=== PATIENT | female | born 1950 | race Caucasian/White ===

== ENCOUNTER → 2019-09-01 15:53 | Outpatient (BNVA) | payer MEDICARE, OTHER, SELFPAY | PROVIDERS: Family Provider Internal Medicine; Visit Provider Obstetrics & Gynecology | DX: R32 Unspecified urinary incontinence (principal) | CPT/HCPCS: 80053; 87077; 87086; 87186 ==

== ENCOUNTER 2020-08-09 01:31 | Inpatient (IN) | payer MEDICARE, OTHER, SELFPAY ==
[2020-08-09] VITALS (9 sets, daily range): BP systolic 98–119; BP diastolic 57–64; PULSE 68–95; RESP 16–24; TEMP 36.3–37.1; O2SAT 93–97; BMI 17.8
--- NOTE | 2020-08-09 01:42 | XRR_ITS ---
PROCEDURE INFORMATION: Exam: XR Chest Exam date and time: 08/09/2020 1:44 AM Age: 70 years old Clinical indication: Patient HX: General weakness TECHNIQUE: Imaging protocol: XR of the chest. Views: 1 view. COMPARISON: No relevant prior studies available. FINDINGS: Lungs: The lungs are somewhat hyperinflated with increased interstitial markings, likely representing COPD. No evidence of focal consolidation to suggest pneumonia. Pleural spaces: Unremarkable. No pleural effusion. No pneumothorax. Heart/Mediastinum: Unremarkable. No cardiomegaly. Bones/joints: Unremarkable. XR/XR chest 1V portable [id number] IMPRESSION: No evidence of focal consolidation. COPD changes.
--- NOTE | 2020-08-09 01:43 | ECG_ITS ---
[facility] Test Date: 2020-08-09 Pat Name: Nereyda Caceres Department: Room: Gender: Female Reel Winder: : 1950 Requested By: Neftali Kate Order Number: [id number] John MD: Herman Sprague M.D. Measurements Intervals [place] Rate: 76 P: 72 IN: 158 QRS: 23 QRSD: 106 T: 22 QT: 396 QTc: 446 Interpretive Statements SINUS RHYTHM No previous ECG available for comparison Electronically Signed On 08-09-2020 21:54:53 CDT by Herman Sprague M.D. [id number]
--- NOTE | 2020-08-09 01:44 | ED_ITS ---
HPI - Nausea/Vomiting/Diarrhea General: Chief complaint: Nausea/Vomiting/Diarrhea Stated complaint: difficulty walking, dry heaving, chills Time Seen by Provider: 08/09/20 01:37 Source: patient Mode of arrival: ambulatory Limitations: no limitations History of Present Illness: HPI Narrative: 70-year-old female states that over the last day she has just been feeling weak and dehydrated. She states that she has not had much oral intake and felt extremely weak tonight. States she is having difficulty getting out of a chair or walking. She was able to walk in here. She has had nausea with dry heaves. She denies any fevers. Denies any chest pain. She has had some sweats. Associated nausea: Yes Associated symtoms: Reports nausea; Denies chest pain, dysuria or headache(s) Review of Systems Const: Reports: chills; Denies: fever(s), body aches or change in appetite Eyes: Denies: blurry vision or eye discomfort ENMT: Denies: throat pain or dental pain Card: Denies: chest pain Resp: Denies: dyspnea GI: Reports: nausea; Denies: abdominal pain, vomiting or diarrhea : Denies: dysuria Musc: Denies: neck pain or back pain Skin/Breast: Denies: rash Neuro: Reports: weakness in extremities; Denies: headache(s) Psych: Denies: depression Davian/Lymph: Denies: easy bruising All/Imm: Denies: urticaria PFSH ED PFSH: Medical History CREST syndrome Diabetes mellitus Squamous cell carcinoma of skin of chest Surgical History History of hand surgery (~2012) Ruptured tendons of right hand History of hysteroscopy (10/18/12) With D&C. Negative evaluation. Dx: Postmenopausal bleeding. Performed by Dr. Daugherty at [facility]. History of tubal ligation (~1975) Family History Grandmother Diabetes Paternal CAD (coronary artery disease) Maternal Grandfather Diabetes Maternal CAD (coronary artery disease) Maternal Family/Other Stroke Maternal aunt Brother Hyperlipidemia Mother CAD (coronary artery disease) Social History Smoking and tobacco status: never smoked Alcohol intake: current Alcohol intake frequency: holidays/special occasions only Physical Exam Const: COMMON NORMALS: no acute distress, patient oriented x3 and healthy appearing HENMT: COMMON NORMALS: normocephalic and atraumatic HEAD & SCALP: normocephalic and atraumatic Eye: COMMON NORMALS: Equal, round and reactive pupils present and EOMs intact bilaterally PUPIL: Yes Equal, round and reactive pupils present Neck/C-Spine: COMMON NORMALS: full ROM and supple Chest: COMMONS NORMALS: normal inspection of the chest and normal palpation of entire chest wall Resp: COMMON NORMALS: normal respiratory effort, No retractions, No use of accessory muscles and clear to auscultation bilaterally AUSCULTATION: clear to auscultation bilaterally Cardio: COMMON NORMALS: regular rate, regular rhythm and No murmurs present (Cardio) RATE: regular rate RHYTHM: regular rhythm GI: COMMON NORMALS: Normal to inspection, nondistended, normoactive bowel sounds present, Soft to palpation, non-tender and no masses PALPATION: Yes Soft to palpation Extremity: COMMON NORMALS: normal to inspection and full ROM Neuro: COMMON NORMALS: patient oriented x3, moves all extremities and no focal motor deficits Psych: COMMON NORMALS: mental status grossly normal, Normal thought process present and cooperative THOUGHT PROCESS: Normal thought process present Skin: COMMON NORMALS: no rashes or lesions noted and no wounds GENERAL SKIN EXAM: no rashes or lesions noted Course Vital Signs: Vital signs: Vital Signs Pulse Rate 83 08/09/20 01:32 Respiratory Rate 16 08/09/20 01:32 Blood Pressure 114/60 08/09/20 01:32 Pulse Oximetry 93 08/09/20 01:32 MDM - Nausea/Vomiting/Diarrhea MDM Narrative: Medical decision making narrative: Patient presents here with feeling generally unwell with elevated white count was found to have pyelonephritis. Patient's lactate here is normal and blood pressures been normal as well. Spoke to hospitalist will start on IV antibiotics. She had no more vomiting here. Lab Data: Labs: Lab Results 08/09/20 08/09/20 08/09/20 Range/Units 02:06 02:06 02:06 WBC 19.5 H (4.0-10.0) 10^3/ uL RBC 4.09 L (4.1-5.3) 10^6/u L Hgb 12.2 (11.5-15.3) g/dL Hct 36.4 L (37.0-47.0) % MCV 89.0 (81-99) fL MCH 29.8 (28.0-34.0) pg MCHC 33.5 (30.0-36.0) g/dL RDW 14.6 (12.1-15.1) % Plt Count 222 (130-400) 10^3/c mm MPV 9.8 (7.4-10.4) fL Neut % (Auto) 87.7 % Lymph % (Auto) 1.2 % [place] % (Auto) 9.7 % Eos % (Auto) 0.1 % Baso % (Auto) 0.4 % Neut # (Auto) 17.13 H (1.8-7.7) 10^3/u L Lymph # (Auto) 0.2 L (0.8-4.8) 10^3/u L [place] # (Auto) 1.9 H (0.2-0.9) 10^3/u L Eos # (Auto) 0.0 (0.0-0.8) 10^3/u L Baso # (Auto) 0.1 (0.0-0.1) 10^3/u L Nucleated RBC % (a uto) 0 % Nucleated RBCs # 0.0 /100WBC Sodium 137 (136-145) mmol/L Potassium 3.6 (3.5-5.1) mmol/L Chloride 102 (98-107) mmol/L Carbon Dioxide 23 (22-29) mmol/L Anion Gap 15.6 (5-19) BUN 23 (8-23) mg/dL Creatinine 0.7 (0.5-0.9) mg/dL GFR Calculation Not Reportable Glucose 122 H (65-115) mg/dL Calculated Osmolal ity 289 (285-295) mOsm/k g Lactate (0.5-2.2) mmol/L Calcium 9.0 (8.5-10.5) mg/dL Magnesium 1.9 (1.7-2.3) mg/dL Total Bilirubin 0.6 (0.15-1.2) mg/dL AST 30 (0-32) U/L ALT 22 (0-33) U/L Alkaline Phosphata se 99 (35-105) IU/L Troponin T Baselin e 15 H (0-10) ng/L Total Protein 7.0 (6.6-8.7) g/dL Albumin 4.1 (3.5-5.2) g/dL Globulin 2.9 (1.3-4.6) g/dL TSH 1.95 (0.27-4.20) uIU/ mL Urine Color (Yellow) Urine Appearance (CLEAR) Urine pH (5-7) Ur Specific Gravit y (1.005-1.030) Urine Protein (Negative) Urine Glucose (UA) (Normal) Urine Ketones (Negative) Urine Blood (Negative) Urine Nitrate (Negative) Urine Bilirubin (Negative) Urine Urobilinogen (Negative) mg/dL Ur Leukocyte Cris ase (Negative) Urine RBC (0-2) /hpf Urine WBC (0-5) /hpf Ur Squamous Epith Cells (0-5) /hpf Amorphous Sediment Urine Bacteria (NONE) /hpf 08/09/20 08/09/20 Range/Units 02:28 03:40 WBC (4.0-10.0) 10^3/ uL RBC (4.1-5.3) 10^6/u L Hgb (11.5-15.3) g/dL Hct (37.0-47.0) % MCV (81-99) fL MCH (28.0-34.0) pg MCHC (30.0-36.0) g/dL RDW (12.1-15.1) % Plt Count (130-400) 10^3/c mm MPV (7.4-10.4) fL Neut % (Auto) % Lymph % (Auto) % [place] % (Auto) % Eos % (Auto) % Baso % (Auto) % Neut # (Auto) (1.8-7.7) 10^3/u L Lymph # (Auto) (0.8-4.8) 10^3/u L [place] # (Auto) (0.2-0.9) 10^3/u L Eos # (Auto) (0.0-0.8) 10^3/u L Baso # (Auto) (0.0-0.1) 10^3/u L Nucleated RBC % (a uto) % Nucleated RBCs # /100WBC Sodium (136-145) mmol/L Potassium (3.5-5.1) mmol/L Chloride (98-107) mmol/L Carbon Dioxide (22-29) mmol/L Anion Gap (5-19) BUN (8-23) mg/dL Creatinine (0.5-0.9) mg/dL GFR Calculation Glucose (65-115) mg/dL Calculated Osmolal ity (285-295) mOsm/k g Lactate 1.5 (0.5-2.2) mmol/L Calcium (8.5-10.5) mg/dL Magnesium (1.7-2.3) mg/dL Total Bilirubin (0.15-1.2) mg/dL AST (0-32) U/L ALT (0-33) U/L Alkaline Phosphata se (35-105) IU/L Troponin T Baselin e (0-10) ng/L Total Protein (6.6-8.7) g/dL Albumin (3.5-5.2) g/dL Globulin (1.3-4.6) g/dL TSH (0.27-4.20) uIU/ mL Urine Color Yellow (Yellow) Urine Appearance Clear (CLEAR) Urine pH 5 (5-7) Ur Specific Gravit y 1.005 (1.005-1.030) Urine Protein 1+ H (Negative) Urine Glucose (UA) 2+ (Normal) Urine Ketones 1+ H (Negative) Urine Blood 3+ H (Negative) Urine Nitrate Positive H (Negative) Urine Bilirubin Neg (Negative) Urine Urobilinogen Norm (Negative) mg/dL Ur Leukocyte Cris ase 2+ H (Negative) Urine RBC 15-25 H (0-2) /hpf Urine WBC 40-55 H (0-5) /hpf Ur Squamous Epith Cells 5-10 H (0-5) /hpf Amorphous Sediment Not Reportable Urine Bacteria 3+ H (NONE) /hpf Imaging Data^: CT Abd/Pel: Radiologist's impression: [address] [place] [address] CT Scan Report Signed Patient: Nereyda Caceres Unit #: [id number] : 1950 Age/Sex: 70 / F ADM Date: 08/09/20 Loc: ER Room/Bed: Attending Dr: Ordering Provider/Ordering MD: Neftali Kate MD Date of Service: 08/09/20 Procedure(s): CT abdomen pelvis w con* [id number] Accession Number(s): [id number] Report Number: [id number] PROCEDURE INFORMATION: Exam: CT Abdomen And Pelvis With Contrast Exam date and time: 08/09/2020 2:15 AM Age: 70 years old Clinical indication: Abnormal findings; Abnormal lab test; Nausea and vomiting; Prior surgery; Surgery type: Tubal ligation; Patient HX: N/v/d. Elevated wbc. ; Additional info: Abd pain TECHNIQUE: Imaging protocol: Computed tomography of the abdomen and pelvis with contrast. Radiation optimization: All CT scans at this facility use at least one of these dose optimization techniques: automated exposure control; mA and/or kV adjustment per patient size (includes targeted exams where dose is matched to clinical indication); or iterative reconstruction. Contrast material: OMNI 300; Contrast volume: 75 ml; Contrast route: INTRAVENOUS (IV); COMPARISON: No relevant prior studies available. RADIATION DOSE METRICS: Total DLP (mGy-cm): 706.97 FINDINGS: Liver: Normal. No mass. Gallbladder and bile ducts: Normal. No calcified stones. No ductal dilation. Pancreas: Normal. No ductal dilation. Spleen: Normal. No splenomegaly. Adrenal glands: Normal. No mass. Kidneys and ureters: There is patchy heterogeneous attenuation of the kidneys, in association with mild wall enhancement of the collecting system bilaterally, consistent with pyelonephritis. No hydronephrosis or nephrolithiasis. Stomach and bowel: Unremarkable. No obstruction. No mucosal thickening. Appendix: No evidence of appendicitis. Intraperitoneal space: Unremarkable. No free air. No significant fluid collection. Vasculature: Mild diffuse atherosclerotic disease is present. There is a 1.1 cm round calcification at the splenic hilum, which may represent a calcified lymph node or calcified splenic artery aneurysm. Lymph nodes: Unremarkable. No enlarged lymph nodes. Urinary bladder: Unremarkable as visualized. Reproductive: Calcified uterine fibroid noted. Bones/joints: Trace levocurvature of the lumbar spine is present. Soft tissues: Unremarkable. CT/CT abdomen pelvis w con* [id number] IMPRESSION: Imaging findings of bilateral pyelonephritis. Clinical correlation is recommended. EKG Data^: EKG 1: Attestation: I personally reviewed and interpreted this EKG as follows: EKG interpretation date: 08/09/20 EKG interpretation time: 02:14 Interpretation: nsr hr [address] or t wave abnormalities qrs 106 qtc 426 Discharge Plan Discharge Patient Disposition: Admitted As Inpatient Clinical Impression: Acute pyelonephritis Condition: Stable Coding Level of Care Code ED Accounts Payable Assistant for Chg Fwd Exam Comprehensive
[2020-08-09] MEDS: sodium chloride 0.9% 1,000 ML 999 ML IV ×2 (02:05→03:15)
[2020-08-09 02:12] LABS: Basophils # 0.1 10^3/uL (0.0-0.1); Basophils % 0.4 %; Eosinophils % 0.1 %; Hematocrit 36.4 % (37.0-47.0); Hemoglobin 12.2 g/dL (11.5-15.3); Lymphocytes # 0.2 10^3/uL (0.8-4.8); Lymphocytes % 1.2 %; Mean Corpuscular HGB Conc 33.5 g/dL (30.0-36.0); Mean Corpuscular Hemoglobin 29.8 pg (28.0-34.0); Mean Platelet Volume 9.8 fL (7.4-10.4); Monocytes # 1.9 10^3/uL (0.2-0.9); Monocytes % 9.7 %; Neutrophils # 17.13 10^3/uL (1.8-7.7); Neutrophils % 87.7 %; Nucleated Red Blood Cells % 0 %; Platelet Count 222 10^3/cmm (130-400); Red Blood Count 4.09 10^6/uL (4.1-5.3); Red Cell Distribution Width 14.6 % (12.1-15.1); White Blood Count 19.5 10^3/uL (4.0-10.0)
--- NOTE | 2020-08-09 02:14 | CTR_ITS ---
PROCEDURE INFORMATION: Exam: CT Abdomen And Pelvis With Contrast Exam date and time: 08/09/2020 2:15 AM Age: 70 years old Clinical indication: Abnormal findings; Abnormal lab test; Nausea and vomiting; Prior surgery; Surgery type: Tubal ligation; Patient HX: N/v/d. Elevated wbc. ; Additional info: Abd pain TECHNIQUE: Imaging protocol: Computed tomography of the abdomen and pelvis with contrast. Radiation optimization: All CT scans at this facility use at least one of these dose optimization techniques: automated exposure control; mA and/or kV adjustment per patient size (includes targeted exams where dose is matched to clinical indication); or iterative reconstruction. Contrast material: OMNI 300; Contrast volume: 75 ml; Contrast route: INTRAVENOUS (IV); COMPARISON: No relevant prior studies available. RADIATION DOSE METRICS: Total DLP (mGy-cm): 706.97 FINDINGS: Liver: Normal. No mass. Gallbladder and bile ducts: Normal. No calcified stones. No ductal dilation. Pancreas: Normal. No ductal dilation. Spleen: Normal. No splenomegaly. Adrenal glands: Normal. No mass. Kidneys and ureters: There is patchy heterogeneous attenuation of the kidneys, in association with mild wall enhancement of the collecting system bilaterally, consistent with pyelonephritis. No hydronephrosis or nephrolithiasis. Stomach and bowel: Unremarkable. No obstruction. No mucosal thickening. Appendix: No evidence of appendicitis. Intraperitoneal space: Unremarkable. No free air. No significant fluid collection. Vasculature: Mild diffuse atherosclerotic disease is present. There is a 1.1 cm round calcification at the splenic hilum, which may represent a calcified lymph node or calcified splenic artery aneurysm. Lymph nodes: Unremarkable. No enlarged lymph nodes. Urinary bladder: Unremarkable as visualized. Reproductive: Calcified uterine fibroid noted. Bones/joints: Trace levocurvature of the lumbar spine is present. Soft tissues: Unremarkable. CT/CT abdomen pelvis w con* [id number] IMPRESSION: Imaging findings of bilateral pyelonephritis. Clinical correlation is recommended. Radiation Dose CTDIVOL = (mGy): DLP = 706.97 (mGy-cm)
--- NOTE | 2020-08-09 02:18 | PC.NURSE ---
EKG taken and given to Dr. Kate
[2020-08-09 02:34] LABS: Troponin(5th) Baseline 15 ng/L (0-10)
[2020-08-09 02:41] LABS: Alanine Aminotransferase 22 U/L (0-33); Albumin Level 4.1 g/dL (3.5-5.2); Alkaline Phosphatase 99 IU/L (35-105); Anion Gap 15.6 (5-19); Aspartate Amino Transferase 30 U/L (0-32); Blood Urea Nitrogen 23 mg/dL (8-23); Carbon Dioxide 23 mmol/L (22-29); Chloride 102 mmol/L (98-107); Globulin 2.9 g/dL (1.3-4.6); Glucose 122 mg/dL (65-115); Magnesium 1.9 mg/dL (1.7-2.3); Osmolality Calculated 289 mOsm/kg (285-295); Potassium 3.6 mmol/L (3.5-5.1); Sodium 137 mmol/L (136-145); Thyroid Stimulating Hormone 1.95 uIU/mL (0.27-4.20); Total Bilirubin 0.6 mg/dL (0.15-1.2)
[2020-08-09 02:54] LABS: Lactate (Lactic Acid level) 1.5 mmol/L (0.5-2.2)
[2020-08-09] MEDS: iohexol 300 mg/mL 100 mL Btl IV (03:11)
[2020-08-09] MEDS: ondansetron 2 mg/ML SDV 2 mL 4 MG IVP (03:16)
[2020-08-09 03:50] LABS: Glucose Urine UA 2+ (Normal); Ketones Urine 1+ (Negative); Protein Urine 1+ (Negative); Specific Gravity, Urine 1.005 (1.005-1.030); Urine Appearance Clear (CLEAR); Urine Color Yellow (Yellow); pH Urine 5 (5-7)
[2020-08-09 03:51] LABS: Add Urine Microscopic? YES; Bilirubin Urine Neg (Negative); Blood Urine 3+ (Negative); Leukocyte Esterase Urine 2+ (Negative); Nitrate Urine Positive (Negative); RBC Urine 15-25 /hpf (0-2); Urobilinogen Urine Norm (Negative)
[2020-08-09 03:52] LABS: Add Urine Culture? Yes; Bacteria Urine 3+ /hpf; WBC Urine 40-55 /hpf (0-5)
[2020-08-09 06:24] LABS: Troponin 5 2HR 11.27 ng/L (0-10)
[2020-08-09 06:28] LABS: Troponin 5 2HR Delta -3.73 ABS# (0-10)
--- NOTE | 2020-08-09 06:29 | PM.HP ---
Providers/Chief Complaint Admitting Physician: China Jaquez MD Primary Care Provider: Warner Harper DO Chief Complaint: difficulty walking, dry heaving, chills History of Present Illness Nereyda Caceres is a 70 year old female with PMH scleroderma currently on HCQS and MTX, urinary incontinence, presnted to the ER today wih c/o chills, sweating, nausea, dry heaves and abdominal pain over the last 3 days to the point of being unable to get out of her chair. Long standing urinary incontinence+. No h/o recurrent UTI, last episode in 08/2019. Diagnostics in the ER showed + UA, leukocytosis, CT abdomen with B/L pyelonephritis, no obstructive process identified. ROS negative for chest pain, dyspnea, cough, diarrhea, dysuria, URI symptoms, rashes. Review of Systems General: Reports: 10 or more systems reviewed and unremarkable except in HPI and below Const: Denies: fever(s), chills or body aches Eyes: Denies: change in vision, blurry vision or photophobia ENMT: Reports: hoarseness; Denies: throat pain, enlarged tonsils, odynophagia or nasal congestion Card: Denies: chest pain, palpitations, irregular heart rhythm, edema, swelling of feet/ankles, lightheadedness, pre-syncope, dyspnea on exertion or orthopnea Resp: Denies: dyspnea, productive cough, non-productive cough, wheezing, stridor, pain on inspiration, change in phlegm color, hemoptysis or chest congestion GI: Denies: abdominal pain, nausea, vomiting, hematemesis, coffee ground emesis, dysphagia, heartburn, diarrhea, constipation, GI cramping, change in stool character, hematochezia or melena : Denies: flank pain, difficulty voiding, dysuria, urinary frequency, urinary urgency, urinary hesitancy or hematuria Musc: Denies: neck pain, back pain, extremity pain, joint swelling, joint warmth or deformity Neuro: Denies: headache(s), numbness in extremities, weakness in extremities, sensory changes, difficulty walking, frequent falls, dizziness, vertigo, behavioral changes, Slurred speech present or seizure-like activity Psych: Denies: anxiety, depression, suicidal ideation or homicidal ideation Endo: Denies: polyuria, polydipsia, tired all the time, cold intolerance or hot flashes Davian/Lymph: Denies: easy bruising or easy bleeding Medications/Allergies Home Medications Medication Instructions Recorded Confirmed Last Taken Type celecoxib 200 mg capsule 200 mg PO BID 09/01/19 08/09/20 08/08/20 23:00 History cevimeline 30 mg capsule 1 cap PO TID 09/01/19 08/09/20 08/08/20 23:00 History citalopram 20 mg tablet 20 mg PO DAILY 09/01/19 08/09/20 08/08/20 11:00 History donepezil 10 mg tablet 10 mg PO BEDTIME 09/01/19 08/09/20 08/08/20 23:00 History hydroxychloroquine 200 mg tablet 200 mg PO BID 09/01/19 08/09/20 08/08/20 23:00 History methotrexate (PF) 7.5 mg/0.15 mL See Rx Instructions SUBCUT .COMPLEX 09/01/19 08/09/20 08/02/20 11:00 History subcutaneous auto-injector pantoprazole 40 mg tablet,delayed 40 mg PO DAILY 09/01/19 08/09/20 Unknown History release Diabetic shoe with 3 pairs of #1 ea 06/25/20 06/25/20 Unknown Rx insterts folic acid 3 mg PO DAILY 08/09/20 08/09/20 08/08/20 16:00 History memantine 10 mg PO BID 08/09/20 08/09/20 08/08/20 23:00 History montelukast 10 mg PO DAILY PRN 08/09/20 08/09/20 08/08/20 11:00 History Allergies Allergy/AdvReac Type Severity Reaction Status Date / Time cefditoren [From Spectracef] Allergy Rash Verified 06/25/20 10:34 ceftriaxone [From Rocephin] Allergy Unknown Verified 06/25/20 10:34 cephalexin Allergy Rash Verified 06/25/20 10:34 clindamycin Allergy Unknown Verified 06/25/20 10:34 levofloxacin Allergy Unknown Verified 06/25/20 10:34 PFSH Acute PFSH: Medical History CREST syndrome Diabetes mellitus Squamous cell carcinoma of skin of chest Surgical History History of hand surgery (~2012) Ruptured tendons of right hand History of hysteroscopy (10/18/12) With D&C. Negative evaluation. Dx: Postmenopausal bleeding. Performed by Dr. Daugherty at [facility] [place]. History of tubal ligation (~1975) Family History Grandmother Diabetes Paternal CAD (coronary artery disease) Maternal Grandfather Diabetes Maternal CAD (coronary artery disease) Maternal Family/Other Stroke Maternal aunt Brother Hyperlipidemia Mother CAD (coronary artery disease) Social History Smoking and tobacco status: never smoked Alcohol intake: current Alcohol intake frequency: holidays/special occasions only Vitals/I&O/Wt Last Vital Signs Temp 97.3 F L 08/09/20 05:04 Pulse 84 08/09/20 05:04 Resp 17 08/09/20 05:04 BP 119/63 08/09/20 05:04 Pulse Ox 97 08/09/20 05:04 08/08/20 08/08/20 08/09/20 14:59 22:59 06:59 Intake Total 2099 / 2099 Balance 2099 / 2099 Weight last 48 hrs Weight 51.71 kg Physical Exam Narrative: EXAM NARRATIVE: General: No acute distress, frail lady lying in bed HEENT: PERRLA, pupils bilaterally equal and reactive, pallors not present Chest: Normal vesicular breath sounds, no added sounds, equal good air entry bilaterally CVS: S1-S2 regular, no murmurs, no tachycardia, no gallops, no rubs Abdomen: Soft, nontender, no organomegaly, bowel sounds present, tender to palpation in left costophrenic angle Neuro: No focal deficits, no facial deformity, AO x3, power 5/5 in all limbs Extremities: scattered maculopapular rash over B/L cheeks, not new accorfing to patient Data : 08/09/20 02:06 08/09/20 02:06 Micro: Microbiology 08/09/20 02:42 Blood Culture - Preliminary Blood SPECIMEN COLLECTED 08/09/20 02:28 Blood Culture - Preliminary Blood SPECIMEN COLLECTED A&P Assessment and plan (1) Acute pyelonephritis: + UA, + costophrenic angle tenderness, leukocytosis, constitutional symptoms and CT point towards pyelonephritis. Awaiting urine cx Empiric imipenem in the interim given listed allergies to cephalosporins Previous urine cx with Klebsiella pneumoniae from 2019 Status: Acute (2) Diabetes mellitus with diabetic polyneuropathy: Insulin sliding scale for now Status: Acute Qualifiers: Diabetes mellitus type: type 2 Diabetes mellitus custodial insulin use: with equipment operator intermodal yard use Qualified Code(s): E11.42 - Type 2 diabetes mellitus with diabetic polyneuropathy; Z79.4 - jail (current) use of insulin (3) Urinary incontinence: Status: Acute Qualifiers: Urinary Incontinence type: unspecified incontinence Qualified Code(s): R32 - Unspecified urinary incontinence (4) CREST syndrome: Hold methotrexate, continue HCQS continue cevimeline Status: Acute Additional A&P Information DVT ppx: lovenox Full code Attestations Medical Necessity Statement*: >2 midnight anticipaited for need for iv antibiotics, in hydration, poor po intake in the setting of pyelonephritis Coding Level of Care Code Acute Multiple Drum Sander for [facility] Diagnoses Acute pyelonephritis N10 Diabetes mellitus with diabetic polyneuropathy E11.42; Z79.4 Diabetes mellitus type: type 2 Diabetes mellitus custodial insulin use: with equipment operator intermodal yard use Urinary incontinence R32 Urinary Incontinence type: unspecified incontinence CREST syndrome M34.1
--- NOTE | 2020-08-09 07:43 | ECG_ITS ---
[facility] ED Test Date: 2020-08-09 Pat Name: Nereyda Caceres Department: Room: 264 Gender: Female Director Integrated: : 1950 Requested By: Neftali Kate Order Number: [id number] John MD: Josy Daniel M.D. Measurements Intervals [place] Rate: 82 P: 73 CA: 157 QRS: 42 QRSD: 100 T: 42 QT: 369 QTc: 433 Interpretive Statements SINUS RHYTHM LOW QRS VOLTAGE IN EXTREMITY LEADS [QRS DEFLECTION < 0.5 mV IN LIMB LEADS] Compared to ECG 08/09/2020 02:14:48 Low QRS voltage now present Electronically Signed On 08-14-2020 7:11:12 CDT by Josy Daniel M.D. [id number]
[2020-08-09] MEDS: citalopram 20 mg Tablet PO (08:16)
[2020-08-09] MEDS: pantoprazole DR 40 mg Tablet PO (08:16)
[2020-08-09] MEDS: memantine 5 mg tablet 10 MG PO ×2 (08:16→17:04)
[2020-08-09] MEDS: enoxaparin 40 mg/0.4 mL Syringe SUBCUT (08:17)
[2020-08-09] MEDS: folic acid 1 mg Tablet 3 MG PO (08:19)
[2020-08-09] MEDS: dextrose 5%-sod chloride 0.9% 1,000 ML 75 ML IV ×2 (08:20→23:13)
[2020-08-09] MEDS: hydroxychloroquine 200 mg Tablet PO ×2 (08:27→17:04)
[2020-08-09 08:52] LABS: Troponin 5 6HR 20.49 ng/L (0-10); Troponin 5 6HR Delta 5.49 ng/L (0-12)
--- NOTE | 2020-08-09 12:31 | PC.CHAP ---
Pastoral Care Encounter/Spiritual Assessment Type of Contact [] Declined ceramic products sales engineer visit [] Patient/Family/Request visit [] Outpatient visit [] Follow-up visit [] Physician referral [] Code/Alert [xx] Routine visit [] Staff referral [] Actively dying [] Patient sleeping [] Family support [] [] Out of room [] Palliative care [] [] Receiving care in room [] Pre-surgical visit [] Trauma [] Long length of stay [] ICU visit [] Other: Relational/Emotional Strength [xx] Patient feels connected with others/family/visitors/staff [] Distress [] Loneliness/isolation [] Abandonment Spirituality of Patient [xx] Person of Gretel [] Attends Catholic of their Gretel [xx] Believes in Prayer [] Reads Bible or Synagogue materials [] There are Spiritual issues to be addressed Creative Art Therapist Interventions [xx] Prayer [xx] Active listening [xx] Non-anxious presence [] Spiritual/emotional support [] Crisis/trauma care [] Spiritual counseling [] Bereavement support [] Provided bereavement packet [] Provided Bible/devotional materials [] Provided toy/stuffed animal, coloring book to patient or family member [] Provided Communion [] Anointing/[place] [] Salvation [xx] Completed spiritual assessment [] Other: Impact on Illness or Injury [] Angry [] Fearful [] Anxious [] Often cries [] Exhaustion [] Unable to work [] Unable to attend tenriism [] Unable to walk/stand [] Unable to read [] Unable to drive [] Unable to eat/drink [] Unable to sleep [] Unable to be with family [] Patient intubated [] Other: Summary Patient anticipates hospital stay of 2 or 3 days more. She expects tests to be conducted but mostly monitoring of her condition. She requested prayer that all goes well and her stay will be shortened. Time spent with patient 5 minutes
--- NOTE | 2020-08-09 19:09 | PC.NURSE ---
Report to Beba DEWYE at this time.
--- NOTE | 2020-08-09 20:47 | PM.PN ---
Subjective Subjective: Interval history: Patient seen and examined. She thinks she is feeling better but tired. No more vomiting or nausea. Mouth is dry. She is tolerating water. Home medications were reviewed. We will add some Biotene and lip ointment. She has artificial tears at the bedside. No fever today. Sitting up in bed. Able to open up mouth further that I thought she would be able to converse looking at her. Speech is clear particularly after a sip of water. Lungs are clear. Regular rhythm. Abdomen is soft, mildly tender left flank. Skin is dry with chronic changes. Continue current management. We will follow up cultures. Vitals/I&O/Wt Last Vital Signs Temp 98.0 F 08/09/20 19:28 Pulse 68 08/09/20 19:28 Resp 18 08/09/20 19:28 BP 98/59 08/09/20 19:28 Pulse Ox 97 08/09/20 19:28 08/09/20 08/09/20 08/09/20 06:59 14:59 22:59 Intake Total 2099 621.25 / 621.25 460 / 1081.25 Balance 2099 621.25 / 621.25 460 / 1081.25 Weight last 48 hrs Weight 51.71 kg Data : 08/09/20 02:06 08/09/20 02:06 Micro: Microbiology 08/09/20 02:28 Blood Culture - Preliminary Blood Gram Negative Rods 08/09/20 02:42 Blood Culture - Preliminary Blood Gram Negative Rods Attestations Medical Necessity Statement*: Admitted today. Coding Level of Care Code Acute Financial Administration Officer for William Tong
[2020-08-09] MEDS: donepezil 5 MG Tablet 10 MG PO (21:20)
[2020-08-10] VITALS: BP 103/64; PULSE 63; RESP 20; TEMP 36.4; O2SAT 96
[2020-08-10 04:00] VITALS: BP 101/60; PULSE 62; RESP 20; TEMP 36.3; O2SAT 95
[2020-08-10 05:01] LABS: Basophils # 0.1 10^3/uL (0.0-0.1); Basophils % 0.5 %; Hematocrit 29.8 % (37.0-47.0); Hemoglobin 9.9 g/dL (11.5-15.3); Lymphocytes # 1.1 10^3/uL (0.8-4.8); Lymphocytes % 4.9 %; Mean Corpuscular HGB Conc 33.2 g/dL (30.0-36.0); Mean Corpuscular Hemoglobin 29.9 pg (28.0-34.0); Mean Platelet Volume 10.6 fL (7.4-10.4); Monocytes # 2.6 10^3/uL (0.2-0.9); Monocytes % 11.2 %; Neutrophils # 18.71 10^3/uL (1.8-7.7); Neutrophils % 81.7 %; Nucleated Red Blood Cells % 0 %; Platelet Count 173 10^3/cmm (130-400); Red Blood Count 3.31 10^6/uL (4.1-5.3); Red Cell Distribution Width 15.1 % (12.1-15.1); White Blood Count 22.9 10^3/uL (4.0-10.0)
[2020-08-10 05:24] LABS: Alanine Aminotransferase 39 U/L (0-33); Albumin Level 2.6 g/dL (3.5-5.2); Alkaline Phosphatase 107 IU/L (35-105); Aspartate Amino Transferase 43 U/L (0-32); Blood Urea Nitrogen 18 mg/dL (8-23); Calcium 7.7 mg/dL (8.5-10.5); Carbon Dioxide 23 mmol/L (22-29); Chloride 108 mmol/L (98-107); Globulin 2.6 g/dL (1.3-4.6); Glucose 152 mg/dL (65-115); Osmolality Calculated 287 mOsm/kg (285-295); Sodium 136 mmol/L (136-145); Total Bilirubin 0.3 mg/dL (0.15-1.2); Total Protein 5.2 g/dL (6.6-8.7)
[2020-08-10 08:00] VITALS: BP 102/69; PULSE 64; RESP 18; TEMP 36.5
[2020-08-10] MEDS: pantoprazole DR 40 mg Tablet PO (08:13)
[2020-08-10] MEDS: folic acid 1 mg Tablet 3 MG PO (08:13)
[2020-08-10] MEDS: enoxaparin 40 mg/0.4 mL Syringe SUBCUT (08:13)
[2020-08-10] MEDS: citalopram 20 mg Tablet PO (08:13)
[2020-08-10] MEDS: memantine 5 mg tablet 10 MG PO ×2 (08:13→18:06)
[2020-08-10] MEDS: hydroxychloroquine 200 mg Tablet PO ×2 (08:16→18:06)
[2020-08-10 12:00] VITALS: BP 103/70; RESP 18; TEMP 36.5
[2020-08-10 16:00] VITALS: BP 112/70; PULSE 70; RESP 18; TEMP 36.9
[2020-08-10] MEDS: lanolin oint 7 gm 1 APPLIC TOPICAL (16:26)
[2020-08-10] MEDS: dextrose 5%-sod chloride 0.9% 1,000 ML 75 ML IV (18:05)
[2020-08-10 19:51] VITALS: BP 121/72; PULSE 66; RESP 18; TEMP 36.9; O2SAT 97
[2020-08-10] MEDS: donepezil 5 MG Tablet 10 MG PO (21:15)
--- NOTE | 2020-08-10 21:17 | P.PN_ITS ---
Subjective Subjective: Interval history: Feels better today. No more nausea and vomiting. Still has some left-sided flank pain. Has questions about how she might have currently urinary tract infection. We talked about changes as women get older and changes associated with dry membranes. CT imaging did not reveal any other obvious reasons for UTI. I also talked her about being immunosuppre ssed as well. Urine is growing gram-negative rods. White count has increased slightly though differential has improved. Medications: Reviewed: Yes Medication Review Details: Antibiotics: Primaxin day 2 Vitals/I&O/Wt Last Vital Signs Temp 98.5 F 08/10/20 19:51 Pulse 66 08/10/20 19:51 Resp 18 08/10/20 19:51 BP 121/72 08/10/20 19:51 Pulse Ox 97 08/10/20 19:51 08/10/20 08/10/20 08/10/20 06:59 14:59 22:59 Intake Total 1038.75 / 2120.00 1088.75 / 1088.75 100 / 1188.75 Balance 1038.75 / 2120.00 1088.75 / 1088.75 100 / 1188.75 Weight last 48 hrs Weight 51.71 kg Physical Exam Narrative: EXAM NARRATIVE: Constitutional: Awake and alert, less ill-appearing HEENT: Dry lips and mucous membranes Respiratory: Clear to auscultation bilaterally Cardiovascular: Regular rhythm, no murmurs Abdomen: Left flank pain and left lower quadrant pain today, no rebound or guarding, positive bowel sounds Extremities: No edema, chronic skin changes noted Neuro: Speech clear, face symmetric, moves all extremities Data : 08/10/20 04:20 08/10/20 04:20 Micro: Microbiology 08/09/20 03:40 Urine Culture - Preliminary Urine,Clean Catch Gram Negative Rods 08/09/20 02:42 Blood Culture - Preliminary Blood Gram Negative Rods 08/09/20 02:28 Blood Culture - Preliminary Blood Gram Negative Rods A&P Assessment and plan (1) Acute pyelonephritis: Status: Acute (2) Urinary incontinence: Status: Chronic Qualifiers: Urinary Incontinence type: unspecified incontinence Qualified Code(s): R32 - Unspecified urinary incontinence (3) CREST syndrome: Hold methotrexate, continue HCQS continue cevimeline Status: Chronic (4) Diabetes mellitus with diabetic polyneuropathy: Insulin sliding scale for now Status: Chronic Qualifiers: Diabetes mellitus type: type 2 Diabetes mellitus half-way insulin use: with punch finisher use Qualified Code(s): E11.42 - Type 2 diabetes mellitus with diabetic polyneuropathy; Z79.4 - snf (current) use of insulin Additional A&P Information Slight elevation in LFTs Continue Primaxin Continue fluids but decrease rate Follow-up urine culture Consider options to decrease risk of recurrence Home methotrexate held, remains on Plaquenil Have ordered Biotene and lanolin, artificial tears Chronically on PPI Resume home Celebrex given stable renal function On home Aricept and Namenda Sliding scale insulin currently just to monitor blood sugars Not on any medication at home for diabetes Recheck liver enzymes in the morning Supportive care otherwise Lovenox for DVT prophylaxis Plans discussed with patient and she was given an opportunity to ask questions Currently anticipate discharge home with outpatient follow-up Full code Attestations Medical Necessity Statement*: Requires ongoing inpatient stay for continued IV antibiotics until we are able to ascertain appropriate outpatient therapy and she has shown continued improvement Coding Level of Care Code Acute Flight Information Expediter for William Tong Diagnoses Acute pyelonephritis N10 Urinary incontinence R32 Urinary Incontinence type: unspecified incontinence CREST syndrome M34.1 Diabetes mellitus with diabetic polyneuropathy E11.42; Z79.4 Diabetes mellitus type: type 2 Diabetes mellitus punch finisher insulin use: with half-way use
[2020-08-11] VITALS (7 sets, daily range): BP systolic 116–129; BP diastolic 66–79; PULSE 58–70; RESP 16–18; TEMP 36.7–37.5; O2SAT 94–99
[2020-08-11 05:07] LABS: Basophils # 0.1 10^3/uL (0.0-0.1); Basophils % 0.4 %; Eosinophils # 0.2 10^3/uL (0.0-0.8); Eosinophils % 1.4 %; Hematocrit 29.8 % (37.0-47.0); Hemoglobin 10.1 g/dL (11.5-15.3); Lymphocytes # 1.2 10^3/uL (0.8-4.8); Lymphocytes % 8.1 %; Mean Corpuscular HGB Conc 33.9 g/dL (30.0-36.0); Mean Corpuscular Hemoglobin 30.1 pg (28.0-34.0); Mean Corpuscular Volume 88.7 fL (81-99); Mean Platelet Volume 11.1 fL (7.4-10.4); Monocytes # 2.1 10^3/uL (0.2-0.9); Monocytes % 14.4 %; Neutrophils # 10.92 10^3/uL (1.8-7.7); Neutrophils % 75.1 %; Nucleated Red Blood Cells % 0 %; Platelet Count 167 10^3/cmm (130-400); Red Blood Count 3.36 10^6/uL (4.1-5.3); Red Cell Distribution Width 15.3 % (12.1-15.1); White Blood Count 14.5 10^3/uL (4.0-10.0)
[2020-08-11 05:27] LABS: Alanine Aminotransferase 30 U/L (0-33); Albumin Level 2.7 g/dL (3.5-5.2); Alkaline Phosphatase 103 IU/L (35-105); Aspartate Amino Transferase 31 U/L (0-32); Blood Urea Nitrogen 11 mg/dL (8-23); Calcium 7.6 mg/dL (8.5-10.5); Carbon Dioxide 21 mmol/L (22-29); Chloride 105 mmol/L (98-107); Globulin 2.4 g/dL (1.3-4.6); Glucose 162 mg/dL (65-115); Osmolality Calculated 283 mOsm/kg (285-295); Sodium 135 mmol/L (136-145); Total Bilirubin 0.3 mg/dL (0.15-1.2); Total Protein 5.1 g/dL (6.6-8.7)
[2020-08-11 07:04] LABS: Glucose Point of Care 152 mg/dL (70-110)
--- NOTE | 2020-08-11 07:52 | ECG_ITS ---
[facility] ED Test Date: 2020-08-11 Pat Name: Nereyda Caceres Department: Room: 264 Gender: Female Dairy Bar Manager: : 1950 Requested By: Renetta Schwarz Order Number: [id number] John MD: Josy Daniel M.D. Measurements Intervals [place] Rate: 57 P: 49 [place]: 147 QRS: 53 QRSD: 97 T: 37 QT: 408 QTc: 397 Interpretive Statements SINUS BRADYCARDIA Compared to ECG 08/09/2020 09:59:05 Sinus rhythm no longer present Electronically Signed On 08-14-2020 6:57:59 CDT by Josy Daniel M.D. [id number]
[2020-08-11] MEDS: hydroxychloroquine 200 mg Tablet PO ×2 (08:37→17:59)
[2020-08-11] MEDS: memantine 5 mg tablet 10 MG PO ×2 (08:37→17:59)
[2020-08-11] MEDS: folic acid 1 mg Tablet 3 MG PO (08:37)
[2020-08-11] MEDS: enoxaparin 40 mg/0.4 mL Syringe SUBCUT (08:37)
[2020-08-11] MEDS: citalopram 20 mg Tablet PO (08:37)
[2020-08-11] MEDS: pantoprazole DR 40 mg Tablet PO (08:37)
[2020-08-11] MEDS: CELEcoxib 200 mg Capsule PO ×2 (08:37→17:59)
[2020-08-11 08:47] LABS: Troponin(5th) Baseline 23 ng/L (0-10)
[2020-08-11] MEDS: dextrose 5%-sod chloride 0.9% 1,000 ML 75 ML IV ×2 (09:19→22:47)
[2020-08-11 10:56] LABS: Troponin 5 2HR 21.16 ng/L (0-10)
[2020-08-11 10:58] LABS: Troponin 5 2HR Delta -1.84 ABS# (0-10)
--- NOTE | 2020-08-11 13:52 | ECG_ITS ---
[facility] ED Test Date: 2020-08-11 Pat Name: Nereyda Caceres Department: Room: 264 Gender: Female Carrier Operator: : 1950 Requested By: Renetta Schwarz Order Number: [id number] John MD: Josy Daniel M.D. Measurements Intervals [place] Rate: 58 P: 58 [place]: 148 QRS: 58 QRSD: 93 T: 24 QT: 399 QTc: 393 Interpretive Statements SINUS BRADYCARDIA MODERATE T-WAVE ABNORMALITY, CONSIDER ANTERIOR ISCHEMIA [-0.1+ mV T WAVE IN V3/V4] Compared to ECG 08/11/2020 08:19:41 T-wave abnormality now present Possible ischemia now present Electronically Signed On 08-14-2020 7:08:42 CDT by Josy Daniel M.D. [id number]
[2020-08-11 16:15] LABS: Troponin 5 6HR 18.81 ng/L (0-10)
[2020-08-11 16:44] LABS: Troponin 5 6HR Delta -4.19 ng/L (0-12)
--- NOTE | 2020-08-11 17:22 | PM.PN ---
Subjective Subjective: Interval history: Feels better. Wanting to get up and walk around on her own. Had an episode of tightness in her chest on the left side and center area today. She does not have pain associated with her esophageal issues related to her crest syndrome usually. Serial cardiac enzymes were done today without significant delta though baseline troponin was 23. These did not show acute changes. She is chronically on a PPI. Nutrition met with her today. She is eager to learn what she can to boost her nutrition. Medications: Reviewed: Yes Medication Review Details: Antibiotics: Primaxin day 3 Vitals/I&O/Wt Last Vital Signs Temp 99.5 F 08/11/20 16:00 Pulse 60 08/11/20 16:00 Resp 18 08/11/20 16:00 BP 126/73 08/11/20 16:00 Pulse Ox 97 08/11/20 16:00 08/11/20 08/11/20 08/11/20 06:59 14:59 22:59 Intake Total 200 / 1388.75 1240 / 1240 340 / 1580 Output Total 300 / 300 100 / 400 Balance 200 / 1388.75 940 / 940 240 / 1180 Physical Exam Narrative: EXAM NARRATIVE: Constitutional: Awake and alert HEENT: Dry lips and mucous membranes Respiratory: Clear to auscultation bilaterally Cardiovascular: Regular rhythm, no murmurs Abdomen: Left flank pain and left lower quadrant pain significantly decreased, positive bowel sounds Extremities: No edema, chronic skin and digit changes noted Neuro: Speech clear, face symmetric, moves all extremities, oriented x 4 Data : 08/11/20 04:18 08/11/20 04:18 Micro: Microbiology 08/09/20 03:40 Urine Culture - Final Urine,Clean Catch Escherichia coli. 08/09/20 02:28 Blood Culture - Preliminary Blood Escherichia coli 08/09/20 02:42 Blood Culture - Preliminary Blood Escherichia coli A&P Assessment and plan (1) Acute pyelonephritis: E. coli At presentation had GI and urinary symptoms, abdominal pain, leukocytosis. No fever, tachycardia, hypotension. Status: Acute (2) E. coli bacteremia: Secondary to above Status: Acute (3) Urinary incontinence: Status: Chronic Qualifiers: Urinary Incontinence type: unspecified incontinence Qualified Code(s): R32 - Unspecified urinary incontinence (4) CREST syndrome: Chronically on methotrexate and Plaquenil, cevimeline Status: Chronic (5) Diabetes mellitus with diabetic polyneuropathy: Insulin sliding scale for now, at home is generally diet controlled Status: Chronic Qualifiers: Diabetes mellitus nursing home insulin use: with jinriksha driver use Diabetes mellitus type: type 2 Qualified Code(s): E11.42 - Type 2 diabetes mellitus with diabetic polyneuropathy; Z79.4 - [facility] (current) use of insulin (6) Moderate protein-calorie malnutrition: Status: Acute Additional A&P Information Slight elevation in LFTs, resolved Drop in hemoglobin with hydration, suspect has anemia of chronic disease, no gross bleeding here Elevated blood sugars here while on fluids with dextrose Continue Primaxin Stop IVFs Follow-up urine culture for sensitivities and transition to oral antibiotics Consider options to decrease risk of recurrence Home methotrexate held, remains on Plaquenil, cevimeline ordered for home supply Have ordered Biotene and lanolin, artificial tears Chronically on PPI Celebrex resumed given stable renal function On home Aricept and Namenda Sliding scale insulin currently Not on any medication at home for diabetes Monitor for recurrent complaints of chest pain Check iron level PT eval Add glucerna supplements, will provide nutrition information at discharge, patient is eager to learn more Supportive care otherwise Lovenox for DVT prophylaxis Plans discussed with patient and she was given an opportunity to ask questions Also discussed with her son Tobi who lives in [place] Currently anticipate discharge home with outpatient follow-up Full code Attestations Medical Necessity Statement*: Requires ongoing inpatient stay for continued IV antibiotics and increase activity in preparation for anticipated discharge home in the next couple of days. Coding Level of Care Code Acute Inspector Quality Assurance for [facility] Fwd Diagnoses Acute pyelonephritis N10 E. coli bacteremia R78.81; B96.20 Urinary incontinence R32 Urinary Incontinence type: unspecified incontinence CREST syndrome M34.1 Diabetes mellitus with diabetic polyneuropathy E11.42; Z79.4 Diabetes mellitus jinriksha driver insulin use: with jinriksha driver use Diabetes mellitus type: type 2 Moderate protein-calorie malnutrition E44.0
[2020-08-11] MEDS: donepezil 5 MG Tablet 10 MG PO (21:42)
[2020-08-12 00:09] LABS: Iron 16 ug/dL (37-145); Percent Saturation 7.3 % (20-50); Total Iron Binding Capacity 217 mcg/dl; Unsaturated Iron Binding 201 ug/dL (112-347)
[2020-08-12] MEDS: iron sucrose 500 MG in sodium chloride 0.9% 250 ML 68.8 MG IV (02:53)
[2020-08-12 03:13] VITALS: BP 125/71; PULSE 63; RESP 16; TEMP 37.2; O2SAT 94
[2020-08-12 05:53] LABS: Basophils # 0.1 10^3/uL (0.0-0.1); Basophils % 0.5 %; Eosinophils # 0.2 10^3/uL (0.0-0.8); Hematocrit 31.6 % (37.0-47.0); Hemoglobin 10.3 g/dL (11.5-15.3); Lymphocytes # 0.7 10^3/uL (0.8-4.8); Lymphocytes % 7.4 %; Mean Corpuscular HGB Conc 32.6 g/dL (30.0-36.0); Mean Corpuscular Hemoglobin 29.3 pg (28.0-34.0); Mean Platelet Volume 10.6 fL (7.4-10.4); Monocytes # 1.6 10^3/uL (0.2-0.9); Neutrophils # 7.11 10^3/uL (1.8-7.7); Neutrophils % 73.3 %; Nucleated Red Blood Cells % 0 %; Platelet Count 177 10^3/cmm (130-400); Red Blood Count 3.51 10^6/uL (4.1-5.3); Red Cell Distribution Width 15.3 % (12.1-15.1); White Blood Count 9.7 10^3/uL (4.0-10.0)
[2020-08-12 06:10] LABS: Anion Gap 10.7 (5-19); Blood Urea Nitrogen 9 mg/dL (8-23); Calcium 7.6 mg/dL (8.5-10.5); Carbon Dioxide 23 mmol/L (22-29); Chloride 107 mmol/L (98-107); Glucose 120 mg/dL (65-115); Magnesium 1.7 mg/dL (1.7-2.3); Osmolality Calculated 284 mOsm/kg (285-295); Potassium 3.7 mmol/L (3.5-5.1); Sodium 137 mmol/L (136-145)
[2020-08-12 06:15] LABS: Glucose Point of Care 120 mg/dL (70-110)
[2020-08-12 07:22] VITALS: BP 134/74; PULSE 59; RESP 19; TEMP 36.7; O2SAT 99
[2020-08-12] MEDS: folic acid 1 mg Tablet 3 MG PO (08:43)
[2020-08-12] MEDS: pantoprazole DR 40 mg Tablet PO (08:43)
[2020-08-12] MEDS: hydroxychloroquine 200 mg Tablet PO (08:43)
[2020-08-12] MEDS: memantine 5 mg tablet 10 MG PO (08:43)
[2020-08-12] MEDS: enoxaparin 40 mg/0.4 mL Syringe SUBCUT (08:43)
[2020-08-12] MEDS: CELEcoxib 200 mg Capsule PO (08:44)
[2020-08-12] MEDS: citalopram 20 mg Tablet PO (08:44)
--- NOTE | 2020-08-12 09:25 | PC.SOCIAL ---
IMM Update Pg. 2 of IMM updated and reviewed with patient who verbalized understanding. Copy provided.
--- NOTE | 2020-08-12 10:15 | P.DS_ITS ---
Discharge Providers Date of Admission: 08/09/20 04:10 Date of Discharge: August 12, 2020 Attending Provider at Admission: China Jaquez MD Attending Provider at Discharge: James Robles MD Primary Care Provider: Warner Harper DO Diagnoses at Discharge Discharge Diagnosis (1) Acute pyelonephritis: Status: Acute (2) E. coli bacteremia: Status: Acute (3) Urinary incontinence: Status: Chronic Qualifiers: Urinary Incontinence type: unspecified incontinence Qualified Code(s): R32 - Unspecified urinary incontinence (4) CREST syndrome: Status: Chronic (5) Diabetes mellitus with diabetic polyneuropathy: Status: Chronic Qualifiers: Diabetes mellitus type: type 2 Diabetes mellitus senior living insulin use: with superintendent container terminal use Qualified Code(s): E11.42 - Type 2 diabetes mellitus with diabetic polyneuropathy; Z79.4 - termite renewal inspector (current) use of insulin (6) Moderate protein-calorie malnutrition: Status: Acute Reason for Visit Reason for Visit: difficulty walking, dry heaving, chills Hospital Course Hospital Course Nereyda Caceres is a 70 year old female with PMH scleroderma currently on hydroxychloroquine and methotrexate, urinary incontinence, who presented to the emergency room due to complaints of nausea, vomiting, sweating, chills, dry heaves, abdominal pain for the last 3 days. Patient was admitted to [facility] for acute pyelonephritis, urinary tract infection, E. coli bacteremia. Patient received IV hydration, IV antibiotics, clinically monitored, she clinically improved, remained afebrile. Urine culture showed E. coli sensitive to ciprofloxacin. Patient will be dis charged on 9 remaining days of ciprofloxacin, with a close follow-up with her primary care provider as outpatient, follow with Dr. Jose for chronic urinary incontinence as outpatient. Follow up blood cultures are pending on discharge, should be followed up as outpatient. Physical Exam Const: COMMON NORMALS: no acute distress and patient oriented x3 HENMT: COMMON NORMALS: normocephalic HEAD & SCALP: normocephalic Neck/C-Spine: COMMON NORMALS: no JVD Resp: COMMON NORMALS: normal respiratory effort, No retractions, No use of accessory muscles and clear to auscultation bilaterally AUSCULTATION: clear to auscultation bilaterally Cardio: COMMON NORMALS: no JVD, regular rate, regular rhythm, S1 normal heart sound present and S2 normal heart sound present RATE: regular rate RHYTHM: regular rhythm HEART SOUNDS: S1 normal heart sound present and S2 normal heart sound present GI: COMMON NORMALS: Normal to inspection, nondistended, normoactive bowel sounds present, Soft to palpation, non-tender, No hepatosplenomegaly present, no masses and no bruits PALPATION: Yes Soft to palpation and Yes No hepatosplenomegaly present Extremity: COMMON NORMALS: capillary refill normal, no clubbing, cyanosis or edema, no calf tenderness and no pedal edema Neuro: COMMON NORMALS: patient oriented x3 Psych: COMMON NORMALS: mental status grossly normal Discharge Data Data Completed and Pending: Completed Studies During Hospitalization Category Date Time Status CT abdomen pelvis w con* [id number] Urge nt Cat Scan 08/09/20 02:14 Completed XR chest 1V miguel ble [id number] Urgent Exams 08/09/20 01:42 Completed Pending at discharge Category Date Time Status Blood Culture Sta t Lab 08/09/20 02:42 Results Blood Culture Sta t Lab 08/12/20 09:21 Ordered Labs from last 24 hours 08/12/20 08/12/20 08/12/20 06:04 05:11 05:11 WBC 9.7 RBC 3.51 L Hgb 10.3 L Hct 31.6 L MCV 90.0 MCH 29.3 MCHC 32.6 RDW 15.3 H Plt Count 177 MPV 10.6 H Neut % (Auto) 73.3 Lymph % (Auto) 7.4 Hardin % (Auto) 16.0 Eos % (Auto) 2.0 Baso % (Auto) 0.5 Neut # (Auto) 7.11 Lymph # (Auto) 0.7 L [place]in # (Auto) 1.6 H Eos # (Auto) 0.2 Baso # (Auto) 0.1 Nucleated RBC % (a uto) 0 Nucleated RBCs # 0.0 Sodium 137 Potassium 3.7 Chloride 107 Carbon Dioxide 23 Anion Gap 10.7 BUN 9 Creatinine 0.4 L GFR Calculation Not Reportable Glucose 120 H POC Glucose 120 H Calculated Osmolal ity 284 L Calcium 7.6 L Magnesium 1.7 Iron TIBC % Saturation Unsat Iron Binding Troponin T 120 Min [place] Delta Troponin T Troponin T Hi Sens 6Hr Troponin T Hi Sens 6Hr Delta 08/11/20 08/11/20 08/11/20 14:07 14:07 10:08 WBC RBC Hgb Hct MCV MCH MCHC RDW Plt Count MPV Neut % (Auto) Lymph % (Auto) [place] % (Auto) Eos % (Auto) Baso % (Auto) Neut # (Auto) Lymph # (Auto) [place] # (Auto) Eos # (Auto) Baso # (Auto) Nucleated RBC % (a uto) Nucleated RBCs # Sodium Potassium Chloride Carbon Dioxide Anion Gap BUN Creatinine GFR Calculation Glucose POC Glucose Calculated Osmolal ity Calcium Magnesium Iron 16 L TIBC 217 % Saturation 7.3 L Unsat Iron Binding 201 Troponin T 120 Min [place] 21.16 H Delta Troponin T -1.84 L Troponin T Hi Sens 6Hr 18.81 H Troponin T Hi Sens 6Hr Delta -4.19 L Vitals: Last Vital Signs Temp 98.1 F 08/12/20 07:22 Pulse 59 L 08/12/20 07:22 Resp 19 H 08/12/20 07:22 BP 134/74 08/12/20 07:22 Pulse Ox 99 08/12/20 07:22 Discharge Plan Discharge Patient Disposition: Home Condition: Stable Prescriptions: New ciprofloxacin HCl 500 mg tablet 500 mg PO BID 9 Days Qty: 18 RF: 0 Continued celecoxib [Celebrex] 200 mg capsule 200 mg PO BID RF: 0 pantoprazole 40 mg tablet,delayed release (DR/EC) 40 mg PO DAILY RF: 0 donepezil 10 mg tablet 10 mg PO BEDTIME RF: 0 citalopram 20 mg tablet 20 mg PO DAILY RF: 0 (DME) Diabetic shoe with 3 pairs of insterts See Rx Instructions .Route .MEDSUPPLY Qty: 1 RF: 0 folic acid 1 mg Tablet 3 mg PO DAILY@16 RF: 0 montelukast 10 mg Tablet 10 mg PO QAM RF: 0 memantine 10 mg Tablet 10 mg PO BID RF: 0 cevimeline 30 mg capsule 30 mg PO TID RF: 0 ProAir HFA 90 mcg/actuation Hfa Aerosol Inhaler 2 puff INHALATION QID PRN (Reason: Shortness Of Breath) RF: 0 Held hydroxychloroquine 200 mg tablet 200 mg PO BID RF: 0 Hold Instructions: Resume on 08/23/20. resume after ciprofloxacin has finished methotrexate sodium (PF) 25 mg/mL solution See Rx Instructions .ROUTE .COMPLEX RF: 0 Hold Instructions: Resume on 08/26/20. until seen by rheumatology Discharge Orders: Discharge Order (Routine); Ordered 08/12/20 Ordered By: James Robles Referrals: Walt Jose MD [Physician] - 1 month (uti) Warner Harper DO [Primary Care Provider] - Discharge Diet: Regular Discharge Activity: Resume usual activity Patient Instructions: Diabetes and Diet, High Protein / High Calorie Diet (GEN), Acute Pyelonephritis (DC), Basic Carbohydrate Counting (GEN), Opioid Safety Activity Restrictions/Additional Instructions: Glucerna supplements are recommended -Take antibiotics as prescribed -Please hold Plaquenil until you finish ciprofloxacin due to interaction concerns -Please follow-up with rheumatology, continue to hold methotrexate Discharge Attestations Time Spent in Discharge Care*: less than 30 min Quality Metrics Clinical Quality Measures During this hospital stay, did patient experience: None Coding Level of Care Code Acute Chg FW DC note Diagnoses Acute pyelonephritis N10 E. coli bacteremia R78.81; B96.20 Urinary incontinence R32 Urinary Incontinence type: unspecified incontinence CREST syndrome M34.1 Diabetes mellitus with diabetic polyneuropathy E11.42; Z79.4 Diabetes mellitus type: type 2 Diabetes mellitus superintendent container terminal insulin use: with senior living use Moderate protein-calorie malnutrition E44.0
[2020-08-12] MEDS: fluticasone nasal spray 16gm Btl 1 SPRAY NASAL (11:14)
[2020-08-12 11:25] VITALS: BP 112/78; PULSE 68; RESP 18; TEMP 37.1; O2SAT 96
[2020-08-12 12:09] LABS: Glucose Point of Care 142 mg/dL (70-110)
[2020-08-12 13:39] VITALS: BP 112/78; PULSE 68; RESP 18; TEMP 37.1; O2SAT 96
== END 2020-08-12 14:42 | disposition home or self-care (01) | DRG 690 ==
LOC: ER 04:11 → MEDSURG 04:26
PROVIDERS: Hospitalist; Admitting Provider Student in an Organized Health Care Education/Training Program; Emergency Provider Emergency Medicine; PCP Internal Medicine; Visit Provider Family Medicine
DX: N10 Acute pyelonephritis (principal); E44.0 Moderate protein-calorie malnutrition; Z68.1 Body mass index [BMI] 19.9 or less, adult; R32 Unspecified urinary incontinence; M34.1 CR(E)ST syndrome; E11.42 Type 2 diabetes mellitus with diabetic polyneuropathy; Z85.828 Personal history of other malignant neoplasm of skin; B96.20 Unspecified Escherichia coli [E. coli] as the cause of diseases classified elsewhere
CPT/HCPCS: 36415; 36416; 71045; 74177; 80048; 80053; 81001; 82962; 83540; 83550; 83605; 83735; 84443; 84484; 85025; 87040; 87077; 87086; 87186; 87205; 93005; 96372; 97110; 97161; J0743; J1650; J1756; J1815; J2405; J7030; J7050; Q9967

== ENCOUNTER → 2021-01-14 11:08 | Outpatient (BNVA) | payer MEDICARE, OTHER, SELFPAY | PROVIDERS: PCP Internal Medicine; Visit Provider Urology | DX: N30.20 Other chronic cystitis without hematuria (principal); N39.41 Urge incontinence | CPT/HCPCS: 81003 ==

== ENCOUNTER 2021-04-25 12:57 | Outpatient (CLI) | payer MEDICARE, OTHER, SELFPAY ==
--- NOTE | 2021-04-25 13:08 | MM_ITS ---
WS: [id number] BILATERAL DIGITAL SCREENING MAMMOGRAPHY WITH CAD CLINICAL INFORMATION: SCREENING HISTORY: Screening mammogram. No current complaints. COMPARISON: TECHNIQUE: Bilateral CC and MLO views. FINDINGS: The breasts are composed of heterogeneous fibroglandular density tissue, which can limit the detectio n of small underlying mass lesions. Punctate and lucent centered calcifications. No suspicious mass, asymmetry, calcifications, or architectural distortion. No evidence of malignancy. MM/[place] [id number] IMPRESSION: BI-RADS: 2-Benign FOLLOW UP: 1 Year Follow-up Recommend return to annual screening mammography.
== END 2021-04-25 12:58 | disposition home or self-care (01) ==
LOC: RADSHAW 13:06
PROVIDERS: PCP Internal Medicine; Visit Provider Internal Medicine
DX: Z12.31 Encounter for screening mammogram for malignant neoplasm of breast (principal)
CPT/HCPCS: 77067

== ENCOUNTER → 2021-07-21 09:50 | Outpatient (BNVA) | payer MEDICARE, OTHER, SELFPAY | PROVIDERS: PCP Internal Medicine; Visit Provider Podiatrist Foot & Ankle Surgery | DX: E11.42 Type 2 diabetes mellitus with diabetic polyneuropathy (principal); Z79.4 Long term (current) use of insulin; I73.9 Peripheral vascular disease, unspecified; I73.00 Raynaud's syndrome without gangrene; L60.3 Nail dystrophy; M20.41 Other hammer toe(s) (acquired), right foot; M20.42 Other hammer toe(s) (acquired), left foot | CPT/HCPCS: 11055; 11721 ==

== ENCOUNTER 2021-08-26 17:17 | Observation (INO) | payer MEDICARE, OTHER, SELFPAY ==
[2021-08-26] VITALS (12 sets, daily range): BP systolic 125–149; BP diastolic 67–84; PULSE 59–92; RESP 14–22; TEMP 36.5–36.6; O2SAT 94–100; BMI 16.6
--- NOTE | 2021-08-26 17:28 | CTR_ITS ---
PROCEDURE INFORMATION: Exam: CT Head Without Contrast Exam date and time: 08/26/2021 6:14 PM Age: 71 years old Clinical indication: Injury or trauma; Fall; Concussion/head injury; Patient HX: Got dizzy and fell yesterday. Left mu-ism and forehead bruised TECHNIQUE: Imaging protocol: Computed tomography of the head without contrast. Radiation optimization: All CT scans at this facility use at least one of these dose optimization techniques: automated exposure control; mA and/or kV adjustment per patient size (includes targeted exams where dose is matched to clinical indication); or iterative reconstruction. COMPARISON: No relevant prior studies available. RADIATION DOSE METRICS: Total DLP (mGy-cm): 793.36 FINDINGS: Brain: No hemorrhage. No edema. Moderate diffuse cerebral atrophy. No significant white matter disease. No mass effect. Cerebral ventricles: No ventriculomegaly. Paranasal sinuses: Visualized sinuses are unremarkable. No fluid levels. Mastoid air cells: Visualized mastoid air cells are well aerated. Bones/joints: Unremarkable. No acute fracture. Soft tissues: Unremarkable. CT/CT head wo con* [id number] IMPRESSION: No acute intracranial abnormality.
--- NOTE | 2021-08-26 18:01 | ED_ITS ---
HPI - General Adult General: Chief complaint: Fall Stated complaint: fell and hit head Time Seen by Provider: 08/26/21 17:38 History of Present Illness: Patient is a 71-year-old female with history of diabetes, scleroderma who presents emergency room with complaints of recurrent lightheadedness. Patient initially yesterday afternoon around 5 PM was walking outside when she felt very lightheaded and passed out and fell forward. Patient has bruises over the face. Around 4 PM today, patient was walking around when she felt chest pressure lightheadedness and nearly passing out. Patient then came to the emergency room for evaluation. Patient denies any focal neurological deficit at any point time. Patient denies any nausea vomiting fever/chills, cough, runny nose sore throat, diarrhea, melena/hematochezia. Patient reports no decreased p.o. intake. Patient has never had exertional chest pain or palpitation prior. No prior history of VTE. Denies any pleuritic chest pain Onset:2 days ago Duration:2 days Location:home Severity:moderate Associated symptoms: Reports chest pain (+transient chest pressure at 4pm); Deny dyspnea, nausea, rash, palpitations or vomiting Review of Systems Const: Denies: fever(s) or chills Eyes: Denies: change in vision ENMT: Denies: mouth pain Card: Reports: chest pain (+transient chest pressure at 4pm); Denies: palpitations Resp: Denies: dyspnea or non-productive cough GI: Denies: abdominal pain, nausea, vomiting or diarrhea : Denies: dysuria Musc: Denies: extremity pain Skin/Breast: Denies: rash or new lesions Neuro: Reports: other (+light-headedness/syncope); Denies: weakness in extremities Psych: Reports: other (Normal mood) Davian/Lymph: Denies: easy bruising PFSH ED PFSH: Medical History Chronic cystitis CREST syndrome Dementia Diabetes mellitus Feeling of incomplete bladder emptying History of pyelonephritis Squamous cell carcinoma of skin of chest Urgency incontinence Surgical History History of hand surgery (~2012) Ruptured tendons of right hand History of hysteroscopy (10/18/12) With D&C. Negative evaluation. Dx: Postmenopausal bleeding. Performed by Dr. Daugherty at [facility]. History of tubal ligation (~1975) Family History Grandmother Diabetes Paternal CAD (coronary artery disease) Maternal Grandfather Diabetes Maternal CAD (coronary artery disease) Maternal Family/Other Stroke Maternal aunt Brother Hyperlipidemia Mother , at age 92 CAD (coronary artery disease) Father , at age 54 Alcoholic Social History Smoking and tobacco status: never smoked Alcohol intake: current Alcohol intake frequency: holidays/special occasions only Marital status: / Current occupational status: retired History of recent travel: No Physical Exam Const: COMMON NORMALS: alert HENMT: COMMON NORMALS: atraumatic HEAD & SCALP: atraumatic MOUTH: moist mucous membranes not abnormal Eye: COMMON NORMALS: EOMs intact bilaterally and conjunctivae normal CONJUNCTIVA: Yes conjunctivae normal Neck/C-Spine: COMMON NORMALS: full ROM and supple Resp: COMMON NORMALS: normal respiratory effort and clear to auscultation bilaterally AUSCULTATION: clear to auscultation bilaterally Cardio: COMMON NORMALS: regular rate RATE: regular rate GI: COMMON NORMALS: Soft to palpation and non-tender PALPATION: Yes Soft to palpation Extremity: COMMON NORMALS: full ROM Neuro: SENSORIUM/ORIENTATION: Yes alert MOTOR EXAM: No Abnormal motor strength present and Other motor observations present (no focal motor deficits) OTHER: Mental status? Awake, alert, and oriented to self, year, month, location, and situation.? Following simple axial and appendicular commands.? Has appropriate fund of knowledge, comprehension, and insight.? Able to recall and understands pertinent aspects of medical history and current treatment status.? ? Language? Speech is fluent without word-finding difficulties.? Intact naming, expression, entry level receptionist, and repetition.? ? Cranial nerves? 2,3,4,6: PERRL, EOMI with no nystagmus. 5: Intact sensation to light touch, symmetric? 7: Smile symmetrical, no facial droop.? 8: Hearing grossly intact.? 9,10: Normal palate movement.? 11: Normal strength in trapezius bilaterally 12: Tongue protrudes midline.? ? Motor examination? Normal bulk & tone. Strength as follows (R/L): Delts (5/5), Biceps (5/5), Triceps (5/5), Wrist ext (5/5), hip flexors (5/5), plantarflexors (5/5), dorsiflexors (5/5). ? Sensation? Light Touch: Grossly intact and equal in upper and lower extremities bilaterally? Romberg: Negative.? Distal joint position sense intact ? Coordination? Uwtgos-db-hato-finger movements intact without dysmetria or past-pointing.? Rapid fingertaps: preserved amplitude without decriment.? No tremor, myoclonus or truncal ataxia.? ? Gait/stance? Steady, normal narrow base gait with appropriate arm swing and turning.? Tandem gait without hesitation or loss of balance. Psych: COMMON NORMALS: speech normal SPEECH: Yes normal speech MOOD & AFFECT: Yes euthymic mood Course Vital Signs: Vital signs: Vital Signs Temperature 97.5 F L 08/27/21 15:20 Pulse Rate 66 08/27/21 15:20 Respiratory Rate 16 08/27/21 15:20 Blood Pressure 107/64 08/27/21 15:20 Pulse Oximetry 93 08/27/21 15:20 MDM - General Adult Medical Decision Making 71-year-old female with history of diabetes, scleroderma presenting to emergency room with concerns of recurrent syncope x2 days. Patient had 1 episode of syncope yesterday and an episode of lightheadedness with associated chest pressure earlier today at 4 PM. EKG is nonischemic. Troponin x1 within normal limit. Patient received IVF continues to have intermittent lightheadedness. CT face and brain negative for any acute findings. Patient will be admitted to the hospital for syncope work-up. Disposition: admission Lab Data : 08/27/21 01:15 08/27/21 01:[address] 08/26/21 17:28 IMPRESSION: No acute intracranial abnormality. Face CT 08/26/21 18:16 IMPRESSION: No acute findings. Elbow X-Ray 08/27/21 05:19 IMPRESSION: 1. Dystrophic calcification noted superficial to olecranon. 2. No acute osseous pathology. Laboratory Results WBC 7.7 10^3/uL (4.0-10.0) 08/26/21 17:45 RBC 3.67 10^6/uL (4.1-5.3) L 08/26/21 17:45 Hgb 11.2 g/dL (11.5-15.3) L 08/26/21 17:45 Hct 33.8 % (37.0-47.0) L 08/26/21 17:45 MCV 92.1 fl (81-99) 08/26/21 17:45 MCH 30.5 pg (28.0-34.0) 08/26/21 17:45 MCHC 33.1 g/dL (30.0-36.0) 08/26/21 17:45 RDW 14.8 % (12.1-15.1) 08/26/21 17:45 Plt Count 206 10^3/cmm (130-400) 08/26/21 17:45 MPV 10.9 fL (7.4-10.4) H 08/26/21 17:45 Neut % (Auto) 64.7 % 08/26/21 17:45 Lymph % (Auto) 18.9 % 08/26/21 17:45 [place] % (Auto) 14.2 % 08/26/21 17:45 Eos % (Auto) 1.3 % 08/26/21 17:45 Baso % (Auto) 0.6 % 08/26/21 17:45 Neut # (Auto) 5.00 10^3/uL (1.8-7.7) 08/26/21 17:45 Lymph # (Auto) 1.5 10^3/uL (0.8-4.8) 08/26/21 17:45 [place] # (Auto) 1.1 10^3/uL (0.2-0.9) H 08/26/21 17:45 Eos # (Auto) 0.1 10^3/uL (0.0-0.8) 08/26/21 17:45 Baso # (Auto) 0.1 10^3/uL (0.0-0.1) 08/26/21 17:45 Nucleated RBC % (auto) 0 % 08/26/21 17:45 Nucleated RBCs # 0.0 /100WBC 08/26/21 17:45 Sodium 132 mmol/L (136-145) L 08/26/21 18:55 Potassium 4.0 mmol/L (3.5-5.1) 08/26/21 18:55 Chloride 99 mmol/L (98-107) 08/26/21 18:55 Carbon Dioxide 27 mmol/L (22-29) 08/26/21 18:55 Anion Gap 10.0 (5-19) 08/26/21 18:55 BUN 30 mg/dL (8-23) H 08/26/21 18:55 Creatinine 0.5 mg/dL (0.5-0.9) 08/26/21 18:55 GFR Calculation Not Reportable 08/26/21 18:55 Glucose 85 mg/dL (65-115) 08/26/21 18:55 Estimat Average Glucose 105 08/26/21 17:45 Hemoglobin A1c 5.3 % (4.0-6.0) 08/26/21 17:45 Calculated Osmolality 279 mOsm/kg (285-295) L 08/26/21 18:55 Calcium 8.4 mg/dL (8.5-10.5) L 08/26/21 18:55 Magnesium 1.9 mg/dL (1.7-2.3) 08/26/21 18:55 Troponin T Baseline 9 ng/L (0-10) 08/26/21 17:45 Troponin T 120 Minute 10.77 ng/L (0-10) H 08/26/21 19:40 Delta Troponin T 1.77 ABS# (0-10) 08/26/21 19:40 C-Reactive Protein 3.0 mg/L (0.0-4.9) 08/26/21 18:55 NT-Pro-B Natriuret Pep 294 pg/mL (0-125) H 08/26/21 18:55 Procalcitonin 0.05 ng/mL (0-0.5) 08/26/21 18:55 TSH 2.98 uIU/mL (0.27-4.20) 08/26/21 18:55 Imaging Data Other Imaging: Radiologist's impression: [address] [place] [address] CT Scan Report Signed Patient: Nereyda Caceres Unit #: [id number] : 1950 Age/Sex: 71 / F ADM Date: 08/26/21 Loc: ER Room/Bed: Attending Dr: Ordering Provider/Ordering MD: Grisel Watkins MD Date of Service: 08/26/21 Procedure(s): CT facial bones wo con* [id number] Accession Number(s): [id number] Report Number: [id number] PROCEDURE INFORMATION: Exam: CT Maxillofacial Without Contrast Exam date and time: 08/26/2021 6:21 PM Age: 71 years old Clinical indication: Injury or trauma; Fall; Concussion/head injury; Without loss of consciousness; Patient HX: Got dizzy and fell yesterday. Left yarsanism and forehead bruised TECHNIQUE: Imaging protocol: Computed tomography images of the face without contrast. Radiation optimization: All CT scans at this facility use at least one of these dose optimization techniques: automated exposure control; mA and/or kV adjustment per patient size (includes targeted exams where dose is matched to clinical indication); or iterative reconstruction. COMPARISON: CT head wo con* [id number] 08/26/2021 6:14 PM RADIATION DOSE METRICS: Total DLP (mGy-cm): 835.34 FINDINGS: Orbital cavities: Orbits are normal. Globes are unremarkable. Bones/joints: No acute fracture. Paranasal sinuses: Normal. No air-fluid levels. Soft tissues: Unremarkable. CT/CT facial bones wo con* [id number] IMPRESSION: No acute findings. ? Dictated By: Surya Sandhu DO Signed By: Surya Sandhu DO Signed Date/Time: 08/26/21 183 DD/ [address] [address] [address] Scan Report Signed Patient: Nereyda Caceres Unit #: [id number] : 1950 Age/Sex: 71 / F ADM Date: 08/26/21 Loc: ER Room/Bed: Attending Dr: Ordering Provider/Ordering MD: Grisel Watkins MD Date of Service: 08/26/21 Procedure(s): CT head wo con* [id number] Accession Number(s): [id number] Report Number: [id number] PROCEDURE INFORMATION: Exam: CT Head Without Contrast Exam date and time: 08/26/2021 6:14 PM Age: 71 years old Clinical indication: Injury or trauma; Fall; Concussion/head injury; Patient HX: Got dizzy and fell yesterday. Left yarsanism and forehead bruised TECHNIQUE: Imaging protocol: Computed tomography of the head without contrast. Radiation optimization: All CT scans at this facility use at least one of these dose optimization techniques: automated exposure control; mA and/or kV adjustment per patient size (includes targeted exams where dose is matched to clinical indication); or iterative reconstruction. COMPARISON: No relevant prior studies available. RADIATION DOSE METRICS: Total DLP (mGy-cm): 793.36 FINDINGS: Brain: No hemorrhage. No edema. Moderate diffuse cerebral atrophy. No significant white matter disease. No mass effect. Cerebral ventricles: No ventriculomegaly. Paranasal sinuses: Visualized sinuses are unremarkable. No fluid levels. Mastoid air cells: Visualized mastoid air cells are well aerated. Bones/joints: Unremarkable. No acute fracture. Soft tissues: Unremarkable. CT/CT head wo con* [id number] IMPRESSION: No acute intracranial abnormality. ? Dictated By: Surya Sandhu DO Signed By: Surya Sandhu DO Signed Date/Time: 08/26/211832 DD/ 13 Discharge Plan Discharge Patient Disposition: Home Clinical Impression: Fall, Recurrent syncope Condition: Stable Discharge Orders: Discharge Order (Routine); Ordered 08/27/21 Ordered By: Simón Sagastume Discharge Diet: Advance as tolerated Discharge Activity: Increase activity as tolerated Coding Level of Care Code ED Resizer Operator for Kaylag Fwd Exam Comprehensive
--- NOTE | 2021-08-26 18:16 | CTR_ITS ---
PROCEDURE INFORMATION: Exam: CT Maxillofacial Without Contrast Exam date and time: 08/26/2021 6:21 PM Age: 71 years old Clinical indication: Injury or trauma; Fall; Concussion/head injury; Without loss of consciousness; Patient HX: Got dizzy and fell yesterday. Left adventism and forehead bruised TECHNIQUE: Imaging protocol: Computed tomography images of the face without contrast. Radiation optimization: All CT scans at this facility use at least one of these dose optimization techniques: automated exposure control; mA and/or kV adjustment per patient size (includes targeted exams where dose is matched to clinical indication); or iterative reconstruction. COMPARISON: CT head wo con* [id number] 08/26/2021 6:14 PM RADIATION DOSE METRICS: Total DLP (mGy-cm): 835.34 FINDINGS: Orbital cavities: Orbits are normal. Globes are unremarkable. Bones/joints: No acute fracture. Paranasal sinuses: Normal. No air-fluid levels. Soft tissues: Unremarkable. CT/CT facial bones wo con* [id number] IMPRESSION: No acute findings.
--- NOTE | 2021-08-26 18:16 | ECG_ITS ---
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 Measurements Intervals [place] Rate: 60 P: 81 OH: 181 QRS: 68 QRSD: 86 T: 68 QT: 418 QTc: 418 Interpretive Statements SINUS RHYTHM SEPTAL MYOCARDIAL INFARCTION , OF INDETERMINATE AGE [40+ ms Q WAVE IN V1/V2] Compared to ECG 08/11/2020 13:36:41 Myocardial infarct finding now present Sinus bradycardia no longer present T-wave abnormality no longer present Possible ischemia no longer present Electronically Signed On 08-26-2021 18:38:07 CDT by Herman Sprague M.D. [id number]
[2021-08-26 18:25] LABS: Basophils # 0.1 10^3/uL (0.0-0.1); Basophils % 0.6 %; Eosinophils # 0.1 10^3/uL (0.0-0.8); Eosinophils % 1.3 %; Hematocrit 33.8 % (37.0-47.0); Hemoglobin 11.2 g/dL (11.5-15.3); Lymphocytes # 1.5 10^3/uL (0.8-4.8); Lymphocytes % 18.9 %; Mean Corpuscular HGB Conc 33.1 g/dL (30.0-36.0); Mean Corpuscular Hemoglobin 30.5 pg (28.0-34.0); Mean Corpuscular Volume 92.1 fl (81-99); Mean Platelet Volume 10.9 fL (7.4-10.4); Monocytes # 1.1 10^3/uL (0.2-0.9); Monocytes % 14.2 %; Neutrophils % 64.7 %; Nucleated Red Blood Cells % 0 %; Platelet Count 206 10^3/cmm (130-400); Red Blood Count 3.67 10^6/uL (4.1-5.3); Red Cell Distribution Width 14.8 % (12.1-15.1); White Blood Count 7.7 10^3/uL (4.0-10.0)
[2021-08-26] MEDS: sodium chloride 0.9% 500 ML IV (18:31)
[2021-08-26 18:37] LABS: Troponin(5th) Baseline 9 ng/L (0-10)
[2021-08-26 19:18] LABS: Blood Urea Nitrogen 30 mg/dL (8-23); Calcium 8.4 mg/dL (8.5-10.5); Carbon Dioxide 27 mmol/L (22-29); Chloride 99 mmol/L (98-107); Creatinine Clr Calc Pharmacy 47.5384; Glucose 85 mg/dL (65-115); Osmolality Calculated 279 mOsm/kg (285-295); Sodium 132 mmol/L (136-145)
--- NOTE | 2021-08-26 19:32 | PC.NURSE ---
1899 Assumed pt care from Kimberley PASTOR
[2021-08-26 20:09] LABS: Troponin 5 2HR 10.77 ng/L (0-10); Troponin 5 2HR Delta 1.77 ABS# (0-10)
--- NOTE | 2021-08-26 20:16 | ECG_ITS ---
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 Measurements Intervals [place] Rate: 58 P: 75 MO: 168 QRS: 68 QRSD: 80 T: 70 QT: 430 QTc: 424 Interpretive Statements SINUS BRADYCARDIA SEPTAL MYOCARDIAL INFARCTION , OF INDETERMINATE AGE [40+ ms Q WAVE IN V1/V2] Compared to ECG 08/26/2021 18:35:34 Sinus rhythm no longer present Myocardial infarct finding still present Electronically Signed On 08-26-2021 21:47:02 CDT by Herman Sprague M.D. [id number]
--- NOTE | 2021-08-26 21:15 | PM.HP ---
Providers/Chief Complaint Admitting Physician: James Robles MD Primary Care Provider: Warner Harper DO Chief Complaint: fell and hit head History of Present Illness Nereyda Caceres is a 71 year old female with a past medical history of scleroderma, crest syndrome, history of recurrent UTIs, history of pyelonephritis, history of urinary retention, diet-controlled type 2 diabetes mellitus, who presents to [facility] due to syncopal episode. Patient tells me that yesterday she was walking out on her property at roughly 4 PM, she did a long walk, she likes to remain active, in she took a little bit of a longer walk than her usual walk, when she started to suddenly feel unwell, feels fatigue, malaise, felt short of breath, felt lightheaded, unsteady on her feet, no chest pain, no slurring of words, no focal weakness. So she sat down, and at that time she thinks she passed out, she thinks she fell forward, and fell to the ground, she had bruising on her face, she is not sure how long she was down for, she is not even sure if she passed out, but does not really remember the event well. But the next and she remembers she was on the floor, and she called her brother for help. She did not seek emergency attention. Did not feel dehydrated. Has been hydrating well. She tells yesterday was not really hot day. Denies any dysuria. No hematuria, no flank pain. No fevers. No chest pain. No palpitations. No cardiovascular history. No history of smoking. No history of COPD. No history of strokes. No history of seizures. She tells me that this afternoon, she was at the grocery store, when she started to feel similarly like yesterday, both her legs suddenly felt weak she felt lightheaded, she felt unsteady, and so she came here to the emergency room Review of Systems Const: Reports: fatigue and malaise; Denies: fever(s) or chills Eyes: Denies: change in vision Card: Reports: lightheadedness, syncope and dyspnea on exertion; Denies: chest pain or palpitations Resp: Reports: dyspnea; Denies: non-productive cough GI: Reports: diarrhea; Denies: abdominal pain, nausea or vomiting : Denies: flank pain, difficulty voiding, dysuria or urinary frequency Musc: Reports: joint pain and joint stiffness; Denies: back pain Skin/Breast: Denies: rash Neuro: Reports: weakness in extremities and difficulty walking; Denies: headache(s), numbness in extremities, sensory changes or frequent falls Medications/Allergies Home Medications Medication Instructions Recorded Confirmed Last Taken Type celecoxib 200 mg capsule (Celebrex) 200 mg PO BID 09/01/19 07/21/21 08/08/20 History citalopram 20 mg tablet 20 mg PO DAILY 09/01/19 07/21/21 08/08/20 History donepezil 10 mg tablet 10 mg PO BEDTIME 09/01/19 07/21/21 08/08/20 History hydroxychloroquine 200 mg tablet 200 mg PO BID 09/01/19 07/21/21 08/08/20 History pantoprazole 40 mg tablet,delayed 40 mg PO DAILY 09/01/19 07/21/21 Unknown History release Diabetic shoe with 3 pairs of #1 ea 06/25/20 07/21/21 Unknown Rx insterts albuterol sulfate 90 mcg/actuation 2 puff INHALATION QID PRN 08/09/20 07/21/21 Unknown History aerosol inhaler (ProAir HFA) cevimeline 30 mg capsule 30 mg PO TID 08/09/20 07/21/21 08/08/20 History folic acid 1 mg tablet 3 mg PO DAILY@16 08/09/20 07/21/21 08/08/20 History memantine 10 mg tablet 10 mg PO BID 08/09/20 07/21/21 08/08/20 History methotrexate sodium (PF) 25 mg/mL See Rx Instructions .ROUTE .COMPLEX 08/09/20 07/21/21 08/02/20 History injection solution montelukast 10 mg tablet 10 mg PO QAM 08/09/20 07/21/21 08/08/20 History custom molded accommodative #1 ea 10/22/20 07/21/21 Unknown Rx orthotic mirabegron 25 mg tablet,extended 25 mg PO DAILY #30 tab 04/25/21 07/21/21 Unknown Rx release 24 hr (Myrbetriq) doxycycline hyclate 100 mg tablet 100 mg PO BID #60 tab 07/04/21 07/21/21 Unknown Rx acetaminophen 500 mg tablet 500 mg PO Q6H PRN 5 Days #20 tab 08/26/21 Unknown Rx Allergies Allergy/AdvReac Type Severity Reaction Status Date / Time cefditoren [From Spectracef] Allergy Rash Verified 07/21/21 09:59 ceftriaxone [From Rocephin] Allergy Unknown Verified 07/21/21 09:59 cephalexin Allergy Rash Verified 07/21/21 09:59 clindamycin Allergy Unknown Verified 07/21/21 09:59 levofloxacin Allergy Unknown Verified 07/21/21 09:59 PFSH Acute PFSH: Medical History Chronic cystitis CREST syndrome Dementia Diabetes mellitus Feeling of incomplete bladder emptying History of pyelonephritis Squamous cell carcinoma of skin of chest Urgency incontinence Surgical History History of hand surgery (~2012) Ruptured tendons of right hand History of hysteroscopy (10/18/12) With D&C. Negative evaluation. Dx: Postmenopausal bleeding. [place] [facility] [place] History of tubal ligation (~1975) Family History Grandmother Diabetes Paternal CAD (coronary artery disease) Maternal Grandfather Diabetes Maternal CAD (coronary artery disease) Maternal Family/Other Stroke Maternal aunt Brother Hyperlipidemia Mother , at age 92 CAD (coronary artery disease) Father , at age 54 Alcoholic Social History Smoking and tobacco status: never smoked Alcohol intake: current Alcohol intake frequency: holidays/special occasions only Marital status: / Current occupational status: retired History of recent travel: No Vitals/I&O/Wt Last Vital Signs Temp 97.9 F 08/26/21 17:27 Pulse 82 08/26/21 18:35 Resp 18 08/26/21 18:35 BP 136/73 08/26/21 18:35 Pulse Ox 96 08/26/21 18:35 08/26/21 08/26/21 08/26/21 06:59 14:59 22:59 Intake Total 500 / 500 Balance 500 / 500 Weight last 48 hrs Weight 48.081 kg Physical Exam Const: COMMON NORMALS: no acute distress and patient oriented x3 HENMT: COMMON NORMALS: normocephalic HEAD & SCALP: normocephalic Eye: COMMON NORMALS: Equal, round and reactive pupils present and EOMs intact bilaterally Neck/C-Spine: COMMON NORMALS: no JVD Lymph: LYMPHATIC: no lymphadenopathy noted Resp: COMMON NORMALS: normal respiratory effort, No retractions, No use of accessory muscles and clear to auscultation bilaterally AUSCULTATION: clear to auscultation bilaterally Cardio: COMMON NORMALS: no JVD, regular rate, regular rhythm, S1 normal heart sound present and S2 normal heart sound present RATE: regular rate RHYTHM: regular rhythm HEART SOUNDS: S1 normal heart sound present and S2 normal heart sound present GI: COMMON NORMALS: Normal to inspection, nondistended, normoactive bowel sounds present, Soft to palpation, non-tender, No hepatosplenomegaly present, no masses and no bruits PALPATION: Yes Soft to palpation and Yes No hepatosplenomegaly present Extremity: COMMON NORMALS: capillary refill normal, no clubbing, cyanosis or edema, no calf tenderness and no pedal edema Neuro: COMMON NORMALS: patient oriented x3, CN's II-XII intact bilaterally, moves all extremities and no focal motor deficits Psych: COMMON NORMALS: mental status grossly normal Data : 08/26/21 17:45 08/26/21 18:55 A&P Assessment and plan (1) Syncope and collapse: Status: Acute Plan Syncope and collapse -Etiology unclear -CT of the head no acute findings -CT of the face no acute findings -No significant initial troponin elevation, EKG does show Q waves in anterior leads -Will order serial EKGs, serial troponins, telemetry monitoring -UA has not been drawn yet, does have a history of UTI, E. coli bacteremia and pyelonephritis -UA, blood cultures, Pro-Khari, CRP -Orthostatic vitals -cardiac echo -We will do carotid artery ultrasound -Monitor mentation -Monitor orthostats -Follow urine culture -If patient's work-up comes back unremarkable, she will likely require a event monitor on discharge for cardiac arrhythmia as an etiology [place] syncope and collapse -Full code -Lovenox for DVT prophylaxis Type 2 diabetes mellitus, diet controlled A1c Crest syndrome, scleroderma, She is on memantine, Myrbetriq, Aricept, which could be associated with lightheadedness Attestations Medical Necessity Statement*: Patient requires hospitalization, outpatient with observation for syncope and collapse Coding Level of Care Code Acute Forder Operator for William Tong Diagnoses Syncope and collapse R50
[2021-08-26 21:17] LABS: Procalcitonin 0.05 ng/mL (0-0.5)
[2021-08-26 23:14] LABS: D Dimer 0.78 ug/mIFEU (0-0.59)
[2021-08-26 23:17] LABS: Glucose Urine UA Norm (Normal); Ketones Urine Negative (Negative); Protein Urine Neg (Negative); Specific Gravity, Urine 1.015 (1.005-1.030); Urine Appearance Clear (CLEAR); Urine Color Straw (Yellow); pH Urine 6 (5-7)
[2021-08-26 23:18] LABS: Add Urine Microscopic? YES; Bilirubin Urine Neg (Negative); Blood Urine Neg (Negative); Leukocyte Esterase Urine 1+ (Negative); Nitrate Urine Negative (Negative); Urobilinogen Urine Norm (Negative)
[2021-08-26 23:19] LABS: Add Urine Culture? No; Bacteria Urine TRACE /hpf; RBC Urine 0-4 /hpf (0-2); WBC Urine 15-25 /hpf (0-5)
[2021-08-26 23:22] LABS: Lactate (Lactic Acid level) 0.5 mmol/L (0.5-2.2)
[2021-08-26 23:33] LABS: Magnesium 1.9 mg/dL (1.7-2.3); NT Pro B Type Natriuretic Pept 294 pg/mL (0-125); Thyroid Stimulating Hormone 2.98 uIU/mL (0.27-4.20)
[2021-08-27 00:15] LABS: Glucose Point of Care 85 mg/dL (70-110)
[2021-08-27 00:33] LABS: Estmated Average Glucose 105; Hemoglobin A1C 5.3 % (4.0-6.0)
[2021-08-27] MEDS: sodium chloride 0.9% 1,000 ML 75 ML IV (01:50)
[2021-08-27] MEDS: enoxaparin 40 mg/0.4 mL Syringe SUBCUT (01:51)
[2021-08-27] MEDS: pantoprazole 40 mg SDV IVP (01:51)
[2021-08-27 01:55] LABS: Basophils # 0.1 10^3/uL (0.0-0.1); Basophils % 0.8 %; Eosinophils # 0.2 10^3/uL (0.0-0.8); Eosinophils % 2.5 %; Hematocrit 36.9 % (37.0-47.0); Hemoglobin 12.3 g/dL (11.5-15.3); Lymphocytes # 2.3 10^3/uL (0.8-4.8); Lymphocytes % 29.7 %; Mean Corpuscular HGB Conc 33.3 g/dL (30.0-36.0); Mean Corpuscular Hemoglobin 30.1 pg (28.0-34.0); Mean Corpuscular Volume 90.2 fl (81-99); Mean Platelet Volume 10.3 fL (7.4-10.4); Monocytes # 1.3 10^3/uL (0.2-0.9); Monocytes % 16.2 %; Neutrophils % 50.5 %; Nucleated Red Blood Cells % 0 %; Platelet Count 214 10^3/cmm (130-400); Red Blood Count 4.09 10^6/uL (4.1-5.3); Red Cell Distribution Width 14.6 % (12.1-15.1); White Blood Count 7.7 10^3/uL (4.0-10.0)
[2021-08-27 02:19] VITALS: PULSE 73
[2021-08-27 02:23] LABS: Alanine Aminotransferase 20 U/L (0-33); Alkaline Phosphatase 60 IU/L (35-105); Aspartate Amino Transferase 29 U/L (0-32); Blood Urea Nitrogen 22 mg/dL (8-23); Calcium 9.1 mg/dL (8.5-10.5); Carbon Dioxide 25 mmol/L (22-29); Chloride 99 mmol/L (98-107); Creatinine Clr Calc Pharmacy 47.5384; Globulin 2.6 g/dL (1.3-4.6); Glucose 78 mg/dL (65-115); Magnesium 2.1 mg/dL (1.7-2.3); Osmolality Calculated 280 mOsm/kg (285-295); Phosphorus 3.3 mg/dL (2.5-4.5); Sodium 134 mmol/L (136-145); Total Bilirubin 0.4 mg/dL (0.15-1.2); Total Protein 6.6 g/dL (6.6-8.7)
[2021-08-27 02:24] LABS: Troponin 5 6HR 12.59 ng/L (0-10)
[2021-08-27 02:25] LABS: Troponin 5 6HR Delta 3.59 ng/L (0-12)
[2021-08-27 04:00] VITALS: BP 123/73; PULSE 56; RESP 16; TEMP 36.3; O2SAT 97
--- NOTE | 2021-08-27 05:19 | XRR_ITS ---
PROCEDURE INFORMATION: Exam: XR Right Elbow Exam date and time: 08/27/2021 5:28 AM Age: 71 years old Clinical indication: Pain and injury or trauma; Fall; Blunt trauma (contusions or hematomas); Elbow; Right; Injury date: 08/25/21; Additional info: Right elbow pain TECHNIQUE: Imaging protocol: XR Right elbow. Views: 1 or 2 views. Total images: 2 COMPARISON: No relevant prior studies available. FINDINGS: Bones/joints: No acute fracture nor subluxation. No osseous erosion nor periosteal reaction. Soft tissues: Normal. Other findings: Dystrophic calcification noted superficial to olecranon. XR/XR elbow RT 2V [id number] IMPRESSION: 1. Dystrophic calcification noted superficial to olecranon. 2. No acute osseous pathology.
[2021-08-27 06:00] VITALS: PULSE 75
[2021-08-27 06:55] LABS: Glucose Point of Care 69 mg/dL (70-110)
[2021-08-27 07:14] VITALS: BP 106/60; PULSE 59; RESP 16; TEMP 36.4; O2SAT 98
--- NOTE | 2021-08-27 10:43 | PC.CHAP ---
Pastoral Care Encounter/Spiritual Assessment Type of Contact [] Declined blind hanger visit [] Patient/Family/Request visit [] Outpatient visit [] Follow-up visit [] Physician referral [] Code/Alert [x] Routine visit [] Staff referral [] Actively dying [] Patient sleeping [] Family support [] [] Out of room [] Palliative care [] [] Receiving care in room [] Pre-surgical visit [] Trauma [] Long length of stay [] ICU visit [] Other: Relational/Emotional Strength [x] Patient feels connected with others/family/visitors/staff [] Distress [] Loneliness/isolation [] Abandonment Spirituality of Patient [x] Person of Gretel x] Attends Episcopal of their Gretel [x] Believes in Prayer [] Reads Bible or Adventism materials [] There are Spiritual issues to be addressed Pulp Drier Firer Interventions [x] Prayer [x] Active listening [x] Non-anxious presence [x Spiritual/emotional support [] Crisis/trauma care [] Spiritual counseling [] Bereavement support [] Provided bereavement packet [] Provided Bible/devotional materials [] Provided toy/stuffed animal, coloring book to patient or family member [] Provided Communion [] Anointing/Gardiner [] Salvation [x] Completed spiritual assessment [] Other: Impact on Illness or Injury [] Angry [] Fearful [] Anxious [] Often cries [] Exhaustion [] Unable to work [] Unable to attend jewish [] Unable to walk/stand [] Unable to read [] Unable to drive [] Unable to eat/drink [] Unable to sleep [] Unable to be with family [] Patient intubated [] Other: Summary Time spent with patient 10 min
[2021-08-27 11:03] VITALS: BP 107/64; PULSE 66; RESP 16; TEMP 36.4; O2SAT 93
[2021-08-27] MEDS: folic acid 1 mg Tablet 3 MG PO (11:12)
[2021-08-27] MEDS: citalopram 20 mg Tablet PO (11:12)
[2021-08-27 11:47] LABS: Glucose Point of Care 156 mg/dL (70-110)
--- NOTE | 2021-08-27 12:44 | P.DS_ITS ---
Discharge Providers Date of Admission: 08/26/21 20:05 Date of Discharge: August 27, 2021 Attending Provider at Admission: James Robles MD Attending Provider at Discharge: Simón Sagastume MD Primary Care Provider: Warner Harper DO Diagnoses at Discharge Discharge Diagnosis (1) Syncope and collapse: Status: Acute Reason for Visit Reason for Visit: fell and hit head Brief History: History as per HPI: Nereyda Caceres is a 71 year old female with a past medical history of scleroderma, crest syndrome, history of recurrent UTIs, history of pyelonephritis, history of urinary retention, diet-controlled type 2 diabetes mellitus, who presents to [facility] due to syncopal episode.? Patient tells me that yesterday she was walking out on her property at roughly 4 PM, she did a long walk, she likes to remain active, in she took a little bit of a longer walk than her usual walk, when she started to suddenly feel unwell, feels fatigue, malaise, felt short of breath, felt lightheaded, unsteady on her feet, no chest pain, no slurring of words, no focal weakness.? So she sat down, and at that time she thinks she passed out, she thinks she fell forward, and fell to the ground, she had bruising on her face, she is not sure how long she was down for, she is not even sure if she passed out, but does not really remember the event well.? But the next and she remembers she was on the floor, and she called her brother for help.? She did not seek emergency attention.? Did not feel dehydrated.? Has been hydrating well.? She tells yesterday was not really hot day.? Denies any dysuria.? No hematuria, no flank pain.? No fevers.? No chest pain.? No palpitations.? No cardiovascular history.? No history of smoking.? No history of COPD.? No history of strokes.? No history of seizures.? She tells me that this afternoon, she was at the grocery store, when she started to feel similarly like yesterday, both her legs suddenly felt weak she felt lightheaded, she felt unsteady, and so she came here to the emergency room. Hospital Course Hospital Course Patient was admitted under observation for further evaluation and management. She did not have any further of dizziness or syncope/presyncope during hos pitalization. Her blood pressure remained stable. Orthostatics were negative. During hospitalization patient was found to have recurrent episodes of hypoglycemia. On admission patient's blood sugars were running in the 80s. It is most likely the cause of patient's syncope and dizziness. On further review with the patient she stated that her recently and since then she has had episodes when she forgets to eat. Patient and her caregiver were counseled in detail regarding danger symptoms of hypoglycemia and possible ways of prevention. She was educated regarding rescue glucose pills, or a bottle of juice which she should carry whenever she is out of the house and to consume the same whenever she has symptoms similar to with which she presented. Echocardiogram and carotid artery Doppler was done for the patient which is elevated. Patient did not have any signs or symptoms of stroke. On admission CT head and CT face was done which were negative for any acute abnormality. For further safety Meals on Wheels were arranged for patient. Home health was arranged for patient. Physical Exam Const: COMMON NORMALS: no acute distress and patient oriented x3 HENMT: COMMON NORMALS: normocephalic HEAD & SCALP: normocephalic Eye: COMMON NORMALS: Equal, round and reactive pupils present and EOMs intact bilaterally PUPIL: Yes Equal, round and reactive pupils present Neck/C-Spine: COMMON NORMALS: no JVD Lymph: LYMPHATIC: no lymphadenopathy noted Resp: COMMON NORMALS: normal respiratory effort, No retractions, No use of accessory muscles and clear to auscultation bilaterally AUSCULTATION: clear to auscultation bilaterally Cardio: COMMON NORMALS: no JVD, regular rate, regular rhythm, S1 normal heart sound present and S2 normal heart sound present RATE: regular rate RHYTHM: regular rhythm HEART SOUNDS: S1 normal heart sound present and S2 normal heart sound present GI: COMMON NORMALS: Normal to inspection, nondistended, normoactive bowel sounds present, Soft to palpation, non-tender, No hepatosplenomegaly present, no masses and no bruits PALPATION: Yes Soft to palpation and Yes No hepa tosplenomegaly present Extremity: COMMON NORMALS: capillary refill normal, no clubbing, cyanosis or edema, no calf tenderness and no pedal edema Neuro: COMMON NORMALS: patient oriented x3, CN's II-XII intact bilaterally, moves all extremities and no focal motor deficits Psych: COMMON NORMALS: mental status grossly normal Discharge Data Studies Completed and Pending Completed Studies During Hospitalization Category Date Time Status CT facial bones wo con* [id number] Urgent Cat Scan 08/26/21 18:[address] head wo con* [id number] Urgent Cat Scan 08/26/21 17:28 Completed XR elbow RT 2V [id number] Routine Exams 08/27/21 05:19 Completed Pending at discharge Category Date Time Status Blood Culture Stat Lab 08/26/21 23:10 Results Complete Blood Count w/Auto AM LABS Lab 08/28/21 04:00 Ordered Complete Blood Count w/Auto AM LABS Lab 08/29/21 04:00 Ordered Comprehensive Metabolic Panel AM LABS Lab 08/28/21 04:00 Ordered Comprehensive Metabolic Panel AM LABS Lab 08/29/21 04:00 Ordered Magnesium AM LABS Lab 08/28/21 04:00 Ordered Magnesium AM LABS Lab 08/29/21 04:00 Ordered Phosphorus AM LABS Lab 08/28/21 04:00 Ordered Phosphorus AM LABS Lab 08/29/21 04:00 Ordered Urine Culture Stat Lab 08/26/21 22:06 Received CV carotid duplex BI* [id number] Routine Ultrasound 08/27/21 23:53 Taken CV. echo complete* [id number] Routine Ultrasound 08/27/21 23:53 Taken Radiology Impressions Head CT 08/26/21 17:28 IMPRESSION: No acute intracranial abnormality. Face CT 08/26/21 18:16 IMPRESSION: No acute findings. Elbow X-Ray 08/27/21 05:19 IMPRESSION: 1. Dystrophic calcification noted superficial to olecranon. 2. No acute osseous pathology. Laboratory Results WBC 7.7 10^3/uL (4.0-10.0) 08/27/21 01:15 RBC 4.09 10^6/uL (4.1-5.3) L 08/27/21 01:15 Hgb 12.3 g/dL (11.5-15.3) 08/27/21 01:15 Hct 36.9 % (37.0-47.0) L 08/27/21 01:15 MCV 90.2 fl (81-99) 08/27/21 01:15 MCH 30.1 pg (28.0-34.0) 08/27/21 01:15 MCHC 33.3 g/dL (30.0-36.0) 08/27/21 01:15 RDW 14.6 % (12.1-15.1) 08/27/21 01:15 Plt Count 214 10^3/cmm (130-400) 08/27/21 01:15 MPV 10.3 fL (7.4-10.4) 08/27/21 01:15 Neut % (Auto) 50.5 % 08/27/21 01:15 Lymph % (Auto) 29.7 % 08/27/21 01:15 [place] % (Auto) 16.2 % 08/27/21 01:15 Eos % (Auto) 2.5 % 08/27/21 01:15 Baso % (Auto) 0.8 % 08/27/21 01:15 Neut # (Auto) 3.90 10^3/uL (1.8-7.7) 08/27/21 01:15 Lymph # (Auto) 2.3 10^3/uL (0.8-4.8) 08/27/21 01:15 [place] # (Auto) 1.3 10^3/uL (0.2-0.9) H 08/27/21 01:15 Eos # (Auto) 0.2 10^3/uL (0.0-0.8) 08/27/21 01:15 Baso # (Auto) 0.1 10^3/uL (0.0-0.1) 08/27/21 01:15 Nucleated RBC % (auto) 0 % 08/27/21 01:15 Nucleated RBCs # 0.0 /100WBC 08/27/21 01:15 D-Dimer 0.78 ug/mIFEU (0-0.59) H 08/26/21 22:20 Sodium 134 mmol/L (136-145) L 08/27/21 01:15 Potassium 4.0 mmol/L (3.5-5.1) 08/27/21 01:15 Chloride 99 mmol/L (98-107) 08/27/21 01:15 Carbon Dioxide 25 mmol/L (22-29) 08/27/21 01:15 Anion Gap 14.0 (5-19) 08/27/21 01:15 BUN 22 mg/dL (8-23) 08/27/21 01:15 Creatinine 0.5 mg/dL (0.5-0.9) 08/27/21 01:15 GFR Calculation Not Reportable 08/27/21 01:15 Glucose 78 mg/dL (65-115) 08/27/21 01:15 POC Glucose 156 mg/dL (70-110) H 08/27/21 11:07 Estimat Average Glucose 105 08/26/21 17:45 Hemoglobin A1c 5.3 % (4.0-6.0) 08/26/21 17:45 Calculated Osmolality 280 mOsm/kg (285-295) L 08/27/21 01:15 Lactate 0.5 mmol/L (0.5-2.2) 08/26/21 22:20 Calcium 9.1 mg/dL (8.5-10.5) 08/27/21 01:15 Phosphorus 3.3 mg/dL (2.5-4.5) 08/27/21 01:15 Magnesium 2.1 mg/dL (1.7-2.3) 08/27/21 01:15 Total Bilirubin 0.4 mg/dL (0.15-1.2) 08/27/21 01:15 AST 29 U/L (0-32) 08/27/21 01:15 ALT 20 U/L (0-33) 08/27/21 01:15 Alkaline Phosphatase 60 IU/L (35-105) 08/27/21 01:15 Troponin T Baseline 9 ng/L (0-10) 08/26/21 17:45 Troponin T 120 Minute 10.77 ng/L (0-10) H 08/26/21 19:40 Delta Troponin T 1.77 ABS# (0-10) 08/26/21 19:40 Troponin T Hi Sens 6Hr 12.59 ng/L (0-10) H 08/27/21 01:15 Troponin T Hi Sens 6Hr Delta 3.59 ng/L (0-12) 08/27/21 01:15 C-Reactive Protein 3.0 mg/L (0.0-4.9) 08/26/21 18:55 NT-Pro-B Natriuret Pep 294 pg/mL (0-125) H 08/26/21 18:55 Total Protein 6.6 g/dL (6.6-8.7) 08/27/21 01:15 Albumin 4.0 g/dL (3.5-5.2) 08/27/21 01:15 Globulin 2.6 g/dL (1.3-4.6) 08/27/21 01:15 Procalcitonin 0.05 ng/mL (0-0.5) 08/26/21 18:55 TSH 2.98 uIU/mL (0.27-4.20) 08/26/21 18:55 Urine Color Straw (Yellow) 08/26/21 22:06 Urine Appearance Clear (CLEAR) 08/26/21 22:06 Urine pH 6 (5-7) 08/26/21 22:06 Ur Specific [place] 1.015 (1.005-1.030) 08/26/21 22:06 Urine Protein Neg (Negative) 08/26/21 22:06 Urine Glucose (UA) Norm (Normal) 08/26/21 22:06 Urine Ketones Negative (Negative) 08/26/21 22:06 Urine Blood Neg (Negative) 08/26/21 22:06 Urine Nitrate Negative (Negative) 08/26/21 22:06 Urine Bilirubin Neg (Negative) 08/26/21 22:06 Urine Urobilinogen Norm mg/dL (Negative) 08/26/21 22:06 Ur Leukocyte Esterase 1+ (Negative) H 08/26/21 22:06 Urine RBC 0-4 /hpf (0-2) H 08/26/21 22:06 Urine WBC 15-25 /hpf (0-5) H 08/26/21 22:06 Ur Squamous Epith Cells 5-10 /hpf (0-5) H 08/26/21 22:06 Amorphous Sediment Not Reportable 08/26/21 22:06 Urine Bacteria Trace /hpf (NONE) 08/26/21 22:06 Vitals Last Vital Signs Temp 97.5 F L 08/27/21 11:03 Pulse 66 08/27/21 11:03 Resp 16 08/27/21 11:03 BP 107/64 08/27/21 11:03 Pulse Ox 93 08/27/21 11:03 Discharge Plan Discharge Patient Disposition: Home Health Service Condition: Stable Prescriptions: New acetaminophen 500 mg tablet 500 mg PO Q6H PRN (Reason: pain) 5 Days Qty: 20 0RF Glucose Bits 1 gram tablet,chewable 1 g PO Q15M PRN (Reason: hypoglycemia) Qty: 60 0RF Rx Instructions: until symptoms of low blood sugar are controlled Continued pantoprazole 40 mg tablet,delayed release (DR/EC) 40 mg PO DAILY 0RF hydroxychloroquine 200 mg tablet 200 mg PO BID 0RF Hold Instructions: Resume on 08/23/20. resume after ciprofloxacin has finis hed donepezil 10 mg tablet 10 mg PO BEDTIME 0RF (DME) Diabetic shoe with 3 pairs of insterts See Rx Instructions .Route .MEDSUPPLY Qty: 1 0RF Rx Instructions: As directed by [facility] (DME) custom molded accommodative orthotic See Rx Instructions .ROUTE .MEDSUPPLY Qty: 1 0RF Rx Instructions: As directed By [facility] Myrbetriq 25 mg tablet extended release 24 hr 25 mg PO DAILY Qty: 30 12RF Rx Instructions: 340 B folic acid 1 mg Tablet 3 mg PO DAILY@16 0RF montelukast 10 mg Tablet 10 mg PO QAM 0RF memantine 10 mg Tablet 10 mg PO BID 0RF cevimeline 30 mg capsule 30 mg PO TID 0RF albuterol sulfate [ProAir HFA] 90 mcg/actuation Hfa Aerosol Inhaler 2 puff INHALATION QID PRN (Reason: Shortness Of Breath) 0RF methotrexate sodium (PF) 25 mg/mL solution See Rx Instructions .ROUTE .COMPLEX 0RF Hold Instructions: Resume on 08/26/20. until seen by rheumatology Rx Instructions: 0.6ml subcutaneous every 7 days (on fridays) Changed citalopram 20 mg tablet 10 mg PO DAILY Qty: 0 0RF Discontinued celecoxib [Celebrex] 200 mg capsule 200 mg PO BID 0RF doxycycline hyclate 100 mg tablet 100 mg PO BID Qty: 60 1RF Discharge Orders: Discharge Order (Routine); Ordered 08/27/21 Ordered By: Simón Sagastume Referrals: Warner Harper DO [Primary Care Provider] - 7-10 days (Wellness visit) Discharge Diet: Advance as tolerated Discharge Activity: Increase activity as tolerated Patient Instructions: Concussion (ED), Non-diabetic Hypoglycemia (DC) Activity Restrictions/Additional Instructions: If you have any symptoms of dizziness, lightheadedness, cold sweats please consume half a glass of juice or 2 or 3 tablets of glucose to prevent from hypoglycemia. Please make sure you have 2-3 meals a day. Please check your blood glucose levels if you have symptoms concerning for hypoglycemia like discussed in detail. Please follow-up with a primary care provider within next 1 week. Discharge Attestations Time Spent in Discharge Care*: greater than 30 min Specific Discharge Activities: educating patient, educating and/or supporting family/caregiver, discussing with [employer]er [employer]/social workers/dc planners, documenting/other paperwork and evaluating patient/reviewing data Status at Discharge: Cognitive status at discharge: mildly impaired cognition , Behavioral status at discharge: cooperative , Functional status at discharge: independent ambulation , Overall status at discharge: patient is progressing back to baseline Quality Metrics Clinical Quality Measures [ No reported AMI, CVA or VTE this stay] Coding Level of Care Code Acute Chg FW DC note Diagnoses Syncope and collapse R55
[2021-08-27 15:20] VITALS: BP 107/64; PULSE 66; RESP 16; TEMP 36.4; O2SAT 93
--- NOTE | 2021-08-27 23:53 | USCV_ITS ---
Nereyda Caceres Age: 71 Gender: F : 1950 Exam Date: 08/27/2021 09:22 Ordering Phys: James Robles MD Technologist: ANUP Exam Location: [facility] – [place] Indication: syncope. non-smoker. DM2. no hx JOSHUA / TIA per patient. Risk Factors: syncope. non-smoker. DM2. no hx JOSHUA / TIA per patient. Previous Vascular Surgery: None Right Brachial BP: / Left Brachial BP: / Right Left Velocity (cm/s) Spectral Plaque Velocity (cm/s) Spectral Plaque Syst/Diast Broadening Syst/Diast Broadening 134.50/18.70 None None Prox CCA 88.20 / 12.10 None None 88.20/ 12.10 None None Mid CCA 91.50 / 19.80 None None 79.40/ 16.50 None None Distal CCA 87.10 / 19.80 None None 67.30/ 17.60 None None Prox ICA 123.60/ 26.30 None None 70.70/ 24.90 None None Mid ICA 103.90/ 31.60 None None 91.70/ 24.90 None None Distal ICA 92.00 / 27.60 None None 86.00 None None ECA 65.30 None None 0.68 ICA/CCA 1.35 Antegrade Vertebral Antegrade 49.00/ 12.00 cm/s 75.00/ 17.00 cm/s Tri Subclavian Tri 83.00 101.0 0 CONCLUSIONS Intimal thickening in the common carotid arteries and internal carotid arteries bilaterally. Right ICA stenosis <50%. Left ICA stenosis <50%. Normal antegrade Doppler flow noted in the right vertebral artery. Normal antegrade Doppler flow noted in the left vertebral artery. Diallo Garrido MD (Electronically Signed) Final Date: 27 August 2021 16:41 S
--- NOTE | 2021-08-27 23:53 | USCV_ITS ---
Nicki Nereyda Age: 71 Gender: F : 1950 Exam Date: 08/27/2021 10:02 Ordering Phys: James Robles MD Technologist: ANUP Exam Location: [facility] [place] Indication: syncope, non-smoker. DM2, no hx cardiac intervention per patient BP: 123 / 73 HR: 60 Rhythm: Sinus Technical Quality: Good MEASUREMENTS (Male / Female) Normal Values 2D ECHO LV Diastolic Diameter PLAX 3.4 cm 4.2 - 5.9 / 3.9 - 5.3 cm LV Systolic Diameter PLAX 2.1 cm IVS Diastolic Thickness 0.8 cm 0.6 - 1.0 / 0.6 - 0.9 cm IVS Systolic Thickness 1.1 cm LVPW Diastolic Thickness 0.8 cm 0.6 - 1.0 / 0.6 - 0.9 cm LVPW Systolic Thickness 1.3 cm LVOT Diameter 1.8 cm LV Ejection Fraction 2D Teich 70.1 % LV Ejection Fraction MOD 2C 79.3 % LV Ejection Fraction 2C AL 79.5 % LA Diameter 2.4 cm LA Width 3.6 cm LA Height 4.0 cm RA Width 3.8 cm RA Height 4.1 cm Aorta at Sinotubular Diameter 2.6 cm IVC Diameter 2.0 cm M-MODE Aortic Annulus Diameter 2.6 cm LA Ao Ratio MM 0.9 MV E Point Septal Separation 0.2 cm DOPPLER AV Peak Velocity 120.0 cm/s LVOT Peak Velocity 76.0 cm/s AV Area Cont Eq vti 2.0 cm squared AV Area Cont Eq pk 1.7 cm squared MV Peak Velocity 108.0 cm/s MV Area PHT 4.0 cm squared Mitral E to A Ratio 1.3 MV E' Velocity 53.5 cm/s Mitral E to MV E' Ratio 9.3 Mitral E to LV E' Lateral Ratio 6.5 Mitral E to LV E' Septal Ratio 17.0 TR Peak Velocity 250.0 cm/s TR Peak Gradient 25.0 mmHg TV Peak E Velocity 71.0 cm/s Right Atrial Pressure 5.0 mmHg Pulmonary Artery Systolic Pressu 30.0 mmHg PV Peak Velocity 79.0 cm/s FINDINGS Left Ventricle Normal left ventricular size, systolic function and wall thickness, with no regional wall motion abnormalities. Normal left ventricular wall thickness. Normal diastolic filling pattern. Right Ventricle Normal right ventricular size and systolic function. Normal right ventricular systolic pressure. Right Atrium The right atrium is normal in size. Left Atrium The left atrium is normal in size. Mitral Valve Structurally normal mitral valve. Trace mitral valve regurgitation. No mitral valve stenosis. Aortic Valve Structurally normal aortic valve without significant sclerosis or stenosis. There is no aortic regurgitation. Tricuspid Valve Structurally normal tricuspid valve. Mild tricuspid valve regurgitation. Pulmonic Valve Pulmonic valve not well visualized. Pericardium Normal pericardium without effusion. Aorta Normal ascending aorta dimension. IVC The inferior vena cava pulmonary and hepatic veins appear normal. CONCLUSIONS Normal left ventricular size, systolic function and wall thickness, with no regional wall motion abnormalities. Normal left ventricular wall thickness. Normal diastolic filling pattern. Structurally normal mitral valve. Trace mitral valve regurgitation. No mitral valve stenosis. Dr. Tang Moncada MD (Electronically Signed) Final Date: 27 August 2021 16:07 S
== END 2021-08-27 15:32 | disposition home health service (06) ==
LOC: ER 18:02 → MEDSURG 20:57
PROVIDERS: Admitting Provider Family Medicine; Emergency Provider Emergency Medicine; PCP Internal Medicine; Visit Provider Student in an Organized Health Care Education/Training Program
DX: R55 Syncope and collapse (principal); I65.23 Occlusion and stenosis of bilateral carotid arteries; E11.9 Type 2 diabetes mellitus without complications; E44.0 Moderate protein-calorie malnutrition; Z68.1 Body mass index [BMI] 19.9 or less, adult; Z91.81 History of falling; F03.90 Unspecified dementia, unspecified severity, without behavioral disturbance, psychotic disturbance, mood disturbance, and anxiety
CPT/HCPCS: 36415; 36416; 70450; 70486; 73070; 80048; 80053; 81001; 82962; 83036; 83605; 83735; 83880; 84100; 84145; 84443; 84484; 85025; 85378; 86140; 87040; 87077; 87086; 87150; 87186; 87205; 93005; 93306; 93880; 96361; 96372; 96374; 97165; 99285; C9113; E0352; G0378; J1650; J7030; J7040

== ENCOUNTER → 2021-09-22 14:07 | Outpatient (BNVA) | payer MEDICARE, OTHER, SELFPAY | PROVIDERS: PCP Internal Medicine; Visit Provider Urology | DX: N30.20 Other chronic cystitis without hematuria (principal); N39.41 Urge incontinence | CPT/HCPCS: 51798; 81003; 99213; 99214 ==

== ENCOUNTER → 2021-10-20 13:18 | Outpatient (BNVA) | payer MEDICARE, SELFPAY | PROVIDERS: PCP Internal Medicine; Visit Provider Nurse Practitioner Family | DX: N30.20 Other chronic cystitis without hematuria (principal) | CPT/HCPCS: 81003; 99213 ==

== ENCOUNTER → 2021-11-18 08:16 | Outpatient (BNVA) | payer MEDICARE, SELFPAY | PROVIDERS: PCP Internal Medicine; Visit Provider Podiatrist Foot & Ankle Surgery | DX: E11.42 Type 2 diabetes mellitus with diabetic polyneuropathy (principal); Z79.4 Long term (current) use of insulin; I73.9 Peripheral vascular disease, unspecified; I73.00 Raynaud's syndrome without gangrene; L60.3 Nail dystrophy; M20.41 Other hammer toe(s) (acquired), right foot; M20.42 Other hammer toe(s) (acquired), left foot | CPT/HCPCS: 11055; 11721 ==

== ENCOUNTER → 2021-11-19 14:46 | Outpatient (BNVA) | payer MEDICARE, SELFPAY | PROVIDERS: PCP Internal Medicine; Visit Provider Nurse Practitioner Family | DX: R33.9 Retention of urine, unspecified (principal); N30.20 Other chronic cystitis without hematuria; N39.41 Urge incontinence | CPT/HCPCS: 81003; 99213 ==

== ENCOUNTER 2022-01-16 15:46 | Outpatient (CLI) | payer MEDICARE, OTHER, SELFPAY ==
[2022-01-16 16:10] LABS: Basophils # 0.1 10^3/uL (0.0-0.1); Basophils % 0.6 %; Eosinophils # 0.1 10^3/uL (0.0-0.8); Eosinophils % 0.6 %; Hematocrit 35.9 % (37.0-47.0); Hemoglobin 11.7 g/dL (11.5-15.3); Lymphocytes # 1.4 10^3/uL (0.8-4.8); Lymphocytes % 16.7 %; Mean Corpuscular HGB Conc 32.6 g/dL (30.0-36.0); Mean Corpuscular Hemoglobin 28.7 pg (28.0-34.0); Mean Corpuscular Volume 88.2 fl (81-99); Mean Platelet Volume 10.4 fL (7.4-10.4); Monocytes % 12.2 %; Neutrophils # 5.62 10^3/uL (1.8-7.7); Neutrophils % 69.4 %; Nucleated Red Blood Cells % 0 %; Platelet Count 341 10^3/cmm (130-400); Red Blood Count 4.07 10^6/uL (4.1-5.3); Red Cell Distribution Width 13.7 % (12.1-15.1); White Blood Count 8.1 10^3/uL (4.0-10.0)
[2022-01-16 16:52] LABS: 25 Hydroxy Vitamin D 20 ng/mL (30-100); Alanine Aminotransferase 20 U/L (0-33); Albumin Level 3.4 g/dL (3.5-5.2); Alkaline Phosphatase 124 U/L (35-105); Anion Gap 12.6 (5-19); Aspartate Amino Transferase 30 U/L (0-32); Blood Urea Nitrogen 19 mg/dL (8-23); Calcium 9.4 mg/dL (8.5-10.5); Carbon Dioxide 27 mmol/L (22-29); Chloride 98 mmol/L (98-107); Globulin 3.5 g/dL (1.3-4.6); Glucose 110 mg/dL (65-115); Osmolality Calculated 279 mOsm/kg (285-295); Potassium 4.6 mmol/L (3.5-5.1); Sodium 133 mmol/L (136-145); Thyroid Stimulating Hormone 1.86 uIU/mL (0.27-4.20); Total Bilirubin 0.2 mg/dL (0.15-1.2); Total Protein 6.9 g/dL (6.6-8.7)
[2022-01-16 22:01] LABS: Estmated Average Glucose 134; Hemoglobin A1C 6.3 % (4.0-6.0)
== END 2022-01-16 15:47 | disposition home or self-care (01) ==
PROVIDERS: PCP Internal Medicine; Visit Provider Family Medicine
DX: R73.09 Other abnormal glucose (principal); E55.9 Vitamin D deficiency, unspecified; R94.6 Abnormal results of thyroid function studies; D64.9 Anemia, unspecified
CPT/HCPCS: 80053; 82306; 83036; 84443; 85025

== ENCOUNTER → 2022-03-03 09:37 | Outpatient (BNVA) | payer MEDICARE, OTHER, SELFPAY | PROVIDERS: PCP Family Medicine; Visit Provider Podiatrist Foot & Ankle Surgery | DX: E11.42 Type 2 diabetes mellitus with diabetic polyneuropathy (principal); I73.9 Peripheral vascular disease, unspecified; Z79.4 Long term (current) use of insulin; I73.00 Raynaud's syndrome without gangrene; L60.3 Nail dystrophy; M20.41 Other hammer toe(s) (acquired), right foot; M20.42 Other hammer toe(s) (acquired), left foot | CPT/HCPCS: 11055; 11721 ==

== ENCOUNTER 2022-03-22 19:12 | Emergency (ER) | payer MEDICARE, OTHER, SELFPAY ==
[2022-03-22 19:22] VITALS: BP 105/69; PULSE 79; RESP 20; TEMP 38.8; O2SAT 96
--- NOTE | 2022-03-22 19:54 | XRR_ITS ---
PROCEDURE INFORMATION: Exam: XR Chest Exam date and time: 03/22/2022 7:57 PM Age: 71 years old Clinical indication: Fever and other: Weakness; Additional info: Weakness, fever TECHNIQUE: Imaging protocol: Radiologic exam of the chest. Views: 1 view. COMPARISON: CR XR chest 1V portable [id number] 08/09/2020 1:40 AM FINDINGS: Lungs: Unremarkable. No consolidation. Pleural spaces: Unremarkable. No pleural effusion. No pneumothorax. Heart/Mediastinum: Unremarkable. No cardiomegaly. Bones/joints: Unremarkable. XR/XR chest 1V portable [id number] IMPRESSION: No acute findings.
[2022-03-22] MEDS: sodium chloride 0.9% 1,000 ML 999 ML IV (20:10)
[2022-03-22] MEDS: acetaminophen 325 mg Tablet 650 MG PO (20:10)
[2022-03-22 20:14] LABS: Basophils % 0.8 %; Hematocrit 38.7 % (37.0-47.0); Hemoglobin 12.2 g/dL (11.5-15.3); Lymphocytes # 0.5 10^3/uL (0.8-4.8); Lymphocytes % 11.3 %; Mean Corpuscular HGB Conc 31.5 g/dL (30.0-36.0); Mean Corpuscular Hemoglobin 28.1 pg (28.0-34.0); Mean Corpuscular Volume 89.2 fl (81-99); Mean Platelet Volume 10.4 fL (7.4-10.4); Monocytes # 0.5 10^3/uL (0.2-0.9); Monocytes % 10.5 %; Neutrophils # 3.67 10^3/uL (1.8-7.7); Neutrophils % 77.2 %; Nucleated Red Blood Cells % 0 %; Platelet Count 187 10^3/cmm (130-400); Red Blood Count 4.34 10^6/uL (4.1-5.3); Red Cell Distribution Width 15.8 % (12.1-15.1); White Blood Count 4.8 10^3/uL (4.0-10.0)
[2022-03-22 20:33] LABS: Alanine Aminotransferase 22 U/L (0-33); Albumin Level 3.5 g/dL (3.5-5.2); Alkaline Phosphatase 105 U/L (35-105); Anion Gap 13.4 (5-19); Aspartate Amino Transferase 26 U/L (0-32); Blood Urea Nitrogen 26 mg/dL (8-23); Carbon Dioxide 26 mmol/L (22-29); Chloride 99 mmol/L (98-107); Globulin 3.4 g/dL (1.3-4.6); Glucose 236 mg/dL (65-115); Osmolality Calculated 290 mOsm/kg (285-295); Potassium 4.4 mmol/L (3.5-5.1); Sodium 134 mmol/L (136-145); Total Bilirubin 0.2 mg/dL (0.15-1.2); Total Protein 6.9 g/dL (6.6-8.7)
[2022-03-22 20:38] LABS: Influenza A by IFA negative (Negative); Influenza B by IFA negative (Negative); SARS Covid-2 Antigen negative (Negative)
[2022-03-22 21:12] VITALS: BP 108/58; PULSE 82; RESP 18; O2SAT 99
[2022-03-22 21:14] VITALS: TEMP 38.1
[2022-03-23 00:20] LABS: Add Urine Culture? No; Add Urine Microscopic? YES; Bacteria Urine TRACE /hpf; Bilirubin Urine Neg (Negative); Blood Urine Neg (Negative); Glucose Urine UA 4+ (Normal); Ketones Urine 1+ (Negative); Leukocyte Esterase Urine Negative (Negative); Mucus Urine 4+ /hpf; Nitrate Urine Negative (Negative); Protein Urine Trace (Negative); RBC Urine 0-4 /hpf (0-2); Squamous Epithelial Cell Urine 0-4 /hpf (0-5); Urine Appearance Clear (CLEAR); Urine Color Yellow (Yellow); Urobilinogen Urine Norm (Negative); pH Urine 5 (5-7)
[2022-03-23] MEDS: doxycycline 100 mg Tablet PO (01:45)
[2022-03-23 02:15] VITALS: BP 112/64; PULSE 79; RESP 19; TEMP 36.9; O2SAT 97
--- NOTE | 2022-03-23 14:05 | ED_ITS ---
HPI - General Adult General: Chief complaint: General Medical Stated complaint: low bp, decreased intake, fever Time Seen by Provider: 03/22/22 19:43 Source: patient and family History of Present Illness: Pt here with her son. Complaint is that of fever, cough, congestion, decreased PO intake and generalized weakness. She lives in an assisted living environment. No vomiting or diarrhea. Onset (ago): day(s) Radiation: non-radiation Quality: other Pain Consistency: other Relieving factors: other Exacerbating factors: other Associated symptoms: Reports confusion (perhaps mild), cough, decreased appetite, dyspnea, nausea and short of breath; Deny chest pain, diaphoresis, headache(s), syncope or vomiting Treatments prior to arrival: none Review of Systems Const: Reports: fever(s), chills and change in appetite; Denies: diaphoresis ENMT: Reports: throat pain Card: Denies: chest pain or syncope Resp: Reports: dyspnea and productive cough GI: Reports: nausea; Denies: abdominal pain, vomiting or diarrhea Neuro: Reports: confusion (perhaps mild); Denies: headache(s) PFSH ED PFSH: Medical History Chronic cystitis CREST syndrome Dementia Diabetes mellitus Feeling of incomplete bladder emptying History of pyelonephritis Squamous cell carcinoma of skin of chest Urgency incontinence Surgical History History of hand surgery (~2012) Ruptured tendons of right hand History of hysteroscopy (10/18/12) With D&C. Negative evaluation. Dx: Postmenopausal bleeding. Performed by Dr. Daugherty at [facility] [place]. History of tubal ligation (~1975) Family History Grandmother Diabetes Paternal CAD (coronary artery disease) Maternal Grandfather Diabetes Maternal CAD (coronary artery disease) Maternal Family/Other Stroke Maternal aunt Brother Hyperlipidemia Mother , at age 92 CAD (coronary artery disease) Father , at age 54 Alcoholic Social History Smoking and tobacco status: never smoked Alcohol intake: never Marital status: / Current occupational status: retired History of recent travel: No Physical Exam Const: COMMON NORMALS: no acute distress GENERAL APPEARANCE: cooperative, ill appearing (mildly) and frail appearing (mildly) NUTRITIONAL APPEARANCE: thin ORIENTATION/CONSCIOUSNESS: Yes awake, Yes oriented to person and Yes oriented to place HENMT: COMMON NORMALS: normocephalic, atraumatic and Normal external nose present HEAD & SCALP: normocephalic and atraumatic FACE & SINUS: normal facial exam and face symmetric NOSE: Normal external nose present Eye: COMMON NORMALS: Equal, round and reactive pupils present and EOMs intact bilaterally PUPIL: Yes Equal, round and reactive pupils present Neck/C-Spine: GENERAL: Yes trachea midline Chest: CHEST: Yes Symmetrical chest wall rise Resp: COMMON NORMALS: clear to auscultation bilaterally EFFORT & INSPECTION: Yes symmetric chest movement and Yes tachypneic (mildly) AUSCULTATION: clear to auscultation bilaterally and no wheezes Cardio: COMMON NORMALS: regular rate and regular rhythm RATE: regular rate RHYTHM: regular rhythm GI: COMMON NORMALS: Normal to inspection, nondistended, normoactive bowel sounds present Extremity: COMMON NORMALS: no pedal edema Neuro: DEBRA COMA SCALE: document GCS findings Debra coma scale eye o pening: Spontaneous Debra coma scale verbal response: Orientated [place] coma scale motor response: Obey commands Debra coma scale total score: 15 SENSORIUM/ORIENTATION: Yes oriented to person and Yes oriented to place SENSORY EXAM: Yes extremities (intact) Psych: COMMON NORMALS: speech normal SPEECH: Yes normal speech Skin: COMMON NORMALS: no rashes or lesions noted GENERAL SKIN EXAM: no rashes or lesions noted Course Vital Signs: Vital signs: Vital Signs Temperature 98.5 F 03/23/22 02:15 Pulse Rate 79 03/23/22 02:15 Respiratory Rate 19 H 03/23/22 02:15 Blood Pressure 112/64 03/23/22 02:15 Pulse Oximetry 97 03/23/22 02:15 Oxygen Delivery Me thod 03/22/22 21:12 MDM - General Adult Medical Decision Making Pt not tachycardic. Sats are stable. Temp improved with tylenol. She is hydrated here with IVF given elevated BUN in relation to creatinine. no leukocytosis. swabs for flu and covid are negative. labs not remarkable otherwise. no infiltrate on x-ray. no UTI on urinalysis. given frailty and signficant temp, will cover with abx. pt has multiple abx allergies limiting choices for coverage. strict return precautions given. Lab Data 03/22/22 20:00 03/22/22 20:00 Radiology Impressions Chest X-Ray 03/22/22 19:54 IMPRESSION: No acute findings. Laboratory Results WBC 4.8 10^3/uL (4.0-10.0) 03/22/22 20:00 RBC 4.34 10^6/uL (4.1-5.3) 03/22/22 20:00 Hgb 12.2 g/dL (11.5-15.3) 03/22/22 20:00 Hct 38.7 % (37.0-47.0) 03/22/22 20:00 MCV 89.2 fl (81-99) 03/22/22 20:00 MCH 28.1 pg (28.0-34.0) 03/22/22 20:00 MCHC 31.5 g/dL (30.0-36.0) 03/22/22 20:00 RDW 15.8 % (12.1-15.1) H 03/22/22 20:00 Plt Count 187 10^3/cmm (130-400) 03/22/22 20:00 MPV 10.4 fL (7.4-10.4) 03/22/22 20:00 Neut % (Auto) 77.2 % 03/22/22 20:00 Lymph % (Auto) 11.3 % 03/22/22 20:00 [place] % (Auto) 10.5 % 03/22/22 20:00 Eos % (Auto) 0.0 % 03/22/22 20:00 Baso % (Auto) 0.8 % 03/22/22 20:00 Neut # (Auto) 3.67 10^3/uL (1.8-7.7) 03/22/22 20:00 Lymph # (Auto) 0.5 10^3/uL (0.8-4.8) L 03/22/22 20:00 [place] # (Auto) 0.5 10^3/uL (0.2-0.9) 03/22/22 20:00 Eos # (Auto) 0.0 10^3/uL (0.0-0.8) 03/22/22 20:00 Baso # (Auto) 0.0 10^3/uL (0.0-0.1) 03/22/22 20:00 Nucleated RBC % (auto) 0 % 03/22/22 20:00 Nucleated RBCs # 0.0 /100WBC 03/22/22 20:00 Sodium 134 mmol/L (136-145) L 03/22/22 20:00 Potassium 4.4 mmol/L (3.5-5.1) 03/22/22 20:00 Chloride 99 mmol/L (98-107) 03/22/22 20:00 Carbon Dioxide 26 mmol/L (22-29) 03/22/22 20:00 Anion Gap 13.4 (5-19) 03/22/22 20:00 BUN 26 mg/dL (8-23) H 03/22/22 20:00 Creatinine 0.8 mg/dL (0.5-0.9) 03/22/22 20:00 GFR Calculation Not Reportable 03/22/22 20:00 Glucose 236 mg/dL (65-115) H 03/22/22 20:00 Calculated Osmolality 290 mOsm/kg (285-295) 03/22/22 20:00 Calcium 9.0 mg/dL (8.5-10.5) 03/22/22 20:00 Total Bilirubin 0.2 mg/dL (0.15-1.2) 03/22/22 20:00 AST 26 U/L (0-32) 03/22/22 20:00 ALT 22 U/L (0-33) 03/22/22 20:00 Alkaline Phosphatase 105 U/L (35-105) 03/22/22 20:00 Total Protein 6.9 g/dL (6.6-8.7) 03/22/22 20:00 Albumin 3.5 g/dL (3.5-5.2) 03/22/22 20:00 Globulin 3.4 g/dL (1.3-4.6) 03/22/22 20:00 Urine Color Yellow (Yellow) 03/22/22 23:50 Urine Appearance Clear (CLEAR) 03/22/22 23:50 Urine pH 5 (5-7) 03/22/22 23:50 Ur Specific [place] 1.020 (1.005-1.030) 03/22/22 23:50 Urine Protein Trace (Negative) 03/22/22 23:50 Urine Glucose (UA) 4+ (Normal) H 03/22/22 23:50 Urine Ketones 1+ (Negative) H 03/22/22 23:50 Urine Blood Neg (Negative) 03/22/22 23:50 Urine Nitrate Negative (Negative) 03/22/22 23:50 Urine Bilirubin Neg (Negative) 03/22/22 23:50 Urine Urobilinogen Norm mg/dL (Negative) 03/22/22 23:50 Ur Leukocyte Esterase Negative (Negative) 03/22/22 23:50 Urine RBC 0-4 /hpf (0-2) H 03/22/22 23:50 Urine WBC 5-10 /hpf (0-5) H 03/22/22 23:50 Ur Squamous Epith Cells 0-4 /hpf (0-5) H 03/22/22 23:50 Amorphous Sediment Not Reportable 03/22/22 23:50 Urine Bacteria Trace /hpf (NONE) 03/22/22 23:50 Urine Mucus 4+ /hpf 03/22/22 23:50 Influenza Type A Ag negative (Negative) 03/22/22 20:07 Influenza Type B Ag negative (Negative) 03/22/22 20:07 SARS-CoV-2 Ag (Rapid) negative (Negative) 03/22/22 20:07 Discharge Plan Discharge Patient Disposition: Home Clinical Impression: Fever of unknown origin, Acute dehydration Condition: Stable Prescriptions: New doxycycline hyclate 100 mg tablet 100 mg PO BID 7 Days Qty: 14 0RF No Action pantoprazole 40 mg tablet,delayed release (DR/EC) 40 mg PO DAILY hydroxychloroquine 200 mg tablet 200 mg PO BID Hold Instructions: Resume on 08/23/20. resume after ciprofloxacin has finished donepezil 10 mg tablet 10 mg PO BEDTIME (DME) Diabetic shoe with 3 pairs of insterts See Rx Instructions .Route .MEDSUPPLY Qty: 1 0RF Rx Instructions: As directed by [facility] (DME) custom molded accommodative orthotic See Rx Instructions .ROUTE .MEDSUPPLY Qty: 1 0RF Rx Instructions: As directed By [facility] Myrbetriq 25 mg tablet extended release 24 hr 25 mg PO DAILY Qty: 30 12RF Rx Instructions: 340 B methenamine hippurate 1 gram tablet 1 g PO BID Qty: 60 12RF Rx Instructions: Take 1000 mg of vitamin C with each dose of methenamine folic acid 1 mg Tablet 3 mg PO DAILY@16 montelukast 10 mg Tablet 10 mg PO QAM memantine 10 mg Tablet 10 mg PO BID cevimeline 30 mg capsule 30 mg PO TID albuterol sulfate [ProAir HFA] 90 mcg/actuation Hfa Aerosol Inhaler 2 puff INHALATION QID PRN (Reason: Shortness Of Breath) methotrexate sodium (PF) 25 mg/mL solution See Rx Instructions .ROUTE .COMPLEX Hold Instructions: Resume on 08/26/20. until seen by rheumatology Rx Instructions: 0.6ml subcutaneous every 7 days (on fridays) Glucose Bits 1 gram tablet,chewable 1 g PO Q15M PRN (Reason: hypoglycemia) Qty: 60 0RF Rx Instructions: until symptoms of low blood sugar are controlled citalopram 20 mg tablet 10 mg PO DAILY Qty: 0 0RF Discharge Orders: Discharge ED (Routine); Ordered 03/23/22 Ordered By: Benedicto Haile Referrals: Stiven St, [Primary Care Provider] - 1-3 days Activity Restrictions/Additional Instructions: Check temperatures often, 3-4 times daily at least, and treat fever effectively to decrease temperature below 100. Push oral fluid intake for hydration antibiotics as directed. Follow-up with your doctor this week. Return for worsening mental status, worsening weakness, shortness of breath, any other concerning symptoms. Coding Level of Care Code ED Furnace Operator And Tender for William Tong
== END 2022-03-23 02:29 | disposition home or self-care (01) ==
PROVIDERS: Emergency Medicine; Emergency Provider Emergency Medicine; PCP Family Medicine
DX: R50.9 Fever, unspecified (principal); E86.0 Dehydration; Z20.822 Contact with and (suspected) exposure to COVID-19; F03.90 Unspecified dementia, unspecified severity, without behavioral disturbance, psychotic disturbance, mood disturbance, and anxiety; E11.9 Type 2 diabetes mellitus without complications
CPT/HCPCS: 71045; 80053; 81001; 85025; 87040; 87426; 87804; 96360; 99285; J7030

== ENCOUNTER 2022-04-07 18:38 | Outpatient (CLI) | payer MEDICARE, OTHER, SELFPAY ==
[2022-04-07 19:09] LABS: Bilirubin Urine Neg (Negative); Blood Urine 2+ (Negative); Glucose Urine UA 4+ (Normal); Ketones Urine Negative (Negative); Nitrate Urine Negative (Negative); Protein Urine Neg (Negative); Urine Appearance Cloudy (CLEAR); Urine Color Yellow (Yellow); Urobilinogen Urine Norm (Negative); pH Urine 5 (5-7)
[2022-04-07 19:10] LABS: Add Urine Culture? Yes; Add Urine Microscopic? YES; Bacteria Urine 3+ /hpf; Leukocyte Esterase Urine 2+ (Negative); RBC Urine 0-4 /hpf (0-2); WBC Urine 25-40 /hpf (0-5)
== END 2022-04-07 18:39 | disposition home or self-care (01) ==
PROVIDERS: PCP Family Medicine; Visit Provider Internal Medicine
DX: N39.0 Urinary tract infection, site not specified (principal)
CPT/HCPCS: 81001; 87086

== ENCOUNTER → 2022-07-28 11:06 | Outpatient (BNVA) | payer MEDICARE, OTHER, SELFPAY | PROVIDERS: PCP Family Medicine; Visit Provider Podiatrist Foot & Ankle Surgery | DX: E11.8 Type 2 diabetes mellitus with unspecified complications (principal); E11.42 Type 2 diabetes mellitus with diabetic polyneuropathy; Z79.4 Long term (current) use of insulin; I73.00 Raynaud's syndrome without gangrene; L60.3 Nail dystrophy; M20.41 Other hammer toe(s) (acquired), right foot; M20.42 Other hammer toe(s) (acquired), left foot | CPT/HCPCS: 11055; 11721 ==

== ENCOUNTER 2022-08-06 10:07 | Outpatient (CLI) | payer MEDICARE, OTHER, SELFPAY ==
[2022-08-06 10:30] LABS: Basophils # 0.1 10^3/uL (0.0-0.1); Basophils % 0.8 %; Eosinophils # 0.1 10^3/uL (0.0-0.8); Hematocrit 41.7 % (37.0-47.0); Hemoglobin 13.1 g/dL (11.5-15.3); Lymphocytes # 1.2 10^3/uL (0.8-4.8); Lymphocytes % 19.7 %; Mean Corpuscular HGB Conc 31.4 g/dL (30.0-36.0); Mean Corpuscular Hemoglobin 26.8 pg (28.0-34.0); Mean Corpuscular Volume 85.5 fl (81-99); Mean Platelet Volume 10.5 fL (7.4-10.4); Monocytes # 0.9 10^3/uL (0.2-0.9); Monocytes % 14.3 %; Neutrophils % 63.9 %; Nucleated Red Blood Cells % 0 %; Platelet Count 224 10^3/cmm (130-400); Red Blood Count 4.88 10^6/uL (4.1-5.3); Red Cell Distribution Width 15.3 % (12.1-15.1); White Blood Count 6.1 10^3/uL (4.0-10.0)
[2022-08-06 10:32] LABS: Erythrocyte Sedimentation Rate 15 mm/hr (0-15)
[2022-08-06 10:44] LABS: Estmated Average Glucose 169; Hemoglobin A1C 7.5 % (4.0-6.0)
[2022-08-06 12:07] LABS: Alanine Aminotransferase 22 U/L (0-33); Albumin Level 3.9 g/dL (3.5-5.2); Alkaline Phosphatase 87 U/L (35-105); Anion Gap 12.1 (5-19); Aspartate Amino Transferase 32 U/L (0-32); Blood Urea Nitrogen 20 mg/dL (8-23); C Reactive Protein 3.9 mg/L (0.0-4.9); Carbon Dioxide 28 mmol/L (22-29); Chloride 98 mmol/L (98-107); Chol HDL Ratio 1.77 mg/dL (0.0-4.40); Cholesterol 182 mg/dL (0-200); Globulin 3.4 g/dL (1.3-4.6); Glucose 151 mg/dL (65-115); HDL Cholesterol 103 mg/dL (60-100); LDL Cholesterol Calculated 74 mg/dL (50-129); LDL HDL Ratio 0.72 RATIO (0.00-3.22); Osmolality Calculated 284 mOsm/kg (285-295); Potassium 4.1 mmol/L (3.5-5.1); Sodium 134 mmol/L (136-145); Thyroid Stimulating Hormone 3.73 uIU/mL (0.27-4.20); Total Bilirubin 0.3 mg/dL (0.15-1.2); Total Protein 7.3 g/dL (6.6-8.7); Triglycerides 27 mg/dL (0-150)
== END 2022-08-06 10:08 | disposition home or self-care (01) ==
PROVIDERS: PCP Family Medicine; Visit Provider Family Medicine
DX: E11.9 Type 2 diabetes mellitus without complications (principal); E78.5 Hyperlipidemia, unspecified; I10 Essential (primary) hypertension; M79.10 Myalgia, unspecified site; M34.9 Systemic sclerosis, unspecified; R70.0 Elevated erythrocyte sedimentation rate; R79.82 Elevated C-reactive protein (CRP)
CPT/HCPCS: 80053; 80061; 83036; 84443; 85025; 85651; 86140

== ENCOUNTER 2022-09-08 16:12 | Outpatient (CLI) | payer MEDICARE, OTHER, SELFPAY ==
[2022-09-08 16:17] LABS: Add Urine Microscopic? NO; Charge for UA Resulting for Rev
[2022-09-08 16:38] LABS: Bilirubin Urine Neg (Negative); Blood Urine Neg (Negative); Glucose Urine UA 1+ (Normal); Ketones Urine Negative (Negative); Leukocyte Esterase Urine Negative (Negative); Nitrate Urine Negative (Negative); Protein Urine Neg (Negative); Urine Appearance Clear (CLEAR); Urine Color Light yellow (Yellow); Urobilinogen Urine Norm (Negative); pH Urine 5 (5-7)
== END 2022-09-08 16:13 | disposition home or self-care (01) ==
LOC: LAB 16:13
PROVIDERS: PCP Family Medicine; Visit Provider Family Medicine
DX: N39.0 Urinary tract infection, site not specified (principal)
CPT/HCPCS: 81003; 87086

== ENCOUNTER 2022-09-29 14:32 | Emergency (ER) | payer MEDICARE, OTHER, SELFPAY ==
[2022-09-29 14:33] VITALS: BP 107/67; PULSE 71; RESP 16; TEMP 36.8; O2SAT 95; BMI 15.6
--- NOTE | 2022-09-29 14:37 | XRR_ITS ---
PROCEDURE INFORMATION: Exam: XR Lumbosacral Spine Exam date and time: 09/29/2022 2:46 PM Age: 72 years old Clinical indication: Injury or trauma; Other: Fall 3 weeks ago TECHNIQUE: Imaging protocol: Radiologic exam of the lumbosacral spine. Views: 2 or 3 views. COMPARISON: CT abdomen and pelvis performed July 2020. FINDINGS: Bones/joints: There is deformity involving the 2nd segment of the sacrum not evident previously believed secondary to acute transverse fracture. There is 5 mm posterior displacement the distal fracture component. Lumbar vertebral bodies are intact. There are mild-moderate degenerative changes most pronounced at L5-S1. Pedicles are intact. Soft tissues: Unremarkable. XR/XR lumbar spine 2-3V* [id number] IMPRESSION: Acute, mildly displaced transverse fracture involving the 2nd segment of the sacrum which could be further assessed on CT exam if clinically warranted.
--- NOTE | 2022-09-29 14:37 | XRR_ITS ---
PROCEDURE INFORMATION: Exam: XR Right Hip Exam date and time: 09/29/2022 2:41 PM Age: 72 years old Clinical indication: Injury or trauma; Fall; Blunt trauma (contusions or hematomas); Right; Hip; Additional info: Fall 3 weeks ago TECHNIQUE: Imaging protocol: Radiologic exam of the right hip. Views: 1 view hip with pelvis when performed. COMPARISON: CT abdomen pelvis w con* [id number] 08/09/2020 2:59 AM FINDINGS: Bones/joints: Unremarkable for age. No acute fracture, deformity or bone lesion detected. Joint surfaces preserved. Soft tissues: Unremarkable. XR/XR hip RT 2-3V wo/w pel* [id number] IMPRESSION: Negative examination right hip.
--- NOTE | 2022-09-29 14:49 | ED_ITS ---
HPI - Fall General: Chief Complaint: Fall Stated Complaint: RT lower extremity pain Time Seen by Provider: 09/29/22 14:33 Source: patient and EMS Mode of arrival: EMS Limitations: no limitations History of Present Illness: 72-year-old female who here from shelter she had a fall roughly 2 to 3 weeks ago she states that since that fall she been having some lower back pain and right hip pain. States it is worse with ambulation improved with rest she denies any pain currently at rest. She denies any neck or head pain. Associated symptoms-after fall: Denies abdominal pain, chest pain, headache(s) or neck pain Review of Systems Const: Denies: fever(s) or chills Eyes: Denies: eye discomfort ENMT: Denies: throat pain or dental pain Card: Denies: chest pain Resp: Denies: dyspnea GI: Denies: abdominal pain, nausea, vomiting or diarrhea : Denies: dysuria Musc: Denies: neck pain or back pain Skin/Breast: Denies: rash Neuro: Denies: headache(s) PFSH ED PFSH: Medical History Chronic cystitis CREST syndrome Dementia Diabetes mellitus Feeling of incomplete bladder emptying History of pyelonephritis Squamous cell carcinoma of skin of chest Urgency incontinence Surgical History History of hand surgery (~2012) Ruptured tendons of right hand History of hysteroscopy (10/18/12) With D&C. Negative evaluation. Dx: Postmenopausal bleeding. Performed by Dr. Daugherty at [facility] [place]. History of tubal ligation (~1975) Family History Grandmother Diabetes Paternal CAD (coronary artery disease) Maternal Grandfather Diabetes Maternal CAD (coronary artery disease) Maternal Family/Other Stroke Maternal aunt Brother Hyperlipidemia Mother , at age 92 CAD (coronary artery disease) Father , at age 54 Alcoholic Social History Smoking and tobacco status: never smoked Alcohol intake: never Substance/Drug Use: never Marital status: / Current occupational status: retired Physical Exam Const: COMMON NORMALS: no acute distress and healthy appearing HENMT: COMMON NORMALS: normocephalic and atraumatic HEAD & SCALP: normocephalic and atraumatic Eye: COMMON NORMALS: Equal, round and reactive pupils present and EOMs intact bilaterally PUPIL: Yes Equal, round and reactive pupils present Neck/C-Spine: COMMON NORMALS: full ROM and supple Chest: COMMONS NORMALS: normal inspection of the chest Resp: COMMON NORMALS: normal respiratory effort Cardio: COMMON NORMALS: regular rate, regular rhythm and No murmurs present (Cardio) RATE: regular rate RHYTHM: regular rhythm GI: INSPECTION: Yes normal to inspection Extremity: COMMON NORMALS: normal to inspection Neuro: COMMON NORMALS: moves all extremities and no focal motor deficits Psych: COMMON NORMALS: mental status grossly normal, Normal thought process present and cooperative THOUGHT PROCESS: Normal thought process present Skin: COMMON NORMALS: no rashes or lesions noted and no wounds GENERAL SKIN EXAM: no rashes or lesions noted Course Vital Signs: Vital signs: Vital Signs Temperature 98.3 F 09/29/22 14:33 Pulse Rate 71 09/29/22 14:33 Respiratory Rate 16 09/29/22 14:33 Blood Pressure 113/45 09/29/22 15:04 Pulse Oximetry 97 09/29/22 15:04 Oxygen Delivery Me thod Room Air 09/29/22 15:04 MDM - Fall Medical Decision Making Patient presents here with a sacral fracture from a fall patient is well- appearing here otherwise I did speak to orthopedic surgeon she is to weight-bear as tolerate we will prescribe pain medicine she is to follow-up with orthopedics return if worsening. Lab Data Radiology Impressions Hip/Pelvis X-Ray 09/29/22 14:37 IMPRESSION: Negative examination right hip. Lumbar Spine X-Ray 09/29/22 14:37 IMPRESSION: Acute, mildly displaced transverse fracture involving the 2nd segment of the sacrum which could be further assessed on CT exam if clinically warranted. Discharge Plan Discharge Patient Disposition: Home Clinical Impression: Fall, Closed sacral fracture Condition: Stable Prescriptions: New hydrocodone-acetaminophen 5-325 mg tablet 1 tab PO Q6H PRN (Reason: pain) Qty: 14 0RF No Action pantoprazole 40 mg tablet,delayed release (DR/EC) 40 mg PO DAILY hydroxychloroquine 200 mg tablet 200 mg PO BID Hold Instructions: Resume on 08/23/20. resume after ciprofloxacin has finished donepezil 10 mg tablet 10 mg PO BEDTIME (DME) custom molded accommodative orthotic See Rx Instructions .ROUTE .MEDSUPPLY Qty: 1 0RF Rx Instructions: As directed By [facility] Myrbetriq 25 mg tablet extended release 24 hr 25 mg PO DAILY Qty: 30 12RF Rx Instructions: 340 B methenamine hippurate 1 gram tablet 1 g PO BID Qty: 60 12RF Rx Instructions: Take 1000 mg of vitamin C with each dose of methenamine fluticasone propionate 50 mcg/actuation spray,suspension 2 spray intranasal DAILY Rx Instructions: administer into each nostril (DME) FreeStyle Terry 2 Sensor Kit See Rx Instructions .ROUTE .COMPLEX Qty: 1 10RF Dose Instruction: USE DIRECTED BY FREESTYLE TERRY 2 SENSOR INSTRUCTIONS Rx Instructions: USE DIRECTED BY FREESTYLE TERRY 2 SENSOR INSTRUCTIONS amoxicillin 500 mg capsule 500 mg PO BID Qty: 14 0RF (DME) Diabetic shoe with 3 pairs of insterts See Rx Instructions .Route .MEDSUPPLY Qty: 1 0RF Rx Instructions: As directed by HOME folic acid 1 mg Tablet 3 mg PO DAILY@16 montelukast 10 mg Tablet 10 mg PO QAM memantine 10 mg Tablet 10 mg PO BID cevimeline 30 mg capsule 30 mg PO TID albuterol sulfate [ProAir HFA] 90 mcg/actuation Hfa Aerosol Inhaler 2 puff INHALATION QID PRN (Reason: Shortness Of Breath) methotrexate sodium (PF) 25 mg/mL solution See Rx Instructions .ROUTE .COMPLEX Hold Instructions: Resume on 08/26/20. until seen by rheumatology Rx Instructions: 0.6ml subcutaneous every 7 days (on fridays) Glucose Bits 1 gram tablet,chewable 1 g PO Q15M PRN (Reason: hypoglycemia) Qty: 60 0RF Rx Instructions: until symptoms of low blood sugar are controlled citalopram 20 mg tablet 10 mg PO DAILY Qty: 0 0RF Discharge Orders: Discharge ED (Routine); Ordered 09/29/22 Ordered By: Neftali Kate Referrals: Stiven St DO [Primary Care Provider] - 1-3 days Po Ames DO [Physician] - 1-3 days Discharge Diet: Advance as tolerated Discharge Activity: Increase activity as tolerated Patient Instructions: Sacral Fracture (ED), Hip Pain (ED) Coding Level of Care Code ED Scutcher Tender for William Tong
[2022-09-29 15:04] VITALS: BP 113/45; O2SAT 97
--- NOTE | 2022-09-30 09:45 | DCPLANNER ---
Addendum entered by Codie Villarreal 10/22/22 07:13: Patient had a follow up appointment scheduled with ortho - patient did not attend appointment Addendum entered by Codie Villarreal 10/02/22 09:26: Patient has a follow up appointment scheduled for Sunday, October 02, 2022 at 2:[address] Ames at ortho. Original Note: biofuels product development manager had message to schedule a follow up appointment for patient with ortho. biofuels product development manager sent patients information to the front office staff at ortho. Patients information will be printed and reviewed. Clinic will call patient with appointment information.
== END 2022-09-29 17:37 | disposition home or self-care (01) ==
PROVIDERS: Emergency Provider Emergency Medicine; PCP Family Medicine
DX: S32.121A Minimally displaced Zone II fracture of sacrum, initial encounter for closed fracture (principal); F03.90 Unspecified dementia, unspecified severity, without behavioral disturbance, psychotic disturbance, mood disturbance, and anxiety; E11.9 Type 2 diabetes mellitus without complications; W19.XXXA Unspecified fall, initial encounter; Y92.129 Unspecified place in nursing home as the place of occurrence of the external cause
CPT/HCPCS: 72100; 73502; 99283

== ENCOUNTER 2022-10-03 16:26 | Inpatient (IN) | payer MEDICARE, OTHER, SELFPAY ==
[2022-10-03] VITALS (8 sets, daily range): BP systolic 106–139; BP diastolic 51–75; PULSE 62–74; RESP 17–26; TEMP 37.2; O2SAT 98–100; BMI 14.8
--- NOTE | 2022-10-03 17:27 | ECG_ITS ---
[facility] Test Date: 2022-10-03 Pat Name: Nereyda Caceres Department: Room: Gender: Female Web Site Admin: : 1950 Requested By: Cindy Marcus Order Number: [id number] Reading MD: Tang Moncada M.D. Measurements Intervals [place] Rate: 65 P: 78 CO: 168 QRS: 66 QRSD: 85 T: 66 QT: 408 QTc: 427 Interpretive Statements SINUS RHYTHM SEPTAL MYOCARDIAL INFARCTION , OF INDETERMINATE AGE [40+ ms Q WAVE IN V1/V2] Compared to ECG 08/26/2021 20:28:42 Sinus bradycardia no longer present Myocardial infarct finding still present Electronically Signed On 10-04-2022 9:43:03 CDT by Tang Moncada M.D. [email or web address]
[2022-10-03 17:29] LABS: Basophils # 0.1 10^3/uL (0.0-0.1); Basophils % 0.5 %; Eosinophils % 0.1 %; Hematocrit 38.3 % (37.0-47.0); Hemoglobin 12.4 g/dL (11.5-15.3); Lymphocytes # 1.1 10^3/uL (0.8-4.8); Lymphocytes % 11.6 %; Mean Corpuscular HGB Conc 32.4 g/dL (30.0-36.0); Mean Corpuscular Volume 83.3 fl (81-99); Monocytes # 1.7 10^3/uL (0.2-0.9); Monocytes % 17.6 %; Neutrophils # 6.56 10^3/uL (1.8-7.7); Neutrophils % 69.9 %; Nucleated Red Blood Cells % 0 %; Platelet Count 325 10^3/cmm (130-400); Red Cell Distribution Width 14.5 % (12.1-15.1); White Blood Count 9.4 10^3/uL (4.0-10.0)
[2022-10-03 17:32] LABS: Glucose Point of Care 168 mg/dL (70-110)
[2022-10-03 17:58] LABS: Troponin(5th) Baseline 14 ng/L (0-10)
[2022-10-03 18:11] LABS: Alanine Aminotransferase 18 U/L (0-33); Albumin Level 3.8 g/dL (3.5-5.2); Alkaline Phosphatase 215 U/L (35-105); Anion Gap 14.8 (5-19); Aspartate Amino Transferase 20 U/L (0-32); Blood Urea Nitrogen 20 mg/dL (8-23); Calcium 8.7 mg/dL (8.5-10.5); Carbon Dioxide 25 mmol/L (22-29); Chloride 94 mmol/L (98-107); Globulin 3.3 g/dL (1.3-4.6); Glucose 135 mg/dL (65-115); Lipase 52 U/L (13-60); Osmolality Calculated 275 mOsm/kg (285-295); Potassium 3.8 mmol/L (3.5-5.1); Sodium 130 mmol/L (136-145); Thyroid Stimulating Hormone 2.72 uIU/mL (0.27-4.20); Total Bilirubin 0.2 mg/dL (0.15-1.2); Total Protein 7.1 g/dL (6.6-8.7)
[2022-10-03 18:56] LABS: Troponin 5 2HR 14.83 ng/L (0-10)
[2022-10-03 19:13] LABS: Troponin 5 2HR Delta 0.83 ABS# (0-10)
[2022-10-03] MEDS: sodium chloride 0.9% 500 ML 999 ML IV (19:18)
--- NOTE | 2022-10-03 19:23 | ED_ITS ---
HPI - Weakness General: Chief complaint: Weakness Stated complaint: WEAKNESS Time Seen by Provider: 10/03/22 16:29 History of Present Illness: This patient is a 72 year old presenting with weakness as a chief complaint. She has a history of some dementia and is a difficult historian. She tells me that she feels tired today. She was able to tell me that she fell a few weeks ago and has a broken tail bone. She can't really say if that pain is causing her any problems. On review of the ED chart, she has a sacral fracture and was cleared for weight bearing. There is no clear information from the MD as to why she was sent to the ED. EMS report states weakness . The patient does tell me she is having trouble walking - but not clear why. PFSH ED PFSH: Medical History Chronic cystitis CREST syndrome Dementia Diabetes mellitus Feeling of incomplete bladder emptying History of pyelonephritis Squamous cell carcinoma of skin of chest Urgency incontinence Surgical History History of hand surgery (~2012) Ruptured tendons of right hand History of hysteroscopy (10/18/12) With D&C. Negative evaluation. Dx: Postmenopausal bleeding. [place]. Daugherty [place] [facility] [place] History of tubal ligation (~1975) Family History Grandmother Diabetes Paternal CAD (coronary artery disease) Maternal Grandfather Diabetes Maternal CAD (coronary artery disease) Maternal Family/Other Stroke Maternal aunt Brother Hyperlipidemia Mother , at age 92 CAD (coronary artery disease) Father , at age 54 Alcoholic Social History Smoking and tobacco status: never smoked Alcohol intake: never Substance/Drug Use: never Marital status: / Current occupational status: retired Physical Exam Const: GENERAL APPEARANCE: frail appearing NUTRITIONAL APPEARANCE: thin ORIENTATION/CONSCIOUSNESS: Yes awake, Yes oriented to person and Yes oriented to place HENMT: HEAD & SCALP: normal to inspection FACE & SINUS: normal facial exam Eye: GENERAL EYE: appearance normal, both eyes and all related structures Neck/C-Spine: COMMON NORMALS: supple, no meningeal signs and no JVD Chest: COMMONS NORMALS: normal inspection of the chest Resp: COMMON NORMALS: normal respiratory effort, No use of accessory muscles and clear to auscultation bilaterally AUSCULTATION: clear to auscultation bilaterally Cardio: COMMON NORMALS: no JVD, regular rate, regular rhythm and No murmurs present (Cardio) RATE: regular rate RHYTHM: regular rhythm GI: COMMON NORMALS: Normal to inspection, nondistended, normoactive bowel sounds present, Soft to palpation and non-tender INSPECTION: Yes normal to inspection AUSCULTATION: Yes normoactive bowel sounds PALPATION: Yes Soft to palpation Back/Pelvis: COMMON NORMALS: thoracic and lumbar spine normal to inspection Extremity: COMMON NORMALS: normal to inspection Neuro: COMMON NORMALS: moves all extremities, no focal motor deficits and no sensory deficits noted SENSORIUM/ORIENTATION: Yes oriented to person and Yes oriented to place MENINGEAL SIGNS: Yes no meningeal signs Psych: SPEECH: Yes Other speech symptoms (very dry mouth, edentulous, somewhat difficult to understand) MOOD & AFFECT: Yes euthymic mood Skin: COMMON NORMALS: no rashes or lesions noted and turgor normal GENERAL SKIN EXAM: no rashes or lesions noted and turgor normal Course Vital Signs: Vital signs: Vital Signs Pulse Rate 64 10/03/22 21:01 Respiratory Rate 17 10/03/22 21:01 Blood Pressure 119/63 10/03/22 21:01 Pulse Oximetry 98 10/03/22 21:06 Oxygen Delivery Me thod Room Air 10/03/22 21:06 MDM - Weakness Medical Decision Making Patient with fall and sacral fracture several weeks ago. No report of a new fall or complaints of pain. Patient says that she is weak and her legs feel weak. On exam she has generalized weakness, but no focal neuro deficit. Labs, including TSH, CBC, CMP, UA. Road test. attempt to get more history from MD. EKG initially with no clear abnormalities - but repeat EKG shows mild ST changes - inverted, depression, biphasic V3 and V4 that are not present on multiple prior EKG from today and prior visits. Troponins are normal however. Discussed with Dr. Moncada - cardiology - and recommends following troponins. No action needed at this time. I have given the patient aspirin. Dr. Reyna will admit. Lab Data 10/03/22 16:36 10/03/22 16:36 Laboratory Results WBC 9.4 10^3/uL (4.0-10.0) 10/03/22 16:36 RBC 4.60 10^6/uL (4.1-5.3) 10/03/22 16:36 Hgb 12.4 g/dL (11.5-15.3) 10/03/22 16:36 Hct 38.3 % (37.0-47.0) 10/03/22 16:36 MCV 83.3 fl (81-99) 10/03/22 16:36 MCH 27.0 pg (28.0-34.0) L 10/03/22 16:36 MCHC 32.4 g/dL (30.0-36.0) 10/03/22 16:36 RDW 14.5 % (12.1-15.1) 10/03/22 16:36 Plt Count 325 10^3/cmm (130-400) 10/03/22 16:36 MPV 10.0 fL (7.4-10.4) 10/03/22 16:36 Neut % (Auto) 69.9 % 10/03/22 16:36 Lymph % (Auto) 11.6 % 10/03/22 16:36 [place] % (Auto) 17.6 % 10/03/22 16:36 Eos % (Auto) 0.1 % 10/03/22 16:36 Baso % (Auto) 0.5 % 10/03/22 16:36 Neut # (Auto) 6.56 10^3/uL (1.8-7.7) 10/03/22 16:36 Lymph # (Auto) 1.1 10^3/uL (0.8-4.8) 10/03/22 16:36 [place] # (Auto) 1.7 10^3/uL (0.2-0.9) H 10/03/22 16:36 Eos # (Auto) 0.0 10^3/uL (0.0-0.8) 10/03/22 16:36 Baso # (Auto) 0.1 10^3/uL (0.0-0.1) 10/03/22 16:36 Nucleated RBC % (auto) 0 % 10/03/22 16:36 Nucleated RBCs # 0.0 /100WBC 10/03/22 16:36 Sodium 130 mmol/L (136-145) L 10/03/22 16:36 Potassium 3.8 mmol/L (3.5-5.1) 10/03/22 16:36 Chloride 94 mmol/L (98-107) L 10/03/22 16:36 Carbon Dioxide 25 mmol/L (22-29) 10/03/22 16:36 Anion Gap 14.8 (5-19) 10/03/22 16:36 BUN 20 mg/dL (8-23) 10/03/22 16:36 Creatinine 0.5 mg/dL (0.5-0.9) 10/03/22 16:36 GFR Calculation Not Reportable 10/03/22 16:36 Glucose 135 mg/dL (65-115) H 10/03/22 16:36 POC Glucose 168 mg/dL (70-110) H 10/03/22 17:24 Calculated Osmolality 275 mOsm/kg (285-295) L 10/03/22 16:36 Calcium 8.7 mg/dL (8.5-10.5) 10/03/22 16:36 Total Bilirubin 0.2 mg/dL (0.15-1.2) 10/03/22 16:36 AST 20 U/L (0-32) 10/03/22 16:36 ALT 18 U/L (0-33) 10/03/22 16:36 Alkaline Phosphatase 215 U/L (35-105) H 10/03/22 16:36 Troponin T Baseline 14 ng/L (0-10) H 10/03/22 16:36 Troponin T 120 Minute 14.83 ng/L (0-10) H 10/03/22 18:18 Delta Troponin T 0.83 ABS# (0-10) 10/03/22 18:18 Total Protein 7.1 g/dL (6.6-8.7) 10/03/22 16:36 Albumin 3.8 g/dL (3.5-5.2) 10/03/22 16:36 Globulin 3.3 g/dL (1.3-4.6) 10/03/22 16:36 Lipase 52 U/L (13-60) 10/03/22 16:36 TSH 2.72 uIU/mL (0.27-4.20) 10/03/22 16:36 Urine Color Yellow (Yellow) 10/03/22 20:08 Urine Appearance Clear (CLEAR) 10/03/22 20:08 Urine pH 6 (5-7) 10/03/22 20:08 Ur Specific [place] 1.015 (1.005-1.030) 10/03/22 20:08 Urine Protein Neg (Negative) 10/03/22 20:08 Urine Glucose (UA) 1+ (Normal) H 10/03/22 20:08 Urine Ketones 1+ (Negative) H 10/03/22 20:08 Urine Blood Neg (Negative) 10/03/22 20:08 Urine Nitrate Negative (Negative) 10/03/22 20:08 Urine Bilirubin Neg (Negative) 10/03/22 20:08 Urine Urobilinogen Norm mg/dL (Negative) 10/03/22 20:08 Ur Leukocyte Esterase Negative (Negative) 10/03/22 20:08 Discharge Plan Discharge Patient Disposition: Placed in Observation Clinical Impression: Abnormal ECG, Weakness, Difficulty in walking Condition: Stable Prescriptions: No Action pantoprazole 40 mg tablet,delayed release (DR/EC) 40 mg PO DAILY hydroxychloroquine 200 mg tablet 200 mg PO BID Hold Instructions: Resume on 08/23/20. resume after ciprofloxacin has finish ed donepezil 10 mg tablet 10 mg PO BEDTIME (DME) custom molded accommodative orthotic See Rx Instructions .ROUTE .MEDSUPPLY Qty: 1 0RF Rx Instructions: As directed By MAMTA&O Myrbetriq 25 mg tablet extended release 24 hr 25 mg PO DAILY Qty: 30 12RF Rx Instructions: 340 B methenamine hippurate 1 gram tablet 1 g PO BID Qty: 60 12RF Rx Instructions: Take 1000 mg of vitamin C with each dose of methenamine fluticasone propionate 50 mcg/actuation spray,suspension 2 spray intranasal DAILY Rx Instructions: administer into each nostril (DME) FreeStyle Terry 2 Sensor Kit See Rx Instructions .ROUTE .COMPLEX Qty: 1 10RF Dose Instruction: USE DIRECTED BY FREESTYLE TERRY 2 SENSOR INSTRUCTIONS Rx Instructions: USE DIRECTED BY FREESTYLE TERRY 2 SENSOR INSTRUCTIONS (DME) Diabetic shoe with 3 pairs of insterts See Rx Instructions .Route .MEDSUPPLY Qty: 1 0RF Rx Instructions: As directed by HOME folic acid 1 mg Tablet 3 mg PO DAILY@16 montelukast 10 mg Tablet 10 mg PO QAM memantine 10 mg Tablet 10 mg PO BID cevimeline 30 mg capsule 30 mg PO TID albuterol sulfate [ProAir HFA] 90 mcg/actuation Hfa Aerosol Inhaler 2 puff INHALATION QID PRN (Reason: Shortness Of Breath) citalopram 20 mg tablet 10 mg PO DAILY Qty: 0 0RF hydrocodone-acetaminophen 5-325 mg tablet 1 tab PO Q6H PRN (Reason: pain) Qty: 14 0RF ascorbic acid (vitamin C) 1,000 mg tablet 1,000 mg PO DAILY acetaminophen 325 mg tablet 650 mg PO Q6H PRN (Reason: pain) Systane Balance 0.6 % Drops 1 drp OPHTHALMIC (EYE) DAILY Referrals: Stiven St DO [Primary Care Provider] - Coding Level of Care Code ED 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
[2022-10-03 20:12] LABS: Add Urine Microscopic? NO; Charge for UA Resulting for Rev
[2022-10-03 20:16] LABS: Glucose Urine UA 1+ (Normal); Protein Urine Neg (Negative); Specific Gravity, Urine 1.015 (1.005-1.030); Urine Appearance Clear (CLEAR); Urine Color Yellow (Yellow); pH Urine 6 (5-7)
[2022-10-03 20:17] LABS: Bilirubin Urine Neg (Negative); Blood Urine Neg (Negative); Ketones Urine 1+ (Negative); Leukocyte Esterase Urine Negative (Negative); Nitrate Urine Negative (Negative); Urobilinogen Urine Norm (Negative)
[2022-10-03] MEDS: aspirin 325 mg Tablet PO (21:50)
--- NOTE | 2022-10-03 22:20 | PM.HP ---
Providers/Chief Complaint Admitting Physician: Bettina Reyna MD Primary Care Provider: Stiven St DO Chief Complaint: WEAKNESS History of Present Illness Nereyda Caceres is a 72 year old female With past medical history of dementia, diabetes mellitus, pyelonephritis, chronic cystitis, crest syndrome/scleroderma presented to the hospital today for complaint of weakness being sent from the long term. She is somewhat of a poor historian however able to provide some history. She says she has been very weak and had a mechanical fall about a month ago and she broke her tailbone. She says that she is at a long term at this time and is just very weak. She says she requires assistance with her ADLs. She cannot walk on her own and requires help for that as well. Other than this denies nausea vomiting diarrhea abdominal pain, shortness of breath, dizziness, lightheadedness. She says she gets tired very quickly. Denies any other symptoms at this time. Says she is on a pur?ed diet due to dysphagia and scleroderma. She also uses dentures which she does not have with her today. She has 2 sons that live out of state. She says she would like to be a full code. ED course: 119/63, respirate 17, pulse 64, saturating 98% on room air. WBC 9.4, hemoglobin 12.4, platelet 225, sodium 130, potassium 3.8, creatinine 0.5, baseline troponin 14, delta troponin 2 hours 0.83, TSH 2.72, UA negative. Initially EKG showed sinus rhythm with nonspecific T wave abnormality and subsequent EKG showed nonspecific ST elevation. ER doctor discussed the EKG with Dr. Moncada on-call c d reactor operator who recommended to just do serial EKGs. Patient does not complain of any chest pain. We will continue to follow troponins. Medications/Allergies Home Medications Medication Instructions Recorded Confirmed Last Taken Type donepezil 10 mg tablet 10 mg PO BEDTIME 09/01/19 10/03/22 08/08/20 History hydroxychloroquine 200 mg tablet 200 mg PO BID 09/01/19 10/03/22 08/08/20 History pantoprazole 40 mg tablet,delayed 40 mg PO DAILY 09/01/19 10/03/22 Unknown History release albuterol sulfate 90 mcg/actuation 2 puff inhalation QID PRN 08/09/20 10/03/22 Unknown History aerosol inhaler (ProAir HFA) Shortness Of Breath cevimeline 30 mg capsule 30 mg PO TID 08/09/20 10/03/22 08/08/20 History folic acid 1 mg tablet 3 mg PO DAILY@16 08/09/20 10/03/22 08/08/20 History memantine 10 mg tablet 10 mg PO BID 08/09/20 10/03/22 08/08/20 History montelukast 10 mg tablet 10 mg PO QAM 08/09/20 10/03/22 08/08/20 History custom molded accommodative #1 ea 10/22/20 10/03/22 Unknown Rx orthotic mirabegron 25 mg tablet,extended 25 mg PO DAILY #30 tabs 04/25/21 10/03/22 Unknown Rx release 24 hr (Myrbetriq) citalopram 20 mg tablet 10 mg PO DAILY #0 tabs 08/27/21 10/03/22 08/08/20 Rx methenamine hippurate 1 gram tablet 1 g PO BID #60 tabs 11/19/21 10/03/22 Unknown Rx flash glucose sensor (FreeStyle #1 kit 08/07/22 10/03/22 Unknown Rx Terry 2 Sensor kit) Diabetic shoe with 3 pairs of #1 ea 09/16/22 10/03/22 Unknown Rx insterts fluticasone propionate 50 2 spray intranasal DAILY 09/25/22 10/03/22 Unknown History mcg/actuation nasal spray,suspension hydrocodone 5 mg-acetaminophen 325 1 tab PO Q6H PRN pain #14 tabs 09/29/22 10/03/22 Unknown Rx mg tablet acetaminophen 325 mg tablet 650 mg PO Q6H PRN pain 10/03/22 10/03/22 Unknown History ascorbic acid (vitamin C) 1,000 mg 1,000 mg PO DAILY 10/03/22 10/03/22 Unknown History tablet propylene glycol 0.6 % eye drops 1 drp ophthalmic (eye) DAILY 10/03/22 10/03/22 Unknown History (Systane Balance) Allergies Allergy/AdvReac Type Severity Reaction Status Date / Time cefditoren [From Spectracef] Allergy Rash Verified 10/03/22 16:35 ceftriaxone [From Rocephin] Allergy Unknown Verified 10/03/22 16:35 cephalexin Allergy Rash Verified 10/03/22 16:35 clindamycin Allergy Unknown Verified 10/03/22 16:35 doxycycline Allergy Unknown Verified 10/03/22 22:58 levofloxacin Allergy Unknown Verified 10/03/22 16:35 PFSH Acute PFSH: Medical History Chronic cystitis CREST syndrome Dementia Diabetes mellitus Feeling of incomplete bladder emptying History of pyelonephritis Squamous cell carcinoma of skin of chest Urgency incontinence Surgical History History of hand surgery (~2012) Ruptured tendons of right hand History of hysteroscopy (10/18/12) With D&C. Negative evaluation. Dx: Postmenopausal bleeding. Performed by Dr. Daugherty at [facility] – [place]. History of tubal ligation (~1975) Family History Grandmother Diabetes Paternal CAD (coronary artery disease) Maternal Grandfather Diabetes Maternal CAD (coronary artery disease) Maternal Family/Other Stroke Maternal aunt Brother Hyperlipidemia Mother , at age 92 CAD (coronary artery disease) Father , at age 54 Alcoholic Social History Smoking and tobacco status: never smoked Alcohol intake: never Substance/Drug Use: never Marital status: / Current occupational status: retired Vitals/I&O/Wt Last Vital Signs Pulse 63 10/03/22 22:10 Resp 24 H 10/03/22 22:10 BP 129/51 10/03/22 22:10 Pulse Ox 99 10/03/22 22:10 O2 Del Method Room Air 10/03/22 21:52 10/03/22 10/03/22 10/03/22 06:59 14:59 22:59 Intake Total 500 / 500 Balance 500 / 500 Weight last 48 hrs Weight 43.091 kg Physical Exam Narrative: General: Alert oriented x3, patient seen laying in bed appearing comfortable. She has trouble speaking due to weakness and the fact that she does not have her dentures in her mouth. It is a little difficult to understand what she is saying. Able to move all 4 extremities. Neuro exam grossly nonfocal. She does have generalized weakness. 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 ? Continue memantine, donepezil, folic acid, hydroxychloroquine, pantoprazole. ? Check TSH, vitamin B12 level, phosphorus, magnesium, potassium ? I will place on thiamine as well. ? Await 6-hour troponin. 2-hour delta 0.83. ? Has nonspecific T wave changes on EKG. This was reviewed with cardiology on-call. ? We will do serial EKG every 3 hours. She has not had any chest pain or any other cardiac symptoms that she is reported as an generalized chronic weakness however since her fall 4 weeks ago. There could be component of generalized deconditioning as well. ? Check echocardiogram for wall motion abnormalities. Consider stress testing prior to discharge. ? Low-dose intensity sliding scale insulin -We will check orthostatic vitals ? Placed on normal saline 75 cc/h -PT/OT Full code SCDs, heparin subcu twice daily DVT prophylaxis Attestations Medical Necessity Statement*: Observation admission for generalized weakness. Coding Level of Care Code G0425 (30 min) Encounter Time (min): 40 Patient seen via Telehealth in the acute care setting (hospital or ED location) by agreement and consent of patient or patient lead customer service representative. Telehealth technology used during the visit includes video and audio. This patient encounter is appropriate and reasonable under the circumstances given the patient?s particular presentation at this time. The patient has been advised of the potential risks and limitations of this mode of treatment (including but not limited to the absence of in-person examination at this time) and has agreed to be treated by an off-site physician for this visit. If deemed clinically necessary from this telehealth visit, or if condition or consent for telehealth visit changes, an in-person visit will be arranged. For this encounter, total time for the origination of telehealth care on this date is as shown. 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
[2022-10-03 22:42] LABS: Troponin 5 6HR 15.69 ng/L (0-10)
[2022-10-03 22:48] LABS: Troponin 5 6HR Delta 1.69 ng/L (0-12)
--- NOTE | 2022-10-03 23:13 | ECG_ITS ---
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 Measurements Intervals [place] Rate: 69 P: 75 AR: 164 QRS: 68 QRSD: 98 T: 56 QT: 402 QTc: 433 Interpretive Statements SINUS RHYTHM ST DEVIATION AND MODERATE T-WAVE ABNORMALITY, CONSIDER ANTERIOR ISCHEMIA [-0.1+ mV T-WAVE IN V3/V4] Compared to ECG 10/03/2022 17:27:59 T-wave abnormality now present Possible ischemia now present Myocardial infarct finding no longer present Electronically Signed On 10-04-2022 9:47:52 CDT by Tang Moncada M.D. [id number]
--- NOTE | 2022-10-03 23:20 | ECG_ITS ---
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 Measurements Intervals [place] Rate: 62 P: 72 [place]: 167 QRS: 45 QRSD: 98 T: 29 QT: 414 QTc: 422 Interpretive Statements SINUS RHYTHM NONSPECIFIC ST ELEVATION [0.05+ mV ST ELEVATION] Compared to ECG 10/03/2022 20:37:57 ST (T wave) deviation now present T-wave abnormality no longer present Possible ischemia no longer present Electronically Signed On 10-04-2022 9:47:56 CDT by Tang Moncada M.D. [id number]
[2022-10-03] MEDS: sodium chloride 0.9% 1,000 ML 75 ML IV (23:23)
[2022-10-03] MEDS: donepezil 5 MG Tablet 10 MG PO (23:24)
[2022-10-03] MEDS: heparin 5,000 unit/mL INJ 1 mL 5000 UNIT SUBCUT (23:29)
[2022-10-04] VITALS (57 sets, daily range): BP systolic 104–131; BP diastolic 53–76; PULSE 54–90; RESP 13–39; TEMP 36.4–36.9; O2SAT 92–100
[2022-10-04] MEDS: pneumococcal (23 valent) SDV 0.5 mL IM (00:12)
[2022-10-04 00:35] LABS: Procalcitonin 0.04 ng/mL (0-0.5); Thyroid Stimulating Hormone 2.24 uIU/mL (0.27-4.20); Vitamin B12 1347 pg/mL (232-1245)
[2022-10-04 00:46] LABS: Cholesterol 141 mg/dL (0-200); HDL Cholesterol 88 mg/dL (60-100); LDL Cholesterol Calculated 48 mg/dL (50-129); LDL HDL Ratio 0.55 RATIO (0.00-3.22); Triglycerides 23 mg/dL (0-150)
[2022-10-04 00:59] LABS: Add Urine Microscopic? YES; Bilirubin Urine Neg (Negative); Blood Urine Neg (Negative); Glucose Urine UA Norm (Normal); Ketones Urine Negative (Negative); Leukocyte Esterase Urine 1+ (Negative); Nitrate Urine Negative (Negative); Protein Urine Neg (Negative); Specific Gravity, Urine 1.015 (1.005-1.030); Urine Appearance Hazy (CLEAR); Urine Color Yellow (Yellow); Urobilinogen Urine Norm (Negative); pH Urine 6.5 (5-7)
[2022-10-04 01:00] LABS: Bacteria Urine TRACE /hpf; Squamous Epithelial Cell Urine 0-4 /hpf (0-5)
--- NOTE | 2022-10-04 01:12 | USCV_ITS ---
Nereyda Caceres Age: 72 Gender: F : 1950 Exam Date: 10/04/2022 11:48 Ordering Phys: Bettina Reyna MD Technologist: CAROLEE Exam Location[place] [facility] [place] Indication: r/o wall motion abnormalities BP: / HR: 62 Rhythm: Sinus Technical Quality: Adequate MEASUREMENTS (Male / Female) Normal Values 2D ECHO LV Diastolic Diameter PLAX 3.9 cm 4.2 - 5.9 / 3.9 - 5.3 cm LV Systolic Diameter PLAX 2.3 cm IVS Diastolic Thickness 0.7 cm 0.6 - 1.0 / 0.6 - 0.9 cm IVS Systolic Thickness 1.1 cm LVPW Diastolic Thickness 0.8 cm 0.6 - 1.0 / 0.6 - 0.9 cm LVPW Systolic Thickness 1.0 cm LVOT Diameter 1.6 cm LV Ejection Fraction 2D Teich 72.3 % LV Ejection Fraction MOD 2C 59.9 % LV Ejection Fraction 2C AL 60.8 % LA Diameter 2.0 cm IVC Diameter 2.7 cm M-MODE Aortic Annulus Diameter 2.1 cm LA Ao Ratio MM 1.1 MV E Point Septal Separation 0.3 cm DOPPLER AV Peak Velocity 110.0 cm/s LVOT Peak Velocity 103.0 cm/s AV Area Cont Eq vti 1.8 cm squared AV Area Cont Eq pk 1.9 cm squared MV Area PHT 3.4 cm squared Mitral E to A Ratio 1.5 MV E' Velocity 55.5 cm/s Mitral E to MV E' Ratio 10.1 Mitral E to LV E' Lateral Ratio 9.4 Mitral E to LV E' Septal Ratio 11.0 TR Peak Velocity 234.8 cm/s TR Peak Gradient 22.0 mmHg TV Peak E Velocity 63.0 cm/s Right Atrial Pressure 3.0 mmHg Pulmonary Artery Systolic Pressu 25.0 mmHg PV Peak Velocity 84.0 cm/s FINDINGS Left Ventricle Normal left ventricular size, systolic function and wall thickness, with no regional wall motion abnormalities. Normal diastolic function. Left ventricular ejection fraction is estimated at 65 %. Right Ventricle Normal right ventricular size and systolic function. Normal right ventricular systolic pressure. Right Atrium The right atrium is normal in size. Left Atrium The left atrium is normal in size. Mitral Valve Structurally normal mitral valve without significant stenosis or prolapse. There is no mitral regurgitation. Aortic Valve Structurally normal aortic valve without significant sclerosis or stenosis. There is no aortic regurgitation. Tricuspid Valve Structurally normal tricuspid valve. Moderate tricuspid valve regurgitation. Pulmonic Valve Pulmonic valve not well visualized. Pericardium Normal pericardium without effusion. Aorta Normal ascending aorta dimension. IVC The inferior vena cava appears normal. CONCLUSIONS Normal left ventricular size, systolic function and wall thickness, with no regional wall motion abnormalities. Normal diastolic function. Left ventricular ejection fraction is estimated at 65 %. There is no change from the previous echo done [address] Tang Moncada MD (Electronically Signed) Final Date: 04 October 2022 15:34 S
--- NOTE | 2022-10-04 01:15 | ECG_ITS ---
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 Measurements Intervals [place] Rate: 59 P: 73 [place]: 165 QRS: 51 QRSD: 99 T: 28 QT: 412 QTc: 410 Interpretive Statements SINUS BRADYCARDIA ST DEVIATION AND MODERATE T-WAVE ABNORMALITY, CONSIDER ANTERIOR ISCHEMIA [-0.1+ mV T-WAVE IN V3/V4] Compared to ECG 10/03/2022 23:20:36 T-wave abnormality now present Possible ischemia now present Sinus rhythm no longer present ST (T wave) deviation no longer present Electronically Signed On 10-04-2022 9:48:02 CDT by Tang Moncada M.D. [id number]
[2022-10-04 01:21] LABS: Estmated Average Glucose 174; Hemoglobin A1C 7.7 % (4.0-6.0)
[2022-10-04 03:14] LABS: Basophils # 0.1 10^3/uL (0.0-0.1); Basophils % 0.7 %; Eosinophils % 0.2 %; Hematocrit 34.1 % (37.0-47.0); Lymphocytes # 1.9 10^3/uL (0.8-4.8); Lymphocytes % 22.8 %; Mean Corpuscular HGB Conc 32.3 g/dL (30.0-36.0); Mean Corpuscular Hemoglobin 27.2 pg (28.0-34.0); Mean Corpuscular Volume 84.2 fl (81-99); Mean Platelet Volume 9.8 fL (7.4-10.4); Monocytes # 1.3 10^3/uL (0.2-0.9); Monocytes % 16.3 %; Neutrophils # 4.83 10^3/uL (1.8-7.7); Neutrophils % 59.6 %; Nucleated Red Blood Cells % 0 %; Platelet Count 269 10^3/cmm (130-400); Red Blood Count 4.05 10^6/uL (4.1-5.3); Red Cell Distribution Width 14.6 % (12.1-15.1); White Blood Count 8.1 10^3/uL (4.0-10.0)
[2022-10-04 03:33] LABS: Alanine Aminotransferase 14 U/L (0-33); Albumin Level 2.9 g/dL (3.5-5.2); Alkaline Phosphatase 182 U/L (35-105); Anion Gap 9.5 (5-19); Aspartate Amino Transferase 18 U/L (0-32); Blood Urea Nitrogen 12 mg/dL (8-23); Calcium 8.3 mg/dL (8.5-10.5); Carbon Dioxide 24 mmol/L (22-29); Chloride 100 mmol/L (98-107); Globulin 2.8 g/dL (1.3-4.6); Glucose 125 mg/dL (65-115); Magnesium 1.8 mg/dL (1.7-2.3); Osmolality Calculated 271 mOsm/kg (285-295); Potassium 3.5 mmol/L (3.5-5.1); Sodium 130 mmol/L (136-145); Total Bilirubin 0.3 mg/dL (0.15-1.2); Total Protein 5.7 g/dL (6.6-8.7)
--- NOTE | 2022-10-04 03:43 | ECG_ITS ---
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 Measurements Intervals [place] Rate: 59 P: 72 DC: 159 QRS: 49 QRSD: 101 T: 26 QT: 413 QTc: 410 Interpretive Statements SINUS BRADYCARDIA ST DEVIATION AND MODERATE T-WAVE ABNORMALITY, CONSIDER ANTERIOR ISCHEMIA [-0.1+ mV T-WAVE IN V3/V4] Compared to ECG 10/04/2022 01:36:27 No significant changes Electronically Signed On 10-04-2022 9:48:14 CDT by Tang Moncada M.D. [id number]
[2022-10-04 04:31] LABS: Vitamin B12 1310 pg/mL (232-1245)
[2022-10-04 06:21] LABS: Glucose Point of Care 101 mg/dL (70-110)
--- NOTE | 2022-10-04 07:15 | ECG_ITS ---
[facility] Test Date: 2022-10-04 Pat Name: Nereyda Caceres Department: Room: 112 Gender: Female Delivery Supervisor: : 1950 Requested By: Bettina Reyna Order Number: [id number] John MD: Tang Moncada M.D. Measurements Intervals [place] Rate: 64 P: 70 SD: 167 QRS: 50 QRSD: 89 T: 34 QT: 399 QTc: 413 Interpretive Statements SINUS RHYTHM ST DEVIATION AND MODERATE T-WAVE ABNORMALITY, CONSIDER ANTERIOR ISCHEMIA [-0.1+ mV T-WAVE IN V3/V4] Compared to ECG 10/04/2022 03:43:58 Sinus bradycardia no longer present T-wave abnormality still present Possible ischemia still present Electronically Signed On 10-04-2022 9:48:26 CDT by Tnag Moncada M.D. [id number]
--- NOTE | 2022-10-04 08:14 | XRR_ITS ---
PROCEDURE INFORMATION: Exam: XR Chest Exam date and time: 10/04/2022 10:08 AM Age: 72 years old Clinical indication: Shortness of breath; Additional info: SOB TECHNIQUE: Imaging protocol: Radiologic exam of the chest. Views: 1 view. COMPARISON: CR XR chest 1V portable [id number] 03/22/2022 7:57 PM FINDINGS: Lungs: Lung volumes are large. There is no consolidation. Pleural spaces: There is no pleural effusion or pneumothorax. Heart/Mediastinum: Cardiomediastinal contours are unremarkable. Bones/joints: Bones are unremarkable. XR/XR chest 1V portable [id number] IMPRESSION: 1. No acute findings. 2. Large lung volumes suggest COPD.
[2022-10-04] MEDS: memantine 5 mg tablet 10 MG PO ×2 (08:57→17:58)
[2022-10-04] MEDS: pantoprazole DR 40 mg Tablet PO (08:58)
[2022-10-04] MEDS: citalopram 20 mg Tablet 10 MG PO (08:58)
--- NOTE | 2022-10-04 11:08 | ECG_ITS ---
[facility] Test Date: 2022-10-04 Pat Name: Nereyda Caceres Department: Room: 112 Gender: Female Car Pincher: : 1950 Requested By: Bettina Reyna Order Number: [id number] John MD: Tang Moncada M.D. Measurements Intervals [place] Rate: 60 P: 76 [place]: 159 QRS: 38 QRSD: 99 T: 28 QT: 368 QTc: 370 Interpretive Statements SINUS RHYTHM ST DEVIATION AND MODERATE T-WAVE ABNORMALITY, CONSIDER ANTERIOR ISCHEMIA [-0.1+ mV T-WAVE IN V3/V4] Compared to ECG 10/04/2022 09:47:27 No significant changes Electronically Signed On 10-05-2022 8:12:31 CDT by Tang Moncada M.D. [email or web address] [email or web address]/[id number]
[2022-10-04 12:13] LABS: Glucose Point of Care 213 mg/dL (70-110)
[2022-10-04] MEDS: sodium chloride 0.9% 1,000 ML 75 ML IV (12:29)
[2022-10-04] MEDS: heparin 5,000 unit/mL INJ 1 mL 5000 UNIT SUBCUT ×2 (12:29→21:03)
--- NOTE | 2022-10-04 14:21 | ECG_ITS ---
[facility] Test Date: 2022-10-04 Pat Name: Nereyda Caceres Department: Room: 112 Gender: Female Operational Communication Chief: : 1950 Requested By: Bettina Reyna Order Number: [id number] John MD: Tang Moncada M.D. Measurements Intervals [place] Rate: 54 P: 74 [place]: 159 QRS: 50 QRSD: 86 T: 34 QT: 428 QTc: 409 Interpretive Statements SINUS BRADYCARDIA POSSIBLE SEPTAL MYOCARDIAL INFARCTION , OF INDETERMINATE AGE [40+ ms Q WAVE IN V1/V2] MODERATE T-WAVE ABNORMALITY, CONSIDER ANTERIOR ISCHEMIA [-0.1+ mV T-WAVE IN V3/V4] Compared to ECG 10/04/2022 11:08:57 Sinus rhythm no longer present T-wave abnormality still present Possible ischemia still present Electronically Signed On 10-05-2022 8:13:28 CDT by Tang Moncada M.D. [email or web address]/[id number]
[2022-10-04] MEDS: folic acid 1 mg Tablet 3 MG PO (15:06)
--- NOTE | 2022-10-04 15:25 | P.PN_ITS ---
Subjective Subjective: - Patient was seen this morning -She is alert to person, to place, not to time -She does not really know why she is here in the hospital -She denies any falls -Denies any fevers -No neck pain, no neck stiffness, no headache, blurry vision, -She does report dry mouth, intermittent dysphagia, no globus sensation -Does report dry eyes -Denies any pain or any discomfort no back pain, no recent falls -No abdominal pain, no diarrhea, no constipation no bloody or black stools -Does report pain in her heel -She had a fall roughly a month ago, but she tells me she is doing okay from it -She tells me she has lost weight, and that the [facility] is worried about her weight loss, -Does report lack of appetite at times Vitals/I&O/Wt Last Vital Signs Temp 98.0 F 10/04/22 12:00 Pulse 63 10/04/22 12:00 Resp 21 H 10/04/22 12:00 BP 107/53 10/04/22 12:00 Pulse Ox 100 10/04/22 12:00 O2 Del Method Room Air 10/04/22 12:00 10/04/22 10/04/22 10/04/22 06:59 14:59 22:59 Intake Total 1222.5 / 1222.5 Output Total 400 / 400 Balance -400 / 100 1222.5 / 1222.5 Weight last 48 hrs Weight 43.091 kg Physical Exam Const: COMMON NORMALS: no acute distress and patient oriented x3 OTHER: Temporal muscle wasting Muscle wasting of bilateral thighs, calfs, bilateral arms, shoulders Ribs marking was very visible due to muscle loss, fat loss Resp: COMMON NORMALS: normal respiratory effort, No retractions, No use of accessory muscles and clear to auscultation bilaterally AUSCULTATION: clear to auscultation bilaterally Cardio: COMMON NORMALS: regular rate, regular rhythm, S1 normal heart sound present and S2 normal heart sound present RATE: regular rate RHYTHM: regular rhythm HEART SOUNDS: S1 normal heart sound present and S2 normal heart sound present GI: COMMON NORMALS: Normal to inspection, nondistended, normoactive bowel sounds present and non-tender Extremity: COMMON NORMALS: no pedal edema Neuro: COMMON NORMALS: patient oriented x3 Psych: COMMON NORMALS: mental status grossly normal Urinary Catheter Management: Perez: Cath Placed During This Visit: yes Reason for Continuing Indwelling Catheter: Acute Urinary Retention or Obstruction Urinary Catheter Date of Insertion: 10/04/22 Urinary Catheter Time of Insertion: 00:41 Data 10/04/22 02:22 10/04/22 02:22 Micro: Microbiology 10/03/22 23:10 Blood Culture - Preliminary Blood SPECIMEN COLLECTED 10/03/22 23:06 Blood Culture - Preliminary Blood SPECIMEN COLLECTED A&P Assessment and plan (1) Fall: (2) Closed sacral fracture: (3) Weakness: (4) Difficulty in walking: (5) Diabetes mellitus: Qualifiers: Diabetes mellitus complication status: without complication Diabetes mellitus rodent exterminator insulin use: without rodent exterminator use Diabetes mellitus type: type 2 Qualified Code(s): E11.9 - Type 2 diabetes mellitus without complications (6) Lives in assisted living facility: (7) Severe protein-calorie malnutrition: (8) Severe muscle deconditioning: (9) Low body weight due to inadequate caloric intake: (10) Dysphagia: (11) Weight loss, abnormal: (12) Orthostatic hypotension: Plan #Generalized weakness #History of dementia #Diabetes mellitus #History of crest syndrome/scleroderma #Dysphagia #Severe protein calorie malnutrition #Severe deconditioning #Severely low BMI, 14.9 #Hyponatremia #Orthostatic hypotension ? Continue memantine, donepezil, folic acid, hydroxychloroquine, pantoprazole. ? Consult dietary ? I will place on thiamine as well. ? 6-hour troponin 15.6, no clinically significant delta troponin ? Has nonspecific T wave changes on EKG. This was reviewed with cardiology on- call. ? We will do serial EKG every 3 hours. She has not had any chest pain or any other cardiac symptoms that she is reported as an generalized chronic weakness however since her fall 4 weeks ago. There could be component of generalized deconditioning as well. ? Check echocardiogram for wall motion abnormalities. ? Low-dose intensity sliding scale insulin -We will check orthostatic vitals ? Placed on normal saline 75 cc/h -consult dietary -We will consider appetite stimulant -Does have dysphagia, and scleroderma, will consider swallow studies -PT/OT -Given her scleroderma association with malignancy, now her profound weight loss, severely low BMI, will order moreira CT Full code SCDs, heparin subcu twice daily DVT prophylaxis Attestations Medical Necessity Statement*: Patient requires hospitalization inpatient, greater than 2 midnights, for generalized weakness, dysphagia, severe protein calorie malnutrition, severe deconditioning, severely low BMI 14.9, hyponatremia, weight loss Diagnoses Fall W19.XXXA Closed sacral fracture S32.10XA Weakness R53.1 Difficulty in walking R26.2 Diabetes mellitus E11.9 Diabetes mellitus complication status: without complication Diabetes mellitus fdc insulin use: without rodent exterminator use Diabetes mellitus type: type 2 Lives in assisted living facility Z59.3 Severe protein-calorie malnutrition E43 Severe muscle deconditioning R29.898 Low body weight due to inadequate caloric intake R63.6 Dysphagia R13.10 Weight loss, abnormal R63.4 Orthostatic hypotension I95.1
--- NOTE | 2022-10-04 15:33 | CTR_ITS ---
PROCEDURE INFORMATION: Exam: CT Chest Without Contrast; Diagnostic Exam date and time: 10/04/2022 4:43 PM Age: 72 years old Clinical indication: Other: Weight loss, scleroderma, malignancy? TECHNIQUE: Imaging protocol: Diagnostic computed tomography of the chest without contrast. Radiation optimization: All CT scans at this facility use at least one of these dose optimization techniques: automated exposure control; mA and/or kV adjustment per patient size (includes targeted exams where dose is matched to clinical indication); or iterative reconstruction. REPORTING DATA: Count of CT and Cardiac NM exams in prior 12 months: This patient has received 0 known CTs and 0 known cardiac nuclear medicine studies in the 12 months prior to the current study. COMPARISON: CR XR chest 1V portable [id number] 10/04/2022 10:08 AM RADIATION DOSE METRICS: Total DLP (mGy-cm): 420.56 FINDINGS: Lungs: There is calcified granuloma in the right lung base. No acute infiltrate is identified. There is a 4 mm subpleural pulmonary nodule in the right such as on image 42 series 5. There is also a 3 mm sized noncalcified nodule right upper lobe image number 16 series 5. For patients at low risk (minimal or absent history of smoking and of other known risk factors), no routine follow-up is indicated. For patients at high risk (history of smoking or of other known risk factors), consider optional CT Chest at 12 months. (Reference: Holger) Pleural spaces: Unremarkable. No pneumothorax. No pleural effusion. Heart: Heart is within normal limits of size. Coronary arteries: There is moderate atherosclerotic calcification of the coronary arteries. Lymph nodes: There are mildly prominent precarinal lymph nodes measuring up to 10 x 11 mm. Vasculature: There is no thoracic aortic aneurysm. Bones/joints: Unremarkable. No acute fracture. Soft tissues: Unremarkable. REFERENCES: Holger Ho, et al. Guidelines for Management of Incidental Pulmonary Nodules Detected on CT Images: From the Fleischner Society 2017. Radiology. 2017;284(1):228-243. PROCEDURE INFORMATION: Exam: CT Abdomen And Pelvis Without Contrast Exam date and time: 10/04/2022 4:43 PM Age: 72 years old Clinical indication: Other: Weight loss, scleroderma, malignancy? TECHNIQUE: Imaging protocol: Computed tomography of the abdomen and pelvis without contrast. Radiation optimization: All CT scans at this facility use at least one of these dose optimization techniques: automated exposure control; mA and/or kV adjustment per patient size (includes targeted exams where dose is matched to clinical indication); or iterative reconstruction. REPORTING DATA: Count of CT and Cardiac NM exams in prior 12 months: This patient has received 0 known CTs and 0 known cardiac nuclear medicine studies in the 12 months prior to the current study. COMPARISON: CT abdomen pelvis w con* [id number] 08/09/2020 2:59 AM RADIATION DOSE METRICS: Total DLP (mGy-cm): 420.56 FINDINGS: Limitations: The absence of intravenous contrast lessens the sensitivity of this study for solid organ abnormalities. The examination is limited due to paucity of abdominal fat. Liver: There is no focal abnormality within the liver. Gallbladder and bile ducts: The gallbladder is normal. Pancreas: The pancreas is normal. Spleen: The spleen is normal. Adrenal glands: The adrenal glands are normal. Kidneys and ureters: The kidneys are normal. There is no evidence of hydronephrosis. There is no evidence of renal or ureteral calcifications. Stomach and bowel: There is no evidence of colitis/diverticulitis. There is no evidence of intestinal obstruction. Appendix: Not identified Intraperitoneal space: Unremarkable. No free air. No significant fluid collection. 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 The aorta demonstrates moderate atherosclerotic calcification. There is no evidence of an abdominal aortic aneurysm. Lymph nodes: No gross adenopathy is identified. Urinary bladder: Urinary bladder is drained by Perez catheter. Reproductive: There is some calcifications in the uterus consistent with small calcified fibroids. Bones/joints: There is some degenerative change in the lower lumbar spine. Soft tissues: Unremarkable. CT/[place] [id number] IMPRESSION: 1. No acute findings in the chest. 2. Question of borderline mediastinal adenopathy and small likely benign pulmonary nodule as described above IMPRESSION: No acute findings in the abdomen or pelvis.
[2022-10-04 16:35] LABS: Glucose Point of Care 244 mg/dL (70-110)
[2022-10-04 20:52] LABS: Glucose Point of Care 199 mg/dL (70-110)
[2022-10-04] MEDS: donepezil 5 MG Tablet 10 MG PO (21:03)
[2022-10-05] VITALS (10 sets, daily range): BP systolic 109–188; BP diastolic 50–65; PULSE 53–78; RESP 17–26; TEMP 36.6–37; O2SAT 66–99
[2022-10-05] MEDS: sodium chloride 0.9% 1,000 ML 75 ML IV ×2 (00:28→14:25)
[2022-10-05 02:43] LABS: Basophils # 0.1 10^3/uL (0.0-0.1); Basophils % 0.7 %; Eosinophils % 0.5 %; Hematocrit 33.6 % (37.0-47.0); Hemoglobin 10.9 g/dL (11.5-15.3); Lymphocytes # 1.7 10^3/uL (0.8-4.8); Lymphocytes % 23.9 %; Mean Corpuscular HGB Conc 32.4 g/dL (30.0-36.0); Mean Corpuscular Hemoglobin 27.3 pg (28.0-34.0); Mean Corpuscular Volume 84.2 fl (81-99); Mean Platelet Volume 10.2 fL (7.4-10.4); Monocytes # 1.1 10^3/uL (0.2-0.9); Monocytes % 14.5 %; Neutrophils # 4.39 10^3/uL (1.8-7.7); Neutrophils % 60.3 %; Nucleated Red Blood Cells % 0 %; Platelet Count 252 10^3/cmm (130-400); Red Blood Count 3.99 10^6/uL (4.1-5.3); Red Cell Distribution Width 14.5 % (12.1-15.1); White Blood Count 7.3 10^3/uL (4.0-10.0)
[2022-10-05 03:10] LABS: Alanine Aminotransferase 14 U/L (0-33); Albumin Level 2.9 g/dL (3.5-5.2); Alkaline Phosphatase 175 U/L (35-105); Anion Gap 11.8 (5-19); Aspartate Amino Transferase 17 U/L (0-32); Blood Urea Nitrogen 9 mg/dL (8-23); Calcium 8.4 mg/dL (8.5-10.5); Carbon Dioxide 26 mmol/L (22-29); Chloride 103 mmol/L (98-107); Globulin 2.6 g/dL (1.3-4.6); Glucose 138 mg/dL (65-115); Magnesium 1.8 mg/dL (1.7-2.3); Osmolality Calculated 285 mOsm/kg (285-295); Phosphorus 2.5 mg/dL (2.5-4.5); Potassium 3.8 mmol/L (3.5-5.1); Sodium 137 mmol/L (136-145); Total Bilirubin 0.2 mg/dL (0.15-1.2); Total Protein 5.5 g/dL (6.6-8.7)
[2022-10-05 06:46] LABS: Glucose Point of Care 122 mg/dL (70-110)
[2022-10-05] MEDS: citalopram 20 mg Tablet 10 MG PO (08:37)
[2022-10-05] MEDS: memantine 5 mg tablet 10 MG PO ×2 (08:37→18:06)
[2022-10-05] MEDS: pantoprazole DR 40 mg Tablet PO (08:37)
[2022-10-05] MEDS: heparin 5,000 unit/mL INJ 1 mL 5000 UNIT SUBCUT ×2 (10:35→21:47)
[2022-10-05] MEDS: hydroxychloroquine 200 mg Tablet PO ×2 (10:36→18:06)
[2022-10-05 11:19] LABS: Glucose Point of Care 154 mg/dL (70-110)
[2022-10-05 17:16] LABS: Glucose Point of Care 139 mg/dL (70-110)
--- NOTE | 2022-10-05 17:37 | PM.PN ---
Subjective Subjective: - Patient was seen this morning, with family friend at bedside -Extensive discussion with patient's friend and patient about her current condition, her scleroderma, weight loss, her EKG changes, or dehydration -Her appetite has improved -She has had a bowel movement -Denies any chest pain, denies a cardiovascular history Vitals/I&O/Wt Last Vital Signs Temp 97.8 F 10/05/22 12:00 Pulse 78 10/05/22 12:00 Resp 19 H 10/05/22 12:00 BP 188/55 10/05/22 12:00 Pulse Ox 94 10/05/22 12:00 O2 Del Method Room Air 10/05/22 08:00 10/05/22 10/05/22 10/05/22 06:59 14:59 22:59 Intake Total 352.5 / 2241.25 1720 / 1720 Output Total 1200 / 2770 400 / 400 Balance -847.5 / -528.75 1320 / 1320 Physical Exam Const: COMMON NORMALS: no acute distress and patient oriented x3 Resp: COMMON NORMALS: normal respiratory effort, No retractions, No use of accessory muscles and clear to auscultation bilaterally AUSCULTATION: clear to auscultation bilaterally Cardio: COMMON NORMALS: regular rate, regular rhythm, S1 normal heart sound present and S2 normal heart sound present RATE: regular rate RHYTHM: regular rhythm HEART SOUNDS: S1 normal heart sound present and S2 normal heart sound present GI: COMMON NORMALS: Normal to inspection, nondistended, normoactive bowel sounds present, Soft to palpation and non-tender PALPATION: Yes Soft to palpation Extremity: COMMON NORMALS: no pedal edema Neuro: COMMON NORMALS: patient oriented x3 Psych: COMMON NORMALS: mental status grossly normal Urinary Catheter Management: Perez: Cath Placed During This Visit: yes Reason for Continuing Indwelling Catheter: Acute Urinary Retention or Obstruction Urinary Catheter Date of Insertion: 10/04/22 Urinary Catheter Time of Insertion: 00:41 Data 10/05/22 01:46 10/05/22 01:46 Micro: Microbiology 10/03/22 23:10 Blood Culture - Preliminary Blood NEGATIVE TO DATE 10/03/22 23:06 Blood Culture - Preliminary Blood NEGATIVE TO DATE A&P Assessment and plan (1) Fall: (2) Closed sacral fracture: (3) Weakness: (4) Difficulty in walking: (5) Diabetes mellitus: Qualifiers: Diabetes mellitus type: type 2 Diabetes mellitus ad terminal makeup operator insulin use: without ad terminal makeup operator use Diabetes mellitus complication status: without complication Qualified Code(s): E11.9 - Type 2 diabetes mellitus without complications (6) Lives in assisted living facility: (7) Severe protein-calorie malnutrition: (8) Severe muscle deconditioning: (9) Low body weight due to inadequate caloric intake: (10) Dysphagia: (11) Weight loss, abnormal: (12) Orthostatic hypotension: Plan #Generalized weakness #History of dementia #Diabetes mellitus #History of crest syndrome/scleroderma #Dysphagia #Severe protein calorie malnutrition #Severe deconditioning #Severely low BMI, 14.9 #Hyponatremia #Orthostatic hypotension ? Continue memantine, donepezil, folic acid, hydroxychloroquine, pantoprazole. ? Consult dietary -We will consider appetite's been admitted to such as methylphenidate ? I will place on thiamine as well. ? 6-hour troponin 15.6, no clinically significant delta troponin ? Has nonspecific T wave changes on EKG. This was reviewed with cardiology on-call. ? We will do serial EKG every 3 hours. She has not had any chest pain or any other cardiac symptoms that she is reported as an generalized chronic weakness however since her fall 4 weeks ago. There could be component of generalized deconditioning as well. -Perhaps EKG changes could be from her low BMI, and or crest syndrome /scleroderma and cardiac stress is as a result, will have to watch for refeeding syndrome, however need to rule out underlying cardiac etiology given her crest syndrome -We will perform cardiac stress test tomorrow morning ? Cardiac echo Normal left ventricular size, systolic function and wall ?thickness, with no regional wall motion abnormalities. Normal ?diastolic function. Left ventricular ejection fraction is ?estimated at 65 %. ?There is no change from the previous echo done 1 year ag ? Low-dose intensity sliding scale insulin -We will check orthostatic vitals ? Continue IV fluids -consult dietary -We will consider appetite stimulant -Does have dysphagia, and scleroderma, will consider swallow studies -PT/OT -Given her scleroderma association with malignancy, now her profound weight loss, severely low BMI, -Warren CT scan ordered Lungs: There is calcified granuloma in the right lung base. No acute infiltrate is identified. There is a 4 mm subpleural pulmonary nodule in the right such as on image 42 series 5. There is also a 3 mm sized noncalcified nodule right upper lobe image number 16 series 5. For patients at low risk (minimal or absent history of smoking and of other known risk factors), no routine follow-up is indicated. For patients at high risk (history of smoking or of other known risk factors), consider optional CT Chest at 12 months. (Reference: Holger) Pleural spaces: Unremarkable. No pneumothorax. No pleural effusion. Heart: Heart is within normal limits of size. Coronary arteries: There is moderate atherosclerotic calcification of the coronary arteries. Lymph nodes: There are mildly prominent precarinal lymph nodes measuring up to 10 x 11 mm. -We will need to follow-up with pulmonary as outpatient Full code SCDs, heparin subcu twice daily DVT prophylaxis Plan for today remove Perez catheter, up out of bed, monitor for chest pain, dietary eval, advance diet, consider appetite stimulants, telemetry monitoring, will plan on stress test tomorrow morning Attestations Medical Necessity Statement*: Patient requires hospitalization for EKG changes, requiring cardiac stress testing Diagnoses Fall W19.XXXA Closed sacral fracture S32.10XA Weakness R53.1 Difficulty in walking R26.2 Diabetes mellitus E11.9 Diabetes mellitus type: type 2 Diabetes mellitus fpc insulin use: without fpc use Diabetes mellitus complication status: without complication Lives in assisted living facility Z59.3 Severe protein-calorie malnutrition E43 Severe muscle deconditioning R29.898 Low body weight due to inadequate caloric intake R63.6 Dysphagia R13.10 Weight loss, abnormal R63.4 Orthostatic hypotension I95.1
[2022-10-05] MEDS: folic acid 1 mg Tablet 3 MG PO (18:06)
[2022-10-05 21:13] LABS: Glucose Point of Care 192 mg/dL (70-110)
[2022-10-05] MEDS: donepezil 5 MG Tablet 10 MG PO (21:47)
[2022-10-06] VITALS (81 sets, daily range): BP systolic 66–143; BP diastolic 39–77; PULSE 33–147; RESP 12–36; TEMP 36.4–37.2; O2SAT 81–99
[2022-10-06 05:36] LABS: Basophils # 0.1 10^3/uL (0.0-0.1); Basophils % 0.9 %; Eosinophils # 0.4 10^3/uL (0.0-0.8); Eosinophils % 5.4 %; Hematocrit 37.9 % (37.0-47.0); Hemoglobin 11.8 g/dL (11.5-15.3); Lymphocytes # 1.3 10^3/uL (0.8-4.8); Mean Corpuscular HGB Conc 31.1 g/dL (30.0-36.0); Mean Corpuscular Hemoglobin 26.6 pg (28.0-34.0); Mean Corpuscular Volume 85.6 fl (81-99); Mean Platelet Volume 10.1 fL (7.4-10.4); Monocytes # 1.1 10^3/uL (0.2-0.9); Monocytes % 13.5 %; Neutrophils # 4.96 10^3/uL (1.8-7.7); Neutrophils % 62.8 %; Nucleated Red Blood Cells % 0 %; Platelet Count 278 10^3/cmm (130-400); Red Blood Count 4.43 10^6/uL (4.1-5.3); Red Cell Distribution Width 14.2 % (12.1-15.1); White Blood Count 7.9 10^3/uL (4.0-10.0)
--- NOTE | 2022-10-06 05:59 | PC.NURSE ---
Patient is refusing to be injected for her stress this morning. Patient is extremely restless and will not sit still long enough to complete the test. She has been removing telemetry and clothes all night long. Radiology indicated she would have to be still for a minimum of 20min. Informed Dr Robles. No orders received at this time. Will continue to monitor.
[2022-10-06 06:21] LABS: Alanine Aminotransferase 23 U/L (0-33); Albumin Level 3.2 g/dL (3.5-5.2); Alkaline Phosphatase 216 U/L (35-105); Anion Gap 12.2 (5-19); Aspartate Amino Transferase 24 U/L (0-32); Blood Urea Nitrogen 8 mg/dL (8-23); Calcium 9.1 mg/dL (8.5-10.5); Carbon Dioxide 27 mmol/L (22-29); Chloride 100 mmol/L (98-107); Globulin 3.3 g/dL (1.3-4.6); Glucose 143 mg/dL (65-115); Magnesium 1.9 mg/dL (1.7-2.3); Osmolality Calculated 283 mOsm/kg (285-295); Phosphorus 1.8 mg/dL (2.5-4.5); Potassium 3.2 mmol/L (3.5-5.1); Sodium 136 mmol/L (136-145); Total Bilirubin 0.3 mg/dL (0.15-1.2); Total Protein 6.5 g/dL (6.6-8.7)
[2022-10-06 06:43] LABS: Glucose Point of Care 118 mg/dL (70-110)
--- NOTE | 2022-10-06 07:48 | SUR.PREOP ---
Patient currently refusing stress test per nuclear medicine. CSU RN to address with hospitalist team. Test on Hold at this point.
[2022-10-06] MEDS: lidocaine 1% 5 ML in potassium chloride premix 100 ML 26.25 ML IV (09:12)
--- NOTE | 2022-10-06 09:13 | PC.CHAP ---
Pastoral Care Encounter/Spiritual Assessment Type of Contact [] Declined sccm administrator visit [] Patient/Family/Request visit [] Outpatient visit [] Follow-up visit [] Physician referral [] Code/Alert [] Routine visit [] Staff referral [] Actively dying [] Patient sleeping [] Family support [] [] Out of room [] Palliative care [] [x] Receiving care in room [] Pre-surgical visit [] Trauma [] Long length of stay [] ICU visit [] Other: Relational/Emotional Strength [] Patient feels connected with others/family/visitors/staff [] Distress [] Loneliness/isolation [] Abandonment Spirituality of Patient [] Person of Gretel [] Attends Judaism of their Gretel [] Believes in Prayer [] Reads Bible or Yarsanism materials [] There are Spiritual issues to be addressed Assistant Broker Interventions [] Prayer [] Active listening [] Non-anxious presence [] Spiritual/emotional support [] Crisis/trauma care [] Spiritual counseling [] Bereavement support [] Provided bereavement packet [] Provided Bible/devotional materials [] Provided toy/stuffed animal, coloring book to patient or family member [] Provided Communion [] Anointing/[place] [] Salvation [] Completed spiritual assessment [] Other: Impact on Illness or Injury [] Angry [] Fearful [] Anxious [] Often cries [] Exhaustion [] Unable to work [] Unable to attend yarsanism [] Unable to walk/stand [] Unable to read [] Unable to drive [] Unable to eat/drink [] Unable to sleep [] Unable to be with family [] Patient intubated [] Other: Summary Time spent with patient
[2022-10-06] MEDS: methylphenidate 10 mg Tablet 5 MG PO (09:14)
[2022-10-06] MEDS: aspirin 81 mg EC Tablet PO (09:14)
[2022-10-06] MEDS: citalopram 20 mg Tablet 10 MG PO (09:15)
[2022-10-06] MEDS: pantoprazole DR 40 mg Tablet PO (09:15)
[2022-10-06] MEDS: memantine 5 mg tablet 10 MG PO ×2 (09:15→18:20)
[2022-10-06] MEDS: heparin 5,000 unit/mL INJ 1 mL 5000 UNIT SUBCUT ×2 (09:17→20:51)
[2022-10-06] MEDS: hydroxychloroquine 200 mg Tablet PO ×2 (09:19→18:20)
--- NOTE | 2022-10-06 09:42 | SUR.PREOP ---
STRESS CANCEL Notified by nuclear medicine that the test has been cancelled.
[2022-10-06] MEDS: atropine 0.1 mg/mL Syr 10 mL 0.5 MG IVP (09:55)
[2022-10-06 10:01] LABS: Glucose Point of Care 127 mg/dL (70-110)
--- NOTE | 2022-10-06 10:57 | PC.NURSE ---
at approx 0945 pt was sitting up in chair and complained to nurse tech that she felt like she was going to vomit.heart rate noted to drift down into 30's.bp 66/39.assisted to bed.dr rodriguez notified.while nurse was obtaining atropine,heart rate began to drift back up.placed in bed.dr rodriguez arrived,heart rate in 40's, and he ordered 0.5 mg atropine iv push..and fluid bolus.given as ordered.heart rate came back up to 60's-70's and bp improved significantly.ekg obtained as ordered,and labs.
[2022-10-06 10:58] LABS: Lactate (Lactic Acid level) 1.8 mmol/L (0.5-2.2)
[2022-10-06 11:02] LABS: Troponin(5th) Baseline 10 ng/L (0-10)
[2022-10-06 11:33] LABS: Glucose Point of Care 116 mg/dL (70-110)
--- NOTE | 2022-10-06 11:50 | ECG_ITS ---
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 Measurements Intervals [place] Rate: 59 P: 83 MD: 151 QRS: 62 QRSD: 97 T: 61 QT: 460 QTc: 458 Interpretive Statements SINUS BRADYCARDIA NONSPECIFIC ST ELEVATION [0.05+ mV ST ELEVATION] Compared to ECG 10/04/2022 14:21:17 ST (T wave) deviation now present Myocardial infarct finding no longer present T-wave abnormality no longer present Possible ischemia no longer present Electronically Signed On 10-06-2022 17:18:50 CDT by Josy Daniel M.D. [email or web address]/[id number]
[2022-10-06] MEDS: sodium chloride 0.9% 1,000 ML 125 ML IV (13:37)
[2022-10-06 14:04] LABS: Troponin 5 2HR 9.24 ng/L (0-10)
[2022-10-06 14:20] LABS: Troponin 5 2HR Delta -0.76 ABS# (0-10)
--- NOTE | 2022-10-06 16:47 | ECG_ITS ---
[facility] Test Date: 2022-10-06 Pat Name: Nereyda Caceres Department: Room: 112 Gender: Female Cushion Former: : 1950 Requested By: James Robles Order Number: [id number] John MD: Josy Daniel M.D. Measurements Intervals [place] Rate: 53 P: 73 [place]: 166 QRS: 52 QRSD: 82 T: 51 QT: 439 QTc: 415 Interpretive Statements SINUS BRADYCARDIA NONSPECIFIC ST ELEVATION [0.05+ mV ST ELEVATION] Compared to ECG 10/06/2022 11:40:48 No significant changes Electronically Signed On 10-06-2022 17:18:07 CDT by Josy Daniel M.D. [id number]
[2022-10-06 17:09] LABS: Troponin 5 6HR 10.92 ng/L (0-10)
[2022-10-06 17:10] LABS: Troponin 5 6HR Delta 0.92 ng/L (0-12)
[2022-10-06 18:06] LABS: Glucose Point of Care 90 mg/dL (70-110)
[2022-10-06] MEDS: folic acid 1 mg Tablet 3 MG PO (18:20)
--- NOTE | 2022-10-06 18:42 | NMCV_ITS ---
NM richard perf SPECT r/s* [id number] Nereyda Caceres Age: 72 Gender: F : 1950 Exam Date: 10/07/2022 06:23 Ordering Phys: James Robles MD Technologist: AFTAB Rush Exam Location: [facility] Indications: CHEST PAIN STRESS TEST Please see separate stress test report in [facility] for full findings IMAGE PROTOCOL Rest/Stress 1 Lexiscan Day Radiopharmaceutical Dose (mCi) Administration Site Administered by Rest: Tc-99m 10.7 IV AFTAB M[facility]od Sestamibi Stress:Tc-99m 32.4 IV AFTAB Mcleod Sestamibi Rest: 07-Oct-2022 60 Discovery 630 Stress: 07-Oct-2022 30 Discovery 630 0.4mg Lexiscan. Supine position only as patient was unable to lay prone. SPECT RESULTS Technical Quality: Excellent Raw Data Analysis: Normal Image Corrections: No attenuation or motion correction applied Summed Stress Score: 1 Summed Rest Score: 1 Summed Difference Score: 0 PERFUSION FINDINGS A small area of slightly decreased tracer uptake was noted in the mid inferoseptal region, with some reversibility, based on the SPECT imaging. However with the polar plots, no significant reversibility was noted FUNCTIONAL RESULTS (calculated via Gated SPECT) Stress Image LV EF (%): 88 Stress EDV (mL):52 TID: 1 Stress ESV (mL):6 FUNCTIONAL FINDINGS: Segmental wall motion analysis revealing no gross wall motion normalities IMPRESSIONS 1. Myocardial perfusion imaging revealing a small area of inconsistent reversible defect suggesting ischemia in the distribution of the right coronary artery. However because of the inconsistency the reliability of this finding is questionable. 2. Normal LV ejection fraction of 88%. 3. LV wall motion analysis revealing no gross wall motion abnormalities. 4. Normal LV volume No similar previous studies are available for comparison. Clinical correlation is recommended Dr Leonila Blackwood MD [facility] (Electronically Signed) Final Date: 07 October 2022 13:41 S
--- NOTE | 2022-10-06 18:44 | PM.PN ---
Subjective Subjective: - Patient was seen this morning -Early in the morning, she refused to do her stress test, as she felt anxious about doing it -She was seen early in the morning, she is alert oriented x3, following all commands, sitting up in a chair, denied any chest pain, palpitations, no shortness of breath, we discussed about her going home and following up with cardiology as outpatient for consideration of stress testing given her initial ST-T wave changes on EKG, as she is relatively asymptomatic she was agreeable we discussed improving her appetite, -Roughly an hour after meeting with her this morning, I was immediately called by nursing staff as patient was sitting up in a chair, and her blood pressures dropped MAP less than 65 and she became bradycardic and less responsive heart rates in the 30s -Upon my arrival patient was alert and awake, she is a bit drowsy but following commands no face droop no slurring of words no chest pain complaints she was bradycardic in the 30s, no bundle branch block, no AV block, I had nursing staff get her back into bed, performed Trendelenburg, she received fluid bolus -Her blood pressures improved to 110/68, still having bradycardia heart rates as low as 40s, she was given 1 dose of 0.5 of atropine -She was monitored thereafter blood pressures remain MAP greater than 65, heart rates improved to the 70s -EKGs were performed, initially no acute ST-T wave changes, no significant bundle branch block, no AV block she was alert awake, following all commands denies any chest pain, palpitations, shortness of breath,, she was feeling well she remained in bed -She was reexamined multiple times throughout the afternoon -She remains alert awake, following all commands, no chest pain, palpitations mild asymptomatic -No significant troponin trend -I did review her EKGs with cardiology, she does show nonspecific ST changes, elevations in the anterior leads, they could be repolarization abnormalities -I suspect that her sitting up in a chair she probably vagal down, had a vasovagal syncope episode causing her bradycardia and hypotension -However given her initial EKG changes on admission, and currently EKG changes, I discussed with her about doing a stress test tomorrow and then if everything is okay she can discharge home -After discussing the risk and benefits of stress testing she is agreeable to proceed we will give her Ativan as she feels anxious before I do the stress test -She was reexamined early in the evening she is alert awake, following all commands, no chest pain complaints Vitals/I&O/Wt Last Vital Signs Temp 97.6 F 10/06/22 16:00 Pulse 63 10/06/22 16:00 Resp 17 10/06/22 16:00 BP 127/58 10/06/22 16:00 Pulse Ox 99 10/06/22 09:15 O2 Del Method Room Air 10/06/22 00:00 10/06/22 10/06/22 10/06/22 06:59 14:59 22:59 Intake Total 720 / 2745 341 / 341 118 / 459 Balance 720 / 1445 341 / 341 118 / 459 Physical Exam Const: COMMON NORMALS: no acute distress and patient oriented x3 Resp: COMMON NORMALS: normal respiratory effort, No retractions, No use of accessory muscles and clear to auscultation bilaterally AUSCULTATION: clear to auscultation bilaterally Cardio: COMMON NORMALS: regular rate, regular rhythm, S1 normal heart sound present and S2 normal heart sound present RATE: regular rate RHYTHM: regular rhythm HEART SOUNDS: S1 normal heart sound present and S2 normal heart sound present GI: COMMON NORMALS: Normal to inspection, nondistended, normoactive bowel sounds present and non-tender Extremity: COMMON NORMALS: no pedal edema Neuro: COMMON NORMALS: patient oriented x3 Psych: COMMON NORMALS: mental status grossly normal Urinary Catheter Management: Perez: Cath Placed During This Visit: yes, but has since been removed by the nurse Reason for Continuing Indwelling Catheter: Decision to DC Catheter Urinary Catheter Date of Insertion: 10/04/22 Urinary Catheter Time of Insertion: 00:41 Date Urinary Catheter Removed: 10/05/22 Time Urinary Catheter Discontinued: 14:00 Data 10/06/22 05:07 10/06/22 05:07 A&P Assessment and plan (1) Fall: (2) Closed sacral fracture: (3) Weakness: (4) Difficulty in walking: (5) Diabetes mellitus: Qualifiers: Diabetes mellitus type: type 2 Diabetes mellitus exterminator helper insulin use: without exterminator helper use Diabetes mellitus complication status: without complication Qualified Code(s): E11.9 - Type 2 diabetes mellitus without complications (6) Lives in assisted living facility: (7) Severe protein-calorie malnutrition: (8) Severe muscle deconditioning: (9) Low body weight due to inadequate caloric intake: (10) Dysphagia: (11) Weight loss, abnormal: (12) Orthostatic hypotension: (13) Bradycardia: (14) Hypotension: (15) Vasovagal syncope: (16) Nonspecific ST-T wave electrocardiographic changes: Plan #Generalized weakness #History of dementia #Diabetes mellitus #History of crest syndrome/scleroderma #Dysphagia #Severe protein calorie malnutrition #Severe deconditioning #Severely low BMI, 14.9 #Hyponatremia #Orthostatic hypotension, vasovagal syncope, bradycardia, nonspecific ST-T wave changes ? Continue memantine, donepezil, folic acid, hydroxychloroquine, pantoprazole. ? Consult dietary -We will consider appetite's been admitted to such as methylphenidate ? I will place on thiamine as well. ? 6-hour troponin 15.6, no clinically significant delta troponin ? Has nonspecific T wave changes on EKG. -Had an episode of bradycardia, vasovagal syncope, with nonspecific ST-T wave changes -Perhaps EKG changes could be from her low BMI, and or crest syndrome /scleroderma and cardiac stress is as a result, will have to watch for refeeding syndrome, however need to rule out underlying cardiac etiology given her crest syndrome -We will try again to perform cardiac stress test tomorrow morning, Ativan before stress test, n.p.o. midnight ? Cardiac echo Normal left ventricular size, systolic function and wall ?thickness, with no regional wall motion abnormalities. Normal ?diastolic function. Left ventricular ejection fraction is ?estimated at 65 %. ?There is no change from the previous echo done 1 year ag ? Low-dose intensity sliding scale insulin -We will check orthostatic vitals ? Continue IV fluids -consult dietary -We will consider appetite stimulant -Does have dysphagia, and scleroderma, will consider swallow studies -PT/OT -Given her scleroderma association with malignancy, now her profound weight loss, severely low BMI, -Warren CT scan ordered Lungs: There is calcified granuloma in the right lung base. No acute infiltrate is identified. There is a 4 mm subpleural pulmonary nodule in the right such as on image 42 series 5. There is also a 3 mm sized noncalcified nodule right upper lobe image number 16 series 5. For patients at low risk (minimal or absent history of smoking and of other known risk factors), no routine follow-up is indicated. For patients at high risk (history of smoking or of other known risk factors), consider optional CT Chest at 12 months. (Reference: [facility]) Pleural spaces: Unremarkable. No pneumothorax. No pleural effusion. Heart: Heart is within normal limits of size. Coronary arteries: There is moderate atherosclerotic calcification of the coronary arteries. Lymph nodes: There are mildly prominent precarinal lymph nodes measuring up to 10 x 11 mm. -We will need to follow-up with pulmonary as outpatient Full code SCDs, heparin subcu twice daily DVT prophylaxis Plan for today continue IV fluids, monitor blood pressures, advised to keep in bed today, telemetry monitoring, n.p.o. midnight, starting stress test tomorrow morning Attestations Medical Necessity Statement*: Patient requires admission due to orthostasis, bradycardia, hypotension, vasovagal syncope, nonspecific ST-T wave changes requiring stress test tomorrow morning, inpatient admission monitoring as inpatient Diagnoses Fall W19.XXXA Closed sacral fracture S32.10XA Weakness R53.1 Difficulty in walking R26.2 Diabetes mellitus E11.9 Diabetes mellitus type: type 2 Diabetes mellitus exterminator helper insulin use: without usp use Diabetes mellitus complication status: without complication Lives in assisted living facility Z59.3 Severe protein-calorie malnutrition E43 Severe muscle deconditioning R29.898 Low body weight due to inadequate caloric intake R63.6 Dysphagia R13.10 Weight loss, abnormal R63.4 Orthostatic hypotension I95.1 Bradycardia R00.1 Hypotension I95.9 Vasovagal syncope R55 N[address]-T wave electrocardiographic changes R94.31
[2022-10-06] MEDS: donepezil 5 MG Tablet 10 MG PO (20:51)
[2022-10-06] MEDS: atorvastatin 40 mg Tablet PO (20:51)
[2022-10-06] MEDS: sodium chloride 0.9% 1,000 ML 75 ML IV (20:57)
[2022-10-06 22:05] LABS: Glucose Point of Care 165 mg/dL (70-110)
[2022-10-07] VITALS (7 sets, daily range): BP systolic 101–129; BP diastolic 52–69; PULSE 56–80; RESP 18–19; TEMP 36.2–36.6; O2SAT 87–97
--- NOTE | 2022-10-07 | ECG_ITS ---
[facility] Test Date: 2022-10-07 Pat Name: Nereyda Caceres Department: Room: 112 Gender: Female Safety Security Officer: Jewels Lopez : 1950 Requested By: James Robles Order Number: [id number] John MD: Leonila Blackwood M.D. Interpretive Statements NAME OF STUDY: LEXISCAN SESTAMIBI STRESS TEST INDICATION: Bradycardia, PROCEDURE: At the baseline, the EKG revealed normal sinus rhythm with a some nonspecific T wave changes. Poor R wave progression. The baseline heart was 86 bpm with a blood pressue of 110/87 mm of Hg Lexiscan was infused over a period of 20 seconds. A total of 0.4 milligrams of Lexiscan was infused. The stress phase was continued for a total of 5 minutes. Heart rate at the end of the stress phase was 69 bpm with a blood pressure 117/62 mm of Hg. The EKG at the peak infusion revealed no significant changes. Sestamibi was injected 20 seconds after the Lexiscan infusion. Heart rate at the end of the recovery phase was 65 bpm with a blood pressure of 119/62 mm of Hg. CONCLUSION: 1. No significant EKG changes with the LexiScan infusion 2. No LexiScan induced chest pain or cardiac arrhythmia 3. Normal blood pressure and heart rate response 4. Sestamibi/sestamibi perfusion scan pending; see separate report. Electronically Signed On 10-07-2022 13:45:19 CDT by Leonila Blackwood M.D. [email or web address]
[2022-10-07 04:36] LABS: Basophils # 0.1 10^3/uL (0.0-0.1); Basophils % 0.9 %; Eosinophils # 0.2 10^3/uL (0.0-0.8); Eosinophils % 3.8 %; Hemoglobin 10.5 g/dL (11.5-15.3); Lymphocytes # 1.7 10^3/uL (0.8-4.8); Lymphocytes % 27.1 %; Mean Corpuscular HGB Conc 31.8 g/dL (30.0-36.0); Mean Corpuscular Hemoglobin 27.1 pg (28.0-34.0); Mean Corpuscular Volume 85.3 fl (81-99); Mean Platelet Volume 10.5 fL (7.4-10.4); Monocytes # 0.9 10^3/uL (0.2-0.9); Monocytes % 14.6 %; Neutrophils % 53.3 %; Nucleated Red Blood Cells % 0 %; Platelet Count 249 10^3/cmm (130-400); Red Blood Count 3.87 10^6/uL (4.1-5.3); Red Cell Distribution Width 14.6 % (12.1-15.1); White Blood Count 6.4 10^3/uL (4.0-10.0)
[2022-10-07 04:59] LABS: Alanine Aminotransferase 19 U/L (0-33); Albumin Level 2.9 g/dL (3.5-5.2); Alkaline Phosphatase 193 U/L (35-105); Anion Gap 10.8 (5-19); Aspartate Amino Transferase 20 U/L (0-32); Blood Urea Nitrogen 10 mg/dL (8-23); Calcium 8.7 mg/dL (8.5-10.5); Carbon Dioxide 24 mmol/L (22-29); Chloride 106 mmol/L (98-107); Globulin 2.7 g/dL (1.3-4.6); Glucose 107 mg/dL (65-115); Magnesium 1.8 mg/dL (1.7-2.3); Osmolality Calculated 284 mOsm/kg (285-295); Potassium 3.8 mmol/L (3.5-5.1); Sodium 137 mmol/L (136-145); Total Bilirubin 0.2 mg/dL (0.15-1.2); Total Protein 5.6 g/dL (6.6-8.7)
[2022-10-07 06:34] LABS: Glucose Point of Care 113 mg/dL (70-110)
[2022-10-07] MEDS: regadenoson 0.4 Mg/5 ml Syringe IVP (07:10)
[2022-10-07] MEDS: citalopram 20 mg Tablet 10 MG PO (10:17)
[2022-10-07] MEDS: memantine 5 mg tablet 10 MG PO (10:18)
[2022-10-07] MEDS: pantoprazole DR 40 mg Tablet PO (10:19)
[2022-10-07] MEDS: aspirin 81 mg EC Tablet PO (10:19)
[2022-10-07] MEDS: hydroxychloroquine 200 mg Tablet PO (10:20)
[2022-10-07] MEDS: heparin 5,000 unit/mL INJ 1 mL 5000 UNIT SUBCUT (10:25)
--- NOTE | 2022-10-07 10:40 | PC.SOCIAL ---
IMM update IMM updated with patient at bedside. Copy of page 2 provided. Patient verbalized understanding. Copy in chart initialed, dated and timed.
[2022-10-07 11:18] LABS: Glucose Point of Care 186 mg/dL (70-110)
--- NOTE | 2022-10-07 13:51 | PC.SLP ---
MUD GRINDER talked to nurse. Nurse does not report any coughing or difficulty with current diet.
--- NOTE | 2022-10-07 14:01 | P.DS_ITS ---
Discharge Providers Date of Admission: 10/04/22 17:11 Date of Discharge: October 07, 2022 Attending Provider at Admission: Bettina Reyna MD Attending Provider at Discharge: James Robles MD Primary Care Provider: Stiven St DO Diagnoses at Discharge Discharge Diagnosis (1) Fall: Status: Inactive (2) Closed sacral fracture: Status: Inactive (3) Weakness: Status: Acute (4) Difficulty in walking: Status: Acute (5) Diabetes mellitus: Status: Acute Qualifiers: Diabetes mellitus type: type 2 Diabetes mellitus penitentiary insulin use: without rat exterminator use Diabetes mellitus complication status: without complication Qualified Code(s): E11.9 - Type 2 diabetes mellitus without complications (6) Lives in assisted living facility: Status: Acute (7) Severe protein-calorie malnutrition: Status: Acute (8) Severe muscle deconditioning: Status: Acute (9) Low body weight due to inadequate caloric intake: Status: Acute (10) Dysphagia: Status: Acute (11) Weight loss, abnormal: Status: Acute (12) Orthostatic hypotension: Status: Acute (13) Bradycardia: Status: Acute (14) Hypotension: Status: Acute (15) Vasovagal syncope: Status: Acute (16) Nonspecific ST-T wave electrocardiographic changes: Status: Acute Reason for Visit Reason for Visit: WEAKNESS Hospital Course Hospital Course Nereyda Caceres is a 72 year old female With past medical history of dementia, diabetes mellitus, pyelonephritis, chronic cystitis, crest syndrome/scleroderma presented to the hospital today for complaint of weakness being sent from the detention.? She is somewhat of a poor historian however able to provide some history.? She says she has been very weak and had a mechanical fall about a month ago and she broke her tailbone.? She says that she is at a detention at this time and is just very weak.? She says she requires assistance with her ADLs.? She cannot walk on her own and requires help for that as well.? Other than this denies nausea vomiting diarrhea abdominal pain, shortness of breath, dizziness, lightheadedness.? She says she gets tired very quickly.? Denies any other symptoms at this time.? Says she is on a pur?ed diet due to dysphagia and scleroderma.? She also uses dentures which she does not have with her today.? She has 2 sons that live out of state.? She says she would like to be a full code. ED course: 119/63, respirate 17, pulse 64, saturating 98% on room air.? WBC 9.4, hemoglobin 12.4, platelet 225, sodium 130, potassium 3.8, creatinine 0.5, baseline troponin 14, delta troponin 2 hours 0.83, TSH 2.72, UA negative.? Initially EKG showed sinus rhythm with nonspecific T wave abnormality and subsequent EKG showed nonspecific ST elevation.? ER doctor discussed the EKG with Dr. Moncada on-call counter helper who recommended to just do serial EKGs.? Patient does not complain of any chest pain.? We will continue to follow lenore ns.? Patient was admitted to [facility] for EKG changes, no significant delta troponin, no complaints of chest pain, no complaints of shortness of breath, cardiac echo: Normal left ventricular size, systolic function and wall ?thickness, with no regional wall motion abnormalities. Normal ?diastolic function. Left ventricular ejection fraction is ?estimated at 65 %. ?There is no change from the previous echo done 1 year ag 1.? Myocardial perfusion imaging revealing a small area of inconsistent ?reversible defect suggesting ischemia in the distribution of the right coronary ?artery.? However because of the inconsistency the reliability of this finding ?is questionable. ?2.? Normal LV ejection fraction of 88%. ?3.? LV wall motion analysis revealing no gross wall motion abnormalities. ?4.? Normal LV volume ?No similar previous studies are available for comparison. -Discussed stress test findings with patient, she does not have any chest pain complaints, no shortness of breath complaints -I think that patient's scleroderma/ Crest syndrome, and her BMI of 14.9 are playing a role in her EKG changes, she did not have any significant electrolyte abnormalities, but I am worried about the stress her crest syndrome and her significant weight loss is playing on her heart, -We will continue to monitor, for now we will medically manage, aspirin, statin with follow-up with cardiology as outpatient -If any chest pain please go to emergency room Patient also generalized weakness during hospitalization, with severe protein calorie malnutrition, with severe deconditioning, BMI 14.9, adult failure to thrive, dietary was consulted, will be discharged on instructions to drink Ensure drinks twice daily, adequate caloric intake, monitor weight closely, hopefully can have a follow-up with a dietitian at [place] Patient had an episode of orthostatic hypotension, vasovagal syncope, and bradycardia during hospitalization, requiring atropine, fluid hydration therapy, and monitoring for 24 hours. She remains relatively to asymptomatic, no recurrent episodes of vasovagal syncope, monitor as outpatient Patient has scleroderma, crest syndrome, follow-up with rheumatology as outpatient Patient was found to have a 4 mm pulmonary nodule, with pericarinal lymph nodes, mildly prominent measuring up to 10 x 11 mm, follow-up with pulmonary as outpatient Physical Exam Const: COMMON NORMALS: no acute distress and patient oriented x3 Resp: COMMON NORMALS: normal respiratory effort, No retractions, No use of accessory muscles and clear to auscultation bilaterally AUSCULTATION: clear to auscultation bilaterally Cardio: COMMON NORMALS: regular rate, regular rhythm, S1 normal heart sound present and S2 normal heart sound present RATE: regular rate RHYTHM: regular rhythm HEART SOUNDS: S1 normal heart sound present and S2 normal heart sound present GI: COMMON NORMALS: Normal to inspection, nondistended, normoactive bowel sounds present and non-tender Extremity: COMMON NORMALS: no pedal edema Neuro: COMMON NORMALS: patient oriented x3 Psych: COMMON NORMALS: mental status grossly normal Urinary Catheter Management: Perez: Cath Placed During This Visit: yes, but has since been removed by the nurse Reason for Continuing Indwelling Catheter: Decision to DC Catheter Urinary Catheter Date of Insertion: 10/04/22 Urinary Catheter Time of Insertion: 00:41 Date Urinary Catheter Removed: 10/05/22 Time Urinary Catheter Discontinued: 14:00 Discharge Data Studies Completed and Pending Completed Studies During Hospitalization Category Date Time Status CT chest abdomen pelvis [[place] [id number] Cat Scan 10/04/22 15:33 Completed ] Routine Sestamibi Stress Test Request Routine Exams 10/07/22 07:07 Completed XR chest 1V portable [id number] Routine Exams 10/04/22 08:14 Completed NM richard perf SPECT r/s* [id number] Routine Nuc Med 10/06/22 18:42 Completed CV. echo complete* [id number] Routine Ultrasound 10/04/22 01:12 Completed Pending at discharge Category Date Time Status Sestamibi Stress Test Request Routine Exams 10/05/22 13:59 Stop Req Sestamibi Stress Test Request Routine Exams 10/06/22 18:42 Stop Req Blood Culture Routine Lab 10/03/22 23:10 Results Radiology Impressions Chest X-Ray 10/04/22 08:14 IMPRESSION: 1. No acute findings. 2. Large lung volumes suggest COPD. Chest/Abdomen/Pelvis CT 10/04/22 15:33 IMPRESSION: 1. No acute findings in the chest. 2. Question of borderline mediastinal adenopathy and small likely benign pulmonary nodule as described above IMPRESSION: No acute findings in the abdomen or pelvis. Laboratory Results WBC 6.4 10^3/uL (4.0-10.0) 10/07/22 02:58 RBC 3.87 10^6/uL (4.1-5.3) L 10/07/22 02:58 Hgb 10.5 g/dL (11.5-15.3) L 10/07/22 02:58 Hct 33.0 % (37.0-47.0) L 10/07/22 02:58 MCV 85.3 fl (81-99) 10/07/22 02:58 MCH 27.1 pg (28.0-34.0) L 10/07/22 02:58 MCHC 31.8 g/dL (30.0-36.0) 10/07/22 02:58 RDW 14.6 % (12.1-15.1) 10/07/22 02:58 Plt Count 249 10^3/cmm (130-400) 10/07/22 02:58 MPV 10.5 fL (7.4-10.4) H 10/07/22 02:58 Neut % (Auto) 53.3 % 10/07/22 02:58 Lymph % (Auto) 27.1 % 10/07/22 02:58 Jerauld % (Auto) 14.6 % 10/07/22 02:58 Eos % (Auto) 3.8 % 10/07/22 02:58 Baso % (Auto) 0.9 % 10/07/22 02:58 Neut # (Auto) 3.40 10^3/uL (1.8-7.7) 10/07/22 02:58 Lymph # (Auto) 1.7 10^3/uL (0.8-4.8) 10/07/22 02:58 Jerauld # (Auto) 0.9 10^3/uL (0.2-0.9) 10/07/22 02:58 Eos # (Auto) 0.2 10^3/uL (0.0-0.8) 10/07/22 02:58 Baso # (Auto) 0.1 10^3/uL (0.0-0.1) 10/07/22 02:58 Nucleated RBC % (auto) 0 % 10/07/22 02:58 Nucleated RBCs # 0.0 /100WBC 10/07/22 02:58 Sodium 137 mmol/L (136-145) 10/07/22 02:58 Potassium 3.8 mmol/L (3.5-5.1) 10/07/22 02:58 Chloride 106 mmol/L (98-107) 10/07/22 02:58 Carbon Dioxide 24 mmol/L (22-29) 10/07/22 02:58 Anion Gap 10.8 (5-19) 10/07/22 02:58 BUN 10 mg/dL (8-23) 10/07/22 02:58 Creatinine 0.5 mg/dL (0.5-0.9) 10/07/22 02:58 GFR Calculation Not Reportable 10/07/22 02:58 Glucose 107 mg/dL (65-115) 10/07/22 02:58 POC Glucose 186 mg/dL (70-110) H 10/07/22 11:06 Estimat Average Glucose 174 10/03/22 23:06 Hemoglobin A1c 7.7 % (4.0-6.0) H 10/03/22 23:06 Calculated Osmolality 284 mOsm/kg (285-295) L 10/07/22 02:58 Lactic Acid 1.0 mmol/L (0.5-2.2) 10/03/22 23:06 Lactate 1.8 mmol/L (0.5-2.2) 10/06/22 10:21 Calcium 8.7 mg/dL (8.5-10.5) 10/07/22 02:58 Phosphorus 3.0 mg/dL (2.5-4.5) D 10/07/22 02:58 Magnesium 1.8 mg/dL (1.7-2.3) 10/07/22 02:58 Total Bilirubin 0.2 mg/dL (0.15-1.2) 10/07/22 02:58 AST 20 U/L (0-32) 10/07/22 02:58 ALT 19 U/L (0-33) 10/07/22 02:58 Alkaline Phosphatase 193 U/L (35-105) H 10/07/22 02:58 Troponin T Baseline 10 ng/L (0-10) 10/06/22 10:21 Troponin T 120 Minute 9.24 ng/L (0-10) 10/06/22 13:07 Delta Troponin T -0.76 ABS# (0-10) L 10/06/22 13:07 Troponin T Hi Sens 6Hr 10.92 ng/L (0-10) H 10/06/22 16:40 Troponin T Hi Sens 6Hr Delta 0.92 ng/L (0-12) 10/06/22 16:40 Total Protein 5.6 g/dL (6.6-8.7) L 10/07/22 02:58 Albumin 2.9 g/dL (3.5-5.2) L 10/07/22 02:58 Globulin 2.7 g/dL (1.3-4.6) 10/07/22 02:58 Triglycerides 23 mg/dL (0-150) 10/03/22 23:06 Cholesterol 141 mg/dL (0-200) 10/03/22 23:06 LDL Cholesterol, Calc 48 mg/dL (50-129) L 10/03/22 23:06 HDL Cholesterol 88 mg/dL (60-100) 10/03/22 23:06 LDL/HDL Ratio 0.55 RATIO (0.00-3.22) 10/03/22 23:06 Cholesterol/HDL Ratio 1.60 mg/dL (0.0-4.40) 10/03/22 23:06 Lipase 52 U/L (13-60) 10/03/22 16:36 Vitamin B12 1310 pg/mL (232-1245) H 10/04/22 02:22 Procalcitonin 0.04 ng/mL (0-0.5) 10/03/22 23:06 TSH 2.24 uIU/mL (0.27-4.20) 10/03/22 23:06 Urine Color Yellow (Yellow) 10/03/22 20:08 Urine Appearance Clear (CLEAR) 10/03/22 20:08 Urine pH 6 (5-7) 10/03/22 20:08 Ur Specific [place] 1.015 (1.005-1.030) 10/03/22 20:08 Urine Protein Neg (Negative) 10/03/22 20:08 Urine Glucose (UA) 1+ (Normal) H 10/03/22 20:08 Urine Ketones 1+ (Negative) H 10/03/22 20:08 Urine Blood Neg (Negative) 10/03/22 20:08 Urine Nitrate Negative (Negative) 10/03/22 20:08 Urine Bilirubin Neg (Negative) 10/03/22 20:08 Urine Urobilinogen Norm mg/dL (Negative) 10/03/22 20:08 Ur Leukocyte Esterase Negative (Negative) 10/03/22 20:08 Urine RBC None /hpf (0-2) 10/03/22 00:30 Urine WBC 5-10 /hpf (0-5) H 10/03/22 00:30 Ur Squamous Epith Cells 0-4 /hpf (0-5) H 10/03/22 00:30 Amorphous Sediment Not Reportable 10/03/22 00:30 Urine Bacteria Trace /hpf (NONE) 10/03/22 00:30 Vitals Last Vital Signs Temp 97.1 F L 10/07/22 04:00 Pulse 80 10/07/22 10:40 Resp 18 10/07/22 08:18 BP 115/69 10/07/22 10:40 Pulse Ox 87 L 10/07/22 08:18 O2 Del Method Room Air 10/07/22 08:18 Discharge Plan Discharge Patient Disposition: Xfer SNF Condition: Stable Prescriptions: New aspirin 81 mg Tablet,Delayed Release (Dr/Ec) 81 mg PO DAILY 30 Days Qty: 30 0RF nitroglycerin 0.4 mg Tablet, Sublingual 0.4 mg sublingual Q5M PRN (Reason: Chest Pain) 30 Days Qty: 30 0RF atorvastatin 40 mg Tablet 40 mg PO BEDTIME 30 Days Qty: 30 0RF Continued pantoprazole 40 mg tablet,delayed release (DR/EC) 40 mg PO DAILY hydroxychloroquine 200 mg tablet 200 mg PO BID Hold Instructions: Resume on 08/23/20. resume after ciprofloxacin has finished donepezil 10 mg tablet 10 mg PO BEDTIME (DME) custom molded accommodative orthotic See Rx Instructions .ROUTE .MEDSUPPLY Qty: 1 0RF Rx Instructions: As directed By MAMTA&O Myrbetriq 25 mg tablet extended release 24 hr 25 mg PO DAILY Qty: 30 12RF Rx Instructions: 340 B methenamine hippurate 1 gram tablet 1 g PO BID Qty: 60 12RF Rx Instructions: Take 1000 mg of vitamin C with each dose of methenamine fluticasone propionate 50 mcg/actuation spray,suspension 2 spray intranasal DAILY Rx Instructions: administer into each nostril (DME) FreeStyle Terry 2 Sensor Kit See Rx Instructions .ROUTE .COMPLEX Qty: 1 10RF Dose Instruction: USE DIRECTED BY FREESTYLE TRERY 2 SENSOR INSTRUCTIONS Rx Instructions: USE DIRECTED BY FREESTYLE TERRY 2 SENSOR INSTRUCTIONS (DME) Diabetic shoe with 3 pairs of insterts See Rx Instructions .Route .MEDSUPPLY Qty: 1 0RF Rx Instructions: As directed by HOME folic acid 1 mg Tablet 3 mg PO DAILY@16 montelukast 10 mg Tablet 10 mg PO QAM memantine 10 mg Tablet 10 mg PO BID cevimeline 30 mg capsule 30 mg PO TID albuterol sulfate [ProAir HFA] 90 mcg/actuation Hfa Aerosol Inhaler 2 puff INHALATION QID PRN (Reason: Shortness Of Breath) citalopram 20 mg tablet 10 mg PO DAILY Qty: 0 0RF hydrocodone-acetaminophen 5-325 mg tablet 1 tab PO Q6H PRN (Reason: pain) Qty: 14 0RF ascorbic acid (vitamin C) 1,000 mg tablet 1,000 mg PO DAILY acetaminophen 325 mg tablet 650 mg PO Q6H PRN (Reason: pain) Systane Balance 0.6 % Drops 1 drp OPHTHALMIC (EYE) DAILY Discharge Orders: Discharge Order (Routine); Ordered 10/07/22 Ordered By: James Robles Referrals: Nery Villagomez MD [Physician] - 1 month (scleroderma) Stiven St DO [Primary Care Provider] - Juan Baca DO [Physician] - 1 month (egd) Matthew Turcios MD [Physician] - 1 month Leonila Blackwood MD [Physician] - 1 week Discharge Diet: Regular and Cardiac Discharge Activity: Resume usual activity Patient Instructions: Opioid Safety Activity Restrictions/Additional Instructions: - If you have any recurrent chest pain please go to the emergency room -Please hydrate well, drink plenty of electrolyte balanced fluids -Please drink Ensure drinks twice daily -A well-balanced meal -Please discuss with dietitian at assisted facility Discharge Attestations Time Spent in Discharge Care*: greater than 30 min Status at Discharge: Cognitive status at discharge: mildly impaired cognition , Behavioral status at discharge: cooperative , Quality Metrics Clinical Quality Measures [ No reported AMI, CVA or VTE this stay] Coding Level of Care Code 55390 Total time (in minutes) for Discharge: 45 Diagnoses Fall W19.XXXA Closed sacral fracture S32.10XA Weakness R53.1 Difficulty in walking R26.2 Diabetes mellitus E11.9 Diabetes mellitus type: type 2 Diabetes mellitus rat exterminator insulin use: without rat exterminator use Diabetes mellitus complication status: without complication Lives in assisted living facility Z59.3 Severe protein-calorie malnutrition E43 Severe muscle deconditioning R29.898 Low body weight due to inadequate caloric intake R63.6 Dysphagia R13.10 Weight loss, abnormal R63.4 Orthostatic hypotension I95.1 Bradycardia R00.1 Hypotension I95.9 Vasov[address]al sync[address] R[address]-T wave electrocardiographic changes R94.31
[2022-10-08 16:48] LABS: Folate Level > 20.0 ng/mL (4.8-37.3)
== END 2022-10-07 14:52 | disposition home or self-care (01) | DRG 314 ==
LOC: ER 21:46 → CSU 22:04
PROVIDERS: Admitting Provider Internal Medicine; Emergency Provider Emergency Medicine; PCP Family Medicine; Visit Provider Family Medicine
DX: R94.31 Abnormal electrocardiogram [ECG] [EKG] (principal); E43 Unspecified severe protein-calorie malnutrition; Z68.1 Body mass index [BMI] 19.9 or less, adult; E87.1 Hypo-osmolality and hyponatremia; I95.1 Orthostatic hypotension; F03.90 Unspecified dementia, unspecified severity, without behavioral disturbance, psychotic disturbance, mood disturbance, and anxiety; E11.9 Type 2 diabetes mellitus without complications; M34.1 CR(E)ST syndrome; R91.1 Solitary pulmonary nodule; Z79.51 Long term (current) use of inhaled steroids; Z79.891 Long term (current) use of opiate analgesic; E86.0 Dehydration; S32.10XD Unspecified fracture of sacrum, subsequent encounter for fracture with routine healing; W19.XXXD Unspecified fall, subsequent encounter; R13.10 Dysphagia, unspecified; Z85.828 Personal history of other malignant neoplasm of skin; R53.1 Weakness
CPT/HCPCS: 36415; 36416; 51702; 71045; 71250; 74176; 78452; 80053; 80061; 81001; 81003; 82607; 82746; 82962; 83036; 83605; 83690; 83735; 84100; 84145; 84443; 84484; 85025; 87040; 90732; 92507; 92523; 92526; 92610; 93005; 93017; 93306; 96372; 96375; 97110; 97116; 97161; 97165; 97535; 99285; A9500; G0378; J0461; J1644; J2785; J3480; J7030; J7040

== ENCOUNTER → 2022-10-13 10:53 | Outpatient (BNVA) | payer MEDICARE, OTHER, SELFPAY | PROVIDERS: PCP Family Medicine; Visit Provider Podiatrist Foot & Ankle Surgery | DX: L60.8 Other nail disorders (principal); E11.42 Type 2 diabetes mellitus with diabetic polyneuropathy; Z79.4 Long term (current) use of insulin; L60.3 Nail dystrophy; I73.9 Peripheral vascular disease, unspecified; I73.00 Raynaud's syndrome without gangrene; M20.41 Other hammer toe(s) (acquired), right foot; M20.42 Other hammer toe(s) (acquired), left foot; L84 Corns and callosities | CPT/HCPCS: 11056; 11721 ==

== ENCOUNTER → 2022-10-14 11:18 | Outpatient (BNVA) | payer MEDICARE, OTHER, SELFPAY | PROVIDERS: PCP Family Medicine; Visit Provider Internal Medicine Cardiovascular Disease | DX: I95.1 Orthostatic hypotension (principal); R00.1 Bradycardia, unspecified; R94.39 Abnormal result of other cardiovascular function study | CPT/HCPCS: 99204 ==

== ENCOUNTER → 2022-10-27 13:06 | Outpatient (BNVA) | payer MEDICARE, OTHER, SELFPAY | PROVIDERS: PCP Family Medicine; Visit Provider Internal Medicine Pulmonary Disease | DX: R91.1 Solitary pulmonary nodule (principal); R55 Syncope and collapse; M34.9 Systemic sclerosis, unspecified | CPT/HCPCS: 99204 ==

== ENCOUNTER → 2022-11-03 13:58 | Outpatient (BNVA) | payer MEDICARE, OTHER, SELFPAY | PROVIDERS: PCP Family Medicine; Visit Provider Surgery | DX: R13.10 Dysphagia, unspecified (principal); Z12.11 Encounter for screening for malignant neoplasm of colon | CPT/HCPCS: 99024; 99203 ==

== ENCOUNTER → 2022-11-04 10:34 | Outpatient (BNVA) | payer MEDICARE, OTHER, SELFPAY | PROVIDERS: PCP Family Medicine; Visit Provider Internal Medicine Rheumatology | DX: Z79.899 Other long term (current) drug therapy (principal); M34.9 Systemic sclerosis, unspecified; Z11.59 Encounter for screening for other viral diseases; Z11.1 Encounter for screening for respiratory tuberculosis; R76.8 Other specified abnormal immunological findings in serum; R54 Age-related physical debility | CPT/HCPCS: 36415; 86160; 86162; 86235; 86255; 86376; 86480; 86704; 86803; 87340; 99204 ==

== ENCOUNTER 2022-11-26 06:55 | Outpatient (CLI) | payer MEDICARE, OTHER, SELFPAY ==
[2022-11-26 07:47] LABS: Anion Gap 11.1 (5-19); Blood Urea Nitrogen 15 mg/dL (8-23); Carbon Dioxide 29 mmol/L (22-29); Chloride 98 mmol/L (98-107); Glucose 166 mg/dL (65-115); Osmolality Calculated 283 mOsm/kg (285-295); Potassium 4.1 mmol/L (3.5-5.1); Sodium 134 mmol/L (136-145)
[2022-11-26 08:01] LABS: Estmated Average Glucose 194; Hemoglobin A1C 8.4 % (4.0-6.0)
== END 2022-11-26 06:56 | disposition home or self-care (01) ==
LOC: LAB 07:00
PROVIDERS: PCP Family Medicine; Visit Provider Family Medicine
DX: E11.9 Type 2 diabetes mellitus without complications (principal); L94.0 Localized scleroderma [morphea]
CPT/HCPCS: 80048; 83036

== ENCOUNTER 2022-12-14 17:01 | Outpatient (CLI) | payer MEDICARE, OTHER, SELFPAY ==
[2022-12-14 17:08] LABS: Add Urine Microscopic? NO; Charge for UA Resulting for Rev
[2022-12-14 17:18] LABS: Bilirubin Urine Neg (Negative); Blood Urine Neg (Negative); Glucose Urine UA 4+ (Normal); Ketones Urine Negative (Negative); Leukocyte Esterase Urine Negative (Negative); Nitrate Urine Negative (Negative); Protein Urine Neg (Negative); Specific Gravity, Urine 1.015 (1.005-1.030); Urine Appearance Clear (CLEAR); Urine Color Straw (Yellow); Urobilinogen Urine Norm (Negative); pH Urine 5 (5-7)
== END 2022-12-14 17:02 | disposition home or self-care (01) ==
PROVIDERS: PCP Family Medicine; Visit Provider Family Medicine
DX: Z01.89 Encounter for other specified special examinations (principal)
CPT/HCPCS: 81003; 87086

== ENCOUNTER → 2022-12-23 14:04 | Outpatient (BNVA) | payer MEDICARE, OTHER, SELFPAY | PROVIDERS: PCP Family Medicine; Visit Provider Podiatrist Foot & Ankle Surgery | DX: E11.42 Type 2 diabetes mellitus with diabetic polyneuropathy (principal); Z79.4 Long term (current) use of insulin; L84 Corns and callosities; L60.8 Other nail disorders; I73.9 Peripheral vascular disease, unspecified; I73.00 Raynaud's syndrome without gangrene; L60.3 Nail dystrophy; M20.41 Other hammer toe(s) (acquired), right foot; M20.42 Other hammer toe(s) (acquired), left foot; Z79.84 Long term (current) use of oral hypoglycemic drugs | CPT/HCPCS: 11056; 11721 ==

== ENCOUNTER 2022-12-28 16:40 | Outpatient (CLI) | payer MEDICARE, OTHER, SELFPAY ==
[2022-12-28 17:18] LABS: Add Urine Culture? No; Add Urine Microscopic? YES; Bacteria Urine TRACE /hpf; Bilirubin Urine Neg (Negative); Blood Urine Neg (Negative); Glucose Urine UA Norm (Normal); Ketones Urine 1+ (Negative); Leukocyte Esterase Urine 1+ (Negative); Nitrate Urine Negative (Negative); Protein Urine Neg (Negative); RBC Urine 0-4 /hpf (0-2); Squamous Epithelial Cell Urine 0-4 /hpf (0-5); Urine Appearance Clear (CLEAR); Urine Color Yellow (Yellow); Urobilinogen Urine Norm (Negative); WBC Urine 0-4 /hpf (0-5); pH Urine 6 (5-7)
== END 2022-12-28 16:41 | disposition home or self-care (01) ==
PROVIDERS: PCP Family Medicine; Visit Provider Family Medicine
DX: Z01.89 Encounter for other specified special examinations (principal)
CPT/HCPCS: 81001

== ENCOUNTER 2022-12-28 19:27 | Emergency (ER) | payer MEDICARE, OTHER, SELFPAY ==
[2022-12-28 19:28] VITALS: BP 156/70; PULSE 73; RESP 18; TEMP 36.5; O2SAT 96; BMI 20.3
--- NOTE | 2022-12-28 19:38 | XRR_ITS ---
PROCEDURE INFORMATION: Exam: XR Chest Exam date and time: 12/28/2022 7:45 PM Age: 72 years old Clinical indication: Other: AMS TECHNIQUE: Imaging protocol: Radiologic exam of the chest. Views: 1 view. COMPARISON: CT chest abdpel [id number] 10/04/2022 4:43 PM FINDINGS: Lungs: Hyperinflated lungs. No consolidation. Pleural spaces: Unremarkable. No pleural effusion. No pneumothorax. Heart/Mediastinum: Unremarkable. No cardiomegaly. Bones/joints: Unremarkable. XR/XR chest 1V portable [id number] IMPRESSION: No acute findings.
--- NOTE | 2022-12-28 19:38 | CTR_ITS ---
PROCEDURE INFORMATION: Exam: CT Head Without Contrast Exam date and time: 12/28/2022 7:52 PM Age: 72 years old Clinical indication: Altered mental status/memory loss; Additional info: AMS TECHNIQUE: Imaging protocol: Computed tomography of the head without contrast. Radiation optimization: All CT scans at this facility use at least one of these dose optimization techniques: automated exposure control; mA and/or kV adjustment per patient size (includes targeted exams where dose is matched to clinical indication); or iterative reconstruction. REPORTING DATA: Count of CT and Cardiac NM exams in prior 12 months: This patient has received 2 known CTs and 0 known cardiac nuclear medicine studies in the 12 months prior to the current study. COMPARISON: CT head wo con* [id number] 08/26/2021 6:14 PM RADIATION DOSE METRICS: Total DLP (mGy-cm): 1031 FINDINGS: Brain: No hemorrhage. No edema. Moderate diffuse cerebral atrophy and mild sequela of chronic small vessel ischemic disease. No mass effect. Cerebral ventricles: No ventriculomegaly. Paranasal sinuses: Visualized sinuses are unremarkable. No fluid levels. Mastoid air cells: Visualized mastoid air cells are well aerated. Bones/joints: Unremarkable. No acute fracture. Soft tissues: Unremarkable. CT/CT head wo con* [id number] IMPRESSION: No acute intracranial abnormality.
--- NOTE | 2022-12-28 19:41 | ED_ITS ---
HPI - Altered Mental Status General: Chief Complaint: Altered Mental Status Stated Complaint: ams Time Seen by Provider: 12/28/22 19:37 Source: EMS Mode of arrival: EMS Limitations: no limitations History of Present Illness: This patient was transported from her usual home which she was apparently [facility] facility by EMS at the request of staff as well as patient's son reported is that she seems to be a bit altered in her normal mentation from usual. They state that this is seemingly been gradual but it is unclear exact time of onset. No history of fever, falls or other exposure to illness. Only known change in her regimen has been an addition of metformin to her medication profile. She does have a history of dementia. MD complaint: altered mental status and confusion Associated symptoms: Deny depression Review of Systems Const: Denies: fever(s) or chills Eyes: Denies: change in vision ENMT: Denies: throat pain, odynophagia, nasal discharge or nasal congestion Card: Denies: chest pain, palpitations, irregular heart rhythm, syncope or pre-syncope Resp: Denies: dyspnea, productive cough or non-productive cough GI: Denies: abdominal pain, nausea or vomiting : Denies: flank pain, difficulty voiding, dysuria or urinary frequency Musc: Denies: neck pain, back pain or extremity pain Skin/Breast: Denies: rash Psych: Denies: anxiety or depression PFSH ED PFSH: Medical History Chronic cystitis CREST syndrome Dementia Diabetes mellitus Feeling of incomplete bladder emptying Frail elderly History of pyelonephritis Sclerodactyly Scleroderma, 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 Negative evaluation. Dx: Postmenopausal bleeding. Performed by Dr. Daugherty at [facility] [place]. History of tubal ligation (~1975) Family History Grandmother Diabetes Paternal CAD (coronary artery disease) Maternal Grandfather Diabetes Maternal CAD (coronary artery disease) Maternal Family/Other Stroke Maternal aunt Brother Hyperlipidemia Mother , at age 92 CAD (coronary artery disease) Father , at age 54 Alcoholic Social History Smoking and tobacco status: never smoked Alcohol intake: never Substance/Drug Use: never Marital status: / Current occupational status: retired Physical Exam Narrative: The patient appears to be in no acute distress, she is alert, she is interactive. Const: COMMON NORMALS: no acute distress, average body habitus, healthy appearing and alert ORIENTATION/CONSCIOUSNESS: Yes awake and Yes oriented to person HENMT: COMMON NORMALS: normocephalic, atraumatic, Normal nasal mucous membranes and turbinates present and moist oral mucous membranes HEAD & SCALP: normocephalic and atraumatic FACE & SINUS: normal facial exam and face symmetric NOSE: Normal nasal mucous membranes and turbinates present Eye: COMMON NORMALS: Equal, round and reactive pupils present and EOMs intact bilaterally PUPIL: Yes Equal, round and reactive pupils present Neck/C-Spine: COMMON NORMALS: full ROM, no JVD, Thyroid normal and No carotid bruits THYROID: Thyroid normal Chest: COMMONS NORMALS: normal inspection of the chest Resp: COMMON NORMALS: normal respiratory effort, No retractions and No use of accessory muscles EFFORT & INSPECTION: Yes able to speak in complete sentences Cardio: COMMON NORMALS: no JVD, regular rate, regular rhythm, No murmurs present (Cardio) and Peripheral pulses 2+ throughout RATE: regular rate RHYTHM: regular rhythm PERIPHERAL PULSES: Peripheral pulses 2+ throughout GI: COMMON NORMALS: Normal to inspection, nondistended, normoactive bowel sounds present, Soft to palpation and non-tender PALPATION: Yes Soft to palpation : COMMON NORMALS: Yes no CVA tenderness BLADDER/KIDNEY EXAM: Yes no CVA tenderness Back/Pelvis: COMMON NORMALS: no CVA tenderness, thoracic and lumbar spine normal to inspection, no thoracic nor lumbar tenderness and thoraco-lumbar ROM normal Extremity: COMMON NORMALS: normal to inspection, full ROM, capillary refill normal, no calf tenderness and no pedal edema Neuro: DEBRA COMA SCALE: document GCS findings [place] coma scale eye opening: Spontaneous [place] coma scale verbal response: Orientated Debra coma scale motor response: Obey commands Debra coma scale total score: 15 COMMON NORMALS: moves all extremities, no focal motor deficits and no sensory deficits noted SENSORIUM/ORIENTATION: Yes alert and Yes oriented to person CRANIAL NERVES: Yes CN normal except as noted OTHER: The patient generally answers questions appropriately. She is aware of herself general time of the year as well as approximate location. She is aware of the [facility] that she is in. She can tell me her birthdate etc. Psych: COMMON NORMALS: mental status grossly normal Skin: COMMON NORMALS: no rashes or lesions noted, no wounds and turgor normal GENERAL SKIN EXAM: no rashes or lesions noted and turgor normal Course Reevaluation(s): Reevaluation #1: The patient remains cooperative and interactive and not displaying any overt signs of confusion, behavioral disturbance etc. Ancillary studies are reas suring. No evidence of pneumonia, urinary tract infection, pertubation in her electrolytes etc. No other clinical findings. She does have a slight elevation in her TSH but this is nonspecific and not warranting any additional investigation other than repeating this value at this time. I did speak with her son Amauri Caceres who is lives in [place] by telephone. We discussed her changes in her emotional state and mentation over the past several days. I reviewed prior history, current findings in the emergency department and their lack of signs of infection, recent stroke, other biochemical abnormalities. We discussed her recent metformin introduction and whether it was a factor in her current change. We also discussed dementia and its course which can can include stepwise changes in cognitive function unexpectedly. Completely with findings in the emergency department did not suggest an ongoing emergency medical condition we will return her back to her normal domicile with close follow-up with primary care and return precautions to the emergency department. Time: 21:14 Vital Signs: Vital signs: Vital Signs Temperature 97.7 F 12/28/22 19:28 Pulse Rate 73 12/28/22 19:28 Respiratory Rate 18 12/28/22 19:28 Blood Pressure 156/70 12/28/22 19:28 Pulse Oximetry 96 12/28/22 19:28 Oxygen Delivery Me thod Room Air 12/28/22 19:28 MDM - Altered Mental Status Medical Decision Making This patient was transported the emergency department with concerns about possible reversible causes of some changes in cognition and emotional changes over the past several days. She normally is in an assisted living and staff there of noted her seemingly changing in her emotional state. This was also noted by her son. On arrival to the emergency department the patient had normal vital signs and was cooperative and had no physical stigmata suggestive of acute emergency medical condition or other acute disease process. Studies were ordered to establish whether there is any evidence of intracranial hemorrhage, stroke, infection, other potential reversible causes. Her work-up in the emergency department was unrevealing for any obvious causes of changes in her emotional state mentation etc. She did have a slight elevation of her TSH with this is nonspecific and certainly unlikely to be related to her current changes. She has had recent use of metformin and this is not usually noted for be related to cognitive changes but there are many unpredictable side effects in the elderly. After discussion with her son who is located in [place] we have decided to return her back to her normal home with close follow-up to determine if any additional findings arise that may help explain her changes other than perhaps just cognitive decline of dementia. Lab Data I reviewed the patient's lab results. 12/28/22 19:18 12/28/22 19:18 Radiology Impressions Chest X-Ray 12/28/22 19:38 IMPRESSION: No acute findings. Head CT 12/28/22 19:38 IMPRESSION: No acute intracranial abnormality. Laboratory Results WBC 7.17 10^3/uL (3.29-11.43) 12/28/22 19:18 RBC 4.42 10^6/uL (3.85-5.65) 12/28/22 19:18 Hgb 12.50 g/dL (11.27-16.99) 12/28/22 19:18 Hct 37.4 % (36-47) 12/28/22 19:18 MCV 84.6 fl (85-98) L 12/28/22 19:18 MCH 28.3 pg (27-33) 12/28/22 19:18 MCHC 33.4 g/dL (30-55) 12/28/22 19:18 RDW 14.4 % (12.1-15.1) 12/28/22 19:18 Plt Count 246 10^3/cmm (157-399) 12/28/22 19:18 MPV 10.3 fL (7.4-10.4) 12/28/22 19:18 Neut % (Auto) 52.4 % 12/28/22 19:18 Lymph % (Auto) 29.1 % 12/28/22 19:18 [place] % (Auto) 14.9 % 12/28/22 19:18 Eos % (Auto) 2.5 % 12/28/22 19:18 Baso % (Auto) 0.8 % 12/28/22 19:18 Neut # (Auto) 3.75 10^3/uL (1.8-7.7) 12/28/22 19:18 Lymph # (Auto) 2.1 10^3/uL (0.8-4.8) 12/28/22 19:18 [place] # (Auto) 1.1 10^3/uL (0.2-0.9) H 12/28/22 19:18 Eos # (Auto) 0.2 10^3/uL (0.0-0.8) 12/28/22 19:18 Baso # (Auto) 0.1 10^3/uL (0.0-0.1) 12/28/22 19:18 Nucleated RBC % (auto) 0 % 12/28/22 19:18 Nucleated RBCs # 0.0 /100WBC 12/28/22 19:18 Sodium 133 mmol/L (136-145) L 12/28/22 19:18 Potassium 3.8 mmol/L (3.5-5.1) 12/28/22 19:18 Chloride 95 mmol/L (98-107) L 12/28/22 19:18 Carbon Dioxide 26 mmol/L (22-29) 12/28/22 19:18 Anion Gap 15.8 (5-19) 12/28/22 19:18 BUN 13 mg/dL (8-23) 12/28/22 19:18 Creatinine 0.6 mg/dL (0.5-0.9) 12/28/22 19:18 GFR Calculation Not Reportable 12/28/22 19:18 Glucose 85 mg/dL (65-115) 12/28/22 19:18 Calculated Osmolality 275 mOsm/kg (285-295) L 12/28/22 19:18 Calcium 9.2 mg/dL (8.5-10.5) 12/28/22 19:18 Total Bilirubin 0.3 mg/dL (0.15-1.2) 12/28/22 19:18 AST 31 U/L (0-32) 12/28/22 19:18 ALT 21 U/L (0-33) 12/28/22 19:18 Alkaline Phosphatase 107 U/L (35-105) H 12/28/22 19:18 Total Protein 7.6 g/dL (6.6-8.7) 12/28/22 19:18 Albumin 4.2 g/dL (3.5-5.2) 12/28/22 19:18 Globulin 3.4 g/dL (1.3-4.6) 12/28/22 19:18 TSH 6.03 uIU/mL (0.27-4.20) H 12/28/22 19:18 Urine Color Light yellow (Yellow) 12/28/22 20:20 Urine Appearance Clear (CLEAR) 12/28/22 20:20 Urine pH 5 (5-7) 12/28/22 20:20 Ur Specific [place] 1.020 (1.005-1.030) 12/28/22 20:20 Urine Protein Neg (Negative) 12/28/22 20:20 Urine Glucose (UA) Norm (Normal) 12/28/22 20:20 Urine Ketones 1+ (Negative) H 12/28/22 20:20 Urine Blood Neg (Negative) 12/28/22 20:20 Urine Nitrate Negative (Negative) 12/28/22 20:20 Urine Bilirubin Neg (Negative) 12/28/22 20:20 Urine Urobilinogen Norm mg/dL (Negative) 12/28/22 20:20 Ur Leukocyte Esterase Negative (Negative) 12/28/22 20:20 All radiology interpretation(s) finalized by discharge EKG Data EKG 1: I personally reviewed and interpreted this EKG as follows: Interpretation: EKG reveals a ventricular rate of 71 bpm, IA intervals normal, QRS duration is normal, corrected QT intervals normal. Nice are normal. She has loss of our waves anteriorly which is nonspecific finding. She has no acute ST-T wave changes noted at this time. Discharge Plan Discharge Patient Disposition: Home Clinical Impression: Frail elderly, Dementia Condition: Stable Prescriptions: No Action pantoprazole 40 mg tablet,delayed release (DR/EC) 40 mg PO DAILY hydroxychloroquine 200 mg tablet 200 mg PO BID Hold Instructions: Resume on 08/23/20. resume after ciprofloxacin has finished donepezil 10 mg tablet 10 mg PO BEDTIME (DME) custom molded accommodative orthotic See Rx Instructions .ROUTE .MEDSUPPLY Qty: 1 0RF Rx Instructions: As directed By MAMTA&O Myrbetriq 25 mg tablet extended release 24 hr 25 mg PO DAILY Qty: 30 12RF Rx Instructions: 340 B (DME) Diabetic shoes See Rx Instructions .ROUTE .MEDSUPPLY Qty: 1 0RF Rx Instructions: With 3 pairs of inserts by the shoe mckenzie methenamine hippurate 1 gram tablet 1 g PO BID Qty: 60 12RF Rx Instructions: Take 1000 mg of vitamin C with each dose of methenamine fluticasone propionate 50 mcg/actuation spray,suspension 2 spray intranasal DAILY Rx Instructions: administer into each nostril (DME) FreeStyle Terry 2 Sensor Kit See Rx Instructions .ROUTE .COMPLEX Qty: 1 10RF Dose Instruction: USE DIRECTED BY FREESTYLE TERYR 2 SENSOR INSTRUCTIONS Rx Instructions: USE DIRECTED BY FREESTYLE TERRY 2 SENSOR INSTRUCTIONS (DME) Diabetic shoe with 3 pairs of insterts See Rx Instructions .Route .MEDSUPPLY Qty: 1 0RF Rx Instructions: As directed by HOME metformin 500 mg tablet extended release 24 hr 500 mg PO DAILY Qty: 90 1RF folic acid 1 mg Tablet 3 mg PO DAILY@16 montelukast 10 mg Tablet 10 mg PO QAM memantine 10 mg Tablet 10 mg PO BID cevimeline 30 mg capsule 30 mg PO TID albuterol sulfate [ProAir HFA] 90 mcg/actuation Hfa Aerosol Inhaler 2 puff INHALATION QID PRN (Reason: Shortness Of Breath) citalopram 20 mg tablet 10 mg PO DAILY Qty: 0 0RF hydrocodone-acetaminophen 5-325 mg tablet 1 tab PO Q6H PRN (Reason: pain) Qty: 14 0RF ascorbic acid (vitamin C) 1,000 mg tablet 1,000 mg PO DAILY acetaminophen 325 mg tablet 650 mg PO Q6H PRN (Reason: pain) Systane Balance 0.6 % Drops 1 drp OPHTHALMIC (EYE) DAILY Discharge Orders: Discharge ED (Routine); Ordered 12/28/22 Ordered By: Grant Monahan Referrals: Stiven St DO [Primary Care Provider] - 4-7 days (ER follow-up) Discharge Diet: Usual diet Discharge Activity: Resume usual activity Patient Instructions: Dementia (ED) Activity Restrictions/Additional Instructions: Stop taking your metformin. Continue all your other usual prescribed medications. We will have you seen by your regular doctor in the next 3 to 5 days to reevaluate you. If you have any worsening symptoms return to the emergency department immediately. Coding Level of Care Code ED Engineering Department Chair for William Tong
--- NOTE | 2022-12-28 19:45 | ECG_ITS ---
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 Measurements Intervals [place] Rate: 71 P: 84 DE: 169 QRS: 44 QRSD: 95 T: 26 QT: 406 QTc: 441 Interpretive Statements SINUS RHYTHM POSSIBLE RIGHT VENTRICULAR CONDUCTION DELAY [RSR (QR) IN V1/V2] NONSPECIFIC ST & T-WAVE ABNORMALITY Compared to ECG 10/06/2022 16:47:16 T-wave abnormality now present Sinus bradycardia no longer present ST (T wave) deviation no longer present Electronically Signed On 12-29-2022 13:01:43 CDT by Josy Daniel M.D. [email or web address]
[2022-12-28 19:49] LABS: Basophils # 0.1 10^3/uL (0.0-0.1); Basophils % 0.8 %; Eosinophils # 0.2 10^3/uL (0.0-0.8); Eosinophils % 2.5 %; Hematocrit 37.4 % (36-47); Lymphocytes # 2.1 10^3/uL (0.8-4.8); Lymphocytes % 29.1 %; Mean Corpuscular HGB Conc 33.4 g/dL (30-55); Mean Corpuscular Hemoglobin 28.3 pg (27-33); Mean Corpuscular Volume 84.6 fl (85-98); Mean Platelet Volume 10.3 fL (7.4-10.4); Monocytes # 1.1 10^3/uL (0.2-0.9); Monocytes % 14.9 %; Neutrophils # 3.75 10^3/uL (1.8-7.7); Neutrophils % 52.4 %; Nucleated Red Blood Cells % 0 %; Platelet Count 246 10^3/cmm (157-399); Red Blood Count 4.42 10^6/uL (3.85-5.65); Red Cell Distribution Width 14.4 % (12.1-15.1); White Blood Count 7.17 10^3/uL (3.29-11.43)
[2022-12-28 20:10] LABS: Alanine Aminotransferase 21 U/L (0-33); Albumin Level 4.2 g/dL (3.5-5.2); Alkaline Phosphatase 107 U/L (35-105); Anion Gap 15.8 (5-19); Aspartate Amino Transferase 31 U/L (0-32); Blood Urea Nitrogen 13 mg/dL (8-23); Calcium 9.2 mg/dL (8.5-10.5); Carbon Dioxide 26 mmol/L (22-29); Chloride 95 mmol/L (98-107); Globulin 3.4 g/dL (1.3-4.6); Glucose 85 mg/dL (65-115); Osmolality Calculated 275 mOsm/kg (285-295); Potassium 3.8 mmol/L (3.5-5.1); Sodium 133 mmol/L (136-145); Thyroid Stimulating Hormone 6.03 uIU/mL (0.27-4.20); Total Bilirubin 0.3 mg/dL (0.15-1.2); Total Protein 7.6 g/dL (6.6-8.7)
[2022-12-28 20:25] LABS: Add Urine Microscopic? NO; Charge for UA Resulting for Rev
[2022-12-28 20:30] LABS: Bilirubin Urine Neg (Negative); Blood Urine Neg (Negative); Glucose Urine UA Norm (Normal); Ketones Urine 1+ (Negative); Leukocyte Esterase Urine Negative (Negative); Nitrate Urine Negative (Negative); Protein Urine Neg (Negative); Urine Appearance Clear (CLEAR); Urine Color Light yellow (Yellow); Urobilinogen Urine Norm (Negative); pH Urine 5 (5-7)
[2022-12-28 22:04] VITALS: BP 156/70; PULSE 73; RESP 18; TEMP 36.5; O2SAT 96
--- NOTE | 2022-12-29 09:23 | PC.SOCIAL ---
PCP F/u Message sent to [facility] requesting a f/u appt within 3-5days.
== END 2022-12-28 22:06 | disposition home or self-care (01) ==
PROVIDERS: Emergency Provider Emergency Medicine; PCP Family Medicine
DX: F03.90 Unspecified dementia, unspecified severity, without behavioral disturbance, psychotic disturbance, mood disturbance, and anxiety (principal); R54 Age-related physical debility; E11.9 Type 2 diabetes mellitus without complications
CPT/HCPCS: 70450; 71045; 80053; 81003; 84443; 85025; 93005; 99285

== ENCOUNTER 2022-12-29 15:41 | Emergency (ER) | payer MEDICARE, OTHER, SELFPAY ==
[2022-12-29] VITALS (45 sets, daily range): BP systolic 111–144; BP diastolic 60–77; PULSE 62–119; RESP 15–37; TEMP 36.5; O2SAT 78–100
--- NOTE | 2022-12-29 15:59 | W.ED.AMS ---
HPI - Altered Mental Status General: Chief Complaint: Altered Mental Status Stated Complaint: AMS x1hr Time Seen by Provider: 12/29/22 15:47 History of Present Illness: 72-year-old female that presents to the emergency department via EMS from the [facility] where she resides. EMS personnel state that the [facility] staff became concerned as she appeared to be slightly confused. I did review the patient's medical record from yesterday as well as her primary care physician's note stating that the primary care provider called the son in [place] and discussed the normal findings of the patient's urinalysis and blood work yesterday and suspect most likely that this is a progression of her dementia. The patient is very pleasant cooperative upon arrival to the emergency department she denies known injury or falls. 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 Negative evaluation. Dx: Postmenopausal bleeding. [place]. Daugherty [place] [facility] [place]. History of tubal ligation (~1975) Family History Grandmother Diabetes Paternal CAD (coronary artery disease) Maternal Grandfather Diabetes Maternal CAD (coronary artery disease) Maternal Family/Other Stroke Maternal aunt Brother Hyperlipidemia Mother , at age 92 CAD (coronary artery disease) Father , at age 54 Alcoholic Social History Smoking and tobacco status: never smoked Alcohol intake: never Substance/Drug Use: never Marital status: / Current occupational status: retired Physical Exam Const: COMMON NORMALS: no acute distress, average body habitus, patient oriented x3 (Alert to person only-I suspect this is most likely the patient's baseline s), no limitations, healthy appearing, alert and well nourished HENMT: COMMON NORMALS: normocephalic, atraumatic, hearing grossly normal bilaterally, external ears normal, TM's normal bilaterally, Normal external nose present, Normal nasal mucous membranes and turbinates present and dentition normal (No teeth in place, no dentures in place) HEAD & SCALP: normocephalic and atraumatic NOSE: Normal external nose present and Normal nasal mucous membranes and turbinates present EXTERNAL EAR: Yes external ears normal TYMPANIC MEMBRANE: TM's normal bilaterally Eye: COMMON NORMALS: Equal, round and reactive pupils present, EOMs intact bilaterally and conjunctivae normal CONJUNCTIVA: Yes conjunctivae normal PUPIL: Yes Equal, round and reactive pupils present Neck/C-Spine: COMMON NORMALS: full ROM, no lymphadenopathy, supple and no meningeal signs Chest: COMMONS NORMALS: normal inspection of the chest and normal palpation of entire chest wall Resp: COMMON NORMALS: normal respiratory effort, No retractions and clear to auscultation bilaterally AUSCULTATION: clear to auscultation bilaterally Cardio: COMMON NORMALS: regular rate, regular rhythm, S2 normal heart sound present and Peripheral pulses 2+ throughout RATE: regular rate RHYTHM: regular rhythm HEART SOUNDS: S2 normal heart sound present PERIPHERAL PULSES: Peripheral pulses 2+ throughout GI: COMMON NORMALS: Normal to inspection, nondistended, normoactive bowel sounds present, Soft to palpation and non-tender PALPATION: Yes Soft to palpation : COMMON NORMALS: Yes no CVA tenderness BLADDER/KIDNEY EXAM: Yes no CVA tenderness Back/Pelvis: COMMON NORMALS: no CVA tenderness, thoracic and lumbar spine normal to inspection, no thoracic nor lumbar tenderness and thoraco-lumbar ROM normal Extremity: COMMON NORMALS: normal to inspection, full ROM and capillary refill normal Neuro: COMMON NORMALS: patient oriented x3 (Alert to person only-I suspect this is most likely the patient's baseline s), moves all extremities, no focal motor deficits and no sensory deficits noted SENSORIUM/ORIENTATION: Yes alert MENINGEAL SIGNS: Yes no meningeal signs Psych: COMMON NORMALS: cooperative, normal affect, speech normal and activity/motor behavior normal SPEECH: Yes normal speech THOUGHT PROCESS: disorganized Skin: COMMON NORMALS: no rashes or lesions noted and turgor normal GENERAL SKIN EXAM: no rashes or lesions noted and turgor normal Course Vital Signs: Vital signs: Vital Signs Temperature 97.7 F 12/29/22 15:43 Pulse Rate 68 12/29/22 16:25 Respiratory Rate 19 H 12/29/22 16:25 Blood Pressure 114/73 12/29/22 16:25 Pulse Oximetry 100 12/29/22 16:25 Oxygen Delivery Me thod Room Air 12/29/22 16:09 MDM - Altered Mental Status Medical Decision Making Physical exam completed and documented this is a 72-year-old female from the long-term care facility with history of dementia she was seen yesterday by her primary care provider and laboratory evaluation as well as radiographic examination was obtained I reviewed her previous medical record and obtained repeat labs today she does appear to be at her baseline given her history of dementia. I see no signs of trauma that would cause me concern for intracranial hemorrhage I suspect this is most likely a progression of her already documented dementia and it does appear that the primary care provider did speak with the patient's son who lives in [place] about this stepwise decline for the patient. She does have slight hyponatremia as her sodium today was 132 and yesterday her sodium was 133. Differential Diagnosis Likely dementia and hyponatremia Medical Records I reviewed the patient's medical records. Lab Data I reviewed the patient's lab results. 12/29/22 16:02 12/29/22 16:02 Laboratory Results WBC 7.35 10^3/uL (3.29-11.43) 12/29/22 16:02 RBC 4.35 10^6/uL (3.85-5.65) 12/29/22 16:02 Hgb 12.20 g/dL (11.27-16.99) 12/29/22 16:02 Hct 37.5 % (36-47) 12/29/22 16:02 MCV 86.2 fl (85-98) 12/29/22 16:02 MCH 28.0 pg (27-33) 12/29/22 16:02 MCHC 32.5 g/dL (30-55) 12/29/22 16:02 RDW 14.5 % (12.1-15.1) 12/29/22 16:02 Plt Count 215 10^3/cmm (157-399) 12/29/22 16:02 MPV 9.5 fL (7.4-10.4) 12/29/22 16:02 Neut % (Auto) 63.9 % 12/29/22 16:02 Lymph % (Auto) 19.5 % 12/29/22 16:02 Caroline % (Auto) 15.5 % 12/29/22 16:02 Eos % (Auto) 0.0 % 12/29/22 16:02 Baso % (Auto) 0.8 % 12/29/22 16:02 Neut # (Auto) 4.70 10^3/uL (1.8-7.7) 12/29/22 16:02 Lymph # (Auto) 1.4 10^3/uL (0.8-4.8) 12/29/22 16:02 Caroline # (Auto) 1.1 10^3/uL (0.2-0.9) H 12/29/22 16:02 Eos # (Auto) 0.0 10^3/uL (0.0-0.8) 12/29/22 16:02 Baso # (Auto) 0.1 10^3/uL (0.0-0.1) 12/29/22 16:02 Nucleated RBC % (auto) 0 % 12/29/22 16:02 Nucleated RBCs # 0.0 /100WBC 12/29/22 16:02 Sodium 132 mmol/L (136-145) L 12/29/22 16:02 Potassium 3.7 mmol/L (3.5-5.1) 12/29/22 16:02 Chloride 96 mmol/L (98-107) L 12/29/22 16:02 Carbon Dioxide 25 mmol/L (22-29) 12/29/22 16:02 Anion Gap 14.7 (5-19) 12/29/22 16:02 BUN 12 mg/dL (8-23) 12/29/22 16:02 Creatinine 0.5 mg/dL (0.5-0.9) 12/29/22 16:02 GFR Calculation Not Reportable 12/29/22 16:02 Glucose 79 mg/dL (65-115) 12/29/22 16:02 Calculated Osmolality 273 mOsm/kg (285-295) L 12/29/22 16:02 Calcium 9.3 mg/dL (8.5-10.5) 12/29/22 16:02 Total Bilirubin 0.3 mg/dL (0.15-1.2) 12/29/22 16:02 AST 33 U/L (0-32) H 12/29/22 16:02 ALT 20 U/L (0-33) 12/29/22 16:02 Alkaline Phosphatase 101 U/L (35-105) 12/29/22 16:02 Total Protein 7.0 g/dL (6.6-8.7) 12/29/22 16:02 Albumin 4.3 g/dL (3.5-5.2) 12/29/22 16:02 Globulin 2.7 g/dL (1.3-4.6) 12/29/22 16:02 No radiology studies performed this visit Discharge Plan Discharge Patient Disposition: LTCH w Plan Readm Clinical Impression: Dementia Condition: Stable Prescriptions: No Action pantoprazole 40 mg tablet,delayed release (DR/EC) 40 mg PO QAM hydroxychloroquine 200 mg tablet 400 mg PO QAM Hold Instructions: Resume on 08/23/20. resume after ciprofloxacin has finished donepezil 10 mg tablet 10 mg PO BEDTIME (DME) custom molded accommodative orthotic See Rx Instructions .ROUTE .MEDSUPPLY Qty: 1 0RF Rx Instructions: As directed By MAMTA&O (DME) Diabetic shoes See Rx Instructions .ROUTE .MEDSUPPLY Qty: 1 0RF Rx Instructions: With 3 pairs of inserts by the shoe mckenzie methenamine hippurate 1 gram tablet 1 g PO BID Qty: 60 12RF Rx Instructions: Take 1000 mg of vitamin C with each dose of methenamine fluticasone propionate 50 mcg/actuation spray,suspension 1 - 2 spray intranasal QAM Rx Instructions: administer into each nostril (DME) FreeStyle Terry 2 Sensor Kit See Rx Instructions .ROUTE .COMPLEX Qty: 1 10RF Dose Instruction: USE DIRECTED BY FREESTYLE TERRY 2 SENSOR INSTRUCTIONS Rx Instructions: USE DIRECTED BY FREESTYLE TERRY 2 SENSOR INSTRUCTIONS (DME) Diabetic shoe with 3 pairs of insterts See Rx Instructions .Route .MEDSUPPLY Qty: 1 0RF Rx Instructions: As directed by HOME metformin 500 mg tablet extended release 24 hr 500 mg PO DAILY Qty: 90 1RF Rx Instructions: on hold as of 12/29/22 (held per er 12/28/22) folic acid 1 mg Tablet 3 mg PO QAM montelukast 10 mg Tablet 10 mg PO DAILY PRN (Reason: unknown) memantine 10 mg Tablet 10 mg PO BID cevimeline 30 mg capsule 30 mg PO BID hydrocodone-acetaminophen 5-325 mg tablet 1 tab PO Q6H PRN (Reason: pain) Qty: 14 0RF ascorbic acid (vitamin C) 1,000 mg tablet 1,000 mg PO QAM acetaminophen 325 mg tablet 650 mg PO Q6H PRN (Reason: pain) Systane Balance 0.6 % Drops 1 drp OPHTHALMIC (EYE) DAILY Rx Instructions: both eyes Lipitor 40 mg Tablet 40 mg PO BEDTIME Aspir-81 81 mg Tablet,Delayed Release (Dr/Ec) 81 mg PO DAILY@08 Nitrostat 0.4 mg Tablet, Sublingual 0.4 mg SUBLINGUAL Q5M PRN (Reason: Chest Pain) Rx Instructions: do not exceed 3 doses per episode Systane (PF) 0.4-0.3 % Dropperette 1 drp OPHTHALMIC (EYE) QID Rx Instructions: both eyes citalopram 20 mg tablet 20 mg PO QAM Myrbetriq 25 mg tablet extended release 24 hr 25 mg PO QAM Rx Instructions: 340 B Discharge Orders: Discharge ED (Routine); Ordered 12/29/22 Ordered By: Nahum Galvez Referrals: Stiven St DO [Primary Care Provider] - Discharge Diet: Advance as tolerated and Usual diet Discharge Activity: Resume usual activity Patient Instructions: Dementia (ED), Altered Mental Status (ED) Coding Level of Care Code ED Elevator Constructor for William Tong
--- NOTE | 2022-12-29 16:07 | PC.PHAR ---
pt is from [facility]-medications entered are from the medication orders [place] sent
[2022-12-29 16:11] LABS: Basophils # 0.1 10^3/uL (0.0-0.1); Basophils % 0.8 %; Hematocrit 37.5 % (36-47); Lymphocytes # 1.4 10^3/uL (0.8-4.8); Lymphocytes % 19.5 %; Mean Corpuscular HGB Conc 32.5 g/dL (30-55); Mean Corpuscular Volume 86.2 fl (85-98); Mean Platelet Volume 9.5 fL (7.4-10.4); Monocytes # 1.1 10^3/uL (0.2-0.9); Monocytes % 15.5 %; Neutrophils % 63.9 %; Nucleated Red Blood Cells % 0 %; Platelet Count 215 10^3/cmm (157-399); Red Blood Count 4.35 10^6/uL (3.85-5.65); Red Cell Distribution Width 14.5 % (12.1-15.1); White Blood Count 7.35 10^3/uL (3.29-11.43)
[2022-12-29 16:25] LABS: Alanine Aminotransferase 20 U/L (0-33); Albumin Level 4.3 g/dL (3.5-5.2); Alkaline Phosphatase 101 U/L (35-105); Anion Gap 14.7 (5-19); Aspartate Amino Transferase 33 U/L (0-32); Blood Urea Nitrogen 12 mg/dL (8-23); Calcium 9.3 mg/dL (8.5-10.5); Carbon Dioxide 25 mmol/L (22-29); Chloride 96 mmol/L (98-107); Globulin 2.7 g/dL (1.3-4.6); Glucose 79 mg/dL (65-115); Osmolality Calculated 273 mOsm/kg (285-295); Potassium 3.7 mmol/L (3.5-5.1); Sodium 132 mmol/L (136-145); Total Bilirubin 0.3 mg/dL (0.15-1.2)
== END 2022-12-29 19:22 ==
PROVIDERS: Emergency Provider Internal Medicine; PCP Family Medicine
DX: F03.90 Unspecified dementia, unspecified severity, without behavioral disturbance, psychotic disturbance, mood disturbance, and anxiety (principal); Z79.82 Long term (current) use of aspirin; Z79.84 Long term (current) use of oral hypoglycemic drugs; E11.9 Type 2 diabetes mellitus without complications
CPT/HCPCS: 80053; 85025; 99283

== ENCOUNTER 2022-12-31 00:48 | Emergency (ER) | payer MEDICARE, OTHER, SELFPAY ==
[2022-12-31 00:52] VITALS: BP 145/77; PULSE 65; RESP 16; TEMP 36.6; O2SAT 96; BMI 14.1
--- NOTE | 2022-12-31 01:29 | W.ED.AMS ---
HPI - Altered Mental Status General: Chief Complaint: Altered Mental Status Stated Complaint: AMS Time Seen by Provider: 12/31/22 00:50 Source: EMS Mode of arrival: EMS Limitations: altered mental status History of Present Illness: Patient presents to the emergency department tonight accompanied by EMS after being brought from her long-term care facility. Chart review shows patient has been here twice in the last couple of days for similar complaints of altered mental status. She has had negative work-ups each of these times with diagnosis of progressing dementia. However this evening, EMS was contacted by the facility as the patient was refusing to take her medications. She became somewhat combative so they called EMS. No change in patient's physical condition-no new fevers, vomiting, cough. EMS indicated patient was becoming physical and they applied padded wrist and ankle restraints. Patient was given 2 of Ativan in route to the ER. 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 Negative evaluation. Dx: Postmenopausal bleeding. [place] D[place] [facility] [place] History of tubal ligation (~1975) Family History Grandmother Diabetes Paternal CAD (coronary artery disease) Maternal Grandfather Diabetes Maternal CAD (coronary artery disease) Maternal Family/Other Stroke Maternal aunt Brother Hyperlipidemia Mother , at age 92 CAD (coronary artery disease) Father , at age 54 Alcoholic Social History Smoking and tobacco status: never smoked Alcohol intake: never Substance/Drug Use: never Marital status: / Current occupational status: retired Physical Exam Const: COMMON NORMALS: alert ORIENTATION/CONSCIOUSNESS: Yes oriented to person OTHER: Patient is a frail, elderly female. She answers some questions and responds appropriately when identifying herself. Vital signs are stable. HENMT: COMMON NORMALS: normocephalic, atraumatic, hearing grossly normal bilaterally and Normal external nose present; dentition not normal (Teeth missing) HEAD & SCALP: normocephalic and atraumatic NOSE: Normal external nose present Neck/C-Spine: COMMON NORMALS: no meningeal signs Resp: COMMON NORMALS: normal respiratory effort, No retractions and No use of accessory muscles Cardio: COMMON NORMALS: regular rate RATE: regular rate Extremity: NARRATIVE EXTREMITY EXAM: Patient is moving her upper and lower extremities independently showing flexion extension capabilities at the joints. Full range of motion to her neck. Neuro: SENSORIUM/ORIENTATION: Yes alert and Yes oriented to person MENINGEAL SIGNS: Yes no meningeal signs OTHER: Patient has some noted discoordination of the upper extremities with some shaking of the upper extremities with movement. Psych: OTHER: Patient is agitated. She does seem somewhat confused and does attempt to hit and push at staff. Skin: NARRATIVE SKIN EXAM: No signs of obvious hematomas, abrasions indicating trauma Course Vital Signs: Vital signs: Vital Signs Temperature 97.9 F 12/31/22 00:52 Pulse Rate 65 12/31/22 00:52 Respiratory Rate 16 12/31/22 00:52 Blood Pressure 145/77 12/31/22 00:52 Pulse Oximetry 96 12/31/22 00:52 Oxygen Delivery Me thod Room Air 12/31/22 00:52 MDM - Altered Mental Status Medical Decision Making Patient presents back to the emergency department brought by EMS from her long-term care facility. Patient has been evaluated twice in the last 48 hours for complaints of altered mental status. Patient's examinations and evaluations during those times have both been negative. EMS was called tonight as the patient began fighting the staff regarding taking her medications. They reported no new physical changes concerning for acute illness. Because patient was attempting to hit the EMS crew, they did apply padded wrist and ankle restraints however, restraints were never used here in the emergency department. Patient did attempt to hit and pushed staff here in the ER but, patient was responding well to the Ativan and was able to rest in her room comfortably and calmly after her initial evaluation. I spoke with Dr. Kate regarding the patient's previous evaluations and presentation to the emergency department [place]. He indicated patient would most likely showed no acute changes in her work up today from the previous 48 hours and recommended discharging patient back to her care facility with a very short course of Ativan and recommendations for her doctor to discuss treatment for what appears to be overall worsening of dementia symptoms. Differential Diagnosis Likely altered mental status and dementia; Unlikely alcoholic intoxication or sepsis All radiology interpretation(s) finalized by discharge Discharge Plan Discharge Patient Disposition: Home Clinical Impression: Dementia, Frail elderly Condition: Stable Prescriptions: No Action pantoprazole 40 mg tablet,delayed release (DR/EC) 40 mg PO QAM hydroxychloroquine 200 mg tablet 400 mg PO QAM Hold Instructions: Resume on 08/23/20. resume after ciprofloxacin has finished donepezil 10 mg tablet 10 mg PO BEDTIME (DME) custom molded accommodative orthotic See Rx Instructions .ROUTE .MEDSUPPLY Qty: 1 0RF Rx Instructions: As directed By MAMTA&O ([facility] [place] Diabetic shoes See Rx Instructions .ROUTE .MEDSUPPLY Qty: 1 0RF Rx Instructions: With 3 pairs of inserts by the shoe mckenzie methenamine hippurate 1 gram tablet 1 g PO BID Qty: 60 12RF Rx Instructions: Take 1000 mg of vitamin C with each dose of methenamine fluticasone propionate 50 mcg/actuation spray,suspension 1 - 2 spray intranasal QAM Rx Instructions: administer into each nostril (DME) FreeStyle Terry 2 Sensor Kit See Rx Instructions .ROUTE .COMPLEX Qty: 1 10RF Dose Instruction: USE DIRECTED BY FREESTYLE TERRY 2 SENSOR INSTRUCTIONS Rx Instructions: USE DIRECTED BY FREESTYLE TERRY 2 SENSOR INSTRUCTIONS ([facility] [place] Diabetic shoe with 3 pairs of insterts See Rx Instructions .Route .MEDSUPPLY Qty: 1 0RF Rx Instructions: As directed by HOME glipizide 10 mg tablet extended release 24hr 10 mg PO DAILY Qty: 30 11RF folic acid 1 mg Tablet 3 mg PO QAM montelukast 10 mg Tablet 10 mg PO DAILY PRN (Reason: unknown) memantine 10 mg Tablet 10 mg PO BID cevimeline 30 mg capsule 30 mg PO BID hydrocodone-acetaminophen 5-325 mg tablet 1 tab PO Q6H PRN (Reason: pain) Qty: 14 0RF ascorbic acid (vitamin C) 1,000 mg tablet 1,000 mg PO QAM acetaminophen 325 mg tablet 650 mg PO Q6H PRN (Reason: pain) Systane Balance 0.6 % Drops 1 drp OPHTHALMIC (EYE) DAILY Rx Instructions: both eyes Lipitor 40 mg Tablet 40 mg PO BEDTIME Aspir-81 81 mg Tablet,Delayed Release (Dr/Ec) 81 mg PO DAILY@08 Nitrostat 0.4 mg Tablet, Sublingual 0.4 mg SUBLINGUAL Q5M PRN (Reason: Chest Pain) Rx Instructions: do not exceed 3 doses per episode Systane (PF) 0.4-0.3 % Dropperette 1 drp OPHTHALMIC (EYE) QID Rx Instructions: both eyes citalopram 20 mg tablet 20 mg PO QAM Myrbetriq 25 mg tablet extended release 24 hr 25 mg PO QAM Rx Instructions: 340 B Discharge Orders: Discharge ED (Routine); Ordered 12/31/22 Ordered By: Germania Saucedo Referrals: Stiven St DO [Primary Care Provider] - Discharge Diet: Usual diet Discharge Activity: Increase activity as tolerated Patient Instructions: Dementia (ED), Altered Mental Status (ED) Activity Restrictions/Additional Instructions: Symptoms significantly improved and patient calmed and comforted with use of Ativan. We are providing a very short course of Ativan for the next 24 to 48 hours as the patient needs evaluated by her doctor to discuss treatment for dementia induced outbursts in the future. Coding Level of Care Code ED Research Laboratory Specialist for William Tong
[2022-12-31 01:36] VITALS: BP 145/77; PULSE 82; RESP 18; O2SAT 98
== END 2022-12-31 01:52 | disposition home or self-care (01) ==
PROVIDERS: Emergency Provider Physician Assistant; PCP Family Medicine
DX: F03.90 Unspecified dementia, unspecified severity, without behavioral disturbance, psychotic disturbance, mood disturbance, and anxiety (principal); R54 Age-related physical debility; Z79.82 Long term (current) use of aspirin; Z79.84 Long term (current) use of oral hypoglycemic drugs
CPT/HCPCS: 99283

== ENCOUNTER 2023-01-15 09:59 | Emergency (ER) | payer MEDICARE, OTHER, SELFPAY ==
[2023-01-15 10:05] VITALS: BP 124/70; RESP 12; TEMP 36.5; O2SAT 94
--- NOTE | 2023-01-15 10:08 | XR_ITS ---
WS: [id number] Portable AP upright chest, 01/15/2023 Clinical Data: dyspnea/cough Comparison: Portable chest, 12/28/2022 Findings: No nodules, masses or effusions are seen. The heart is normal. The pulmonary vascularity is not increased. No pneumonia or pneumothorax is seen. The aortic arch and descending thoracic aorta s how minimal calcification and tortuosity. The diaphragms are flattened. Impression: Atherosclerosis and hyperinflation.
--- NOTE | 2023-01-15 10:10 | ECG_ITS ---
[facility] Test Date: 2023-01-15 Pat Name: Nereyda Caceres Department: Room: Gender: Female Inspector Metal Can: : 1950 Requested By: Justin Marcus Order Number: [id number] John MD: Herman Sprague M.D. Measurements Intervals [place] Rate: 65 P: 84 [place]: 170 QRS: 68 QRSD: 101 T: 53 QT: 426 QTc: 443 Interpretive Statements SINUS RHYTHM NONSPECIFIC ST ELEVATION [0.05+ mV ST ELEVATION] Compared to ECG 12/28/2022 19:35:39 ST (T wave) deviation now present T-wave abnormality no longer present Electronically Signed On 01-15-2023 11:58:14 CDT by Herman Sprague M.D. [id number]
[2023-01-15 10:14] VITALS: PULSE 64
--- NOTE | 2023-01-15 10:22 | W.ED.AMS ---
HPI - Altered Mental Status General: Chief Complaint: Altered Mental Status Stated Complaint: AMS Time Seen by Provider: 01/15/23 10:00 Source: EMS Mode of arrival: EMS History of Present Illness: 72-year-old female who presents emergency room with history of dementia and mental status changes. She is on metformin a month ago had some decline in mental status she was taken off of it intermittently she has had some behavioral outbursts. She has been in the emergency room several times recently. 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 Negative evaluation. Dx: Postmenopausal bleeding. [place] [facility] [place] History of tubal ligation (~1975) Family History Grandmother Diabetes Paternal CAD (coronary artery disease) Maternal Grandfather Diabetes Maternal CAD (coronary artery disease) Maternal Family/Other Stroke Maternal aunt Brother Hyperlipidemia Mother , at age 92 CAD (coronary artery disease) Father , at age 54 Alcoholic Social History Smoking and tobacco/nicotine status: never used tobacco/nicotine Alcohol intake: never Substance/Drug Use: never Marital status: / Current occupational status: retired Physical Exam Const: GENERAL APPEARANCE: cooperative and comfortable ORIENTATION/CONSCIOUSNESS: Yes awake HENMT: COMMON NORMALS: normocephalic, atraumatic and hearing grossly normal bilaterally HEAD & SCALP: normocephalic and atraumatic Resp: COMMON NORMALS: normal respiratory effort, No retractions, No use of accessory muscles and clear to auscultation bilaterally AUSCULTATION: clear to auscultation bilaterally Cardio: COMMON NORMALS: regular rate, regular rhythm and No murmurs present (Cardio) RATE: regular rate RHYTHM: regular rhythm GI: COMMON NORMALS: Soft to palpation and No hepatosplenomegaly present AUSCULTATION: Yes normoactive bowel sounds PALPATION: Yes Soft to palpation, No Tenderness to palpation present (GI), No Guarding due to palpation present (GI) and Yes No hepatosplenomegaly present Extremity: COMMON NORMALS: normal to inspection, capillary refill normal, no clubbing, cyanosis or edema, no calf tenderness and no pedal edema Psych: THOUGHT CONTENT: No delusions Skin: COMMON NORMALS: no rashes or lesions noted GENERAL SKIN EXAM: no rashes or lesions noted Course Vital Signs: Vital signs: Vital Signs Temperature 97.7 F 01/15/23 10:05 Pulse Rate 54 L 01/15/23 19:00 Respiratory Rate 24 H 01/15/23 13:05 Blood Pressure 112/68 01/15/23 19:00 Pulse Oximetry 98 01/15/23 19:00 Oxygen Delivery Me thod Room Air 01/15/23 18:30 MDM - Altered Mental Status Medical Decision Making Patient is well behaved while he was here had several conversations with her son. She began to act out and be a little bit more aggressive we checked a blood sugar at that time and found that it decreased to 51 overcorrected blood sugar her symptoms improved. I think a large portion of her issues are medication driven. She had previously had trouble with metformin. Given her overall condition and her dementia inability to relate symptoms she probably should best be on something that is unlikely to cause any hypoglycemia. Recommend we stop the sulfonylurea. Also recommend stopping Hydrocodone and Ativan are those are likely to give paradoxical effects. Finally the Myrbetriq may also cause some anticholinergic side effects that may be problematic. Would add Seroquel 25 at at bedtime for . Follow-up with your primary care doctor at the [place] [facility]. Reviewed all these recommendations with her son in a phone conversation (he is the power of title attorney), he is agreeable to this plan. Medical Records I reviewed the patient's medical records. Lab Data I reviewed the patient's lab results. 01/15/23 10:33 01/15/23 10:33 Laboratory Results WBC 5.55 10^3/uL (3.29-11.43) 01/15/23 10:33 RBC 3.80 10^6/uL (3.85-5.65) L 01/15/23 10:33 Hgb 10.70 g/dL (11.27-16.99) L 01/15/23 10:33 Hct 33.6 % (36-47) L 01/15/23 10:33 MCV 88.4 fl (85-98) 01/15/23 10:33 MCH 28.2 pg (27-33) 01/15/23 10:33 MCHC 31.8 g/dL (30-55) 01/15/23 10:33 RDW 14.7 % (12.1-15.1) 01/15/23 10:33 Plt Count 171 10^3/cmm (157-399) 01/15/23 10:33 MPV 9.7 fL (7.4-10.4) 01/15/23 10:33 Neut % (Auto) 71.2 % 01/15/23 10:33 Lymph % (Auto) 15.3 % 01/15/23 10:33 [place] % (Auto) 12.4 % 01/15/23 10:33 Eos % (Auto) 0.0 % 01/15/23 10:33 Baso % (Auto) 0.9 % 01/15/23 10:33 Neut # (Auto) 3.95 10^3/uL (1.8-7.7) 01/15/23 10:33 Lymph # (Auto) 0.9 10^3/uL (0.8-4.8) 01/15/23 10:33 [place] # (Auto) 0.7 10^3/uL (0.2-0.9) 01/15/23 10:33 Eos # (Auto) 0.0 10^3/uL (0.0-0.8) 01/15/23 10:33 Baso # (Auto) 0.1 10^3/uL (0.0-0.1) 01/15/23 10:33 Nucleated RBC % (auto) 0 % 01/15/23 10:33 Nucleated RBCs # 0.0 /100WBC 01/15/23 10:33 Sodium 130 mmol/L (136-145) L 01/15/23 10:33 Potassium 4.2 mmol/L (3.5-5.1) 01/15/23 10:33 Chloride 95 mmol/L (98-107) L 01/15/23 10:33 Carbon Dioxide 26 mmol/L (22-29) 01/15/23 10:33 Anion Gap 13.2 (5-19) 01/15/23 10:33 BUN 8 mg/dL (8-23) 01/15/23 10:33 Creatinine 0.5 mg/dL (0.5-0.9) 01/15/23 10:33 GFR Calculation Not Reportable 01/15/23 10:33 Glucose 111 mg/dL (65-115) 01/15/23 10:33 POC Glucose 176 mg/dL (70-110) H 01/15/23 19:41 Calculated Osmolality 269 mOsm/kg (285-295) L 01/15/23 10:33 Calcium 8.9 mg/dL (8.5-10.5) 01/15/23 10:33 Total Bilirubin 0.3 mg/dL (0.15-1.2) 01/15/23 10:33 AST 30 U/L (0-32) 01/15/23 10:33 ALT 18 U/L (0-33) 01/15/23 10:33 Alkaline Phosphatase 82 U/L (35-105) 01/15/23 10:33 Troponin T Baseline 17 ng/L (0-10) H 01/15/23 10:33 Troponin T 120 Minute 15.82 ng/L (0-10) H 01/15/23 12:05 Delta Troponin T -1.18 ABS# (0-10) L 01/15/23 12:05 Troponin T Hi Sens 6Hr 13.95 ng/L (0-10) H 01/15/23 16:40 Troponin T Hi Sens 6Hr Delta -3.05 ng/L (0-12) L 01/15/23 16:40 Total Protein 6.0 g/dL (6.6-8.7) L 01/15/23 10:33 Albumin 3.9 g/dL (3.5-5.2) 01/15/23 10:33 Globulin 2.1 g/dL (1.3-4.6) 01/15/23 10:33 Lipase 32 U/L (13-60) 01/15/23 10:33 Urine Color Yellow (Yellow) 01/15/23 11:40 Urine Appearance Clear (CLEAR) 01/15/23 11:40 Urine pH 5 (5-7) 01/15/23 11:40 Ur Specific [place] 1.010 (1.005-1.030) 01/15/23 11:40 Urine Protein Neg (Negative) 01/15/23 11:40 Urine Glucose (UA) Norm (Normal) 01/15/23 11:40 Urine Ketones Negative (Negative) 01/15/23 11:40 Urine Blood Neg (Negative) 01/15/23 11:40 Urine Nitrate Negative (Negative) 01/15/23 11:40 Urine Bilirubin Neg (Negative) 01/15/23 11:40 Urine Urobilinogen Norm mg/dL (Negative) 01/15/23 11:40 Ur Leukocyte Esterase Negative (Negative) 01/15/23 11:40 All radiology interpretation(s) finalized by discharge Discharge Plan Discharge Patient Disposition: Home Clinical Impression: Hypoglycemia, Diabetes mellitus with diabetic polyneuropathy, Mild cognitive impairment, Anemia, Frail elderly Condition: Stable Prescriptions: New Seroquel 25 mg tablet 25 mg PO .QHS Qty: 30 0RF Discontinued lorazepam 1 mg Tablet 1 mg PO TID PRN (Reason: Anxiety) glipizide 10 mg tablet extended release 24hr 10 mg PO DAILY@08 hydrocodone-acetaminophen 5-325 mg tablet 1 tab PO Q6H PRN (Reason: pain) Qty: 14 0RF Myrbetriq 25 mg tablet extended release 24 hr 25 mg PO DAILY@08 Rx Instructions: 340 B No Action pantoprazole 40 mg tablet,delayed release (DR/EC) 40 mg PO DAILY@08 hydroxychloroquine 200 mg tablet 400 mg PO DAILY@08 Hold Instructions: Resume on 08/23/20. resume after ciprofloxacin has finished donepezil 10 mg tablet 10 mg PO BEDTIME@20 (DME) custom molded accommodative orthotic See Rx Instructions .ROUTE .MEDSUPPLY Qty: 1 0RF Rx Instructions: As directed By [facility] [place] [place] Diabetic shoes See Rx Instructions .ROUTE .MEDSUPPLY Qty: 1 0RF Rx Instructions: With 3 pairs of inserts by the shoe mckenzie methenamine hippurate 1 gram tablet 1 g PO BID Qty: 60 12RF Rx Instructions: Take 1000 mg of vitamin C with each dose of methenamine fluticasone propionate 50 mcg/actuation spray,suspension 1 - 2 spray intranasal DAILY@08 Rx Instructions: administer into each nostril (DME) FreeStyle Terry 2 Sensor Kit See Rx Instructions .ROUTE .COMPLEX Qty: 1 10RF Dose Instruction: USE DIRECTED BY FREESTYLE TERRY 2 SENSOR INSTRUCTIONS Rx Instructions: USE DIRECTED BY FREESTYLE TERRY 2 SENSOR INSTRUCTIONS (DME) Diabetic shoe with 3 pairs of insterts See Rx Instructions .Route .MEDSUPPLY Qty: 1 0RF Rx Instructions: As directed by HOME folic acid 1 mg Tablet 3 mg PO DAILY@08 montelukast 10 mg Tablet 10 mg PO DAILY PRN (Reason: unknown) memantine 10 mg Tablet 10 mg PO BID cevimeline 30 mg capsule 30 mg PO BID ascorbic acid (vitamin C) 1,000 mg tablet 1,000 mg PO DAILY@08 acetaminophen 325 mg tablet 650 mg PO Q6H PRN (Reason: pain) Systane Balance 0.6 % Drops 1 drp OPHTHALMIC (EYE) DAILY@08 Rx Instructions: both eyes atorvastatin [Lipitor] 40 mg Tablet 40 mg PO BEDTIME@20 aspirin [Aspir-81] 81 mg Tablet,Delayed Release (Dr/Ec) 81 mg PO DAILY@08 nitroglycerin [Nitrostat] 0.4 mg Tablet, Sublingual 0.4 mg SUBLINGUAL Q5M PRN (Reason: Chest Pain) Rx Instructions: do not exceed 3 doses per episode Systane (PF) 0.4-0.3 % Dropperette 1 drp OPHTHALMIC (EYE) QID Rx Instructions: both eyes citalopram 20 mg tablet 20 mg PO DAILY@08 Discharge Orders: Discharge ED (Routine); Ordered 01/15/23 Ordered By: Justin Eaton Referrals: Stiven St DO [Primary Care Provider] - Patient Instructions: Dementia (ED), Hypoglycemia in a Person with Diabetes (ED), Opioid Safety, Pain Management Coding Level of Care Code ED Agile Coach for Kaylag Ran
--- NOTE | 2023-01-15 10:38 | CT_ITS ---
WS: [id number] CT HEAD TECHNIQUE: Noncontrast CT of the head obtained from the skullbase to the vertex. CLINICAL INFORMATION: AMS COMPARISON: CT 12/28/22 DLP: 1016.[address] scans at [facility] use at least one of these dose optimization techniques: automated e xposure control; mA and/or kV adjustment per patient size (includes targeted exams where dose is matc hed to clinical indication); or iterative reconstruction. FINDINGS: No evidence of intracranial hemorrhage or mass effect. Ventricular system and basal cisterns are hernandez nt. Moderate small vessel changes with moderate parenchymal volume loss. No extra-axial fluid collect ions. No evidence of mass or mass effect. Paranasal sinuses and mastoid air cells are well aerated. .Normal visualized soft tissues. IMPRESSION: 1. No evidence of intracranial hemorrhage or mass effect. 2. Moderate small vessel changes. Moderate parenchymal volume loss. 3. No acute intracranial findings.
[2023-01-15 10:44] LABS: Basophils # 0.1 10^3/uL (0.0-0.1); Basophils % 0.9 %; Hematocrit 33.6 % (36-47); Lymphocytes # 0.9 10^3/uL (0.8-4.8); Lymphocytes % 15.3 %; Mean Corpuscular HGB Conc 31.8 g/dL (30-55); Mean Corpuscular Hemoglobin 28.2 pg (27-33); Mean Corpuscular Volume 88.4 fl (85-98); Mean Platelet Volume 9.7 fL (7.4-10.4); Monocytes # 0.7 10^3/uL (0.2-0.9); Monocytes % 12.4 %; Neutrophils # 3.95 10^3/uL (1.8-7.7); Neutrophils % 71.2 %; Nucleated Red Blood Cells % 0 %; Platelet Count 171 10^3/cmm (157-399); Red Cell Distribution Width 14.7 % (12.1-15.1); White Blood Count 5.55 10^3/uL (3.29-11.43)
--- NOTE | 2023-01-15 10:52 | PC.PHAR ---
pt is from [facility]-maryann vargas from [facility] states the pt had all am meds today and a prn lorazepam-medications entered are from the med list [facility] sent
[2023-01-15 11:00] LABS: Troponin(5th) Baseline 17 ng/L (0-10)
[2023-01-15 11:14] LABS: Alanine Aminotransferase 18 U/L (0-33); Albumin Level 3.9 g/dL (3.5-5.2); Alkaline Phosphatase 82 U/L (35-105); Anion Gap 13.2 (5-19); Aspartate Amino Transferase 30 U/L (0-32); Blood Urea Nitrogen 8 mg/dL (8-23); Calcium 8.9 mg/dL (8.5-10.5); Carbon Dioxide 26 mmol/L (22-29); Chloride 95 mmol/L (98-107); Creatinine Clr Calc Pharmacy 48.5957; Globulin 2.1 g/dL (1.3-4.6); Glucose 111 mg/dL (65-115); Lipase 32 U/L (13-60); Osmolality Calculated 269 mOsm/kg (285-295); Potassium 4.2 mmol/L (3.5-5.1); Sodium 130 mmol/L (136-145); Total Bilirubin 0.3 mg/dL (0.15-1.2)
[2023-01-15 11:51] LABS: Add Urine Microscopic? NO; Charge for UA Resulting for Rev
[2023-01-15] MEDS: sodium chloride 0.9% 1,000 ML 999 ML IV (11:54)
[2023-01-15 11:57] LABS: Bilirubin Urine Neg (Negative); Blood Urine Neg (Negative); Glucose Urine UA Norm (Normal); Ketones Urine Negative (Negative); Leukocyte Esterase Urine Negative (Negative); Nitrate Urine Negative (Negative); Protein Urine Neg (Negative); Urine Appearance Clear (CLEAR); Urine Color Yellow (Yellow); Urobilinogen Urine Norm (Negative); pH Urine 5 (5-7)
--- NOTE | 2023-01-15 12:09 | ECG_ITS ---
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 Measurements Intervals [place] Rate: 60 P: 83 OK: 170 QRS: 74 QRSD: 103 T: 60 QT: 456 QTc: 456 Interpretive Statements SINUS RHYTHM POSSIBLE RIGHT VENTRICULAR CONDUCTION DELAY [RSR (QR) IN V1/V2] NONSPECIFIC ST ELEVATION [0.05+ mV ST ELEVATION] Compared to ECG 01/15/2023 10:10:52 No significant changes Electronically Signed On 01-15-2023 13:43:06 CDT by Herman Sprague M.D. [id number]
[2023-01-15 12:25] LABS: Troponin 5 2HR 15.82 ng/L (0-10)
[2023-01-15 12:30] LABS: Troponin 5 2HR Delta -1.18 ABS# (0-10)
[2023-01-15 13:05] VITALS: BP 132/68; PULSE 57; RESP 24; O2SAT 100
[2023-01-15 14:23] LABS: Glucose Point of Care 53 mg/dL (70-110)
[2023-01-15] MEDS: ziprasidone 20 mg/mL SDV 5 MG IM ×2 (15:11→16:44)
--- NOTE | 2023-01-15 15:57 | PC.NURSE ---
pt is a fall risk and refusing to stay in bed. PT os confused and getting combative with staff when redirected to stay in room MD notified med orders given and sitter placed with PT
--- NOTE | 2023-01-15 16:09 | ECG_ITS ---
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 Measurements Intervals [place] Rate: 61 P: 78 ID: [id number] QRS: 82 QRSD: 89 T: 110 QT: 442 QTc: 448 Interpretive Statements SINUS RHYTHM NONSPECIFIC ST & T-WAVE ABNORMALITY Compared to ECG 01/15/2023 12:09:50 T-wave abnormality now present ST (T wave) deviation no longer present Electronically Signed On 01-15-2023 23:10:41 CDT by Herman Sprague M.D. [email or web address]/store/[id number]
[2023-01-15 17:16] LABS: Troponin 5 6HR 13.95 ng/L (0-10)
[2023-01-15] MEDS: quetiapine 25 mg Tablet PO (17:18)
[2023-01-15 17:20] LABS: Troponin 5 6HR Delta -3.05 ng/L (0-12)
[2023-01-15 17:34] LABS: Glucose Point of Care 51 mg/dL (70-110)
[2023-01-15 18:30] VITALS: PULSE 55; O2SAT 98
[2023-01-15 19:00] VITALS: BP 112/68; PULSE 54; O2SAT 98
[2023-01-15 19:52] LABS: Glucose Point of Care 176 mg/dL (70-110)
== END 2023-01-15 20:41 | disposition home or self-care (01) ==
PROVIDERS: Emergency Provider Family Medicine; PCP Family Medicine
DX: E11.649 Type 2 diabetes mellitus with hypoglycemia without coma (principal); E11.42 Type 2 diabetes mellitus with diabetic polyneuropathy; G31.84 Mild cognitive impairment of uncertain or unknown etiology; D64.9 Anemia, unspecified; R54 Age-related physical debility; Z79.82 Long term (current) use of aspirin; F03.90 Unspecified dementia, unspecified severity, without behavioral disturbance, psychotic disturbance, mood disturbance, and anxiety
CPT/HCPCS: 36415; 36416; 70450; 71045; 80053; 81003; 82962; 83690; 84484; 85025; 93005; 96360; 96361; 96372; 99285; J3486; J7030; J7799

== ENCOUNTER → 2023-01-28 12:50 | Outpatient (BNVA) | payer MEDICARE, OTHER, SELFPAY | PROVIDERS: PCP Family Medicine; Visit Provider Dermatology | DX: L57.0 Actinic keratosis (principal); L57.8 Other skin changes due to chronic exposure to nonionizing radiation; M34.83 Systemic sclerosis with polyneuropathy; L21.8 Other seborrheic dermatitis; I78.8 Other diseases of capillaries | CPT/HCPCS: 17000; 99204 ==

== ENCOUNTER 2023-02-27 15:53 | Outpatient (CLI) | payer MEDICARE, OTHER, SELFPAY ==
[2023-02-27 16:04] LABS: Add Urine Microscopic? NO; Charge for UA Resulting for Rev
[2023-02-27 16:14] LABS: Bilirubin Urine Neg (Negative); Blood Urine Neg (Negative); Glucose Urine UA Norm (Normal); Ketones Urine Negative (Negative); Leukocyte Esterase Urine Negative (Negative); Nitrate Urine Negative (Negative); Protein Urine Neg (Negative); Urine Appearance Clear (CLEAR); Urine Color Yellow (Yellow); Urobilinogen Urine Norm (Negative); pH Urine 5 (5-7)
== END 2023-02-27 15:54 | disposition home or self-care (01) ==
PROVIDERS: PCP Family Medicine; Visit Provider Family Medicine
DX: Z01.89 Encounter for other specified special examinations (principal)
CPT/HCPCS: 81003; 87077; 87086; 87186

== ENCOUNTER → 2023-04-29 13:28 | Outpatient (BNVA) | payer MEDICARE, OTHER, SELFPAY | PROVIDERS: PCP Family Medicine; Visit Provider Dermatology | DX: L21.8 Other seborrheic dermatitis (principal); L57.8 Other skin changes due to chronic exposure to nonionizing radiation; M34.83 Systemic sclerosis with polyneuropathy; I78.8 Other diseases of capillaries | CPT/HCPCS: 99214 ==

== ENCOUNTER 2023-05-27 14:11 | Outpatient (CLI) | payer MEDICARE, OTHER, SELFPAY ==
[2023-05-27 14:44] LABS: Basophils # 0.1 10^3/uL (0.0-0.1); Basophils % 0.9 %; Eosinophils # 0.4 10^3/uL (0.0-0.8); Eosinophils % 5.3 %; Hematocrit 37.6 % (36-47); Lymphocytes # 1.3 10^3/uL (0.8-4.8); Lymphocytes % 17.8 %; Mean Corpuscular HGB Conc 31.6 g/dL (30-55); Mean Corpuscular Volume 91.7 fl (85-98); Mean Platelet Volume 10.5 fL (7.4-10.4); Monocytes % 14.1 %; Neutrophils # 4.34 10^3/uL (1.8-7.7); Neutrophils % 61.5 %; Nucleated Red Blood Cells % 0 %; Platelet Count 222 10^3/cmm (157-399); Red Cell Distribution Width 14.4 % (12.1-15.1); White Blood Count 7.04 10^3/uL (3.29-11.43)
[2023-05-27 15:07] LABS: Estmated Average Glucose 171; Hemoglobin A1C 7.6 % (4.0-6.0)
[2023-05-27 15:15] LABS: Alanine Aminotransferase 37 U/L (0-33); Albumin Level 3.9 g/dL (3.5-5.2); Alkaline Phosphatase 95 U/L (35-105); Anion Gap 15.8 (5-19); Aspartate Amino Transferase 37 U/L (0-32); Blood Urea Nitrogen 17 mg/dL (8-23); Calcium 8.9 mg/dL (8.5-10.5); Carbon Dioxide 26 mmol/L (22-29); Chloride 99 mmol/L (98-107); Chol HDL Ratio 1.63 mg/dL (0.0-4.40); Cholesterol 181 mg/dL (0-200); Glucose 118 mg/dL (65-115); HDL Cholesterol 111 mg/dL (60-100); LDL Cholesterol Calculated 53 mg/dL (50-129); LDL HDL Ratio 0.48 RATIO (0.00-3.22); Magnesium 1.9 mg/dL (1.7-2.3); Osmolality Calculated 285 mOsm/kg (285-295); Phosphorus 4.9 mg/dL (2.5-4.5); Potassium 4.8 mmol/L (3.5-5.1); Sodium 136 mmol/L (136-145); Thyroid Stimulating Hormone 5.18 uIU/mL (0.27-4.20); Total Bilirubin 0.2 mg/dL (0.15-1.2); Total Protein 6.9 g/dL (6.6-8.7); Triglycerides 87 mg/dL (0-150)
[2023-05-27 17:38] LABS: Vitamin B12 1588 pg/mL (232-1245)
[2023-05-27 23:39] LABS: Folate Level > 20.0 ng/mL (4.8-37.3)
== END 2023-05-27 14:12 | disposition home or self-care (01) ==
PROVIDERS: PCP Family Medicine; Visit Provider Family Medicine
DX: E11.9 Type 2 diabetes mellitus without complications (principal); L94.0 Localized scleroderma [morphea]; Z01.89 Encounter for other specified special examinations
CPT/HCPCS: 80053; 80061; 82607; 82746; 83036; 83735; 84100; 84443; 85025

== ENCOUNTER 2023-05-29 11:44 | Emergency (ER) | payer MEDICARE, OTHER, SELFPAY ==
[2023-05-29 11:51] VITALS: PULSE 63; RESP 16; TEMP 36.7; O2SAT 99
[2023-05-29 12:05] VITALS: BP 127/65; PULSE 62; RESP 16; O2SAT 99
[2023-05-29 12:30] LABS: Basophils # 0.1 10^3/uL (0.0-0.1); Basophils % 0.8 %; Eosinophils # 0.4 10^3/uL (0.0-0.8); Eosinophils % 5.1 %; Hematocrit 35.6 % (36-47); Lymphocytes # 1.1 10^3/uL (0.8-4.8); Lymphocytes % 14.5 %; Mean Corpuscular HGB Conc 31.7 g/dL (30-55); Mean Corpuscular Hemoglobin 29.1 pg (27-33); Mean Corpuscular Volume 91.8 fl (85-98); Mean Platelet Volume 10.1 fL (7.4-10.4); Monocytes # 1.3 10^3/uL (0.2-0.9); Monocytes % 16.7 %; Neutrophils # 4.86 10^3/uL (1.8-7.7); Neutrophils % 62.6 %; Nucleated Red Blood Cells % 0 %; Platelet Count 176 10^3/cmm (157-399); Red Blood Count 3.88 10^6/uL (3.85-5.65); Red Cell Distribution Width 14.6 % (12.1-15.1); White Blood Count 7.77 10^3/uL (3.29-11.43)
[2023-05-29 12:53] LABS: Alanine Aminotransferase 30 U/L (0-33); Albumin Level 3.6 g/dL (3.5-5.2); Alkaline Phosphatase 90 U/L (35-105); Anion Gap 13.2 (5-19); Aspartate Amino Transferase 28 U/L (0-32); Blood Urea Nitrogen 16 mg/dL (8-23); Calcium 8.8 mg/dL (8.5-10.5); Carbon Dioxide 28 mmol/L (22-29); Chloride 100 mmol/L (98-107); Creatinine Clr Calc Pharmacy 41.0855; Globulin 2.9 g/dL (1.3-4.6); Glucose 141 mg/dL (65-115); Osmolality Calculated 288 mOsm/kg (285-295); Potassium 4.2 mmol/L (3.5-5.1); Sodium 137 mmol/L (136-145); Total Bilirubin 0.2 mg/dL (0.15-1.2); Total Protein 6.5 g/dL (6.6-8.7)
--- NOTE | 2023-05-29 13:52 | ED_ITS ---
HPI - Weakness 2 General: Chief complaint: Weakness Stated complaint: WEAKNESS Time Seen by Provider: 05/29/23 11:55 Source: patient Mode of arrival: EMS History of Present Illness: 72-year-old female presents to the emerg ency room with complaints of random muscle twitches in her hands and in her legs at times make it difficult to walk she does not have any particular pain at this time she has been going on for the last several weeks. She denies any difficulty speech or swallowing or vision. No chest pain no shortness of breath no fever sweats or chills MD Complaint: generalized weakness Onset (ago): week(s) Duration: intermittent Location: LUE, RUE, LLE and RLE Severity: mild Relieving factors: none Exacerbating factors: none Associated symptoms: Reports nausea and other; Denies chest pain, chills, confusion, melena, decreased appetite, diaphoresis, dysuria, easy bruising, fever(s), headache(s), myalgias, rash, short of breath, syncope or vomiting Review of Systems 2 Const: Denies: fever(s), chills or diaphoresis Card: Denies: chest pain or syncope Resp: Denies: dyspnea GI: Reports: nausea; Denies: vomiting or melena : Denies: dysuria Musc: Denies: neck pain or back pain Skin/Breast: Denies: rash Neuro: Denies: headache(s) or confusion Davian/Lymph: Denies: easy bruising PFSH ED 2 PFSH: Medical History Chronic cystitis CREST syndrome Dementia Diabetes mellitus Feeling of incomplete bladder emptying Frail elderly History of pyelonephritis Sclerodactyly Scleroderma, 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 Negative evaluation. Dx: Postmenopausal bleeding. [place] [facility] [place] History of tubal ligation (~1975) Family History Grandmother Diabetes Paternal CAD (coronary artery disease) Maternal Grandfather Diabetes Maternal CAD (coronary artery disease) Maternal Family/Other Stroke Maternal aunt Brother Hyperlipidemia Mother , at age 92 CAD (coronary artery disease) Father , at age 54 Alcoholic Social History Smoking and tobacco/nicotine status: never used tobacco/nicotine Alcohol intake: never Substance/Drug Use: never Marital status: / Current occupational status: retired Physical Exam 2 Const: COMMON NORMALS: no acute distress GENERAL APPEARANCE: cooperative and comfortable ORIENTATION/CONSCIOUSNESS: Yes awake, Yes oriented to person, Yes oriented to place and Yes oriented to time HENMT: COMMON NORMALS: normocephalic, atraumatic and hearing grossly normal bilaterally HEAD & SCALP: normocephalic and atraumatic Resp: COMMON NORMALS: normal respiratory effort, No retractions, No use of accessory muscles and clear to auscultation bilaterally AUSCULTATION: clear to auscultation bilaterally Cardio: COMMON NORMALS: regular rate, regular rhythm and No murmurs present (Cardio) RATE: regular rate RHYTHM: regular rhythm GI: COMMON NORMALS: Soft to palpation and No hepatosplenomegaly present A USCULTATION: Yes normoactive bowel sounds PALPATION: Yes Soft to palpation, No Tenderness to palpation present (GI), No Guarding due to palpation present (GI) and Yes No hepatosplenomegaly present Extremity: COMMON NORMALS: normal to inspection, capillary refill normal, no clubbing, cyanosis or edema, no calf tenderness and no pedal edema Neuro: SENSORIUM/ORIENTATION: Yes oriented to person, Yes oriented to place and Yes oriented to time Skin: COMMON NORMALS: no rashes or lesions noted GENERAL SKIN EXAM: no rashes or lesions noted Course 2 Vital Signs: Vital signs: Vital Signs Temperature 98.0 F 05/29/23 17:00 Pulse Rate 62 05/29/23 17:00 Respiratory Rate 18 05/29/23 17:00 Blood Pressure 127/65 05/29/23 17:00 Pulse Oximetry 100 05/29/23 17:00 Oxygen Delivery Me thod Room Air 05/29/23 14:31 MDM - Weakness Medical Decision Making Labs and imaging reviewed. Patient's biggest concern seems to be the uncomfortableness and twitching like that she is having in her legs states that they just will not stop moving. Will start her on ropinirole. Recommend initially she take 1/4 mg at at bedtime this will likely need an increase over time but given her BMI and overall health condition I think she needs to start at a very low dose. Recommend that if it is not helpful rather than stopping it she follow-up with her primary care physician to titrate up. We have no sign of neurogenic claudication or vascular claudication at this time on her exam. Medical Records I reviewed the patient's medical records. Lab Data I reviewed the patient's lab results. 05/29/23 12:15 05/29/23 12:15 Laboratory Results WBC 7.77 10^3/uL (3.29-11.43) 05/29/23 12:15 RBC 3.88 10^6/uL (3.85-5.65) 05/29/23 12:15 Hgb 11.30 g/dL (11.27-16.99) 05/29/23 12:15 Hct 35.6 % (36-47) L 05/29/23 12:15 MCV 91.8 fl (85-98) 05/29/23 12:15 MCH 29.1 pg (27-33) 05/29/23 12:15 MCHC 31.7 g/dL (30-55) 05/29/23 12:15 RDW 14.6 % (12.1-15.1) 05/29/23 12:15 Plt Count 176 10^3/cmm (157-399) 05/29/23 12:15 MPV 10.1 fL (7.4-10.4) 05/29/23 12:15 Neut % (Auto) 62.6 % 05/29/23 12:15 Lymph % (Auto) 14.5 % 05/29/23 12:15 [place] % (Auto) 16.7 % 05/29/23 12:15 Eos % (Auto) 5.1 % 05/29/23 12:15 Baso % (Auto) 0.8 % 05/29/23 12:15 Neut # (Auto) 4.86 10^3/uL (1.8-7.7) 05/29/23 12:15 Lymph # (Auto) 1.1 10^3/uL (0.8-4.8) 05/29/23 12:15 [place] # (Auto) 1.3 10^3/uL (0.2-0.9) H 05/29/23 12:15 Eos # (Auto) 0.4 10^3/uL (0.0-0.8) 05/29/23 12:15 Baso # (Auto) 0.1 10^3/uL (0.0-0.1) 05/29/23 12:15 Nucleated RBC % (auto) 0 % 05/29/23 12:15 Nucleated RBCs # 0.0 /100WBC 05/29/23 12:15 Sodium 137 mmol/L (136-145) 05/29/23 12:15 Potassium 4.2 mmol/L (3.5-5.1) 05/29/23 12:15 Chloride 100 mmol/L (98-107) 05/29/23 12:15 Carbon Dioxide 28 mmol/L (22-29) 05/29/23 12:15 Anion Gap 13.2 (5-19) 05/29/23 12:15 BUN 16 mg/dL (8-23) 05/29/23 12:15 Creatinine 0.6 mg/dL (0.5-0.9) 05/29/23 12:15 GFR Calculation Not Reportable 05/29/23 12:15 Glucose 141 mg/dL (65-115) H 05/29/23 12:15 Calculated Osmolality 288 mOsm/kg (285-295) 05/29/23 12:15 Calcium 8.8 mg/dL (8.5-10.5) 05/29/23 12:15 Total Bilirubin 0.2 mg/dL (0.15-1.2) 05/29/23 12:15 AST 28 U/L (0-32) 05/29/23 12:15 ALT 30 U/L (0-33) 05/29/23 12:15 Alkaline Phosphatase 90 U/L (35-105) 05/29/23 12:15 Total Protein 6.5 g/dL (6.6-8.7) L 05/29/23 12:15 Albumin 3.6 g/dL (3.5-5.2) 05/29/23 12:15 Globulin 2.9 g/dL (1.3-4.6) 05/29/23 12:15 Urine Color Colorless (Yellow) 05/29/23 14:41 Urine Appearance Clear (CLEAR) 05/29/23 14:41 Urine pH 7 (5-7) 05/29/23 14:41 Ur Specific [place] 1.005 (1.005-1.030) 05/29/23 14:41 Urine Protein Neg (Negative) 05/29/23 14:41 Urine Glucose (UA) Norm (Normal) 05/29/23 14:41 Urine Ketones Negative (Negative) 05/29/23 14:41 Urine Blood Neg (Negative) 05/29/23 14:41 Urine Nitrate Negative (Negative) 05/29/23 14:41 Urine Bilirubin Neg (Negative) 05/29/23 14:41 Urine Urobilinogen Norm mg/dL (Negative) 05/29/23 14:41 Ur Leukocyte Esterase Negative (Negative) 05/29/23 14:41 All radiology interpretation(s) finalized by discharge Discharge Plan Discharge Patient Disposition: Home Clinical Impression: Restless leg syndrome Condition: Stable Prescriptions: New ropinirole 0.25 mg tablet 0.25 mg PO BEDTIME Qty: 30 0RF No Action pantoprazole 40 mg tablet,delayed release (DR/EC) 40 mg PO DAILY@08 hydroxychloroquine 200 mg tablet 400 mg PO DAILY@08 Hold Instructions: Resume on 08/23/20. resume after ciprofloxacin has finished donepezil 10 mg tablet 10 mg PO BEDTIME@20 (DME) Diabetic shoes See Rx Instructions .ROUTE .MEDSUPPLY Qty: 1 0RF Rx Instructions: With 3 pairs of inserts by the shoe mckenzie methenamine hippurate 1 gram tablet 1 g PO BID Qty: 60 12RF Rx Instructions: Take 1000 mg of vitamin C with each dose of methenamine fluticasone propionate 50 mcg/actuation spray,suspension 1 - 2 spray intranasal DAILY@08 Rx Instructions: administer into each nostril (DME) Diabetic shoe with 3 pairs of insterts See Rx Instructions .Route .MEDSUPPLY Qty: 1 0RF Rx Instructions: As directed by HOME (DME) FreeStyle Terry 2 Sensor Kit See Rx Instructions .ROUTE .COMPLEX Qty: 1 10RF Dose Instruction: USE DIRECTED BY FREESTYLE TERRY TWO SENSOR INSTRUCTIONS. Rx Instructions: USE DIRECTED BY FREESTYLE TERRY TWO SENSOR INSTRUCTIONS. cevimeline 30 mg capsule 30 mg PO BID Qty: 60 2RF Hold Instructions: Doctor's Order nystatin 100,000 unit/mL suspension 5 ml PO DAILY Qty: 200 0RF Rx Instructions: swish and spit twice daily for 10 days. folic acid 1 mg Tablet 3 mg PO DAILY@08 montelukast 10 mg Tablet 10 mg PO DAILY PRN (Reason: unknown) memantine 10 mg Tablet 10 mg PO BID Seroquel 25 mg tablet 25 mg PO .QHS Qty: 30 0RF ascorbic acid (vitamin C) 1,000 mg tablet 1,000 mg PO DAILY@08 acetaminophen 325 mg tablet 650 mg PO Q6H PRN (Reason: pain) Systane Balance 0.6 % Drops 1 drp OPHTHALMIC (EYE) DAILY@08 Rx Instructions: both eyes atorvastatin [Lipitor] 40 mg Tablet 40 mg PO BEDTIME@20 aspirin [Aspir-81] 81 mg Tablet,Delayed Release (Dr/Ec) 81 mg PO DAILY@08 nitroglycerin [Nitrostat] 0.4 mg Tablet, Sublingual 0.4 mg SUBLINGUAL Q5M PRN (Reason: Chest Pain) Rx Instructions: do not exceed 3 doses per episode Systane (PF) 0.4-0.3 % Dropperette 1 drp OPHTHALMIC (EYE) QID Rx Instructions: both eyes citalopram 20 mg tablet 20 mg PO DAILY@08 Discharge Orders: Discharge ED (Routine); Ordered 05/29/23 Ordered By: Justin Eaton Referrals: Stiven St, [Primary Care Provider] - Discharge Diet: Usual diet Discharge Activity: Resume usual activity Patient Instructions: Opioid Safety, Pain Management Activity Restrictions/Additional Instructions: Thank you for choosing [facility] for your healthcare needs today. Please realize this is an emergency room and that we are providing you with a medical screening exam and this may not be complete and all inclusive of all the testing and or work up that you may need to determine your ailment or severity of your illness. It is very important that you follow up as instructed or that you return to the Emergency Department should you have concerns or if your condition changes or worsens in any way. You are seen today for muscle twitching. From your description sounds like you have restless leg syndrome and recommended that you take ropinirole 0.25 mg at at bedtime. If that is not helpful you can discuss with your primary care doctor about increasing the dose until response is achieved. The remainder of your workup today was otherwise unremarkable. Coding Level of Care Code ED Mattress Weaver for William Tong
--- NOTE | 2023-05-29 14:11 | ECG_ITS ---
[facility] Test Date: 2023-05-29 Pat Name: Nereyda Caceres Department: Room: Gender: Female Hot Man: : 1950 Requested By: Justin Marcus Order Number: [id number] John MD: Herman Sprague M.D. Measurements Intervals [place] Rate: 56 P: 75 IN: 167 QRS: 72 QRSD: 102 T: 69 QT: 455 QTc: 439 Interpretive Statements SINUS BRADYCARDIA NONSPECIFIC T-WAVE ABNORMALITY Compared to ECG 01/15/2023 16:40:44 Sinus rhythm no longer present T-wave abnormality still present Electronically Signed On 05-31-2023 9:31:38 CLOTH TESTER QUALITY by Herman Sprague M.D. [id number]
[2023-05-29 14:31] VITALS: BP 127/65; PULSE 62; RESP 18; O2SAT 100
[2023-05-29 15:05] LABS: Add Urine Microscopic? NO; Charge for UA Resulting for Rev
[2023-05-29 15:10] LABS: Bilirubin Urine Neg (Negative); Blood Urine Neg (Negative); Glucose Urine UA Norm (Normal); Ketones Urine Negative (Negative); Leukocyte Esterase Urine Negative (Negative); Nitrate Urine Negative (Negative); Protein Urine Neg (Negative); Specific Gravity, Urine 1.005 (1.005-1.030); Urine Appearance Clear (CLEAR); Urine Color Colorless (Yellow); Urobilinogen Urine Norm (Negative); pH Urine 7 (5-7)
[2023-05-29 17:00] VITALS: BP 127/65; PULSE 62; RESP 18; TEMP 36.7; O2SAT 100
== END 2023-05-29 17:07 | disposition home or self-care (01) ==
PROVIDERS: Emergency Provider Family Medicine; PCP Family Medicine
DX: G25.81 Restless legs syndrome (principal); Z79.82 Long term (current) use of aspirin; F03.90 Unspecified dementia, unspecified severity, without behavioral disturbance, psychotic disturbance, mood disturbance, and anxiety; E11.9 Type 2 diabetes mellitus without complications
CPT/HCPCS: 36415; 80053; 81003; 85025; 93005; 99284

== ENCOUNTER 2023-06-10 16:27 | Outpatient (CLI) | payer MEDICARE, OTHER, SELFPAY ==
[2023-06-10 16:42] LABS: Add Urine Microscopic? NO; Charge for UA Resulting for Rev
[2023-06-10 17:46] LABS: Bilirubin Urine Neg (Negative); Blood Urine Neg (Negative); Glucose Urine UA 2+ (Normal); Ketones Urine Negative (Negative); Leukocyte Esterase Urine Negative (Negative); Nitrate Urine Negative (Negative); Protein Urine Neg (Negative); Urine Appearance Clear (CLEAR); Urine Color Yellow (Yellow); Urobilinogen Urine Norm (Negative); pH Urine 5 (5-7)
== END 2023-06-10 16:28 | disposition home or self-care (01) ==
LOC: LAB 16:32
PROVIDERS: PCP Family Medicine; Visit Provider Family Medicine
DX: N39.0 Urinary tract infection, site not specified (principal)
CPT/HCPCS: 81003; 87086

== ENCOUNTER 2023-07-05 08:47 | Emergency (ER) | payer MEDICARE, SELFPAY ==
[2023-07-05 08:51] VITALS: BP 120/67; PULSE 53; TEMP 35.8; O2SAT 100
--- NOTE | 2023-07-05 08:54 | ED_ITS ---
HPI - General Adult 2 General: Chief complaint: Altered Mental Status Stated complaint: AMS Time Seen by Provider: 07/05/23 08:51 Source: EMS Mode of arrival: EMS History of Present Illness: 73-year-old female with known history of dementia presents emergency room via EMS. She is diabetic initial blood sugar per EMS report was 140s. alf staff reported she was at her normal baseline then when they went to check her 2 hours later she was poorly responsive seem more confused than her baseline. No localizing symptoms. She does follow simple commands. Onset (ago): hour(s) Relieving factors: none Exacerbating factors: none Treatments prior to arrival: none Review of Systems 2 General: Reports: ROS unobtainable due to medical condition and ROS unobtainable due to mental status PFSH ED 2 PFSH: Medical History Frail elderly Sclerodactyly Scleroderma, limited Urgency incontinence Chronic cystitis History of pyelonephritis Feeling of incomplete bladder emptying Dementia Squamous cell carcinoma of skin of chest Diabetes mellitus CREST syndrome Surgical History History of hysteroscopy (10/18/12) With D&C. Negative evaluation. Dx: Postmenopausal bleeding. [place] [facility] [place] History of hand surgery (~2012) Ruptured tendons of right hand History of tubal ligation (~1975) Family History Grandmother Diabetes Paternal CAD (coronary artery disease) Maternal Grandfather Diabetes Maternal CAD (coronary artery disease) Maternal Family/Other Stroke Maternal aunt Brother Hyperlipidemia Mother , at age 92 CAD (coronary artery disease) Father , at age 54 Alcoholic Social History Smoking and tobacco/nicotine status: never used tobacco/nicotine Alcohol intake: never Substance/Drug Use: never Marital status: / Current occupational status: retired Physical Exam 2 Const: GENERAL APPEARANCE: lethargic ORIENTATION/CONSCIOUSNESS: Yes lethargic HENMT: COMMON NORMALS: normocephalic, atraumatic and hearing grossly normal bilaterally HEAD & SCALP: normocephalic and atraumatic Resp: COMMON NORMALS: normal respiratory effort, No retractions, No use of accessory muscles and clear to auscultation bilaterally AUSCULTATION: clear to auscultation bilaterally Cardio: COMMON NORMALS: regular rhythm and No murmurs present (Cardio) R ATE: bradycardic RHYTHM: regular rhythm GI: COMMON NORMALS: Soft to palpation and No hepatosplenomegaly present A USCULTATION: Yes normoactive bowel sounds PALPATION: Yes Soft to palpation, No Tenderness to palpation present (GI), No Guarding due to palpation present (GI) and Yes No hepatosplenomegaly present Extremity: COMMON NORMALS: normal to inspection, capillary refill normal, no clubbing, cyanosis or edema, no calf tenderness and no pedal edema Neuro: SENSORIUM/ORIENTATION: Yes lethargic OTHER: No focal neurologic deficits. She moves all extremities equally has no facial asymmetry follows simple commands but does not verbalize any responses Skin: COMMON NORMALS: no rashes or lesions noted GENERAL SKIN EXAM: no rashes or lesions noted Course 2 Vital Signs: Vital signs: Vital Signs Temperature 96.5 F L 07/05/23 08:51 Pulse Rate 58 L 07/05/23 14:30 Respiratory Rate 20 H 07/05/23 14:30 Blood Pressure 124/64 07/05/23 14:30 Pulse Oximetry 100 07/05/23 14:30 Oxygen Delivery Me thod Room Air 07/05/23 14:30 MDM - General Adult Medical Decision Making Female said no further symptoms she is more awake and alert she answers some questions she is aware she is at the hospital. Labs and imaging reviewed no acute EKG changes troponins negative. Will discharge patient home continue same medications Medical Records I reviewed the patient's medical records. Lab Data I reviewed the patient's lab results. 07/05/23 08:25 07/05/23 10:02 Radiology Impressions Chest X-Ray 07/05/23 09:58 IMPRESSION: No acute findings. Laboratory Results WBC 6.42 10^3/uL (3.29-11.43) 07/05/23 08:25 RBC 4.94 10^6/uL (3.85-5.65) 07/05/23 08:25 Hgb 14.60 g/dL (11.27-16.99) 07/05/23 08:25 Hct 43.5 % (36-47) 07/05/23 08: MCV 88.1 fl (85-98) 07/05/23 08: MCH 29.6 pg (27-33) 07/05/23 08: MCHC 33.6 g/dL (30-55) 07/05/23 08:25 RDW 15.5 % (12.1-15.1) H 07/05/23 08:25 Plt Count 237 10^3/cmm (157-399) 07/05/23 08:25 MPV 9.2 fL (7.4-10.4) 07/05/23 08: Neut % (Auto) 58.6 % 07/05/23 08: Lymph % (Auto) 24.1 % 07/05/23 08: [place] % (Auto) 13.9 % 07/05/23 08: Eos % (Auto) 2.3 % 07/05/23 08: Baso % (Auto) 0.8 % 07/05/23 08: Neut # (Auto) 3.76 10^3/uL (1.8-7.7) 07/05/23 08: Lymph # (Auto) 1.6 10^3/uL (0.8-4.8) 07/05/23 08:25 [place] # (Auto) 0.9 10^3/uL (0.2-0.9) 07/05/23 08:25 Eos # (Auto) 0.2 10^3/uL (0.0-0.8) 07/05/23 08: Baso # (Auto) 0.1 10^3/uL (0.0-0.1) 07/05/23 08: Nucleated RBC % (auto) 0 % 07/05/23 08: Nucleated RBCs # 0.0 /100WBC 07/05/23 08:25 Specimen Type Arterial 07/05/23 09:20 Sample Site Radial, left 07/05/23 09:20 ABG pH 7.41 (7.35-7.45) 07/05/23 09:20 ABG pCO2 43.0 mmHg (35-45) 07/05/23 09:20 ABG pO2 90.0 mmHg (80.0-100.0) 07/05/23 09:20 ABG PO2/FiO2 Ratio 0 07/05/23 09:20 ABG HCO3 27.2 mmol/L (22-26) H 07/05/23 09:20 ABG O2 Saturation 97.8 07/05/23 09:20 ABG Base Excess 2.2 mmol/L (-2.0-2.0) H 07/05/23 09:20 Jareth Test Pos 07/05/23 09:20 A-a O2 Gradient 0.7 mmHg (5-10) L 07/05/23 09:20 Hematocrit 41.4 % (37-47) 07/05/23 09:20 Hgb O2 Saturation 96.0 % (95-100) 07/05/23 09:20 Carboxyhemoglobin 0.9 %THgb (0.4-20.1) 07/05/23 09:20 Methemoglobin 1.0 % (0.4-1.5) 07/05/23 09:20 Total Hemoglobin 13.5 g/dL (12-16) 07/05/23 09:20 Sodium 133.0 mmol/L (131-143) 07/05/23 09:20 Potassium 4.0 mmol/L (3.5-5.0) 07/05/23 09:20 Glucose 125.0 mg/dL (70-115) H 07/05/23 09:20 Ionized Calcium 1.2 mmol/L (1.1-1.4) 07/05/23 09:20 O2 Delivery Device Room air 07/05/23 09:20 FiO2 21.0 % 07/05/23 09:20 Director Energy ID [place] 07/05/23 09:20 Sodium 133 mmol/L (136-145) L 07/05/23 10:02 Potassium 4.4 mmol/L (3.5-5.1) 07/05/23 10:02 Chloride 96 mmol/L (98-107) L 07/05/23 10:02 Carbon Dioxide 27 mmol/L (22-29) 07/05/23 10:02 Anion Gap 14.4 (5-19) 07/05/23 10:02 BUN 7 mg/dL (8-23) L 07/05/23 10:02 Creatinine 0.5 mg/dL (0.5-0.9) 07/05/23 10:02 GFR Calculation Not Reportable 07/05/23 10:02 Glucose 138 mg/dL (65-115) H 07/05/23 10:02 Calculated Osmolality 276 mOsm/kg (285-295) L 07/05/23 10:02 Lactic Acid 0.9 mmol/L (0.5-2.2) 07/05/23 10:02 Calcium 9.5 mg/dL (8.5-10.5) 07/05/23 10:02 Total Bilirubin 0.4 mg/dL (0.15-1.2) 07/05/23 10:02 AST 29 U/L (0-32) 07/05/23 10:02 ALT 27 U/L (0-33) 07/05/23 10:02 Alkaline Phosphatase 95 U/L (35-105) 07/05/23 10:02 Troponin T Baseline 18 ng/L (0-10) H 07/05/23 10:02 Troponin T 120 Minute 16.54 ng/L (0-10) H 07/05/23 12:56 Delta Troponin T -1.46 ABS# (0-10) L 07/05/23 12:56 Total Protein 7.2 g/dL (6.6-8.7) 07/05/23 10:02 Albumin 4.4 g/dL (3.5-5.2) 07/05/23 10:02 Globulin 2.8 g/dL (1.3-4.6) 07/05/23 10:02 Urine Color Light yellow (Yellow) 07/05/23 09:18 Urine Appearance Clear (CLEAR) 07/05/23 09:18 Urine pH 7 (5-7) 07/05/23 09:18 Ur Specific [place] 1.015 (1.005-1.030) 07/05/23 09:18 Urine Protein Neg (Negative) 07/05/23 09:18 Urine Glucose (UA) Trace (Normal) H 07/05/23 09:18 Urine Ketones Negative (Negative) 07/05/23 09:18 Urine Blood Neg (Negative) 07/05/23 09:18 Urine Nitrate Negative (Negative) 07/05/23 09:18 Urine Bilirubin Neg (Negative) 07/05/23 09:18 Urine Urobilinogen Neg mg/dL (Negative) 07/05/23 09:18 Ur Leukocyte Esterase Negative (Negative) 07/05/23 09:18 Serum Ketones Negative (Negative) 07/05/23 10:02 All radiology interpretation(s) finalized by discharge Discharge Plan Discharge Patient Disposition: Home Clinical Impression: Dementia Qualifiers: Dementia type: Alzheimer's Alzheimer's disease onset: early onset Dementia severity: mild Dementia behavioral or psychological symptom: with psychotic disturbance Qualified Code(s): G30.0 - Alzheimer's disease with early onset Diabetes mellitus Qualifiers: Diabetes mellitus type: type 2 Diabetes mellitus halfway insulin use: without termination clerk use Diabetes mellitus complication status: without complication Q ualified Code(s): E11.9 - Type 2 diabetes mellitus without complications Condition: Stable Prescriptions: No Action pantoprazole 40 mg tablet,delayed release (DR/EC) 40 mg PO DAILY@08 hydroxychloroquine 200 mg tablet 400 mg PO DAILY@08 Hold Instructions: Resume on 08/23/20. resume after ciprofloxacin has finished donepezil 10 mg tablet 10 mg PO BEDTIME@20 [place] [place] Diabetic shoes See Rx Instructions .ROUTE .MEDSUPPLY Qty: 1 0RF Rx Instructions: With 3 pairs of inserts by the shoe mckenzie methenamine hippurate 1 gram tablet 1 g PO BID Qty: 60 12RF Rx Instructions: Take 1000 mg of vitamin C fluticasone propionate 50 mcg/actuation spray,suspension 1 - 2 spray intranasal DAILY@08 Rx Instructions: administer into each nostril ([facility] [place] Diabetic shoe with 3 pairs of insterts See Rx Instructions .Route .MEDSUPPLY Qty: 1 0RF Rx Instructions: As directed by HOME ([facility] [place]) FreeStyle Terry 2 Sensor Kit See Rx Instructions .ROUTE .COMPLEX Qty: 1 10RF Dose Instruction: USE DIRECTED BY FREESTYLE TERRY TWO SENSOR INSTRUCTIONS. Rx Instructions: USE DIRECTED BY FREESTYLE TERRY TWO SENSOR INSTRUCTIONS. folic acid 1 mg Tablet 3 mg PO DAILY@08 montelukast 10 mg Tablet 10 mg PO DAILY@16 PRN (Reason: unknown) memantine 10 mg Tablet 10 mg PO BID ketoconazole 2 % shampoo See Rx Instructions .ROUTE .COMPLEX Rx Instructions: topically on scalp and allow to sit for 5 minutes before rinsing use two to three times weekly as directed lorazepam 0.5 mg Tablet 0.25 mg PO BID PRN (Reason: Anxiety) nystatin 100,000 unit/gram cream 1 applic TOPICAL BEDTIME Rx Instructions: apply to affected area around the ears mirtazapine 7.5 mg Tablet 7.5 mg PO BEDTIME Systane (PF) 0.4-0.3 % Dropperette 1 drp ophthalmic (eye) QID Rx Instructions: both eyes Seroquel 25 mg tablet 25 mg PO BEDTIME cevimeline 30 mg capsule 30 mg PO BID@08,20 ascorbic acid (vitamin C) 1,000 mg tablet 1,000 mg PO DAILY@08 acetaminophen 325 mg tablet 650 mg PO Q6H PRN (Reason: pain) Systane Balance 0.6 % Drops 1 drp OPHTHALMIC (EYE) DAILY@08 Rx Instructions: both eyes atorvastatin [Lipitor] 40 mg Tablet 40 mg PO BEDTIME@20 aspirin [Aspir-81] 81 mg Tablet,Delayed Release (Dr/Ec) 81 mg PO DAILY@08 nitroglycerin [Nitrostat] 0.4 mg Tablet, Sublingual 0.4 mg SUBLINGUAL Q5M PRN (Reason: Chest Pain) Rx Instructions: do not exceed 3 doses per episode citalopram 20 mg tablet 20 mg PO DAILY@08 Discharge Orders: Discharge ED (Routine); Ordered 07/05/23 Ordered By: Justin Eaton Referrals: [facility], [Primary Care Provider] - Discharge Diet: Usual diet Discharge Activity: Increase activity as tolerated Patient Instructions: Altered Mental Status (ED), Opioid Safety, Pain Management Activity Restrictions/Additional Instructions: Thank you for choosing [facility] for your healthcare needs today. Please realize this is an emergency room and that we are providing you with a medical screening exam and this may not be complete and all inclusive of all the testing and or work up that you may need to determine your ailment or severity of your illness. It is very important that you follow up as instructed or that you return to the Emergency Department should you have concerns or if your condition changes or worsens in any way. Laboratory tests and EKGs did not show any acute emergent problem at this time continue your current medications. Coding Level of Care Code ED Porcelain Enameler for William Tong
--- NOTE | 2023-07-05 09:04 | ECG_ITS ---
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 Measurements Intervals [place] Rate: 51 P: 85 DC: 172 QRS: 78 QRSD: 98 T: 77 QT: 479 QTc: 443 Interpretive Statements SINUS BRADYCARDIA NONSPECIFIC ST ELEVATION [0.05+ mV ST ELEVATION] Compared to ECG 05/29/2023 14:11:17 ST (T wave) deviation now present T-wave abnormality no longer present Electronically Signed On 07-05-2023 13:12:54 CDT by Herman Sprague M.D. [id number]
--- NOTE | 2023-07-05 09:08 | PC.PHAR ---
pt is from [facility] [phone]-maryann burns from [facility] states pt had no medications today-meds entered are from the [facility] that was sent with the pt
[2023-07-05 09:09] VITALS: BP 99/77; PULSE 53; RESP 16; O2SAT 99
[2023-07-05 09:16] LABS: Basophils # 0.1 10^3/uL (0.0-0.1); Basophils % 0.8 %; Eosinophils # 0.2 10^3/uL (0.0-0.8); Eosinophils % 2.3 %; Hematocrit 43.5 % (36-47); Lymphocytes # 1.6 10^3/uL (0.8-4.8); Lymphocytes % 24.1 %; Mean Corpuscular HGB Conc 33.6 g/dL (30-55); Mean Corpuscular Hemoglobin 29.6 pg (27-33); Mean Corpuscular Volume 88.1 fl (85-98); Mean Platelet Volume 9.2 fL (7.4-10.4); Monocytes # 0.9 10^3/uL (0.2-0.9); Monocytes % 13.9 %; Neutrophils # 3.76 10^3/uL (1.8-7.7); Neutrophils % 58.6 %; Nucleated Red Blood Cells % 0 %; Platelet Count 237 10^3/cmm (157-399); Red Blood Count 4.94 10^6/uL (3.85-5.65); Red Cell Distribution Width 15.5 % (12.1-15.1); White Blood Count 6.42 10^3/uL (3.29-11.43)
--- NOTE | 2023-07-05 09:16 | CT_ITS ---
WS: [id number] CT HEAD NONCONTRAST HISTORY: AMS TECHNIQUE: Contiguous axial imaging performed through the brain in 2.5 mm imaging. Bone and soft tiss ue windows. Sagittal and coronal reformats reviewed. All CT scans at [facility] use at least one of these dose optimization techniques: automated exposure control; mA and/or kV adjustment per pa tient size (includes targeted exams where dose is matched to clinical indication); or iterative recon struction. DLP: 2030.58 mGy.cm COMPARISON: 01/15/2023 No acute intracranial hemorrhage, midline shift or mass effect. Mild atrophy. Moderate small vessel ischemic changes. Ventricles: Ventricles are diffusely prominent. Slightly more prominent than expected for the amount of atrophy. Consider normal pressure hydrocephalus. No inferior displacement of the cerebellar tonsils. Paranasal sinuses: As visualized are clear. Mastoid air cells: Well pneumatized. Calvarium and scalp: Skull is intact with no soft tissue edema or swelling. IMPRESSION: 1. No acute intracranial hemorrhage or edema. 2. Mild atrophy and moderate small vessel ischemic disease. 3. Mild diffuse ventriculomegaly. Consider normal pressure hydrocephalus.
[2023-07-05 09:31] LABS: ABG PH Result 7.41 (7.35-7.45); Alveolar-Arterial Oxygen Gradi 0.7 mmHg (5-10); Arterial Blood Gas Hematocrit 41.4 % (37-47); Base Excess ABG 2.2 mmol/L (-2.0-2.0); Blood Gas Allen Test Pos; Blood Gas Operator Identificat WALCI; Blood Gas Sample Site Radial, left; Blood Gas Sample Type Arterial; Carboxyhemoglobin 0.9 %THgb (0.4-20.1); HCO3 ABG 27.2 mmol/L (22-26); Ionized Calcium Level - ABG 1.2 mmol/L (1.1-1.4); Oxygen Device ROOM AIR; Oxygen Saturation ABG 97.8; PO2 FiO2 Ratio Arterial Blood 0; Total Hemoglobin 13.5 g/dL (12-16)
[2023-07-05 09:35] LABS: Add Urine Microscopic? NO; Charge for UA Resulting for Rev
[2023-07-05 09:42] LABS: Bilirubin Urine Neg (Negative); Blood Urine Neg (Negative); Glucose Urine UA Trace (Normal); Ketones Urine Negative (Negative); Leukocyte Esterase Urine Negative (Negative); Nitrate Urine Negative (Negative); Protein Urine Neg (Negative); Specific Gravity, Urine 1.015 (1.005-1.030); Urine Appearance Clear (CLEAR); Urine Color Light yellow (Yellow); Urobilinogen Urine Neg (Negative); pH Urine 7 (5-7)
--- NOTE | 2023-07-05 09:58 | XRR_ITS ---
PROCEDURE INFORMATION: Exam: XR Chest Exam date and time: 07/05/2023 10:02 AM Age: 73 years old Clinical indication: Cough and dyspnea; Additional info: Dyspnea/cough TECHNIQUE: Imaging protocol: Radiologic exam of the chest. Views: 1 view. COMPARISON: CR XR chest 1V portable [id number] 01/15/2023 10:18 AM FINDINGS: Lungs: Lungs appear hyperinflated but free of acute disease. Pleural spaces: Unremarkable. No pleural effusion. No pneumothorax. Heart/Mediastinum: Unremarkable. No cardiomegaly. Bones/joints: Unremarkable. XR/XR chest 1V portable [id number] IMPRESSION: No acute findings.
[2023-07-05 10:20] LABS: Ketone (Acetest) Serum Negative (Negative)
[2023-07-05 10:28] LABS: Lactic Sepsis W/Reflex 0.9 mmol/L (0.5-2.2)
[2023-07-05 10:29] LABS: Troponin(5th) Baseline 18 ng/L (0-10)
[2023-07-05 10:32] LABS: Alanine Aminotransferase 27 U/L (0-33); Albumin Level 4.4 g/dL (3.5-5.2); Alkaline Phosphatase 95 U/L (35-105); Anion Gap 14.4 (5-19); Aspartate Amino Transferase 29 U/L (0-32); Blood Urea Nitrogen 7 mg/dL (8-23); Calcium 9.5 mg/dL (8.5-10.5); Carbon Dioxide 27 mmol/L (22-29); Chloride 96 mmol/L (98-107); Globulin 2.8 g/dL (1.3-4.6); Glucose 138 mg/dL (65-115); Osmolality Calculated 276 mOsm/kg (285-295); Potassium 4.4 mmol/L (3.5-5.1); Sodium 133 mmol/L (136-145); Total Bilirubin 0.4 mg/dL (0.15-1.2); Total Protein 7.2 g/dL (6.6-8.7)
--- NOTE | 2023-07-05 10:53 | ECG_ITS ---
[facility] Test Date: 2023-07-05 Pat Name: Nereyda Caceres Department: Room: Gender: Female Rate Setter: : 1950 Requested By: Justin Marcus Order Number: [id number] John MD: Herman Sprague M.D. Measurements Intervals [place] Rate: 56 P: 84 RI: 172 QRS: 80 QRSD: 88 T: 91 QT: 421 QTc: 408 Interpretive Statements SINUS BRADYCARDIA ST ELEVATION, PROBABLY EARLY REPOLARIZATION [ST ELEVATION WITH NORMALLY INFLECTED T-WAVE] MODERATE ST DEPRESSION [0.05+ mV ST DEPRESSION] Compared to ECG 07/05/2023 09:04:11 Early repolarization now present ST (T wave) deviation still present Electronically Signed On 07-05-2023 13:19:45 CDT by Herman Sprague M.D. [id number]
[2023-07-05 11:59] VITALS: BP 124/57; PULSE 51; RESP 25; O2SAT 100
[2023-07-05 12:00] VITALS: BP 191/113; PULSE 103; RESP 20; O2SAT 98
[2023-07-05 13:00] VITALS: BP 105/66; PULSE 52; RESP 13
[2023-07-05 13:29] LABS: Troponin 5 2HR 16.54 ng/L (0-10); Troponin 5 2HR Delta -1.46 ABS# (0-10)
[2023-07-05 14:30] VITALS: BP 124/64; PULSE 58; RESP 20; O2SAT 100
== END 2023-07-05 15:38 | disposition home or self-care (01) ==
PROVIDERS: Emergency Provider Family Medicine; PCP Family Medicine
DX: G30.0 Alzheimer's disease with early onset (principal); E11.9 Type 2 diabetes mellitus without complications; Z79.82 Long term (current) use of aspirin
CPT/HCPCS: 36415; 36600; 70450; 71045; 80051; 80053; 81003; 82009; 82330; 82805; 83605; 84484; 85025; 93005; 99285

== ENCOUNTER 2023-08-29 19:09 | Outpatient (CLI) | payer MEDICARE, OTHER, SELFPAY ==
[2023-08-29 19:38] LABS: Add Urine Microscopic? YES; Bilirubin Urine Neg (Negative); Blood Urine Neg (Negative); Glucose Urine UA 4+ (Normal); Ketones Urine 1+ (Negative); Leukocyte Esterase Urine Negative (Negative); Nitrate Urine Negative (Negative); Protein Urine Trace (Negative); Urine Appearance Clear (CLEAR); Urine Color Yellow (Yellow); Urobilinogen Urine Neg (Negative); pH Urine 5 (5-7)
[2023-08-29 19:39] LABS: Amorphous Sediment Urine TRACE /hpf; Bacteria Urine TRACE /hpf; Mucus Urine TRACE /hpf; RBC Urine 0-4 /hpf (0-2); Squamous Epithelial Cell Urine 0-4 /hpf (0-5); WBC Urine 0-4 /hpf (0-5)
== END 2023-08-29 19:10 | disposition home or self-care (01) ==
PROVIDERS: PCP Family Medicine; Visit Provider Family Medicine
DX: N30.20 Other chronic cystitis without hematuria (principal)
CPT/HCPCS: 81001; 87086

== ENCOUNTER 2023-08-31 17:30 | Emergency (ER) | payer MEDICARE, OTHER, SELFPAY ==
[2023-08-31 17:31] VITALS: BP 131/67; PULSE 81; RESP 16; TEMP 36.6; O2SAT 94; BMI 18.8
--- NOTE | 2023-08-31 17:35 | CTR_ITS ---
PROCEDURE INFORMATION: Exam: CT Head Without Contrast Exam date and time: 08/31/2023 6:02 PM Age: 73 years old Clinical indication: Altered mental status/memory loss; Patient HX: PT coming from [place]. Patient presents with AMS. EMS reports patient has been trying to escape. Patient alert and orient to self. TECHNIQUE: Imaging protocol: Computed tomography of the head without contrast. Radiation optimization: All CT scans at this facility use at least one of these dose optimization techniques: automated exposure control; mA and/or kV adjustment per patient size (includes targeted exams where dose is matched to clinical indication); or iterative reconstruction. COMPARISON: CT head wo con* [id number] 07/05/2023 9:39 AM RADIATION DOSE METRICS: Total DLP (mGy-cm): 1035 FINDINGS: Brain: No hemorrhage. No edema. Advanced diffuse cerebral atrophy and mild sequela of chronic small vessel ischemic disease. No mass effect. Cerebral ventricles: No ventriculomegaly. Paranasal sinuses: Visualized sinuses are unremarkable. No fluid levels. Mastoid air cells: Visualized mastoid air cells are well aerated. Bones: Unremarkable. No acute fracture. Soft tissues: Unremarkable. CT/CT head wo con* [id number] IMPRESSION: No acute intracranial abnormality.
--- NOTE | 2023-08-31 17:35 | XRR_ITS ---
PROCEDURE INFORMATION: Exam: XR Chest Exam date and time: 08/31/2023 5:55 PM Age: 73 years old Clinical indication: Other: AMS TECHNIQUE: Imaging protocol: Radiologic exam of the chest. Views: 1 view. COMPARISON: CR XR chest 1V portable [id number] 07/05/2023 10:02 AM FINDINGS: Lungs: Unremarkable. No consolidation. Pleural spaces: Unremarkable. No pleural effusion. No pneumothorax. Heart/Mediastinum: Unremarkable. No cardiomegaly. Bones/joints: Unremarkable. XR/XR chest 1V portable [id number] IMPRESSION: No acute findings.
--- NOTE | 2023-08-31 17:37 | W.ED.AMS ---
HPI - Altered Mental Status General: Chief Complaint: Altered Mental Status Stated Complaint: AMS Time Seen by Provider: 08/31/23 17:32 Source: EMS Mode of arrival: EMS Limitations: altered mental status History of Present Illness: 73-year-old female with a history of dementia she is here from assisted living states she had been a little more confused and was trying to leave the assisted living. Patient here is pleasant she answers my questions she is able to tell me her name she does not know the year or where she lives which I believe is her baseline she has no pain complaints Review of Systems General: Reports: ROS unobtainable due to mental status PFS ED PFSH: Medical History Frail elderly Sclerodactyly Scleroderma, limited Urgency incontinence Chronic cystitis History of pyelonephritis Feeling of incomplete bladder emptying Dementia Squamous cell carcinoma of skin of chest Diabetes mellitus CREST syndrome Surgical History History of hysteroscopy (10/18/12) With D&C. Negative evaluation. Dx: Postmenopausal bleeding. Performed by Dr. Daugherty at [facility]. History of hand surgery (~2012) Ruptured tendons of right hand History of tubal ligation (~1975) Family History Grandmother Diabetes Paternal CAD (coronary artery disease) Maternal Grandfather Diabetes Maternal CAD (coronary artery disease) Maternal Family/Other Stroke Maternal aunt Brother Hyperlipidemia Mother , at age 92 CAD (coronary artery disease) Father , at age 54 Alcoholic Social History Smoking and tobacco/nicotine status: never used tobacco/nicotine Alcohol intake: never Substance/Drug Use: never Marital status: / Current occupational status: retired Physical Exam Const: COMMON NORMALS: alert; negative for patient oriented x3 EXAM LIMITATIONS: altered mental status ORIENTATION/CONSCIOUSNESS: Yes oriented to person; not oriented to place and not oriented to time HENMT: COMMON NORMALS: normocephalic and atraumatic HEAD & SCALP: normocephalic and atraumatic Eye: COMMON NORMALS: Equal, round and reactive pupils present and EOMs intact bilaterally PUPIL: Yes Equal, round and reactive pupils present Neck/C-Spine: COMMON NORMALS: full ROM and supple Chest: COMMONS NORMALS: normal inspection of the chest and normal palpation of entire chest wall Resp: COMMON NORMALS: normal respiratory effort, No retractions, No use of accessory muscles and clear to auscultation bilaterally AUSCULTATION: clear to auscultation bilaterally Cardio: COMMON NORMALS: regular rate, regular rhythm and No murmurs present (Cardio) RATE: regular rate RHYTHM: regular rhythm GI: COMMON NORMALS: Normal to inspection, nondistended, normoactive bowel sounds present, Soft to palpation, non-tender and no masses PALPATION: Yes Soft to palpation Extremity: COMMON NORMALS: normal to inspection and full ROM Neuro: COMMON NORMALS: moves all extremities and no focal motor deficits; negative for patient oriented x3 SENSORIUM/ORIENTATION: Yes alert, Yes oriented to person, No oriented to place and No oriented to time Psych: COMMON NORMALS: Normal thought process present and cooperative THOUGHT PROCESS: Normal thought process present Skin: COMMON NORMALS: no rashes or lesions noted and no wounds GENERAL SKIN EXAM: no rashes or lesions noted Course Vital Signs: Vital signs: Vital Signs Temperature 98 F 08/31/23 17:31 Pulse Rate 74 08/31/23 18:54 Respiratory Rate 19 H 08/31/23 18:54 Blood Pressure 154/84 08/31/23 18:54 Pulse Oximetry 92 08/31/23 18:25 Oxygen Delivery Me thod Room Air 08/31/23 18:25 MDM - Altered Mental Status Medical Decision Making Patient presents here with altered mental status. Patient has dementia and appears to be at her baseline here she has been cooperative here imaging blood works all normal no signs of infection she stable for discharge back to [facility] Medical Records I reviewed the patient's medical records. Lab Data I reviewed the patient's lab results. 08/31/23 17:45 08/31/23 17:45 Radiology Impressions Chest X-Ray 08/31/23 17:35 IMPRESSION: No acute findings. Head CT 08/31/23 17:35 IMPRESSION: No acute intracranial abnormality. Laboratory Results WBC 7.12 10^3/uL (3.29-11.43) 08/31/23 17:45 RBC 4.18 10^6/uL (3.85-5.65) 08/31/23 17:45 Hgb 11.90 g/dL (11.27-16.99) 08/31/23 17:45 Hct 36.6 % (36-47) 08/31/23 17:45 MCV 87.6 fl (85-98) 08/31/23 17:45 MCH 28.5 pg (27-33) 08/31/23 17:45 MCHC 32.5 g/dL (30-55) 08/31/23 17:45 RDW 14.6 % (12.1-15.1) 08/31/23 17:45 Plt Count 205 10^3/cmm (157-399) 08/31/23 17:45 MPV 10.2 fL (7.4-10.4) 08/31/23 17:45 Neut % (Auto) 57.8 % 08/31/23 17:45 Lymph % (Auto) 21.2 % 08/31/23 17:45 [place] % (Auto) 17.0 % 08/31/23 17:45 Eos % (Auto) 2.9 % 08/31/23 17:45 Baso % (Auto) 0.8 % 08/31/23 17:45 Neut # (Auto) 4.11 10^3/uL (1.8-7.7) 08/31/23 17:45 Lymph # (Auto) 1.5 10^3/uL (0.8-4.8) 08/31/23 17:45 [place] # (Auto) 1.2 10^3/uL (0.2-0.9) H 08/31/23 17:45 Eos # (Auto) 0.2 10^3/uL (0.0-0.8) 08/31/23 17:45 Baso # (Auto) 0.1 10^3/uL (0.0-0.1) 08/31/23 17:45 Nucleated RBC % (auto) 0 % 08/31/23 17:45 Nucleated RBCs # 0.0 /100WBC 08/31/23 17:45 Sodium 129 mmol/L (136-145) L 08/31/23 17:45 Potassium 4.1 mmol/L (3.5-5.1) 08/31/23 17:45 Chloride 94 mmol/L (98-107) L 08/31/23 17:45 Carbon Dioxide 26 mmol/L (22-29) 08/31/23 17:45 Anion Gap 13.1 (5-19) 08/31/23 17:45 BUN 13 mg/dL (8-23) 08/31/23 17:45 Creatinine 0.6 mg/dL (0.5-0.9) 08/31/23 17:45 GFR Calculation Not Reportable 08/31/23 17:45 Glucose 160 mg/dL (65-115) H 08/31/23 17:45 Calculated Osmolality 272 mOsm/kg (285-295) L 08/31/23 17:45 Calcium 8.6 mg/dL (8.5-10.5) 08/31/23 17:45 Total Bilirubin 0.2 mg/dL (0.15-1.2) 08/31/23 17:45 AST 27 U/L (0-32) 08/31/23 17:45 ALT 22 U/L (0-33) 08/31/23 17:45 Alkaline Phosphatase 86 U/L (35-105) 08/31/23 17:45 Total Protein 6.5 g/dL (6.6-8.7) L 08/31/23 17:45 Albumin 3.7 g/dL (3.5-5.2) 08/31/23 17:45 Globulin 2.8 g/dL (1.3-4.6) 08/31/23 17:45 Urine Color Yellow (Yellow) 08/31/23 18:22 Urine Appearance Clear (CLEAR) 08/31/23 18:22 Urine pH 5 (5-7) 08/31/23 18:22 Ur Specific [place] 1.010 (1.005-1.030) 08/31/23 18:22 Urine Protein Neg (Negative) 08/31/23 18:22 Urine Glucose (UA) 1+ (Normal) H 08/31/23 18:22 Urine Ketones Negative (Negative) 08/31/23 18:22 Urine Blood Neg (Negative) 08/31/23 18:22 Urine Nitrate Negative (Negative) 08/31/23 18:22 Urine Bilirubin Neg (Negative) 08/31/23 18:22 Urine Urobilinogen Norm mg/dL (Negative) 08/31/23 18:22 Ur Leukocyte Esterase Negative (Negative) 08/31/23 18:22 All radiology interpretation(s) finalized by discharge EKG Data EKG 1: I personally reviewed and interpreted this EKG as follows: EKG interpretation date: 08/31/23 EKG interpretation time: 17:44 Interpretation: nsr hr [address] elevation qrs 99 qtc 428 Discharge Plan Discharge Patient Disposition: Home Clinical Impression: Altered mental status Dementia Qualifiers: Dementia type: Alzheimer's Alzheimer's disease onset: early onset Dementia severity: mild Dementia behavioral or psychological symptom: with psychotic disturbance Qualified Code(s): G30.0 - Alzheimer's disease with early onset Condition: Stable Prescriptions: No Action pantoprazole 40 mg tablet,delayed release (DR/EC) 40 mg PO DAILY@08 hydroxychloroquine 200 mg tablet 400 mg PO DAILY@08 Hold Instructions: Resume on 08/23/20. resume after ciprofloxacin has finished donepezil 10 mg tablet 10 mg PO BEDTIME@20 ([facility] [place]) Diabetic shoes See Rx Instructions .ROUTE .MEDSUPPLY Qty: 1 0RF Rx Instructions: With 3 pairs of inserts by the shoe mckenzie methenamine hippurate 1 gram tablet 1 g PO BID Qty: 60 12RF Rx Instructions: Take 1000 mg of vitamin C fluticasone propionate 50 mcg/actuation spray,suspension 1 - 2 spray intranasal DAILY@08 Rx Instructions: administer into each nostril ([facility] [place]) Diabetic shoe with 3 pairs of insterts See Rx Instructions .Route .MEDSUPPLY Qty: 1 0RF Rx Instructions: As directed by HOME ([facility]) FreeStyle Terry 2 Sensor Kit See Rx Instructions .ROUTE .COMPLEX Qty: 1 10RF Dose Instruction: USE DIRECTED BY FREESTYLE TERRY TWO SENSOR INSTRUCTIONS. Rx Instructions: USE DIRECTED BY FREESTYLE TERRY TWO SENSOR INSTRUCTIONS. folic acid 1 mg Tablet 3 mg PO DAILY@08 montelukast 10 mg Tablet 10 mg PO DAILY@16 PRN (Reason: unknown) memantine 10 mg Tablet 10 mg PO BID ketoconazole 2 % shampoo See Rx Instructions .ROUTE .COMPLEX Rx Instructions: topically on scalp and allow to sit for 5 minutes before rinsing use two to three times weekly as directed lorazepam 0.5 mg Tablet 0.25 mg PO BID PRN (Reason: Anxiety) nystatin 100,000 unit/gram cream 1 applic TOPICAL BEDTIME Rx Instructions: apply to affected area around the ears mirtazapine 7.5 mg Tablet 7.5 mg PO BEDTIME Systane (PF) 0.4-0.3 % Dropperette 1 drp ophthalmic (eye) QID Rx Instructions: both eyes Seroquel 25 mg tablet 25 mg PO BEDTIME cevimeline 30 mg capsule 30 mg PO BID@08,20 ascorbic acid (vitamin C) 1,000 mg tablet 1,000 mg PO DAILY@08 acetaminophen 325 mg tablet 650 mg PO Q6H PRN (Reason: pain) Systane Balance 0.6 % Drops 1 drp OPHTHALMIC (EYE) DAILY@08 Rx Instructions: both eyes atorvastatin [Lipitor] 40 mg Tablet 40 mg PO BEDTIME@20 aspirin [Aspir-81] 81 mg Tablet,Delayed Release (Dr/Ec) 81 mg PO DAILY@08 nitroglycerin [Nitrostat] 0.4 mg Tablet, Sublingual 0.4 mg SUBLINGUAL Q5M PRN (Reason: Chest Pain) Rx Instructions: do not exceed 3 doses per episode citalopram 20 mg tablet 20 mg PO DAILY@08 Discharge Orders: Discharge ED (Routine); Ordered 08/31/23 Ordered By: Neftali Kate Referrals: Stiven St DO [Primary Care Provider] - 4-7 days Discharge Diet: Advance as tolerated Discharge Activity: Resume usual activity Patient Instructions: Altered Mental Status (ED) Coding Level of Care Code ED [place] [employer] for William Tong
--- NOTE | 2023-08-31 17:44 | ECG_ITS ---
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 Measurements Intervals [place] Rate: 61 P: 72 NV: 169 QRS: 58 QRSD: 99 T: 36 QT: 425 QTc: 430 Interpretive Statements SINUS RHYTHM NONSPECIFIC ST & T-WAVE ABNORMALITY Compared to ECG 07/05/2023 10:59:21 T-wave abnormality now present Sinus bradycardia no longer present ST (T wave) deviation no longer present Early repolarization no longer present Electronically Signed On 09-01-2023 18:16:34 CDT by Herman Sprague M.D. [email or web address]
[2023-08-31 17:53] VITALS: BP 131/67; PULSE 61; RESP 17; O2SAT 96
[2023-08-31 18:03] LABS: Basophils # 0.1 10^3/uL (0.0-0.1); Basophils % 0.8 %; Eosinophils # 0.2 10^3/uL (0.0-0.8); Eosinophils % 2.9 %; Hematocrit 36.6 % (36-47); Lymphocytes # 1.5 10^3/uL (0.8-4.8); Lymphocytes % 21.2 %; Mean Corpuscular HGB Conc 32.5 g/dL (30-55); Mean Corpuscular Hemoglobin 28.5 pg (27-33); Mean Corpuscular Volume 87.6 fl (85-98); Mean Platelet Volume 10.2 fL (7.4-10.4); Monocytes # 1.2 10^3/uL (0.2-0.9); Neutrophils # 4.11 10^3/uL (1.8-7.7); Neutrophils % 57.8 %; Nucleated Red Blood Cells % 0 %; Platelet Count 205 10^3/cmm (157-399); Red Blood Count 4.18 10^6/uL (3.85-5.65); Red Cell Distribution Width 14.6 % (12.1-15.1); White Blood Count 7.12 10^3/uL (3.29-11.43)
[2023-08-31 18:16] LABS: Alanine Aminotransferase 22 U/L (0-33); Albumin Level 3.7 g/dL (3.5-5.2); Alkaline Phosphatase 86 U/L (35-105); Anion Gap 13.1 (5-19); Aspartate Amino Transferase 27 U/L (0-32); Blood Urea Nitrogen 13 mg/dL (8-23); Calcium 8.6 mg/dL (8.5-10.5); Carbon Dioxide 26 mmol/L (22-29); Chloride 94 mmol/L (98-107); Creatinine Clr Calc Pharmacy 56.3362; Globulin 2.8 g/dL (1.3-4.6); Glucose 160 mg/dL (65-115); Osmolality Calculated 272 mOsm/kg (285-295); Potassium 4.1 mmol/L (3.5-5.1); Sodium 129 mmol/L (136-145); Total Bilirubin 0.2 mg/dL (0.15-1.2); Total Protein 6.5 g/dL (6.6-8.7)
[2023-08-31 18:25] VITALS: PULSE 60; RESP 18; O2SAT 92
[2023-08-31] MEDS: sodium chloride 0.9% 1,000 ML 999 ML IV (18:32)
[2023-08-31 18:36] LABS: Add Urine Microscopic? NO; Charge for UA Resulting for Rev
[2023-08-31 18:42] LABS: Urine Appearance Clear (CLEAR); Urine Color Yellow (Yellow); pH Urine 5 (5-7)
[2023-08-31 18:43] LABS: Bilirubin Urine Neg (Negative); Blood Urine Neg (Negative); Glucose Urine UA 1+ (Normal); Ketones Urine Negative (Negative); Leukocyte Esterase Urine Negative (Negative); Nitrate Urine Negative (Negative); Protein Urine Neg (Negative); Urobilinogen Urine Norm (Negative)
[2023-08-31 18:54] VITALS: BP 154/84; PULSE 74; RESP 19
== END 2023-08-31 19:45 | disposition home or self-care (01) ==
PROVIDERS: Emergency Provider Emergency Medicine; PCP Family Medicine
DX: R41.82 Altered mental status, unspecified (principal); G30.0 Alzheimer's disease with early onset; Z79.82 Long term (current) use of aspirin; E11.9 Type 2 diabetes mellitus without complications
CPT/HCPCS: 36415; 70450; 71045; 80053; 81003; 85025; 93005; 99285; J7030

== ENCOUNTER 2023-09-02 19:48 | Emergency (ER) | payer MEDICARE, OTHER, SELFPAY ==
[2023-09-02 19:48] VITALS: BP 119/101; PULSE 59; RESP 14; TEMP 36.6; O2SAT 98; BMI 20.3
--- NOTE | 2023-09-02 19:53 | CTR_ITS ---
PROCEDURE INFORMATION: Exam: CT Head Without Contrast Exam date and time: 09/02/2023 8:07 PM Age: 73 years old Clinical indication: Altered mental status/memory loss; Additional info: Encephalopathy, altered mental status TECHNIQUE: Imaging protocol: Computed tomography of the head without contrast. Radiation optimization: All CT scans at this facility use at least one of these dose optimization techniques: automated exposure control; mA and/or kV adjustment per patient size (includes targeted exams where dose is matched to clinical indication); or iterative reconstruction. COMPARISON: CT head wo con* [id number] 08/31/2023 6:02 PM RADIATION DOSE METRICS: Total DLP (mGy-cm): 981.28 FINDINGS: Brain: No hemorrhage. No edema. Advanced diffuse cerebral atrophy and moderate sequela of chronic small vessel ischemic disease. No mass effect. Cerebral ventricles: No ventriculomegaly. Paranasal sinuses: Visualized sinuses are unremarkable. No fluid levels. Mastoid air cells: Visualized mastoid air cells are well aerated. Bones: Unremarkable. No acute fracture. Soft tissues: Unremarkable. CT/CT head wo con* [id number] IMPRESSION: No acute intracranial abnormality.
--- NOTE | 2023-09-02 19:53 | XRR_ITS ---
PROCEDURE INFORMATION: Exam: XR Chest Exam date and time: 09/02/2023 8:01 PM Age: 73 years old Clinical indication: Other: Weakness TECHNIQUE: Imaging protocol: Radiologic exam of the chest. Views: 1 view. COMPARISON: CR (CHEST, ) 08/31/2023 5:55 PM FINDINGS: Lungs: Hyperinflated lungs. No consolidation. Pleural spaces: Unremarkable. No pleural effusion. No pneumothorax. Heart/Mediastinum: Unremarkable. No cardiomegaly. Bones/joints: Unremarkable. XR/XR chest 1V portable [id number] IMPRESSION: No acute findings.
--- NOTE | 2023-09-02 19:55 | W.ED.AMS ---
HPI - Altered Mental Status General: Chief Complaint: Altered Mental Status Stated Complaint: Confused Time Seen by Provider: 09/02/23 19:53 History of Present Illness: 73 year-old female with a history of dementia, hypertension, who presents by ambulance with decreased responsiveness. Apparently she would not even respond to sternal rub. As she enters the emergency room she suddenly wakes back up and seems to be back to her baseline. Apparently she had a similar episode last week and was transported to the emergency room and cleared medically and had woken up when she got here. She has no complaints at this time. She says she does not remember the event. I do believe she has some fairly advanced dementia though. Review of Systems General: Reports: Other (Unable to obtain secondary to advanced dementia) [facility] ED PFSH: Medical History Frail elderly Sclerodactyly Scleroderma, limited Urgency incontinence Chronic cystitis History of pyelonephritis Feeling of incomplete bladder emptying Dementia Squamous cell carcinoma of skin of chest Diabetes mellitus CREST syndrome Surgical History History of hysteroscopy (10/18/12) With D&C. Negative evaluation. Dx: Postmenopausal bleeding. Performed by Dr. Daugherty at [facility]. History of hand surgery (~2012) Ruptured tendons of right hand History of tubal ligation (~1975) Family History Grandmother Diabetes Paternal CAD (coronary artery disease) Maternal Grandfather Diabetes Maternal CAD (coronary artery disease) Maternal Family/Other Stroke Maternal aunt Brother Hyperlipidemia Mother , at age 92 CAD (coronary artery disease) Father , at age 54 Alcoholic Social History Smoking and tobacco/nicotine status: never used tobacco/nicotine Alcohol intake: never Substance/Drug Use: never Marital status: / Current occupational status: retired Physical Exam Narrative: General: Alert, no acute distress. Skin: Warm, dry. Head: Normocephalic, atraumatic. Neck: Supple, trachea midline. Eye: Extraocular movements are intact. Ears, nose, mouth and throat: mucosa moist. Cardiovascular: Regular, Normal peripheral perfusion. Respiratory: Lungs are clear to auscultation, respirations are non-labored, breath sounds are equal, Symmetrical chest wall expansion. Gastrointestinal: Soft, Nontender, Non distended, Normal bowel sounds. Musculoskeletal: Normal ROM, no deformity. Neurological: Alert but not oriented, No focal neurological deficit observed. Psychiatric: Patient seems confused/demented. Course Vital Signs: Vital signs: Vital Signs Temperature 97.8 F 09/02/23 19:48 Pulse Rate 57 L 09/02/23 21:00 Respiratory Rate 13 09/02/23 21:30 Blood Pressure 133/75 09/02/23 21:30 Pulse Oximetry 98 09/02/23 21:30 Oxygen Delivery Me thod Room Air 09/02/23 19:48 MDM - Altered Mental Status Medical Decision Making Medical decision making: Differential diagnosis including but not limited to and based on the above HPI, review of systems and physical exam: In this patient with altered mental status: Stroke. Hypoglycemia. Metabolic encephalopathy. Infections such as pneumonia, urinary tract infection, Covid-19, Influenza. Electrolyte abnormalities such as hypernatremia. Renal failure / uremia. Hepatic encephalopathy. Hypoxemia. Hypercapnic respiratory failure. Psychosis. Drug or alcohol intoxication. Medication overdose. Orders placed to evaluate differential diagnosis based on the above differential, HPI and physical exam AB.4 on room air. So CO2 retention or hypoxemia would not explain her unresponsiveness CT head: Volume loss/atrophy. No change from previous head CT from 2 days ago. No acute intracranial process. no intracranial hemorrhage, no evidence of infarct. no evidence of acute fracture.This was reviewed and interpreted by myself the ER physician. Chest x-ray: Hyperexpanded. No acute process. No infiltrate. No pneumothorax. No cardiomegaly. This was reviewed and interpreted by myself the ER physician. Lab Review: Laboratory results were reviewed and interpreted by myself the emergency room physician. No leukocytosis. White count 5.6. Hemoglobin is stable at 12.7. BUN and creatinine are 13 and 0.5. No renal failure. Mild hyponatremia at 131. No hypoglycemia. Glucose is 97 I reviewed the patient's medical record. Reexamination: Patient has remained at her baseline. She is pleasant. Demented. No increased work of breathing. She has had these episodes twice with a very extensive workup that shows no abnormalities. No infection. No stroke. No CO2 retention or hypoxemia. I have to wonder if this is not some sort of behavioral thing related to her dementia. She needs follow-up with her primary. Assessment and plan: Unresponsive episode - Discharged home - Discussed plan with patient. Answered any questions. - Evaluation and treatment of this problem were appropriate in the emergency setting. Lab Data 09/02/23 19:57 09/02/23 19:57 Radiology Impressions Chest X-Ray 09/02/23 19:53 IMPRESSION: No acute findings. Head CT 09/02/23 19:53 IMPRESSION: No acute intracranial abnormality. Laboratory Results WBC 5.57 10^3/uL (3.29-11.43) 09/02/23 19:57 RBC 4.37 10^6/uL (3.85-5.65) 09/02/23 19:57 Hgb 12.70 g/dL (11.27-16.99) 09/02/23 19:57 Hct 37.8 % (36-47) 09/02/23 19:57 MCV 86.5 fl (85-98) 09/02/23 19:57 MCH 29.1 pg (27-33) 09/02/23 19:57 MCHC 33.6 g/dL (30-55) 09/02/23 19:57 RDW 14.4 % (12.1-15.1) 09/02/23 19:57 Plt Count 206 10^3/cmm (157-399) 09/02/23 19:57 MPV 10.2 fL (7.4-10.4) 09/02/23 19:57 Neut % (Auto) 55.8 % 09/02/23 19:57 Lymph % (Auto) 26.9 % 09/02/23 19:57 [place] % (Auto) 14.9 % 09/02/23 19:57 Eos % (Auto) 1.3 % 09/02/23 19:57 Baso % (Auto) 0.9 % 09/02/23 19:57 Neut # (Auto) 3.11 10^3/uL (1.8-7.7) 09/02/23 19:57 Lymph # (Auto) 1.5 10^3/uL (0.8-4.8) 09/02/23 19:57 [place] # (Auto) 0.8 10^3/uL (0.2-0.9) 09/02/23 19:57 Eos # (Auto) 0.1 10^3/uL (0.0-0.8) 09/02/23 19:57 Baso # (Auto) 0.1 10^3/uL (0.0-0.1) 09/02/23 19:57 Nucleated RBC % (auto) 0 % 09/02/23 19:57 Nucleated RBCs # 0.0 /100WBC 09/02/23 19:57 Specimen Type Arterial 09/02/23 19:53 Sample Site Brachial, right 09/02/23 19:53 ABG pH 7.41 (7.35-7.45) 09/02/23 19:53 ABG pCO2 41.5 mmHg (35-45) 09/02/23 19:53 ABG pO2 88.9 mmHg (80.0-100.0) 09/02/23 19:53 ABG HCO3 26.1 mmol/L (22-26) H 09/02/23 19:53 ABG O2 Saturation 97.4 09/02/23 19:53 ABG Base Excess 1.3 mmol/L (-2.0-2.0) 09/02/23 19:53 Jareth Test N/a 09/02/23 19:53 A-a O2 Gradient 1.1 mmHg (5-10) L 09/02/23 19:53 Hematocrit 38.3 % (37-47) 09/02/23 19:53 Hgb O2 Saturation 96.5 % (95-100) 09/02/23 19:53 Carboxyhemoglobin 0.8 %THgb (0.4-20.1) 09/02/23 19:53 Methemoglobin 0.2 % (0.4-1.5) L 09/02/23 19:53 Total Hemoglobin 12.5 g/dL (12-16) 09/02/23 19:53 Sodium 133.0 mmol/L (131-143) 09/02/23 19:53 Potassium 3.9 mmol/L (3.5-5.0) 09/02/23 19:53 Glucose 93.0 mg/dL (70-115) 09/02/23 19:53 Ionized Calcium 1.2 mmol/L (1.1-1.4) 09/02/23 19:53 O2 Delivery Device Room air 09/02/23 19:53 Rubber Covering Machine Operator ID [email or web address] 09/02/23 19:53 Sodium 131 mmol/L (136-145) L 09/02/23 19:57 Potassium 4.3 mmol/L (3.5-5.1) 09/02/23 19:57 Chloride 96 mmol/L (98-107) L 09/02/23 19:57 Carbon Dioxide 25 mmol/L (22-29) 09/02/23 19:57 Anion Gap 14.3 (5-19) 09/02/23 19:57 BUN 13 mg/dL (8-23) 09/02/23 19:57 Creatinine 0.5 mg/dL (0.5-0.9) 09/02/23 19:57 GFR Calculation Not Reportable 09/02/23 19:57 Glucose 97 mg/dL (65-115) 09/02/23 19:57 Calculated Osmolality 272 mOsm/kg (285-295) L 09/02/23 19:57 Lactic Acid 0.8 mmol/L (0.5-2.2) 09/02/23 19:57 Calcium 9.1 mg/dL (8.5-10.5) 09/02/23 19:57 Total Bilirubin 0.3 mg/dL (0.15-1.2) 09/02/23 19:57 AST 28 U/L (0-32) 09/02/23 19:57 ALT 22 U/L (0-33) 09/02/23 19:57 Alkaline Phosphatase 94 U/L (35-105) 09/02/23 19:57 Total Protein 7.0 g/dL (6.6-8.7) 09/02/23 19:57 Albumin 4.2 g/dL (3.5-5.2) 09/02/23 19:57 Globulin 2.8 g/dL (1.3-4.6) 09/02/23 19:57 Urine Color Yellow (Yellow) 09/02/23 20:50 Urine Appearance Clear (CLEAR) 09/02/23 20:50 Urine pH 6 (5-7) 09/02/23 20:50 Ur Specific [place] 1.010 (1.005-1.030) 09/02/23 20:50 Urine Protein Neg (Negative) 09/02/23 20:50 Urine Glucose (UA) Norm (Normal) 09/02/23 20:50 Urine Ketones 1+ (Negative) H 09/02/23 20:50 Urine Blood Neg (Negative) 09/02/23 20:50 Urine Nitrate Negative (Negative) 09/02/23 20:50 Urine Bilirubin Neg (Negative) 09/02/23 20:50 Urine Urobilinogen Neg mg/dL (Negative) 09/02/23 20:50 Ur Leukocyte Esterase Negative (Negative) 09/02/23 20:50 Urine RBC None /hpf (0-2) 09/02/23 20:50 Urine WBC None /hpf (0-5) 09/02/23 20:50 Ur Squamous Epith Cells 0-4 /hpf (0-5) H 09/02/23 20:50 Amorphous Sediment Not Reportable 09/02/23 20:50 Urine Bacteria None /hpf (NONE) 09/02/23 20:50 Urine Opiates Screen Negative ng/mL (Negative) 09/02/23 20:50 Ur Barbiturates Screen Negative ng/mL (Negative) 09/02/23 20:50 Ur Phencyclidine Scrn Negative ng/mL (Negative) 09/02/23 20:50 Ur Amphetamines Screen Negative ng/mL (Negative) 09/02/23 20:50 U Benzodiazepines Scrn Negative ng/mL (Negative) 09/02/23 20:50 Urine Cocaine Screen Negative ng/mL (Negative) 09/02/23 20:50 U Marijuana (THC) Screen Negative ng/mL (Negative) 09/02/23 20:50 Ethyl Alcohol < 10 mg/dL (0-10) 09/02/23 19:57 All radiology interpretation(s) finalized by discharge Discharge Plan Discharge Patient Disposition: Home Clinical Impression: Decreased responsiveness Prescriptions: No Action pantoprazole 40 mg tablet,delayed release (DR/EC) 40 mg PO DAILY@08 hydroxychloroquine 200 mg tablet 400 mg PO DAILY@08 Hold Instructions: Resume on 08/23/20. resume after ciprofloxacin has finished donepezil 10 mg tablet 10 mg PO BEDTIME@20 (DME) Diabetic shoes See Rx Instructions .ROUTE .MEDSUPPLY Qty: 1 0RF Rx Instructions: With 3 pairs of inserts by the shoe guys methenamine hippurate 1 gram tablet 1 g PO BID Qty: 60 12RF Rx Instructions: Take 1000 mg of vitamin C fluticasone propionate 50 mcg/actuation spray,suspension 1 - 2 spray intranasal DAILY@08 Rx Instructions: administer into each nostril (DME) Diabetic shoe with 3 pairs of insterts See Rx Instructions .Route .MEDSUPPLY Qty: 1 0RF Rx Instructions: As directed by HOME (DME) CBA PHARMA Terry 2 Sensor Kit See Rx Instructions .ROUTE .COMPLEX Qty: 1 10RF Dose Instruction: USE DIRECTED BY agencyQSTYLE TERRY TWO SENSOR INSTRUCTIONS. Rx Instructions: USE DIRECTED BY [employer] TWO SENSOR INSTRUCTIONS. lorazepam 0.5 mg tablet 0.25 mg PO BID PRN (Reason: Anxiety) Qty: 30 5RF folic acid 1 mg Tablet 3 mg PO DAILY@08 montelukast 10 mg Tablet 10 mg PO DAILY@16 PRN (Reason: unknown) memantine 10 mg Tablet 10 mg PO BID ketoconazole 2 % shampoo See Rx Instructions .ROUTE .COMPLEX Rx Instructions: topically on scalp and allow to sit for 5 minutes before rinsing use two to three times weekly as directed nystatin 100,000 unit/gram cream 1 applic TOPICAL BEDTIME Rx Instructions: apply to affected area around the ears mirtazapine 7.5 mg Tablet 7.5 mg PO BEDTIME Systane (PF) 0.4-0.3 % Dropperette 1 drp ophthalmic (eye) QID Rx Instructions: both eyes Seroquel 25 mg tablet 25 mg PO BEDTIME cevimeline 30 mg capsule 30 mg PO BID@08,20 ascorbic acid (vitamin C) 1,000 mg tablet 1,000 mg PO DAILY@08 acetaminophen 325 mg tablet 650 mg PO Q6H PRN (Reason: pain) Systane Balance 0.6 % Drops 1 drp OPHTHALMIC (EYE) DAILY@08 Rx Instructions: both eyes atorvastatin [Lipitor] 40 mg Tablet 40 mg PO BEDTIME@20 aspirin [Aspir-81] 81 mg Tablet,Delayed Release (Dr/Ec) 81 mg PO DAILY@08 nitroglycerin [Nitrostat] 0.4 mg Tablet, Sublingual 0.4 mg SUBLINGUAL Q5M PRN (Reason: Chest Pain) Rx Instructions: do not exceed 3 doses per episode citalopram 20 mg tablet 20 mg PO DAILY@08 Discharge Orders: Discharge ED (Routine); Ordered 09/02/23 Ordered By: Yoselyn Paniagua Referrals: Stiven St DO [Primary Care Provider] - 1-3 days Discharge Diet: Usual diet Discharge Activity: Resume usual activity Patient Instructions: Altered Mental Status (ED) Activity Restrictions/Additional Instructions: Thank you for choosing [facility] for your healthcare needs today. Please realize this is an emergency room and that we are providing you with a medical screening exam and this may not be complete and all inclusive of all the testing and or work up that you may need to determine your ailment or severity of your illness. You have been screened and evaluated and felt safe for discharge. Health conditions do change or evolve sometimes and as such it is important that you follow up with your Primary Doctor to be re checked, 3-5 days is a general good time frame for follow up. You are always welcome to return to the ED for re assessment if your symptoms are worsening or you have new concerns Coding Level of Care Code ED Materials Management Clerk for William Tong
[2023-09-02 20:05] LABS: Basophils # 0.1 10^3/uL (0.0-0.1); Basophils % 0.9 %; Eosinophils # 0.1 10^3/uL (0.0-0.8); Eosinophils % 1.3 %; Hematocrit 37.8 % (36-47); Lymphocytes # 1.5 10^3/uL (0.8-4.8); Lymphocytes % 26.9 %; Mean Corpuscular HGB Conc 33.6 g/dL (30-55); Mean Corpuscular Hemoglobin 29.1 pg (27-33); Mean Corpuscular Volume 86.5 fl (85-98); Mean Platelet Volume 10.2 fL (7.4-10.4); Monocytes # 0.8 10^3/uL (0.2-0.9); Monocytes % 14.9 %; Neutrophils # 3.11 10^3/uL (1.8-7.7); Neutrophils % 55.8 %; Nucleated Red Blood Cells % 0 %; Platelet Count 206 10^3/cmm (157-399); Red Blood Count 4.37 10^6/uL (3.85-5.65); Red Cell Distribution Width 14.4 % (12.1-15.1); White Blood Count 5.57 10^3/uL (3.29-11.43)
[2023-09-02 20:19] LABS: ABG PCO2 41.5 mmHg (35-45); ABG PH Result 7.41 (7.35-7.45); Alveolar-Arterial Oxygen Gradi 1.1 mmHg (5-10); Arterial Blood Gas Hematocrit 38.3 % (37-47); Base Excess ABG 1.3 mmol/L (-2.0-2.0); Blood Gas Sample Site Brachial, right; Blood Gas Sample Type Arterial; Carboxyhemoglobin 0.8 %THgb (0.4-20.1); HCO3 ABG 26.1 mmol/L (22-26); HGB O2 Sat 96.5 % (95-100); Ionized Calcium Level - ABG 1.2 mmol/L (1.1-1.4); Methemoglobin 0.2 % (0.4-1.5); Oxygen Device ROOM AIR; Oxygen Saturation ABG 97.4; PO2 ABG 88.9 mmHg (80.0-100.0); Potassium Level - ABG 3.9 mmol/L (3.5-5.0); Total Hemoglobin 12.5 g/dL (12-16)
[2023-09-02 20:20] LABS: Alanine Aminotransferase 22 U/L (0-33); Albumin Level 4.2 g/dL (3.5-5.2); Alkaline Phosphatase 94 U/L (35-105); Anion Gap 14.3 (5-19); Aspartate Amino Transferase 28 U/L (0-32); Blood Urea Nitrogen 13 mg/dL (8-23); Calcium 9.1 mg/dL (8.5-10.5); Carbon Dioxide 25 mmol/L (22-29); Chloride 96 mmol/L (98-107); Creatinine Clr Calc Pharmacy 58.0766; Globulin 2.8 g/dL (1.3-4.6); Glucose 97 mg/dL (65-115); Osmolality Calculated 272 mOsm/kg (285-295); Potassium 4.3 mmol/L (3.5-5.1); Sodium 131 mmol/L (136-145); Total Bilirubin 0.3 mg/dL (0.15-1.2)
[2023-09-02 20:21] LABS: Lactic Sepsis W/Reflex 0.8 mmol/L (0.5-2.2)
[2023-09-02 20:29] LABS: Alcohol Level < 10 mg/dL (0-10)
[2023-09-02 21:00] VITALS: PULSE 57; RESP 12; O2SAT 97
[2023-09-02 21:05] LABS: Amphetamines Screen Urine Negative (Negative); Barbiturates Screen Urine Negative (Negative); Benzodiazepines Screen Urine Negative (Negative); Cocaine Screen Urine Negative (Negative); Opiate Screen Urine Negative (Negative); PCP Screen Urine Negative (Negative); THC Screen Urine Negative (Negative)
--- NOTE | 2023-09-02 21:05 | ECG_ITS ---
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 Measurements Intervals [place] Rate: 55 P: 78 GA: 161 QRS: 66 QRSD: 102 T: 37 QT: 442 QTc: 426 Interpretive Statements SINUS BRADYCARDIA NONSPECIFIC T-WAVE ABNORMALITY Compared to ECG 08/31/2023 17:44:26 Sinus rhythm no longer present T-wave abnormality still present Electronically Signed On 09-03-2023 0:39:46 CDT by Herman Sprague M.D. [id number]
[2023-09-02 21:09] LABS: Add Urine Culture? No; Bilirubin Urine Neg (Negative); Blood Urine Neg (Negative); Glucose Urine UA Norm (Normal); Ketones Urine 1+ (Negative); Leukocyte Esterase Urine Negative (Negative); Nitrate Urine Negative (Negative); Protein Urine Neg (Negative); Squamous Epithelial Cell Urine 0-4 /hpf (0-5); Urine Appearance Clear (CLEAR); Urine Color Yellow (Yellow); Urobilinogen Urine Neg (Negative); pH Urine 6 (5-7)
[2023-09-02 21:30] VITALS: BP 133/75; RESP 13; O2SAT 98
[2023-09-02 22:12] VITALS: BP 133/75; PULSE 60; O2SAT 100
== END 2023-09-02 22:14 | disposition home or self-care (01) ==
PROVIDERS: Emergency Provider Emergency Medicine; PCP Family Medicine
DX: R40.4 Transient alteration of awareness (principal); Z79.82 Long term (current) use of aspirin; F03.90 Unspecified dementia, unspecified severity, without behavioral disturbance, psychotic disturbance, mood disturbance, and anxiety; E11.9 Type 2 diabetes mellitus without complications
CPT/HCPCS: 70450; 71045; 80051; 80053; 80306; 80307; 81001; 82330; 82805; 83605; 85025; 93005; 99285

== ENCOUNTER 2023-09-05 18:18 | Emergency (ER) | payer MEDICARE, OTHER, SELFPAY ==
[2023-09-05 18:29] VITALS: BP 104/63; PULSE 77; RESP 16; TEMP 36.9; O2SAT 96
--- NOTE | 2023-09-05 19:09 | ECG_ITS ---
[facility] Test Date: 2023-09-05 Pat Name: Nereyda Caceres Department: Room: Gender: Female Disbursing Officer: : 1950 Requested By: Luis Koch Order Number: [id number] John MD: Leonila Blackwood M.D. Measurements Intervals [place] Rate: 66 P: 79 FL: 166 QRS: 74 QRSD: 105 T: 14 QT: 421 QTc: 443 Interpretive Statements SINUS RHYTHM NONSPECIFIC ST & T-WAVE ABNORMALITY Compared to ECG 09/02/2023 21:05:36 Sinus bradycardia no longer present T-wave abnormality still present Electronically Signed On 09-05-2023 20:30:34 CDT by Leonila Blackwood M.D. [email or web address]
--- NOTE | 2023-09-05 19:09 | XRR_ITS ---
PROCEDURE INFORMATION: Exam: XR Chest Exam date and time: 09/05/2023 7:18 PM Age: 73 years old Clinical indication: Screening exam; Other screening; Patient HX: Mhe TECHNIQUE: Imaging protocol: Radiologic exam of the chest. Views: 1 view. COMPARISON: CR XR chest 1V portable [id number] 09/02/2023 8:01 PM FINDINGS: Lungs: Unremarkable. No consolidation. Pleural spaces: Unremarkable. No pleural effusion. No pneumothorax. Heart/Mediastinum: Unremarkable. No cardiomegaly. Bones/joints: Unremarkable. XR/XR chest 1V portable [id number] IMPRESSION: No acute findings.
--- NOTE | 2023-09-05 19:12 | ED.C_ITS ---
Documented by User: Luis Koch DO 09/05/23 19:50 HPI - Psych 2 General: Chief Complaint: Psychiatric Symptoms Stated Complaint: BEHAVIORAL ISSUES Time Seen by Provider: 09/05/23 18:20 History of Present Illness: Patient arrives from [facility] with staff report the patient has been combative. They state patient has been found to be naked several times in the hallway. They state patient has been refusing to eat for the last 3 days. Facility wants placement for [facility]. Patient has known dementia and is a high fall risk. Patient has been seen 2 other times within the last week in this ER for altered mental status and decreased responsiveness each time everything was benign and she was sent back. Review of Systems 2 General: Reports: 10 or more systems reviewed and unremarkable except in HPI and below PFSH ED 2 PFSH: Medical History Frail elderly Sclerodactyly Scleroderma, limited Urgency incontinence Chronic cystitis History of pyelonephritis Feeling of incomplete bladder emptying Dementia Squamous cell carcinoma of skin of chest Diabetes mellitus CREST syndrome Surgical History History of hysteroscopy (10/18/12) With D&C. Negative evaluation. Dx: Postmenopausal bleeding. Performed by Dr. Dauhgerty at [facility] [place]. History of hand surgery (~2012) Ruptured tendons of right hand History of tubal ligation (~1975) Family History Grandmother Diabetes Paternal CAD (coronary artery disease) Maternal Grandfather Diabetes Maternal CAD (coronary artery disease) Maternal Family/Other Stroke Maternal aunt Brother Hyperlipidemia Mother , at age 92 CAD (coronary artery disease) Father , at age 54 Alcoholic Social History Smoking and tobacco/nicotine status: never used tobacco/nicotine Alcohol intake: never Substance/Drug Use: never Marital status: / Current occupational status: retired Physical Exam 2 Const: COMMON NORMALS: no acute distress, average body habitus, no limitations, healthy appearing, alert and well nourished HENMT: COMMON NORMALS: normocephalic, atraumatic, hearing grossly normal bilaterally, external ears normal, Normal external nose present and moist oral mucous membranes HEAD & SCALP: normocephalic and atraumatic NOSE: Normal external nose present EXTERNAL EAR: Yes external ears normal Neck/C-Spine: COMMON NORMALS: no JVD Chest: COMMONS NORMALS: normal inspection of the chest and normal palpation of entire chest wall Resp: COMMON NORMALS: normal respiratory effort, No retractions, No use of accessory muscles and clear to auscultation bilaterally AUSCULTATION: clear to auscultation bilaterally Cardio: COMMON NORMALS: no JVD, regular rate, regular rhythm, S1 normal heart sound present, S2 normal heart sound present, No gallops present (Cardio), No clicks present (Cardio), No murmurs present (Cardio) and No rub (Cardio) R ATE: regular rate RHYTHM: regular rhythm HEART SOUNDS: S1 normal heart sound present and S2 normal heart sound present GI: COMMON NORMALS: Normal to inspection, nondistended, normoactive bowel sounds present, Soft to palpation, non-tender, No hepatosplenomegaly present and no masses PALPATION: Yes Soft to palpation and Yes No hepatosplenomegaly present Neuro: SENSORIUM/ORIENTATION: Yes alert Course 2 Vital Signs: Vital signs: Vital Signs Temperature 98.5 F 09/05/23 18:29 Pulse Rate 72 09/06/23 06:18 Respiratory Rate 18 09/06/23 06:18 Blood Pressure 114/72 09/06/23 06:18 Pulse Oximetry 98 09/06/23 06:18 Oxygen Delivery Me thod Room Air 09/06/23 06:18 MDM - Psych Differential Diagnosis Unlikely acute psychosis, chronic schizophrenia, suicidal ideation, bipolar disorder, depression, drug-induced psychotic disorder or acute anxiety Medical Records I reviewed the patient's medical records. Lab Data I reviewed the patient's lab results. 09/05/23 19:29 09/06/23 04:49 Radiology Impressions Chest X-Ray 09/05/23 19:09 IMPRESSION: No acute findings. Laboratory Results WBC 7.30 10^3/uL (3.29-11.43) 09/05/23 19:29 RBC 4.35 10^6/uL (3.85-5.65) 09/05/23 19:29 Hgb 12.60 g/dL (11.27-16.99) 09/05/23 19:29 Hct 37.3 % (36-47) 09/05/23 19: MCV 85.7 fl (85-98) 09/05/23 19: MCH 29.0 pg (27-33) 09/05/23 19: MCHC 33.8 g/dL (30-55) 09/05/23 19: RDW 14.1 % (12.1-15.1) 09/05/23: Plt Count 218 10^3/cmm (157-399) 09/05/23 19: MPV 10.2 fL (7.4-10.4) 09/05/23 19: Neut % (Auto) 73.4 % 09/05/23 19: Lymph % (Auto) 10.7 % 09/05/23 19: [place] % (Auto) 14.7 % 09/05/23 19: Eos % (Auto) 0.3 % 09/05/23 19: Baso % (Auto) 0.5 % 09/05/23: Neut # (Auto) 5.36 10^3/uL (1.8-7.7) 09/05/23 19: Lymph # (Auto) 0.8 10^3/uL (0.8-4.8) 09/05/23 19: [place] # (Auto) 1.1 10^3/uL (0.2-0.9) H 09/05/23 19:29 Eos # (Auto) 0.0 10^3/uL (0.0-0.8) 09/05/23: Baso # (Auto) 0.0 10^3/uL (0.0-0.1) 09/05/23: Nucleated RBC % (auto) 0 % 09/05/23: Nucleated RBCs # 0.0 /100WBC 09/05/23 19:29 Sodium 139 mmol/L (136-145) 09/06/23 04:49 Potassium 3.8 mmol/L (3.5-5.1) 09/06/23 04:49 Chloride 104 mmol/L (98-107) 09/06/23 04:49 Carbon Dioxide 26 mmol/L (22-29) 09/06/23 04:49 Anion Gap 12.8 (5-19) 09/06/23 04:49 BUN 6 mg/dL (8-23) L 09/06/23 04:49 Creatinine 0.4 mg/dL (0.5-0.9) L 09/06/23 04:49 GFR Calculation Not Reportable 09/06/23 04:49 Glucose 113 mg/dL (65-115) 09/06/23 04:49 POC Glucose 118 mg/dL (70-110) H 09/06/23 09:14 Calculated Osmolality 286 mOsm/kg (285-295) 09/06/23 04:49 Calcium 8.3 mg/dL (8.5-10.5) L 09/06/23 04:49 Total Bilirubin 0.3 mg/dL (0.15-1.2) 09/05/23 19:29 AST 45 U/L (0-32) H 09/05/23 19:29 ALT 27 U/L (0-33) 09/05/23 19:29 Alkaline Phosphatase 95 U/L (35-105) 09/05/23 19:29 Total Protein 7.2 g/dL (6.6-8.7) 09/05/23 19:29 Albumin 4.2 g/dL (3.5-5.2) 09/05/23 19:29 Globulin 3.0 g/dL (1.3-4.6) 09/05/23 19:29 TSH 3.68 uIU/mL (0.27-4.20) 09/05/23 19:29 Urine Color Yellow (Yellow) 09/05/23 19:19 Urine Appearance Clear (CLEAR) 09/05/23 19:19 Urine pH 6 (5-7) 09/05/23 19:19 Ur Specific [place] 1.005 (1.005-1.030) 09/05/23 19:19 Urine Protein Neg (Negative) 09/05/23 19:19 Urine Glucose (UA) 2+ (Normal) H 09/05/23 19:19 Urine Ketones Negative (Negative) 09/05/23 19:19 Urine Blood Neg (Negative) 09/05/23 19:19 Urine Nitrate Negative (Negative) 09/05/23 19:19 Urine Bilirubin Neg (Negative) 09/05/23 19:19 Urine Urobilinogen Neg mg/dL (Negative) 09/05/23 19:19 Ur Leukocyte Esterase Negative (Negative) 09/05/23 19:19 Salicylates 0.5 mg/dL (3-10) L 09/05/23 19:29 Urine Opiates Screen Negative ng/mL (Negative) 09/05/23 19:19 Acetaminophen < 5.0 ug/mL (10-30) L 09/05/23 19:29 Ur Barbiturates Screen Negative ng/mL (Negative) 09/05/23 19:19 Ur Phencyclidine Scrn Negative ng/mL (Negative) 09/05/23 19:19 Ur Amphetamines Screen Negative ng/mL (Negative) 09/05/23 19:19 U Benzodiazepines Scrn Negative ng/mL (Negative) 09/05/23 19:19 Urine Cocaine Screen Negative ng/mL (Negative) 09/05/23 19:19 U Marijuana (THC) Screen Negative ng/mL (Negative) 09/05/23 19:19 Ethyl Alcohol < 10 mg/dL (0-10) 09/05/23 19:29 Influenza Type A Ag negative (Negative) 09/05/23 19:44 Influenza Type B Ag negative (Negative) 09/05/23 19:44 RSV Antigen Negative (Negative) 09/05/23 19:44 SARS-CoV-2 Ag (Rapid) negative (Negative) 09/05/23 19:44 All radiology interpretation(s) finalized by discharge EKG Data EKG 1: I personally reviewed and interpreted this EKG as follows: EKG interpretation date: 09/05/23 EKG interpretation time: 19:25 Interpretation: Ventricular rate 66 bpm, NJ interval 166, QRS duration 105, QTc of 435, sinus rhythm Discharge Plan Discharge Patient Disposition: Home Clinical Impression: Dementia, Medication adverse effect, Sundowning Condition: Stable Prescriptions: New Risperdal 0.5 mg tablet 0.25 mg PO BID Qty: 15 0RF Discontinued lorazepam 0.5 mg tablet 0.25 mg PO BID PRN (Reason: Anxiety) Qty: 30 5RF quetiapine [Seroquel] 25 mg tablet 25 mg PO BEDTIME No Action pantoprazole 40 mg tablet,delayed release (DR/EC) 40 mg PO DAILY@08 hydroxychloroquine 200 mg tablet 400 mg PO DAILY@08 Hold Instructions: Resume on 05/28/21. resume after ciprofloxacin has finished donepezil 10 mg tablet 10 mg PO BEDTIME@20 (DME) Diabetic shoes See Rx Instructions .ROUTE .MEDSUPPLY Qty: 1 0RF Rx Instructions: With 3 pairs of inserts by the shoe mckenzie methenamine hippurate 1 gram tablet 1 g PO BID Qty: 60 12RF Rx Instructions: Take 1000 mg of vitamin C fluticasone propionate 50 mcg/actuation spray,suspension 1 - 2 spray intranasal DAILY@08 Rx Instructions: administer into each nostril (DME) Diabetic shoe with 3 pairs of insterts See Rx Instructions .Route .MEDSUPPLY Qty: 1 0RF Rx Instructions: As directed by HOME (DME) FreeStyle Terry 2 Sensor Kit See Rx Instructions .ROUTE .COMPLEX Qty: 1 10RF Dose Instruction: USE DIRECTED BY FREESTYLE TERRY TWO SENSOR INSTRUCTIONS. Rx Instructions: USE DIRECTED BY FREESTYLE ETRRY TWO SENSOR INSTRUCTIONS. folic acid 1 mg Tablet 3 mg PO DAILY@08 montelukast 10 mg Tablet 10 mg PO DAILY@16 PRN (Reason: unknown) memantine 10 mg Tablet 10 mg PO BID ketoconazole 2 % shampoo See Rx Instructions .ROUTE .COMPLEX Rx Instructions: topically on scalp and allow to sit for 5 minutes before rinsing use two to three times weekly as directed nystatin 100,000 unit/gram cream 1 applic TOPICAL BEDTIME Rx Instructions: apply to affected area around the ears mirtazapine 7.5 mg Tablet 7.5 mg PO BEDTIME Systane (PF) 0.4-0.3 % Dropperette 1 drp ophthalmic (eye) QID Rx Instructions: both eyes cevimeline 30 mg capsule 30 mg PO BID@08,20 ascorbic acid (vitamin C) 1,000 mg tablet 1,000 mg PO DAILY@08 acetaminophen 325 mg tablet 650 mg PO Q6H PRN (Reason: pain) Systane Balance 0.6 % Drops 1 drp OPHTHALMIC (EYE) DAILY@08 Rx Instructions: both eyes atorvastatin [Lipitor] 40 mg Tablet 40 mg PO BEDTIME@20 aspirin [Aspir-81] 81 mg Tablet,Delayed Release (Dr/Ec) 81 mg PO DAILY@08 nitroglycerin [Nitrostat] 0.4 mg Tablet, Sublingual 0.4 mg SUBLINGUAL Q5M PRN (Reason: Chest Pain) Rx Instructions: do not exceed 3 doses per episode citalopram 20 mg tablet 20 mg PO DAILY@08 Discharge Orders: Discharge ED (Routine); Ordered 09/06/23 Ordered By: Justin Eaton Referrals: Stiven St DO [Primary Care Provider] - Discharge Diet: Usual diet Discharge Activity: Resume usual activity Patient Instructions: Opioid Safety, Pain Management Activity Restrictions/Additional Instructions: Thank you for choosing [facility] for your healthcare needs today. It is very important that you follow up as instructed or that you return to the Emergency Department should you have concerns or if your condition changes or worsens in any way. You were seen today with behavioral changes like related to dementia. Psychiatry seen in the emergency room recommends stopping Seroquel and Ativan. Starting Risperdal a quarter of a milligram twice a day and following up with your primary care through the custodial. Coding Level of Care Code ED Pedodontist for Chg Fwd Documented by User: Justin Eaton DO 09/06/23 13:01 HPI - Psych 2 General: Chief Complaint: Psychiatric Symptoms Stated Complaint: BEHAVIORAL ISSUES Time Seen by Provider: 09/05/23 18:20 PFS ED 2 PFSH: Medical History Frail elderly Sclerodactyly Scleroderma, limited Urgency incontinence Chronic cystitis History of pyelonephritis Feeling of incomplete bladder emptying Dementia Squamous cell carcinoma of skin of chest Diabetes mellitus CREST syndrome Surgical History History of hysteroscopy (10/18/12) With D&C. Negative evaluation. Dx: Postmenopausal bleeding. Performed by Dr. Daugherty at [facility] [place]. History of hand surgery (~2012) Ruptured tendons of right hand History of tubal ligation (~1975) Family History Grandmother Diabetes Paternal CAD (coronary artery disease) Maternal Grandfather Diabetes Maternal CAD (coronary artery disease) Maternal Family/Other Stroke Maternal aunt Brother Hyperlipidemia Mother , at age 92 CAD (coronary artery disease) Father , at age 54 Alcoholic Social History Smoking and tobacco/nicotine status: never used tobacco/nicotine Alcohol intake: never Substance/Drug Use: never Marital status: / Current occupational status: retired Course 2 Vital Signs: Vital signs: Vital Signs Temperature 98.5 F 09/05/23 18:29 Pulse Rate 72 09/06/23 06:18 Respiratory Rate 18 09/06/23 06:18 Blood Pressure 114/72 09/06/23 06:18 Pulse Oximetry 98 09/06/23 06:18 Oxygen Delivery Me thod Room Air 09/06/23 06:18 MDM - Psych Medical Decision Making Care assumed at change of shift. Patient did have a little bit of activities and anxiety this morning she is given Geodon which did help significantly. We looked at different potential transfer options we have not been able to find any facilities that we will accept her. Discussed Dr. Rosas he came and seen the patient and her request we also discussed with the custodial they are willing to take her back if medication changes are made. Dr. Rosas recommends that we stop the Ativan and stop the Seroquel start Risperdal 0.25 nightly titrate up for effectiveness. Recommends that we discharge her to the custodial at this time. Lab Data 09/05/23 19:29 09/06/23 04:49 Radiology Impressions Chest X-Ray 09/05/23 19:09 IMPRESSION: No acute findings. Laboratory Results WBC 7.30 10^3/uL (3.29-11.43) 09/05/23 19: RBC 4.35 10^6/uL (3.85-5.65) 09/05/23 19: Hgb 12.60 g/dL (11.27-16.99) 09/05/23 19: Hct 37.3 % (36-47) 09/05/23 19: MCV 85.7 fl (85-98) 09/05/23 19: MCH 29.0 pg (27-33) 09/05/23 19: MCHC 33.8 g/dL (30-55) 09/05/23 19:29 RDW 14.1 % (12.1-15.1) 09/05/23 19: Plt Count 218 10^3/cmm (157-399) 09/05/23 19:29 MPV 10.2 fL (7.4-10.4) 09/05/23 19:29 Neut % (Auto) 73.4 % 09/05/23 19:29 Lymph % (Auto) 10.7 % 09/05/23 19:29 [place] % (Auto) 14.7 % 09/05/23 19:29 Eos % (Auto) 0.3 % 09/05/23 19: Baso % (Auto) 0.5 % 09/05/23: Neut # (Auto) 5.36 10^3/uL (1.8-7.7) 09/05/23:29 Lymph # (Auto) 0.8 10^3/uL (0.8-4.8) 09/05/23:29 [place] # (Auto) 1.1 10^3/uL (0.2-0.9) H 09/05/23 19:29 Eos # (Auto) 0.0 10^3/uL (0.0-0.8) 09/05/23: Baso # (Auto) 0.0 10^3/uL (0.0-0.1) 09/05/23:29 Nucleated RBC % (auto) 0 % 09/05/23 19: Nucleated RBCs # 0.0 /100WBC 09/05/23 19:29 Sodium 139 mmol/L (136-145) 09/06/23 04:49 Potassium 3.8 mmol/L (3.5-5.1) 09/06/23 04:49 Chloride 104 mmol/L (98-107) 09/06/23 04:49 Carbon Dioxide 26 mmol/L (22-29) 09/06/23 04:49 Anion Gap 12.8 (5-19) 09/06/23 04:49 BUN 6 mg/dL (8-23) L 09/06/23 04:49 Creatinine 0.4 mg/dL (0.5-0.9) L 09/06/23 04:49 GFR Calculation Not Reportable 09/06/23 04:49 Glucose 113 mg/dL (65-115) 09/06/23 04:49 POC Glucose 118 mg/dL (70-110) H 09/06/23 09:14 Calculated Osmolality 286 mOsm/kg (285-295) 09/06/23 04:49 Calcium 8.3 mg/dL (8.5-10.5) L 09/06/23 04:49 Total Bilirubin 0.3 mg/dL (0.15-1.2) 09/05/23 19:29 AST 45 U/L (0-32) H 09/05/23 19:29 ALT 27 U/L (0-33) 09/05/23 19:29 Alkaline Phosphatase 95 U/L (35-105) 09/05/23 19:29 Total Protein 7.2 g/dL (6.6-8.7) 09/05/23 19:29 Albumin 4.2 g/dL (3.5-5.2) 09/05/23 19:29 Globulin 3.0 g/dL (1.3-4.6) 09/05/23 19:29 TSH 3.68 uIU/mL (0.27-4.20) 09/05/23 19:29 Urine Color Yellow (Yellow) 09/05/23 19:19 Urine Appearance Clear (CLEAR) 09/05/23 19:19 Urine pH 6 (5-7) 09/05/23 19:19 Ur Specific [place] 1.005 (1.005-1.030) 09/05/23 19:19 Urine Protein Neg (Negative) 09/05/23 19:19 Urine Glucose (UA) 2+ (Normal) H 09/05/23 19:19 Urine Ketones Negative (Negative) 09/05/23 19:19 Urine Blood Neg (Negative) 09/05/23 19:19 Urine Nitrate Negative (Negative) 09/05/23 19:19 Urine Bilirubin Neg (Negative) 09/05/23 19:19 Urine Urobilinogen Neg mg/dL (Negative) 09/05/23 19:19 Ur Leukocyte Esterase Negative (Negative) 09/05/23 19:19 Salicylates 0.5 mg/dL (3-10) L 09/05/23 19:29 Urine Opiates Screen Negative ng/mL (Negative) 09/05/23 19:19 Acetaminophen < 5.0 ug/mL (10-30) L 09/05/23 19:29 Ur Barbiturates Screen Negative ng/mL (Negative) 09/05/23 19:19 Ur Phencyclidine Scrn Negative ng/mL (Negative) 09/05/23 19:19 Ur Amphetamines Screen Negative ng/mL (Negative) 09/05/23 19:19 U Benzodiazepines Scrn Negative ng/mL (Negative) 09/05/23 19:19 Urine Cocaine Screen Negative ng/mL (Negative) 09/05/23 19:19 U Marijuana (THC) Screen Negative ng/mL (Negative) 09/05/23 19:19 Ethyl Alcohol < 10 mg/dL (0-10) 09/05/23 19:29 Influenza Type A Ag negative (Negative) 09/05/23 19:44 Influenza Type B Ag negative (Negative) 09/05/23 19:44 RSV Antigen Negative (Negative) 09/05/23 19:44 SARS-CoV-2 Ag (Rapid) negative (Negative) 09/05/23 19:44 Discharge Plan Discharge Patient Disposition: Home Clinical Impression: Dementia, Medication adverse effect, Sundowning Condition: Stable Prescriptions: New Risperdal 0.5 mg tablet 0.25 mg PO BID Qty: 15 0RF Discontinued lorazepam 0.5 mg tablet 0.25 mg PO BID PRN (Reason: Anxiety) Qty: 30 5RF quetiapine [Seroquel] 25 mg tablet 25 mg PO BEDTIME No Action pantoprazole 40 mg tablet,delayed release (DR/EC) 40 mg PO DAILY@08 hydroxychloroquine 200 mg tablet 400 mg PO DAILY@08 Hold Instructions: Resume on 08/23/20. resume after ciprofloxacin has finished donepezil 10 mg tablet 10 mg PO BEDTIME@20 (DME) Diabetic shoes See Rx Instructions .ROUTE .MEDSUPPLY Qty: 1 0RF Rx Instructions: With 3 pairs of inserts by the shoe mckenzie methenamine hippurate 1 gram tablet 1 g PO BID Qty: 60 12RF Rx Instructions: Take 1000 mg of vitamin C fluticasone propionate 50 mcg/actuation spray,suspension 1 - 2 spray intranasal DAILY@08 Rx Instructions: administer into each nostril (DME) Diabetic shoe with 3 pairs of insterts See Rx Instructions .Route .MEDSUPPLY Qty: 1 0RF Rx Instructions: As directed by HOME (DME) FreeStyle [place] 2 Sensor Kit See Rx Instructions .ROUTE .COMPLEX Qty: 1 10RF Dose Instruction: USE DIRECTED BY FREESTYLE TERRY TWO SENSOR INSTRUCTIONS. Rx Instructions: USE DIRECTED BY FREESTYLE TERRY TWO SENSOR INSTRUCTIONS. folic acid 1 mg Tablet 3 mg PO DAILY@08 montelukast 10 mg Tablet 10 mg PO DAILY@16 PRN (Reason: unknown) memantine 10 mg Tablet 10 mg PO BID ketoconazole 2 % shampoo See Rx Instructions .ROUTE .COMPLEX Rx Instructions: topically on scalp and allow to sit for 5 minutes before rinsing use two to three times weekly as directed nystatin 100,000 unit/gram cream 1 applic TOPICAL BEDTIME Rx Instructions: apply to affected area around the ears mirtazapine 7.5 mg Tablet 7.5 mg PO BEDTIME Systane (PF) 0.4-0.3 % Dropperette 1 drp ophthalmic (eye) QID Rx Instructions: both eyes cevimeline 30 mg capsule 30 mg PO BID@08,20 ascorbic acid (vitamin C) 1,000 mg tablet 1,000 mg PO DAILY@08 acetaminophen 325 mg tablet 650 mg PO Q6H PRN (Reason: pain) Systane Balance 0.6 % Drops 1 drp OPHTHALMIC (EYE) DAILY@08 Rx Instructions: both eyes atorvastatin [Lipitor] 40 mg Tablet 40 mg PO BEDTIME@20 aspirin [Aspir-81] 81 mg Tablet,Delayed Release (Dr/Ec) 81 mg PO DAILY@08 nitroglycerin [Nitrostat] 0.4 mg Tablet, Sublingual 0.4 mg SUBLINGUAL Q5M PRN (Reason: Chest Pain) Rx Instructions: do not exceed 3 doses per episode citalopram 20 mg tablet 20 mg PO DAILY@08 Discharge Orders: Discharge ED (Routine); Ordered 09/06/23 Ordered By: Justin Eaton Referrals: Stiven St DO [Primary Care Provider] - Discharge Diet: Usual diet Discharge Activity: Resume usual activity Patient Instructions: Opioid Safety, Pain Management Activity Restrictions/Additional Instructions: Thank you for choosing [facility] for your healthcare needs today. It is very important that you follow up as instructed or that you return to the Emergency Department should you have concerns or if your condition changes or worsens in any way. You were seen today with behavioral changes like related to dementia. Psychiatry seen in the emergency room recommends stopping Seroquel and Ativan. Starting Risperdal a quarter of a milligram twice a day and following up with your primary care through the custodial. Coding Level of Care Code ED Pedodontist for William Tong
[2023-09-05 20:06] LABS: Basophils % 0.5 %; Eosinophils % 0.3 %; Hematocrit 37.3 % (36-47); Lymphocytes # 0.8 10^3/uL (0.8-4.8); Lymphocytes % 10.7 %; Mean Corpuscular HGB Conc 33.8 g/dL (30-55); Mean Corpuscular Volume 85.7 fl (85-98); Mean Platelet Volume 10.2 fL (7.4-10.4); Monocytes # 1.1 10^3/uL (0.2-0.9); Monocytes % 14.7 %; Neutrophils # 5.36 10^3/uL (1.8-7.7); Neutrophils % 73.4 %; Nucleated Red Blood Cells % 0 %; Platelet Count 218 10^3/cmm (157-399); Red Blood Count 4.35 10^6/uL (3.85-5.65); Red Cell Distribution Width 14.1 % (12.1-15.1)
--- NOTE | 2023-09-05 20:07 | PC.NURSE ---
@ 2004- Patient changed into clean brief and asked if she needed anything. pt has water at bedside. SItter at door.
[2023-09-05 20:10] LABS: Add Urine Microscopic? NO; Charge for UA Resulting for Rev
[2023-09-05 20:12] LABS: Influenza A by IFA negative (Negative); Influenza B by IFA negative (Negative); SARS Covid-2 Antigen negative (Negative)
[2023-09-05 20:13] LABS: Bilirubin Urine Neg (Negative); Blood Urine Neg (Negative); Glucose Urine UA 2+ (Normal); Ketones Urine Negative (Negative); Leukocyte Esterase Urine Negative (Negative); Nitrate Urine Negative (Negative); Protein Urine Neg (Negative); Specific Gravity, Urine 1.005 (1.005-1.030); Urine Appearance Clear (CLEAR); Urine Color Yellow (Yellow); Urobilinogen Urine Neg (Negative); pH Urine 6 (5-7)
[2023-09-05 20:15] LABS: RSV Transfer Patient (ED) Negative (Negative)
[2023-09-05 20:23] LABS: Amphetamines Screen Urine Negative (Negative); Barbiturates Screen Urine Negative (Negative); Benzodiazepines Screen Urine Negative (Negative); Cocaine Screen Urine Negative (Negative); Opiate Screen Urine Negative (Negative); PCP Screen Urine Negative (Negative); THC Screen Urine Negative (Negative)
[2023-09-05 20:35] LABS: Alanine Aminotransferase 27 U/L (0-33); Albumin Level 4.2 g/dL (3.5-5.2); Alkaline Phosphatase 95 U/L (35-105); Anion Gap 13.2 (5-19); Aspartate Amino Transferase 45 U/L (0-32); Blood Urea Nitrogen 14 mg/dL (8-23); Calcium 9.1 mg/dL (8.5-10.5); Carbon Dioxide 27 mmol/L (22-29); Chloride 92 mmol/L (98-107); Creatinine Clr Calc Pharmacy 46.9894; Glucose 212 mg/dL (65-115); Osmolality Calculated 273 mOsm/kg (285-295); Potassium 4.2 mmol/L (3.5-5.1); Salicylate 0.5 mg/dL (3-10); Sodium 128 mmol/L (136-145); Thyroid Stimulating Hormone 3.68 uIU/mL (0.27-4.20); Total Bilirubin 0.3 mg/dL (0.15-1.2); Total Protein 7.2 g/dL (6.6-8.7)
[2023-09-05 20:36] LABS: Acetaminophen < 5.0 ug/mL (10-30); Alcohol Level < 10 mg/dL (0-10)
[2023-09-05 22:36] VITALS: BP 125/76; PULSE 78; RESP 16; O2SAT 96
--- NOTE | 2023-09-06 02:25 | PC.NURSE ---
pt was cleaned and dried after a incontinent episode. New sheets were placed on the bed and pt was put in a new clean gown
[2023-09-06] MEDS: sodium chloride 0.9% 1,000 ML 999 ML IV (03:13)
[2023-09-06] MEDS: sodium chloride 0.9% 500 ML 999 ML IV (03:16)
[2023-09-06 03:23] LABS: Glucose Point of Care 115 mg/dL (70-110)
[2023-09-06 05:10] LABS: Anion Gap 12.8 (5-19); Blood Urea Nitrogen 6 mg/dL (8-23); Calcium 8.3 mg/dL (8.5-10.5); Carbon Dioxide 26 mmol/L (22-29); Chloride 104 mmol/L (98-107); Creatinine Clr Calc Pharmacy 46.9894; Glucose 113 mg/dL (65-115); Osmolality Calculated 286 mOsm/kg (285-295); Potassium 3.8 mmol/L (3.5-5.1); Sodium 139 mmol/L (136-145)
[2023-09-06 06:18] VITALS: BP 114/72; PULSE 72; RESP 18; O2SAT 98
--- NOTE | 2023-09-06 07:39 | PC.NURSE ---
Patient asked to have her brief changed and to be put into scrubs instead of a gown and sit in a recliner. We changed her and got her up. I explained to the patient she had to stay in her room and her breakfast would be served shortly.
[2023-09-06] MEDS: water for injection-sterile 10 ML (08:20)
[2023-09-06] MEDS: ziprasidone 20 mg/mL SDV 10 MG IM (08:20)
[2023-09-06 09:18] LABS: Glucose Point of Care 118 mg/dL (70-110)
--- NOTE | 2023-09-06 09:55 | PC.NURSE ---
Just spoke with Quiana from [facility], she was requesting an update on Mrs. Caceres. I informed Quiana that the patient has been refused by several facilities due to she has behavioral issues and she does not have psychiatric issues or the other facilities are full. I did tell Quiana that if the ER physician consults with our psychiatrist and they deem that Mrs. Caceres is appropriate to go back to [facility], would [facility] be willing to take her back. Quiana said they would be able to take her back.
--- NOTE | 2023-09-06 10:59 | P.NPUCON_ITS ---
Providers/Reason for Consult 2 Consulting Physican/Specialty*: Psychiatry Reason for Consult*: aggression Primary Care Provider: St[facility], Psych Consult HPI History of Present Illness Nereyda Caceres is a 73 year old female with a history of dementia who presented with staff at the [facility] to the emergency department after the patient had been combative. Patient had been stripping off of her close. She had been struggling with decreased oral intake. She had also been increasingly aggressive within the last week. The patient was found to be having some overall decline in her behavior with increased confusion noted along with some concern regarding her ability to control her anger. The patient was evaluated after having received Geodon IM and was unable to be aroused. The resume writer of this note had spoken to the patient's guardian, the son for further information. He had reported that she had been doing well but appeared to have recent decline over the past few days without any clear changes in medication. Medical history: Reviewed as patient had a history of scleroderma and crest syndrome. Current medications: Pantoprazole, hydroxychloroquine, donezepil, methenamine, lorazepam, folic acid, memantine, mirtazapine, Seroquel, atorvastatin, ascorbic acid, allergies: Reviewed as stated social history: She has a history of dementia and is currently residing at [facility]. Meds Home Medications and Allergies Home Medications Medication Instructions Recorded Confirmed Last Taken Type donepezil 10 mg tablet 10 mg PO BEDTIME@09/01/19 09/06/23 09/05/23 History hydroxychloroquine 200 mg tablet 400 mg PO DAILY@09/01/19 09/06/23 09/05/23 History pantoprazole 40 mg tablet,delayed 40 mg PO DAILY@09/01/19 09/06/23 09/05/23 History release folic acid 1 mg tablet 3 mg PO DAILY@08/09/20 09/06/23 09/05/23 History memantine 10 mg tablet 10 mg PO BID 08/09/20 09/06/23 09/05/23 History montelukast 10 mg tablet 10 mg PO DAILY@16 PRN unknown 08/09/20 09/06/23 08/08/20 History methenamine hippurate 1 gram tablet 1 g PO BID #60 tabs 11/19/21 09/06/2309/04/24 Rx Diabetic shoe with 3 pairs of #1 ea 09/16/22 09/06/23 Unknown Rx insterts fluticasone propionate 50 1 - 2 spray intranasal DAILY@09/25/22 09/06/23 09/05/23 History mcg/actuation nasal spray,suspension acetaminophen 325 mg tablet 650 mg PO Q6H PRN pain 10/03/22 09/06/23 09/04/23 History ascorbic acid (vitamin C) 1,000 mg 1,000 mg PO DAILY@10/03/22 09/06/23 09/06/23 History tablet propylene glycol 0.6 % eye drops 1 drp ophthalmic (eye) DAILY@10/03/22 09/06/23 09/05/23 History (Systane Balance) Diabetic shoes #1 ea 12/23/22 09/06/23 Unknown Rx aspirin 81 mg tablet,delayed 81 mg PO DAILY@12/29/22 09/06/23 09/05/23 History release atorvastatin 40 mg tablet (Lipitor) 40 mg PO BEDTIME@20 12/29/22 09/06/23 09/05/23 History citalopram 20 mg tablet 20 mg PO DAILY@12/29/22 09/06/23 09/05/23 History nitroglycerin 0.4 mg sublingual 0.4 mg sublingual Q5M PRN Chest 12/29/22 09/06/23 Unknown History tablet (Nitrostat) Pain flash glucose sensor (FreeStyle #1 ea 02/04/23 09/06/23 Unknown Rx Terry 2 Sensor kit) cevimeline 30 mg capsule 30 mg PO BID@08,20 07/05/23 09/06/23 09/05/23 History ketoconazole 2 % shampoo See Rx Instructions .Route .COMPLEX 07/05/23 09/06/23 Unknown History mirtazapine 7.5 mg tablet 7.5 mg PO BEDTIME 07/05/23 09/06/23 09/05/23 History nystatin 100,000 unit/gram topical 1 applic topical BEDTIME 07/05/23 09/06/23 09/05/23 History cream peg 400-propylene glycol (PF) 0.4 1 drp ophthalmic (eye) QID 07/05/23 09/06/2324 History %-0.3 % eye drops in a dropperette (Systane (PF)) risperidone 0.5 mg tablet 0.25 mg (1/2 x 0.5 mg) PO BID #15 09/06/23 Unknown Rx (Risperdal) tabs Allergies Allergy/AdvReac Type Severity Reaction Status Date / Time cefditoren [From Spectracef] Allergy Rash Verified 09/05/23 18:36 ceftriaxone [From Rocephin] Allergy Unknown Verified 09/05/23 18:36 cefuroxime Allergy Unknown Verified 09/05/23 18:36 cephalexin Allergy Rash Verified 09/05/23 18:36 clindamycin Allergy Unknown Verified 09/05/23 18:36 doxycycline Allergy Unknown Verified 09/05/23 18:36 levofloxacin Allergy Unknown Verified 09/05/23 18:36 PFSH NPU 2 PFSH: Medical History Frail elderly Sclerodactyly Scleroderma, limited Urgency incontinence Chronic cystitis History of pyelonephritis Feeling of incomplete bladder emptying Dementia Squamous cell carcinoma of skin of chest Diabetes mellitus CREST syndrome Surgical History History of hysteroscopy (10/18/12) With D&C. Negative evaluation. Dx: Postmenopausal bleeding. Performed by Dr. Daugherty at [facility]. History of hand surgery (~2012) Ruptured tendons of right hand History of tubal ligation (~1975) Family History Grandmother Diabetes Paternal CAD (coronary artery disease) Maternal Grandfather Diabetes Maternal CAD (coronary artery disease) Maternal Family/Other Stroke Maternal aunt Brother Hyperlipidemia Mother , at age 92 CAD (coronary artery disease) Father , at age 54 Alcoholic Social History Smoking and tobacco/nicotine status: never used tobacco/nicotine Alcohol intake: never Substance/Drug Use: never Marital status: / Current occupational status: retired Mental Status Exam 2 MSE Comments: patient was sedated and was unable to answer any questions. she was difficult to arouse. Thought process was difficult to assess as the patient was essentially nonverbal. She did not appear to be responding to internal stimuli. There is no overt delusions noted. Her attention span was impaired. Memory testing was not completed. Mood was not endorsed. Affect appeared flat. Vitals/I&O/Wt Last Vital Signs Temp 98.5 F 09/05/23 18:29 Pulse 72 09/06/23 06:18 Resp 18 09/06/23 06:18 BP 114/72 09/06/23 06:18 Pulse Ox 98 09/06/23 06:18 O2 Del Method Room Air 09/06/23 06:18 09/05/23 09/06/23 09/06/23 22:59 06:59 14:59 Intake Total 1500 / 1500 0.017 / 0.017 Balance 1500 / 1500 0.017 / 0.017 Weight last 48 hrs Weight 48.988 kg Data NPU 09/05/23 19:29 09/06/23 04:49 A&P Assessment and plan (1) Dementia with behavioral disturbance: Plan 73-year-old female with dementia increased agitation and difficulties with more disinhibition while residing in a senior living. Patient may benefit from some changes in medication with the plan for Jose to contact the primary care physician there if no improvement occurs within 3 days upon return. Recommendations include #1 discontinue Seroquel 25mg at night and begin risperidone 0.25 mg twice a day to target agitation. #2 discontinue Ativan Prescribed 0.25 mg twice a day. #3 return to ED if no improvement noted or increased escalation of aggression occurs over the next few days. Attestations NPU 2 Medical Necessity Statement*: inpatient geropsychiatry treatment not recommended currently. Coding Level of Care Code Acute Code for [facility] Fwd Diagnoses Dementia with behavioral disturbance F03.918
== END 2023-09-06 15:03 | disposition home or self-care (01) ==
PROVIDERS: Emergency Medicine; Emergency Provider Family Medicine; PCP Family Medicine
DX: F03.90 Unspecified dementia, unspecified severity, without behavioral disturbance, psychotic disturbance, mood disturbance, and anxiety (principal); F05 Delirium due to known physiological condition; T50.905A Adverse effect of unspecified drugs, medicaments and biological substances, initial encounter; Z79.82 Long term (current) use of aspirin; Z11.52 Encounter for screening for COVID-19; E11.9 Type 2 diabetes mellitus without complications
CPT/HCPCS: 36415; 36416; 71045; 80048; 80053; 80306; 80307; 81003; 82962; 84443; 85025; 87426; 87804; 87899; 93005; 96360; 96361; 96372; 99285; J3486; J7030; J7040